=== PATIENT | female | born 1945 | race Caucasian/White ===

== ENCOUNTER → 2021-04-17 07:01 | Outpatient (CLI) | payer MEDICARE, OTHER, SELFPAY ==
--- NOTE | 2021-04-17 07:04 | CA_ITS ---
APPROVED REPORT Pie Maker Machine: [id number] Study Quality: Good Indications: HTN Renal Artery Doppler Origin (R) 160.4/ cm/sec Proximal (R) 165.2/ cm/sec Mid (R) 171.6/ cm/sec Distal (R) 197.3/ cm/sec Renal Aorta Ratio (R) 1.69 Segmental A. (R) / cm/sec RI: 0.71 Segmental A. Sup (R) 43.0/12.0 cm/sec Segmental A. Mid (R) 65.0/19.0 cm/sec Segmental A. Inf (R) 30.0/9.0 cm/sec Origin (L) 129.9/ cm/sec Proximal (L) 157.0/ cm/sec Mid (L) 165.8/ cm/sec Distal (L) 216.9/ cm/sec Renal Aorta Ratio (L) 1.87 Segmental A. (L) / cm/sec RI: 0.71 Segmental A. Sup (L) 45.0/12.0 cm/sec Segmental A. Mid (L) 37.0/11.0 cm/sec Segmental A. Inf (L) 34.0/10.0 cm/sec Renal Measurements Kidney Size (R) 11.3x5.3 cm Cortical Thickness (R) 1.9 cm Kidney Size (L) 11.4x5.7 cm Cortical Thickness (L) 1.5 cm Conclusion No evidence of renal artery stenosis Electronically signed by : Ean Rosales MD 04/17/2021 16:56:24
--- NOTE | 2021-04-17 07:04 | CA_ITS ---
APPROVED REPORT Exam: Pharmacologic Technologist: Megan Smileyde Ht: 5 ft 3 in Wt: 226 lbs BSA: 2.04 m2 HR: 69 bpm BP: 151/82 mmHg Indications: Chest pain Stress Test Details Test: LEXISCAN HR Resting HR: 67 bpm Max Heart Rate (APMHR): 144.154568 bpm Max HR Achieved: 99 bpm Target HR (85% APMHR): 122.915416 bpm % of APMHR: 68.75 Recovery HR: 77 bpm BP Resting BP: 151.0/82.0 mmHg Max BP: 163.0/70.0 mmHg Recovery BP: 149.0/73.0 mmHg ECG Clinical Exercise duration: 04:01 min Highest Stage Achieved: Stress ECG Conclusion Lexiscan portion complete. Patient complains of shortness of breath during peak infusion. Symptoms: Shortness of breath during peak infusion, resolved in recovery. No chest pain. Arrhythmias/Ectopy: No ectopy ST-T Changes: Less than 1.[address] depression. Conclusion: Images to follow. Test Summary REST 02:02 . . 67 . 151/ 82 . . Stage 1 . . . . . . . Myoview Injected Stage 1 01:00 . . 96 . . . . Stage 2 01:00 . . 87 . 162/ 70 . . Stage 3 01:00 . . 85 . 163/ 70 . . Stage 4 01:00 . . 77 . 152/ 76 . . Stage 4 01:01 . . 78 . 152/ 76 . Stop exercise at 04:01 RECOVERY 01:00 . . 80 . 147/ 78 . . RECOVERY 02:00 . . 77 . 149/ 73 . . RECOVERY 03:00 . . 73 . 149/ 73 . . RECOVERY 04:00 . . 71 . 149/ 73 . . RECOVERY 04:04 . . 74 . 149/ 73 . . Electronically signed by : Leonel Mtz MD 04/17/2021 18:10:54
--- NOTE | 2021-04-17 07:04 | NM_ITS ---
APPROVED REPORT Exam: Nuclear Stress Test Indication: Chest pain, Abnormal EKG, HTN, DM, High cholesterol, Family history Patient Location: Outpatient Stress Tech: Megan Pratt [place] Tech:Crystal Zarate, ARRT, RT (R)(N) Ht: 5 ft 3 in Wt: 220 lbs Bra Size: 36C HR: 69 bpm BP: 151/82 mmHg BSA: 2.01 m2 BMI: 38.9 History: Chest pain, Abnormal EKG, HTN, DM, High cholesterol, Family history Procedure: Patient received a 0.4 mg of intravenous Lexiscan, resting heart rate 69 bpm, resting blood pressure 151/82 mmHg, with Lexiscan maximum heart rate achived was 87 bpm which is Less than 85 % of the maximum predicted heart rate and blood pressure was 162/70 mmHg. With Lexiscan, patient denied any complaint of chest pain. Electrocardiogram Resting electrocardiogram showed sinus rhythm, with Lexiscan there is less than 1.[address] segment depression noted from the baseline EKG. The EKG portion of the Lexiscan is nondiagnostic. Cardiac Stress and Resting SPECT Images: Cardiac Stress and Resting SPECT images were obtained using technetium 99m Myoview 32.7 mCi stress and 10.73 mCi at rest. Patient unable to lay on belly for Prone images. Gated SPECT for analysis of segmental wall motion and calculation of the ejection fraction also done. Cardiac stress and resting SPECT images show moderate sized area of reversible ischemia involving the anterolateral wall, computer derived ejection fraction is 57% with no regional wall motion abnormality, there is transient ischemic dilatation of the left ventricle seen, right ventricle is mildly enlarged with normal contractility. Conclusion: 1. The EKG portion of the Lexiscan is nondiagnostic. 2. Scintigraphic evidence of reversible ischemia involving the moderate area in the anterolateral wall, computer derived ejection fraction 57% with no regional wall motion abnormality, however there is transient ischemic dilatation of the left ventricle seen, raising the concerns for balanced ischemia and multivessel coronary artery disease. Right ventricle is mildly enlarged with normal contractility. 3. Abnormal Lexiscan Myoview study. Electronically signed by : Leonel Mtz MD 04/17/2021 18:49:15
--- NOTE | 2021-04-17 07:04 | CA_ITS ---
APPROVED REPORT EXAM: Comprehensive 2D, Doppler, and color-flow Echocardiogram Parts Manager: Melissa Dodson CRT Ht: 5 ft 3 in Wt: 226lbs BSA: 2.04 BP: 172/78 mmHg Indications: Abnormal ECG, Chest Pain, Shortness of Breath, Peripheral Edema 2D Dimensions LVOT 1.91 cm (M/F) 1.5-2.5 M-Mode Dimensions RVDd 2.29 cm (0.9-2.6) LA Diam 4.16 cm (1.9-4.0) LVDd 4.61 cm (3.5-5.7) Ao Diam 3.44 cm (2.0-3.7) LVDs 3.16 cm (3.5-5.7) IVSd 1.85 cm (0.6-1.1) PWd 0.81 cm (0.6-1.1) EF (Teich) 59.40% FS 31.50% EDV (Teich) 97.80 mL TAPSE 1.97 (<1.7) ESV (Teich) 39.70 mL LV Diastology E Decel Time 163.00 (160-240 msec) E/A Ratio 1.55 MED E' 8.20 (< 7 cm/sec) MED A' 6.50 cm/s E'/MED E' Ratio 12.26 (>14) LAT E' 6.80 (<10 cm/sec) LAT A' 5.00 cm/s E/LAT E' Ratio 14.78 (>14) Aortic Valve AO Peak GR. 13.90 mmHg Mitral Valve MV A Velocity 65.00 (40-130 cm/s) E/A Ratio 1.55 MV Decel. Time 163.00 (160-240 ms) Pulmonary Valve PV Peak Velocity 183.00 (50-150 cm/s) Tricuspid Valve TR P. Velocity 289.00 cm/s RAP Estimate 10.00 mmHg RVSP 43.30 mmHg Left Ventricle Left atrium is moderately enlarged, left ventricle is normal size, mild concentric left ventricular hypertrophy, visually estimated ejection fraction 55% with no regional wall motion abnormality, diastolic parameters are inconclusive. Right Ventricle Right atrium and right ventricle mildly enlarged with normal contractility. Aortic Valve Aortic valve is thickened and calcified without Doppler evidence of aortic stenosis or aortic insufficiency. Mitral Valve Mitral valve is grossly normal, there is mild mitral regurgitation. Tricuspid Valve Tricuspid valve grossly normal, there is mild tricuspid regurgitation, tricuspid regurgitation jet velocity is inadequate for calculation of the right ventricular systolic pressure. Pulmonic Valve Pulmonic valve is poorly visualized. Great Vessels Aortic root is normal size. Pericardium No significant pericardial effusion noted. Conclusion 1. Moderately enlarged left atrium, normal left ventricular size, mild concentric left ventricular hypertrophy, visually estimated ejection fraction 55% with no regional wall motion abnormality, diastolic parameters are inconclusive. 2. Mildly enlarged right ventricle with normal contractility. 3. Mild mitral and tricuspid regurgitation. 4. No significant pericardial effusion noted. Electronically signed by : Leonel Mtz MD 04/17/2021 22:09:13
--- NOTE | 2021-04-17 08:38 | HMH.ITSHM ---
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 []PRAVASTATIN METOPROLOL METFORMIN LISINOPRIL HCTZ ASA
== END ==
PROVIDERS: PCP Family Medicine; Visit Provider Physician Assistant
DX: I10 Essential (primary) hypertension (principal); R06.00 Dyspnea, unspecified; R07.9 Chest pain, unspecified; R42 Dizziness and giddiness; R53.83 Other fatigue; R60.0 Localized edema; R94.31 Abnormal electrocardiogram [ECG] [EKG]
CPT/HCPCS: 78452; 93017; 93306; 93976; A9502; J2785

== ENCOUNTER → 2023-07-12 10:53 | Outpatient (CLI) | payer MEDICARE, SELFPAY ==
[2023-07-12 11:56] LABS: Basophils % 0.3 % (0.1-2.0); Eosinophils # 0.2 K/mm3 (0.0-0.4); Eosinophils % 2.2 % (0.1-12.0); Hematocrit 43.7 % (37.0-47.0); Hemoglobin 14.6 g/dL (12.2-16.2); Lymphocytes % 20.1 % (10-50); Mean Corpuscular HGB Conc 33.5 g/dL (31.8-35.4); Mean Corpuscular Hemoglobin 31.3 pg (27.0-31.2); Mean Corpuscular Volume 93.5 fl (81-99); Mean Platelet Volume 9.4 fl (7.4-10.4); Monocytes # 0.7 K/mm3 (0.1-1.0); Monocytes % 6.6 % (1.7-9.3); Neutrophils % 70.8 % (37.0-80.0); Platelet Count 265 K/mm3 (142-424); Red Blood Count 4.67 M/mm3 (4.20-5.40); Red Cell Distribution Width 14.5 % (11.5-17.5); White Blood Count 9.8 K/mm3 (4.8-10.8)
[2023-07-12 12:43] LABS: Alanine Aminotransferase 24 U/L (12-78); Albumin Level 4.1 g/dl (3.5-5.0); Alkaline Phosphatase 57 U/L (38-126); Aspartate Amino Transferase 29 U/L (14-36); Bilirubin,Direct 0.5 mg/dl (0.0-0.4); Bilirubin,Indirect 0.1 mg/dL (0.0-0.9); Bilirubin,Total 0.6 mg/dl (0.2-1.3); Bilirubin,Unconjugated 0.1 mg/dL (0.0-1.1); Blood Urea Nitrogen 12 mg/dl (7-17); Calcium 9.7 mg/dl (8.4-10.2); Carbon Dioxide 24 mmol/L (22.0-30.0); Chloride 99 mmol/L (98-107); Chol/HDL Ratio 3.2 (1-3.5); Cholesterol 176 mg/dl (140-200); Estimated Glomerular Filt Rate 81 ml/min (>60); GFR (African American) 98 ML/MIN (>60); Glucose 142 mg/dl (74-100); HDL Cholesterol 55 mg/dl (40-60); Magnesium 1.6 mg/dl (1.6-2.3); Sodium 135 mmol/L (136-145); Triglycerides 193 mg/dl (30-150); VLDL Cholesterol 39 mg/dL (0-40)
[2023-07-12 13:05] LABS: Free T4 (Free Thyroxine) 1.53 ng/dl (0.78-2.19)
[2023-07-12 13:16] LABS: Thyroid Stimulating Hormone 2.63 uIU/mL (0.465-4.68)
== END ==
PROVIDERS: PCP Nurse Practitioner; Visit Provider Nurse Practitioner Family
DX: E11.9 Type 2 diabetes mellitus without complications (principal); E78.5 Hyperlipidemia, unspecified; I10 Essential (primary) hypertension; I48.91 Unspecified atrial fibrillation; R06.00 Dyspnea, unspecified; R94.39 Abnormal result of other cardiovascular function study; G47.33 Obstructive sleep apnea (adult) (pediatric); Z79.84 Long term (current) use of oral hypoglycemic drugs
CPT/HCPCS: 36415; 80048; 80061; 80076; 83735; 84439; 84443; 85025

== ENCOUNTER 2023-07-18 08:19 | Day surgery (SDC) | payer MEDICARE, SELFPAY ==
[2023-07-18] VITALS (12 sets, daily range): BP systolic 102–160; BP diastolic 31–116; PULSE 87–130; RESP 16–20; O2SAT 91–96; BMI 39.6
--- NOTE | 2023-07-18 07:09 | IR_ITS ---
APPROVED REPORT Patient Location: Outpatient PROCEDURES Left heart catheterization Left ventriculogram Selective coronary angiogram INDICATION Angina pectoris, Abnormal Myoview Informed consent was obtained prior to the procedure. COMPLICATIONS None Estimated Blood Loss: Less than10 mls TECHNIQUE One percent lidocaine was used to anesthetize the right groin. The right femoral artery was accessed via the Seldinger technique. A 4-Gabonese sheath was placed in the right femoral artery. The JL-4 and JR-4 catheter was also used to perform left heart catheterization left ventriculogram and selective coronary angiogram. At the end of the procedure the patient was transferred to the post-op holding area in stable condition for arterial sheath removal. ANGIOGRAPHIC RESULTS The left main artery Normal The left anterior descending artery Is a proximal smooth 20 to 30% proximal to mid vessel stenosis The circumflex artery Dominant with mild 10% luminal irregularities The right coronary artery Nondominant with proximal 10 to 20% luminal irregularities The RODRIGUEZ ventriculogram reveals Hyperdynamic at 70% The left ventricular end-diastolic pressure 10 mmHg IMPRESSION Mild nonflow limiting coronary disease Hyperdynamic ventricle consistent with hypertensive heart disease Normal LVEDP PLAN 1. Treatment of underlying hypertension which is likely etiology for patient's chest pain Electronically signed by : Johnny Bolton MD 07/18/2023 11:53:02
[2023-07-18 09:09] LABS: Basophils # 0.1 K/mm3 (0-0.2); Basophils % 0.6 % (0.1-2.0); Eosinophils # 0.3 K/mm3 (0.0-0.4); Eosinophils % 2.3 % (0.1-12.0); Hematocrit 48.2 % (37.0-47.0); Hemoglobin 16.6 g/dL (12.2-16.2); Lymphocytes % 19.2 % (10-50); Mean Corpuscular HGB Conc 34.5 g/dL (31.8-35.4); Mean Corpuscular Hemoglobin 31.2 pg (27.0-31.2); Mean Corpuscular Volume 90.4 fl (81-99); Mean Platelet Volume 9.3 fl (7.4-10.4); Monocytes # 0.7 K/mm3 (0.1-1.0); Monocytes % 6.2 % (1.7-9.3); Neutrophils # 7.6 K/mm3 (1.8-7.8); Neutrophils % 71.8 % (37.0-80.0); Platelet Count 281 K/mm3 (142-424); Red Blood Count 5.33 M/mm3 (4.20-5.40); Red Cell Distribution Width 14.3 % (11.5-17.5); White Blood Count 10.5 K/mm3 (4.8-10.8)
[2023-07-18 09:18] LABS: Chloride 97 mmol/L (98-107); Potassium 3.8 mmoL/L (3.5-5.1); Sodium 138 mmol/L (136-145)
[2023-07-18 09:21] LABS: Anion Gap 12.8 mEq/L (5-15); Blood Urea Nitrogen 14 mg/dl (7-17); Calcium 9.7 mg/dl (8.4-10.2); Carbon Dioxide 32 mmol/L (22.0-30.0); Creatinine Clearance Estimated 73 mL/min (50-200); Estimated Glomerular Filt Rate 69 ml/min (>60); GFR (African American) 84 ML/MIN (>60); Glucose 196 mg/dl (74-100)
--- NOTE | 2023-07-18 15:02 | SUR.PHASEII ---
Md notified of BP and HR stated ok with discharge
== END 2023-07-18 15:03 | disposition home or self-care (01) ==
PROVIDERS: PCP Nurse Practitioner; Visit Provider Internal Medicine
DX: I11.9 Hypertensive heart disease without heart failure (principal); I48.91 Unspecified atrial fibrillation; R06.00 Dyspnea, unspecified; R94.39 Abnormal result of other cardiovascular function study; E11.9 Type 2 diabetes mellitus without complications; Z79.84 Long term (current) use of oral hypoglycemic drugs; Z79.899 Other long term (current) drug therapy; I25.10 Atherosclerotic heart disease of native coronary artery without angina pectoris
CPT/HCPCS: 80048; 85025; 93458; 99152; C1725; C1769; J1644; Q9967

== ENCOUNTER → 2023-07-24 14:07 | Outpatient (CLI) | payer MEDICARE, SELFPAY ==
--- NOTE | 2023-07-24 14:13 | XR_ITS ---
FINAL REPORT CLINICAL HISTORY: dyspnea/rib pain left side FINDINGS: Left ribs Two views were obtained. There is no acute fracture or dislocation. No soft tissue abnormality is identified. IMPRESSION: No acute process. Reviewed, Interpreted and Dictated by Rolando Fields III, MD Transcribed by Erika Parikh Authenticated and [facility]
--- NOTE | 2023-07-24 14:13 | XR_ITS ---
FINAL REPORT CLINICAL HISTORY: dyspnea/rib pain FINDINGS: TWO-VIEW CHEST The heart size is normal. The mediastinum is normal. There is mild right base atelectasis. Large hiatal hernia is identified. There is no pneumothorax. IMPRESSION: Right base atelectasis. Reviewed, Interpreted and Dictated by Rolando Fields III, MD Transcribed by Erika Parikh Authenticated and [facility]
== END ==
LOC: RAD 14:09
PROVIDERS: Visit Provider Nurse Practitioner
DX: I11.9 Hypertensive heart disease without heart failure (principal); I25.118 Atherosclerotic heart disease of native coronary artery with other forms of angina pectoris; I48.91 Unspecified atrial fibrillation; R06.00 Dyspnea, unspecified; R94.39 Abnormal result of other cardiovascular function study; E78.5 Hyperlipidemia, unspecified; E11.9 Type 2 diabetes mellitus without complications; Z79.84 Long term (current) use of oral hypoglycemic drugs
CPT/HCPCS: 71046; 71100

== ENCOUNTER 2023-12-03 10:41 | Inpatient (IN) | payer MEDICARE, SELFPAY ==
[2023-12-03] VITALS (32 sets, daily range): BP systolic 70–179; BP diastolic 38–115; PULSE 78–187; RESP 20–27; TEMP 36.1–37.1; O2SAT 81–100; BMI 32.4; BMI 36.3
--- NOTE | 2023-12-03 10:48 | ECG_ITS ---
APPROVED REPORT Exam: Resting ECG HR:191 bpm ECG Measurements Heart Rate 191 AXES QRSd 85 QRS 116 QT 201 T 0 QTc 299 Conclusion ATRIAL FIBRILLATION WITH RAPID VENTRICULAR RESPONSE WITH ABERRANT CONDUCTION OR VENTRICULAR PREMATURE COMPLEXES POSSIBLE RIGHT VENTRICULAR HYPERTROPHY [SOME/ALL OF: PROMINENT R IN V1, LATE TRANSITION, RAD, ROSIE, SSS] SEPTAL MYOCARDIAL INFARCTION , PROBABLY OLD [40+ ms Q WAVE IN V1/V2] LATERAL MYOCARDIAL INFARCTION , PROBABLY OLD [40+ ms Q WAVE AND/OR ST/T ABNORMALITY IN I/aVL/V5/V6] CRITICAL TEST RESULT WARNING: DATA QUALITY MAY AFFECT INTERPRETATION UNCONFIRMED REPORT Electronically signed by : MATTHIEU OLIVARES, 12/04/2023 06:10:10
--- NOTE | 2023-12-03 10:58 | PC.NURSE ---
Dr. Macario notified at bedside of critical ABG/Lactic results. is in the process of intubating pt.
[2023-12-03 11:00] LABS: ABG Base Excess -15.4 mmol/L (-2.4-2.3); ABG Oxygen Saturation 81 % (90-100); ABG PO2 68.4 mmhg (80-100); ABG TCO2 18.1 mmhg (23-27)
[2023-12-03] MEDS: ETOMIDATE 40MG/20ML VIAL 30 MG IV (11:01)
--- NOTE | 2023-12-03 11:07 | ECG_ITS ---
APPROVED REPORT Exam: Resting ECG HR:131 bpm ECG Measurements Heart Rate 131 AXES CO 175 P 81 QRSd 86 QRS 101 QT 364 T 101 QTc 441 Conclusion SINUS TACHYCARDIA RIGHT AXIS DEVIATION [QRS AXIS > 100] SEPTAL MYOCARDIAL INFARCTION , PROBABLY OLD [40+ ms Q WAVE IN V1/V2] MODERATE T-WAVE ABNORMALITY, CONSIDER LATERAL ISCHEMIA [-0.1+ mV T-WAVE IN I/aVL/V5/V6] ABNORMAL ECG UNCONFIRMED REPORT Electronically signed by : MATTHIEU OLIVARES, 12/04/2023 06:09:50
[2023-12-03] MEDS: 0.9 % SODIUM CHLORIDE 1000ML 1,000 ML 999 ML IV (11:10)
--- NOTE | 2023-12-03 11:10 | CT_ITS ---
PROCEDURE INFORMATION: Exam: CTA Chest With Contrast Exam date and time: 12/03/2023 1:12 PM Age: 78 years old Clinical indication: Other: AMS; Additional info: AMS, concern for dissection TECHNIQUE: Imaging protocol: Computed tomographic angiography of the chest with contrast. Exam focused on the arteries. 3D rendering (Not supervised by radiologist): MIP and/or 3D reconstructed images were created by the technologist. Radiation optimization: All CT scans at this facility use at least one of these dose optimization techniques: automated exposure control; mA and/or kV adjustment per patient size (includes targeted exams where dose is matched to clinical indication); or iterative reconstruction. Contrast material: ISOVUE; Contrast volume: 100 ml; Contrast route: INTRAVENOUS (IV); COMPARISON: CR XR CHEST PORTABLE 12/03/2023 11:13 AM FINDINGS: Tubes, catheters and devices: There is an endotracheal tube 4 cm above the antonio. There is a feeding tube with its tip in the stomach. Pulmonary arteries: Good pulmonary arterial opacification without evidence of pulmonary emboli on these 3.5 mm thick images which are larger than normal for an adequate pulmonary embolism study. Aorta: There is no evidence of an aortic aneurysm or dissection. Mild aortic calcifications. Lungs: Bilateral pulmonary infiltrates, diffuse. Summer more ground-glass and consolidative. This could represent pulmonary edema. Bibasilar consolidations suggestive of compressive atelectasis. Pleural spaces: Moderate to large bilateral pleural effusions. Heart: The heart size is at the upper limits of normal. Lymph nodes: Unremarkable. No enlarged lymph nodes. Bones/joints: Unremarkable. No acute fracture. Soft tissues: Unremarkable. IMPRESSION: 1. Findings suggest fluid overload and/or some degree of heart failure. 2. Endotracheal tube and feeding tube. 3. There is no aortic dissection or aneurysm.
--- NOTE | 2023-12-03 11:10 | CT_ITS ---
PROCEDURE INFORMATION: Exam: CTA Neck With Contrast Exam date and time: 12/03/2023 1:08 PM Age: 78 years old Clinical indication: Other: AMS; Additional info: AMS, HTN, tachycardia TECHNIQUE: Imaging protocol: Computed tomographic angiography of the neck with contrast. Exam focused on the cervical segments of the vasculature. 3D rendering (Not supervised by radiologist): MIP and/or 3D reconstructed images were created by the technologist. Radiation optimization: All CT scans at this facility use at least one of these dose optimization techniques: automated exposure control; mA and/or kV adjustment per patient size (includes targeted exams where dose is matched to clinical indication); or iterative reconstruction. Contrast material: ISOVUE; Contrast volume: 100 ml; Contrast route: INTRAVENOUS (IV); COMPARISON: CT ANGIO HEAD 12/03/2023 1:08 PM FINDINGS: The patient is intubated and there is an enteric tube. Motion artifact somewhat degrades evaluation of the arteries. Right common carotid artery: No stenosis. No dissection or occlusion. Right internal carotid artery: No stenosis of the extracranial segment. No dissection or occlusion. Right external carotid artery: No occlusion or stenosis of the origin. Left common carotid artery: No stenosis. No dissection or occlusion. Left internal carotid artery: No stenosis of the extracranial segment. No dissection or occlusion. Left external carotid artery: No occlusion or stenosis of the origin. Right vertebral artery: No stenosis. No dissection or occlusion. Left vertebral artery: No stenosis. No dissection or occlusion. Soft tissues: There are large bilateral pleural effusions with consolidation and air bronchogram in both upper lobes as well as diffuse interstitial edema. There is heterogeneous enlargement of the right lobe of the thyroid gland. Bones/joints: No acute fracture. IMPRESSION: No significant stenoses of the internal carotid arteries by NASCET criteria. Large bilateral pleural effusions with consolidation in both upper lobes which may be due to pneumonia/aspiration among other etiologies. REFERENCES: NASCET CRITERIA. The degree of stenosis in the cervical segment of the internal carotid artery is based on NASCET criteria. Normal is no stenosis. Mild is less than 50% stenosis. Moderate is 50-69% stenosis. Severe is 70% to 99% stenosis. Total occlusion is no detectable patent lumen.
--- NOTE | 2023-12-03 11:10 | CT_ITS ---
PROCEDURE INFORMATION: Exam: CTA Head With Contrast, Arteriography Exam date and time: 12/03/2023 1:08 PM Age: 78 years old Clinical indication: Other: AMS; Additional info: AMS, concern for dissection TECHNIQUE: Imaging protocol: Computed tomographic angiography of the head with contrast. Exam focused on the arteries. 3D rendering (Not supervised by radiologist): MIP and/or 3D reconstructed images were created by the technologist. Radiation optimization: All CT scans at this facility use at least one of these dose optimization techniques: automated exposure control; mA and/or kV adjustment per patient size (includes targeted exams where dose is matched to clinical indication); or iterative reconstruction. Contrast material: ISOVUE; Contrast volume: 100 ml; Contrast route: INTRAVENOUS (IV); COMPARISON: CT HEAD/BRAIN WO CON 12/03/2023 1:05 PM FINDINGS: Limitations: Motion artifact somewhat degrades evaluation of the arteries. There is somewhat poor opacification of the intracranial arteries. ANTERIOR CIRCULATION: Right internal carotid artery: There appears to be mild irregularity of the terminal segment but this may be due to motion artifact. Right middle cerebral artery: No occlusion or significant stenosis. No aneurysm. Right anterior cerebral artery: The A1 segment is not well assessed which appears to be due to motion artifact but it may be atretic with the A2 segment constituted from the left A1 via a patent anterior communicating artery. Left internal carotid artery: Intracranial segment is patent with no significant stenosis. No aneurysm. Left middle cerebral artery: No occlusion or significant stenosis. No aneurysm. Left anterior cerebral artery: No occlusion or significant stenosis. No aneurysm. POSTERIOR CIRCULATION: Right vertebral artery: No occlusion or significant stenosis. No aneurysm. Left vertebral artery: No occlusion or significant stenosis. No aneurysm. Basilar artery: No occlusion or significant stenosis. No aneurysm. Right posterior cerebral artery: No occlusion or significant stenosis. No aneurysm. Left posterior cerebral artery: No occlusion or significant stenosis. No aneurysm. No venous sinus thrombosis. Brain: No definite mass, mass effect, or midline shift. Cerebral ventricles: The ventricles appear mildly enlarged, but not out of proportion to the degree of parenchymal volume loss. Bones/joints: Unremarkable. No acute fracture. Soft tissues: There appears to be a small amount of fluid layering in a left sphenoid air cell. IMPRESSION: No large vessel occlusion.
--- NOTE | 2023-12-03 11:11 | CT_ITS ---
PROCEDURE INFORMATION: Exam: CTA Abdomen and Pelvis With Contrast Exam date and time: 12/03/2023 1:12 PM Age: 78 years old Clinical indication: Other: Concern for dissection TECHNIQUE: Imaging protocol: Computed tomographic angiography of the abdomen and pelvis with contrast. Exam focused on the arteries. 3D rendering (Not supervised by radiologist): MIP and/or 3D reconstructed images were created by the technologist. Radiation optimization: All CT scans at this facility use at least one of these dose optimization techniques: automated exposure control; mA and/or kV adjustment per patient size (includes targeted exams where dose is matched to clinical indication); or iterative reconstruction. Contrast material: ISOVUE; Contrast volume: 100 ml; Contrast route: INTRAVENOUS (IV); COMPARISON: CT ANGIO CHEST 12/03/2023 1:12 PM FINDINGS: Tubes, catheters and devices: There is a feeding tube with tip in the stomach. Aorta: No evidence of an aortic aneurysm. No evidence of an aortic dissection. Mild trace peripheral calcifications of the aorta. Celiac trunk and mesenteric arteries: The superior mesenteric artery is unremarkable. The inferior mesenteric artery is patent. The celiac artery is difficult to evaluate being due to 4 mm sagittal reconstructed images. There could be volume averaging effect and a 50+ % stenosis cannot be excluded. Renal arteries: No occlusion or significant stenosis. Right iliac arteries: No occlusion or significant stenosis. Left iliac arteries: No occlusion or significant stenosis. Liver: Large fatty liver 200 mm. Gallbladder and bile ducts: Unremarkable. No calcified stones. No ductal dilation. Pancreas: Unremarkable. No mass. No ductal dilation. Spleen: Unremarkable. No splenomegaly. Adrenal glands: Unremarkable. No mass. Kidneys and ureters: Hypodensities seen in both kidneys presumably small cysts but are indeterminate given the artifact. Stomach and bowel: Numerous colonic diverticula without acute diverticulitis. Appendix: No evidence of appendicitis. Intraperitoneal space: Unremarkable. No free air. No significant fluid collection. Lymph nodes: Unremarkable. No enlarged lymph nodes. Urinary bladder: Dejesus catheter with air in the urinary bladder. Reproductive: Unremarkable as visualized. Bones/joints: No acute fracture. Soft tissues: There is artifact, from the patient's arms scanned by her side. Other findings: The chest will be discussed in a separate examination. IMPRESSION: 1. No evidence of aortic aneurysm and/or dissection. 2. Due to coronal reconstructions being 4 mm thick I cannot exclude a 50+ % stenosis of the celiac artery however, there is no evidence of abnormality of the other arteries. 3. Fatty liver. 4. Feeding tube. 5. Indeterminate bilateral renal lesions possibly cysts. They are indeterminate due to artifact from the patient's arms. However these are all under 1 cm and statistically presumed cysts. 6. Colonic diverticulosis.
--- NOTE | 2023-12-03 11:11 | CT_ITS ---
PROCEDURE INFORMATION: Exam: CT Head Without Contrast Exam date and time: 12/03/2023 1:05 PM Age: 78 years old Clinical indication: Altered mental status/memory loss; Additional info: AMS intubation TECHNIQUE: Imaging protocol: Computed tomography of the head without contrast. Radiation optimization: All CT scans at this facility use at least one of these dose optimization techniques: automated exposure control; mA and/or kV adjustment per patient size (includes targeted exams where dose is matched to clinical indication); or iterative reconstruction. COMPARISON: No relevant prior studies available. FINDINGS: Brain: Periventricular white matter tract changes demonstrated. Mild-moderate prominence of the cortical sulci. Cerebral ventricles: No ventriculomegaly. Paranasal sinuses: Visualized sinuses are unremarkable. No fluid levels. Mastoid air cells: Visualized mastoid air cells are well aerated. Bones/joints: Unremarkable. No acute fracture. Soft tissues: Unremarkable. IMPRESSION: 1. Findings compatible with moderate intracerebral volume loss. Minimal sphenoid sinus inflammatory changes. 2. No evidence of acute intracranial abnormality.
--- NOTE | 2023-12-03 11:12 | XR_ITS ---
PROCEDURE INFORMATION: Exam: XR Chest Exam date and time: 12/03/2023 11:13 AM Age: 78 years old Clinical indication: Device placement; Ett placement (vent status); Additional info: Intubatin TECHNIQUE: Imaging protocol: Radiologic exam of the chest. Views: 1 view. COMPARISON: CR XR CHEST 2V 07/24/2023 2:14 PM FINDINGS: Tubes, catheters and devices: Interpretation limited secondary to technique and external monitors. ET tube demonstrated. Tip located 4.5 cm above the bifurcation. Lungs: Patchy diffuse bilateral interstitial and alveolar infiltrates partially visualized. Pleural spaces: Unremarkable. No pleural effusion. No pneumothorax. Heart/Mediastinum: Unremarkable. No cardiomegaly. Bones/joints: Unremarkable. IMPRESSION: 1. ET tube demonstrated. Tip located 4.5 cm above the bifurcation. 2. Patchy diffuse bilateral interstitial and alveolar infiltrates partially visualized.
[2023-12-03] MEDS: propofoL 100 ML 2.81999999999999984 MG IV (11:20)
[2023-12-03] MEDS: IPRATROPIUM/ALBUTEROL 3 ML NEB 20 ML IH (11:21)
[2023-12-03 11:24] LABS: Chloride 105 mmol/L (98-107)
[2023-12-03 11:25] LABS: Basophils # 0.1 K/mm3 (0-0.2); Basophils % 0.8 % (0.1-2.0); Eosinophils # 0.1 K/mm3 (0.0-0.4); Eosinophils % 0.9 % (0.1-12.0); Hematocrit 50.7 % (37.0-47.0); Hemoglobin 15.4 g/dL (12.2-16.2); Lymphocytes # 3.2 K/mm3 (0.7-4.5); Lymphocytes % 25.5 % (10-50); Mean Corpuscular HGB Conc 30.5 g/dL (31.8-35.4); Mean Corpuscular Hemoglobin 30.8 pg (27.0-31.2); Monocytes # 0.8 K/mm3 (0.1-1.0); Monocytes % 6.3 % (1.7-9.3); Neutrophils # 8.3 K/mm3 (1.8-7.8); Neutrophils % 66.4 % (37.0-80.0); Platelet Count 309 K/mm3 (142-424); Potassium 3.7 mmoL/L (3.5-5.1); Red Blood Count 5.02 M/mm3 (4.20-5.40); Sodium 136 mmol/L (136-145); White Blood Count 12.5 K/mm3 (4.8-10.8)
[2023-12-03 11:27] LABS: Alanine Aminotransferase 36 U/L (12-78); Alkaline Phosphatase 103 U/L (38-126); Aspartate Amino Transferase 39 U/L (14-36); Bilirubin,Total 1.2 mg/dl (0.2-1.3); Blood Urea Nitrogen 8 mg/dl (7-17); Estimated Glomerular Filt Rate 96 ml/min (>60); GFR (African American) 117 ML/MIN (>60)
[2023-12-03 11:28] LABS: Albumin Level 3.9 g/dl (3.5-5.0); Albumin/Globulin Ratio 1.2 (1.1-1.8); Anion Gap 14.7 mEq/L (5-15); Carbon Dioxide 20 mmol/L (22.0-30.0); Globulin 3.3 g/dL (1.3-3.2); Total Protein,Serum 7.2 g/dl (6.3-8.2)
[2023-12-03 11:29] LABS: Glucose 465 mg/dl (74-100)
--- NOTE | 2023-12-03 11:30 | PC.NURSE ---
LAB CALLED WITH CRITICAL GLUCOSE [phone]
--- NOTE | 2023-12-03 11:34 | EXP.PHA.CONS ---
Pharmacy Consult Date: 12/03/23 Time: 11:34 Referring provider: DR. CLAYTON Reason for Consult:: VANCOMYCIN DOSING Allergies Allergy/AdvReac Type Severity Reaction Status Date / Time No Known Allergies Allergy Verified 07/24/23 13:15 Home Medications Medication Instructions Recorded Confirmed Type lisinopril 40 mg tablet 40 mg PO DAILY 04/10/21 07/24/23 History pravastatin 80 mg tablet 80 mg PO HS 04/10/21 07/24/23 History hydrochlorothiazide 25 mg tablet 25 mg PO DAILY #30 tabs 04/24/21 07/24/23 Rx apixaban 5 mg tablet (Eliquis) 5 mg PO BID #60 tabs 07/12/23 07/24/23 Rx cyanocobalamin (vitamin B-12) 1,000 mcg PO DAILY 07/12/23 07/24/23 History 1,000 mcg tablet (Vitamin B-12) ergocalciferol (vitamin D2) 1,250 1,250 mcg PO DAILY 07/12/23 07/24/23 History mcg (50,000 unit) capsule (Vitamin D2) glipizide 10 mg tablet 10 mg PO DAILY 07/12/23 07/24/23 History metformin 500 mg tablet 1,000 mg PO BID 07/12/23 07/24/23 History metoprolol succinate 100 mg 50 mg PO BID 07/12/23 07/24/23 History tablet,extended release 24 hr (Toprol XL) diltiazem HCl 240 mg 240 mg PO BID #60 caps 07/24/23 07/24/23 Rx capsule,extended release 24 hr New Prescriptions to Start Prescriptions: Height: 1.7 m Weight: 94 kg Laboratory Results:: Laboratory Results - last 24 hr 12/03/23 11:07: Sodium 136, Potassium 3.7, Chloride 105, Carbon Dioxide 20 L, Anion Gap 14.7, BUN 8, Creatinine 0.60, Estimated GFR 96, Est GFR ( Amer) 117, Glucose 465 H*, Calcium 9.0, Total Bilirubin 1.2, AST 39 H, ALT 36, Alkaline Phosphatase 103, Total Protein 7.2, Albumin 3.9, Globulin 3.3 H, Albumin/Globulin Ratio 1.2 Medical History: Medical History (Updated 07/24/23 @ 13:46 by Yakelin Calle RN) Coronary artery disease Atypical angina Afib Abnormal stress test HLD (hyperlipidemia) HTN (hypertension) Abnormal result of cardiovascular function study Dyspnea YOLANDE (obstructive sleep apnea) Assessment and Plan Assessment and plan all Dx Assessment and Plan for all problems:: Pharmacokinetic dosing service Objective: Patient: Floor: Age: 78 yo Serum creatinine: 1 mg/dL Height: 67.0 Inches Weight (kg): 94 Assessment: IBW (kg): 61.60 Dosing wt(kg): 94 Estimated Creatinine clearance (ml/min): 44.4 CRCL method: Cockcroft and Gault using ibw(default). Drug selected: Vancomycin Loading dose (mg): 0 Vd (liters): 75.2 (factor used: 0.8 L/kg) Yousuf (hr-1): 0.041 Half life (hrs): 16.91 Recommended dose: 1750 mg Interval: 24 hrs Infusion time (hrs): 2.0 Predicted peak (mcg/mL): 35.7 Predicted trough (mcg/mL): 14.49 Total body weight is being used for vancomycin dosing. Recommendations: Give Vancomycin 1750 mg q 24 hrs with an expected Cpeak of 35.7 mcg/ml and an expected Ctrough of 14.49 mcg/ml ----Vanco only - ignore for aminoglycosides----- CLvanco= 3.08 L/hr AUC 0-24 /SAUL Data: SAUL 0.5 mcg/mL: AUC/SAUL: 1136.4 SAUL 1.0 mcg/mL: AUC/SAUL: 568.2 --------- SALU 1.5 mcg/mL: AUC/SAUL: 378.8 SAUL 2.0 mcg/mL: AUC/SAUL: 284.1
[2023-12-03] MEDS: ETOMIDATE 40MG/20ML VIAL 10 MG IV (11:36)
[2023-12-03] MEDS: SUCCINYLCHOLINE 20MG/ML 10 ML MDV 150 MG IV (11:36)
[2023-12-03 11:37] LABS: NT Pro Brain Natriuretic Pep. 2540 pg/mL (0-450)
[2023-12-03] MEDS: VANCOMYCIN CONSULT REQUEST 1 EACH NOTAPPLIC (11:37)
[2023-12-03 11:42] LABS: Troponin I < 0.01 ng/ml (0.00-0.034)
[2023-12-03 11:45] LABS: Activated Partial Thrombo Time 22.2 seconds (22.8-30.6)
--- NOTE | 2023-12-03 11:45 | [facility]H.EDCP ---
Discharge Plan Disposition Patient Disposition: Admitted Chief Complaint: Shortness of Breath/Dyspnea Prescriptions Prescriptions: No Action hydrochlorothiazide 25 mg tablet 25 mg PO DAILY Qty: 30 3RF pravastatin 80 mg tablet 80 mg PO HS lisinopril 40 mg tablet 40 mg PO DAILY metformin 500 mg tablet 1,000 mg PO BID cyanocobalamin (vitamin B-12) [Vitamin B-12] 1,000 mcg tablet 1,000 mcg PO DAILY Patient Comments: TAKE ONE TABLET BY MOUTH EVERY DAY ergocalciferol (vitamin D2) [Vitamin D2] 1,250 mcg (50,000 unit) capsule 1,250 mcg PO DAILY Patient Comments: take 1 capsule by mouth once a week metoprolol succinate [Toprol XL] 100 mg tablet extended release 24 hr 50 mg PO BID glipizide 10 mg tablet 10 mg PO DAILY Patient Comments: TAKE ONE TABLET BY MOUTH EVERY DAY Eliquis 5 mg tablet 5 mg PO BID Qty: 60 11RF diltiazem HCl 240 mg capsule,extended release 24hr 240 mg PO BID Qty: 60 3RF Referrals Follow up/Referrals: Provider,Referral, MD [Primary Care Provider] - See instructions Clinical Impressions Clinical Impression: CHF exacerbation, Atrial fibrillation with rapid ventricular response, Acute hypoxemic respiratory failure, Acute cardiac pulmonary edema Discharge ED Provider: Naveen Macario HPI General Chief Complaint: Shortness of Breath/Dyspnea Stated Complaint: Afib RVR new onset, SOA Time Seen by Provider: 12/03/23 10:45 Mode of Arrival: EMS Source of Information: Patient Limitations: No Limitations Description of Symptoms (Recalled from ER Triage Doc. by RN): pt to ed via ems c/o SOA. per ems pt was able to walk to the stretcher and declined in route. pt arrived 82% on a nonrebreather. pt unable to answer any questions at this time. History of Present Illness HPI narrative: 78-year-old patient with hypertension, hyperlipidemia, on Eliquis, CHF presenting with shortness of breath and palpitations. Called to home for shortness of breath. Walk to stretcher, but weak, pale, around 80% on nonrebreather. Patient was brought to the emergency department for further evaluation. Glucose with EMS was 182. On arrival, patient unable to answer question and in more than partial word sentences and intermittently uncooperative with exam. Tachycardic, pale, short of breath. 81% on 15 nonrebreather. Pulses are equal and symmetric. Please note that above description of symptoms, in this electronic medical record under categorization of recalled from ER triage doctor by RN are reflective of an initial nursing assessment, however, is not reflective of my full history and physical exam that was personally taken and clarified. Consequentially, this preceding description of symptoms, which may include the patient's categorized chief complaint in the EMR, do not reflect my personal clinical impression, and the ultimate description of history of present illness and patient stated complaints should be deferred to this section of the note. Unless stated otherwise or congruent with this section of the note, additional signs, symptoms, or incongruence should be interpreted as inaccurate with my clinical impression. Related Data Home Medications Medication Instructions Recorded Confirmed lisinopril 40 mg tablet 40 mg PO DAILY 04/10/21 07/24/23 pravastatin 80 mg tablet 80 mg PO HS 04/10/21 07/24/23 cyanocobalamin (vitamin B-12) 1,000 mcg PO DAILY 07/12/23 07/24/23 1,000 mcg tablet (Vitamin B-12) ergocalciferol (vitamin D2) 1,250 1,250 mcg PO DAILY 07/12/23 07/24/23 mcg (50,000 unit) capsule (Vitamin D2) glipizide 10 mg tablet 10 mg PO DAILY 07/12/23 07/24/23 metformin 500 mg tablet 1,000 mg PO BID 07/12/23 07/24/23 metoprolol succinate 100 mg 50 mg PO BID 07/12/23 07/24/23 tablet,extended release 24 hr (Toprol XL) Previous Rx's Medication Instructions Recorded hydrochlorothiazide 25 mg tablet 25 mg PO DAILY #30 tabs 04/24/21 apixaban 5 mg tablet (Eliquis) 5 mg PO BID #60 tabs 07/12/23 diltiazem HCl 240 mg 240 mg PO BID #60 caps 07/24/23 capsule,extended release 24 hr Allergies Allergy/AdvReac Type Severity Reaction Status Date / Time No Known Allergies Allergy Verified 07/24/23 13:15 [facility] Disclaimer: The information contained in this section may have been updated after the patient was seen, as this information can be updated by other users. Medical History (Updated 12/03/23 @ 14:33 by Naveen Macario MD) Coronary artery disease Atypical angina Afib Abnormal stress test HLD (hyperlipidemia) HTN (hypertension) Abnormal result of cardiovascular function study Dyspnea YOLANDE (obstructive sleep apnea) Family History Other No significant family history Social History Smoking Status: Unknown if ever smoked alcohol intake: current current occupational status: other Travel in the last 8 weeks: Inside the [place] ROS Obtained: Yes All systems reviewed & no additional complaints except as documented Physical Exam General General appearance: alert, in distress, obese and other (Cyanotic, pale, diaphoretic) Neck Neck exam: Present trachea midline Chest Chest inspection: Present normal inspection and symmetric chest wall rise Respiratory Respiratory exam: Present respiratory distress, accessory muscle use, prolonged expiratory phase and other; Absent normal lung sounds bilaterally, wheezes or stridor Cardiovascular Cardiovascular exam: Present tachycardia and irregular rhythm Abdominal Exam Abdominal exam: Present soft; Absent distention Extremities Exam Extremities exam: Present edema (Tube is not) Neurological Exam Neurological exam: Present alert, oriented X3 and CN II-XII intact Skin Skin exam: Present cyanosis, diaphoresis and pallor; Absent warm or dry HEART Score HEART Score HEART Score assessment performed?: Yes HEART Score: 6 Procedures Limited Ultrasound Indication:: Limited cardiac ultrasound Indication: A-fib RVR, shortness of breath Identified cardiac views: -Cardiac parasternal long axis -Cardiac parasternal short axis -Cardiac apical four-chamber Findings: -Cardiac activity present and grossly hypodynamic -Gross wall motion normal -Pericardial effusion absent -Right heart strain present Impression: -Grossly hypodynamic heart with evidence of right heart strain. No evidence of effusion Images were saved to permanent archive The study was technically adequate CPT: 75887 This study was performed by me, and I personally interpreted all images/videos. Based on my clinical judgement, these images were adequate and did necessitate further imaging. Critical Care Critical Care Time Critical Care Time: Yes (CP) Attestation: On 12/03/23, the high probability of a clinically significant, sudden or life threatening deterioration of the following system(s) required my full and direct attention, intervention and personal management. The time I documented below is in addition to time spent performing reported procedures but includes the following listed in this critical care notation. Total Time Total Critical Care Time: 120 Medical Decision Making Medical Records Medical records reviewed: Yes I reviewed the patient's medical records. John Inquiry Pt receiving controlled substance: No John was queried for this patient: No Vital Signs Vital Signs: 12/03/23 11:02 12/03/23 11:12 12/03/23 11:24 Pulse Rate 134 H 135 H Pulse Rate [Left Radial] 187 H Respiratory Rate 20 27 H Blood Pressure 122/105 H Blood Pressure [Right Arm] 179/115 H Blood Pressure Mean 110 Blood Pressure Mean [Right Arm] 136 02 Sat by Pulse Oximetry 99 81 L Oxygen Delivery Method Mechanical Ventilation Non-Rebreather Oxygen Flow Rate (LPM) 15 12/03/23 11:24 12/03/23 12:00 12/03/23 12:30 Pulse Rate 139 H 142 H 126 H Pulse Rate [Left Radial] Respiratory Rate 20 Blood Pressure 108/59 L 105/52 L Blood Pressure [Right Arm] Blood Pressure Mean 75 62 Blood Pressure Mean [Right Arm] 02 Sat by Pulse Oximetry 98 96 Oxygen Delivery Method Mechanical Ventilation Oxygen Flow Rate (LPM) 12/03/23 12:40 12/03/23 12:50 12/03/23 13:34 Pulse Rate 124 H 124 H 170 H Pulse Rate [Left Radial] Respiratory Rate 22 Blood Pressure 104/53 L 106/46 L 70/45 L Blood Pressure [Right Arm] Blood Pressure Mean 65 64 48 Blood Pressure Mean [Right Arm] 02 Sat by Pulse Oximetry 92 L 98 97 Oxygen Delivery Method Mechanical Ventilation Mechanical Ventilation Mechanical Ventilation Oxygen Flow Rate (LPM) 12/03/23 13:58 12/03/23 14:10 Pulse Rate 92 H 78 Pulse Rate [Left Radial] Respiratory Rate 22 22 Blood Pressure 84/41 L 81/47 L Blood Pressure [Right Arm] Blood Pressure Mean 60 55 Blood Pressure Mean [Right Arm] 02 Sat by Pulse Oximetry 97 97 Oxygen Delivery Method Mechanical Ventilation Mechanical Ventilation Oxygen Flow Rate (LPM) Lab Data Labs: Lab Results 12/03/23 10:58: Specimen Source Right brachial, O2 % Nrb, ABG pH 6.99 L*, ABG pCO2 67.8 H, ABG pO2 68.4 L, ABG HCO3 16.0 L, ABG Total CO2 18.1 L, ABG O2 Saturation 81 L*, ABG Base Excess -15.4 L, Ean Test Patient unable 12/03/23 11:07: WBC 12.5 H, RBC 5.02, Hgb 15.4, Hct 50.7 H, MCV 101.0 H, MCH 30.8, MCHC 30.5 L, RDW 14.0, Plt Count 309, MPV 10.0, Neut % (Auto) 66.4, Lymph % (Auto) 25.5, Murray % (Auto) 6.3, Eos % (Auto) 0.9, Baso % (Auto) 0.8, Neut # (Auto) 8.3 H, Lymph # (Auto) 3.2, Murray # (Auto) 0.8, Eos # (Auto) 0.1, Baso # (Auto) 0.1, APTT 22.2 L, Sodium 136, Potassium 3.7, Chloride 105, Carbon Dioxide 20 L, Anion Gap 14.7, BUN 8, Creatinine 0.60, Estimated GFR 96, Est GFR ( Amer) 117, Glucose 465 H*, Calcium 9.0, Magnesium 2.1, Total Bilirubin 1.2, AST 39 H, ALT 36, Alkaline Phosphatase 103, Troponin I < 0.01, NT-Pro-B Natriuret Pep 2540 H, Total Protein 7.2, Albumin 3.9, Globulin 3.3 H, Albumin/Globulin Ratio 1.2 12/03/23 11:44: Specimen Source L radial, O2 % 100, ABG pH 7.23 L*, ABG pCO2 40.1, ABG pO2 184.8 H, ABG HCO3 16.4 L, ABG Total CO2 17.6 L, ABG O2 Saturation 99, ABG Base Excess -11.2 L, Ean Test Acceptable, Vent Rate 22, Tidal Volume 420, PEEP 8 12/03/23 11:07 12/03/23 11:07 Response Orders (Tests/Meds): ED MEDICATIONS Generic Name Dose Route Start Last Admin Trade Name Freq PRN Reason Stop Dose Admin Propofol 100 mls @ 2.82 mls/hr 12/03/23 11:21 12/03/23 11:20 Diprivan 10mg/Ml 100ml Bottle IV 01/02/24 11:20 5 mcg/kg/min .Q24H BERNABE 2.82 mls/hr Administration Protocol 5 MCG/KG/MIN Amiodarone HCl 900 mg/ 518 mls @ 33.3 mls/hr 12/03/23 14:15 Dextrose IV 12/04/23 05:48 .[id number] [facility] Bumetanide 10 mg/ Sodium 100 mls @ 5 mls/hr 12/03/23 14:15 Chloride IV 01/02/24 14:14 .Q20H [facility] Protocol Ondansetron HCl 4 mg 12/03/23 14:19 Ondansetron 4mg/2ml Vial IV 01/02/24 14:18 Q8HP PRN Nausea Discontinued Medications Generic Name Dose Route Start Last Admin Trade Name Freq PRN Reason Stop Dose Admin Albuterol/Ipratropium 20 ml 12/03/23 11:19 12/03/23 11:21 Ipratropium/Albuterol 3 Ml Neb IH 12/03/23 11:20 20 ml ONCE ONE Administration Bumetanide 2 mg 12/03/23 14:15 Bumetanide 1mg/4ml Vial IV 12/03/23 14:16 ONCE ONE Etomidate 30 mg 12/03/23 11:00 12/03/23 11:01 Etomidate 40mg/20ml Vial IV 12/03/23 11:01 30 mg ONCE ONE Administration Etomidate 10 mg 12/03/23 11:18 12/03/23 11:36 Etomidate 40mg/20ml Vial IV 12/03/23 11:19 10 mg ONCE ONE Administration Furosemide 40 mg 12/03/23 11:35 Furosemide 40mg/4ml Vial IV 12/03/23 11:36 ONCE ONE Furosemide 80 mg 12/03/23 11:36 12/03/23 12:00 Furosemide 40mg/4ml Vial IV 12/03/23 11:37 80 mg ONCE ONE Administration Sodium Chloride 1,000 mls @ 999 mls/hr 12/03/23 11:09 Sod Chlor 0.9% 1000ml Bag IV 12/03/23 12:09 .Q1H1M ONE Ampicillin Sodium/Sulbactam 100 mls @ 200 mls/hr 12/03/23 11:24 Sodium 3 gm/ Sodium Chloride IV 12/03/23 11:25 ONCE ONE Vancomycin/PEG/NADA/Lysine/Water 1.75 gm in 350 mls @ 175 mls/hr 12/03/23 11:45 Vancomycin 1.75gm/350ml (Peg) Premix IV 12/03/23 13:44 ONCE ONE Amiodarone HCl 150 mg/ 103 mls @ 600 mls/hr 12/03/23 14:15 Dextrose IV 12/03/23 14:25 ONCE ONE Iopamidol 200 ml 12/03/23 13:32 12/03/23 13:32 Iopamidol-370 (76%);100ml Bottle IV 12/03/23 13:33 200 ml ONCE ONE Administration Miscellaneous 1 each 12/03/23 11:30 12/03/23 11:37 Vancomycin Consult Request NOTAPPLIC 01/02/24 11:29 1 each CONSULT PHARMACY BERNABE Administration Sodium Chloride 100 ml 12/03/23 13:31 12/03/23 13:32 0.9 % Sodium Chloride 50 Ml Vial IV 12/03/23 13:32 100 ml ONCE ONE Administration Sodium Chloride 10 ml 12/03/23 13:32 12/03/23 13:32 Sodium Chloride 0.9% 10ml Syr (Rad Only) IV 12/03/23 13:33 10 ml ONCE ONE Administration Succinylcholine Chloride 150 mg 12/03/23 11:01 12/03/23 11:36 Succinylcholine 20mg/Ml 10 Ml Mdv IV 12/03/23 11:02 150 mg ONCE ONE Administration ORDERS Category Date Time Status CT angio abdomen pelvis Stat Cat Scan 12/03/23 11:[address] angio head Stat Cat Scan 12/03/23 11:[address] angio neck Stat Cat Scan 12/03/23 11:[address] head/brain wo con Stat Cat Scan 12/03/23 11:11 Completed CTA Chest [CT angio chest - dissection] Stat Cat Scan 12/03/23 11:10 Completed CA echo limited Routine Exams 12/03/23 Completed CXR --portable [XR chest portable] Stat Exams 12/03/23 12:26 Completed POCUS Point of Care (ER Only) Stat Exams 12/03/23 11:11 Taken XR chest portable Stat Exams 12/03/23 11:12 Completed CBC w/Auto Diff [Complete Blood Count Auto Diff] Stat Lab 12/03/23 11:07 Completed Complete Blood Count Auto Diff AMLAB Lab 12/04/23 06:00 Ordered Complete Blood Count Auto Diff AMLAB Lab 12/05/23 06:00 Ordered Complete Blood Count Auto Diff AMLAB Lab 12/06/23 06:00 Ordered Comprehensive Metabolic Panel AMLAB Lab 12/04/23 06:00 Ordered Comprehensive Metabolic Panel AMLAB Lab 12/05/23 06:00 Ordered Comprehensive Metabolic Panel AMLAB Lab 12/06/23 06:00 Ordered Comprehensive Metabolic Panel Stat Lab 12/03/23 11:07 Completed Lactic Acid Routine Lab 12/03/23 14:25 Ordered Magnesium Stat Lab 12/03/23 11:07 Completed NT Pro Brain Natriuretic Pep. Stat Lab 12/03/23 11:07 Completed PTT [Activated Partial Thrombo Time] Stat Lab 12/03/23 11:07 Completed Troponin I Q3H Lab 12/03/23 14:15 Ordered Troponin I Q3H Lab 12/03/23 17:15 Ordered Troponin I Stat Lab 12/03/23 11:07 Completed Urinalysis and Microscopic Routine Lab 12/03/23 14:20 Ordered Blood Culture Stat Micro 12/03/23 11:58 Received ABG [Arterial Blood Gas] Stat RT 12/03/23 11:28 Ordered Arterial Blood Gas Routine RT 12/03/23 10:58 Completed Arterial Blood Gas Routine RT 12/03/23 11:44 Completed MDM Narrative Medical Decision Narrative: 78-year-old patient with hypertension, hyperlipidemia, on Eliquis, CHF presenting with shortness of breath and palpitations. Called to home for shortness of breath. Walk to stretcher, but weak, pale, around 80% on nonrebreather. Patient was brought to the emergency department for further evaluation. Glucose with EMS was 182. On arrival, patient unable to answer question and in more than partial word sentences and intermittently uncooperative with exam. Tachycardic, pale, short of breath. 81% on 15 nonrebreather with EMS. Pulses are equal and symmetric. History obtained with EMS and patient. On arrival, patient hemodynamically unstable, hypertensive, tachycardic, A-fib with RVR, diaphoretic, pale, altered mental status with partial sentences. 81% on room air. Patient was placed on nonrebreather, improved around 90%. Initial EKG with A-fib with RVR around 190 bpm. Narrow QRS, QT within normal limits. No evidence of ischemia. Pads were placed, access unable to be obtained initially. Interosseous drill brought into room, were able to obtain access shortly prior to drilling. Because patient still following commands and oxygen saturation improved, synchronized cardioversion was pursued. Patient was given 0.1 mg/kg (10 mg IV) etomidate. Synchronous cardioversion successful with return to normal sinus rhythm, however patient continued to desaturate with altered mental status, intubation was performed. Pulses intact. Because decreased breath sounds bilaterally, shortness of breath, [id number] ultrasound was performed. Extremely hypodynamic heart with minimal squeeze. Evidence of right heart strain present. No effusion. No pneumothorax. Patient was placed on ventilator and propofol sedation. Repeat EKG with sinus tachycardia [address] changes concerning for acute ischemia, but patient does have anteroseptal T wave abnormality Without reciprocal change. Independent interpretation of workup reveals chemistry with glucose 465, likely partially stress response. Troponin undetectable, BNP elevated at 2500. Patient's ABG concerning for metabolic acidosis with pH 7.2, bicarb 16.4, CO2 normal at 40, lactic acid 5.6. Chest x-ray with concern for pulmonary edema and cardiomegaly. Patient was given [address] scan arterial phase chest abdomen pelvis was performed looking for dissection versus PE, this was negative for dissection or PE, but patient has large bilateral pleural effusions supporting further diagnosis of CHF. CTA of the head and neck normal, no CT head findings that are acute. After CT scan, patient back in A-fib with RVR, cardioverted again under propofol. Return to normal sinus rhythm for a few minutes, this happened again, patient was cardioverted again. After return into RVR, cardiology was contacted for further guidance. Cardiology recommended amiodarone bolus and drip. This was performed. Patient back in A-fib with RVR. Cardiology further recommended digoxin load and intermittent dosing. This to be performed. Hospital medicine was contacted and case was discussed at length, ultimately, patient to be admitted for severe heart failure exacerbation, acute pulmonary edema, acute respiratory failure.
[2023-12-03 11:47] LABS: ABG Base Excess -11.2 mmol/L (-2.4-2.3); ABG HCO3 16.4 mmhg (22.0-26.0); ABG Oxygen Saturation 99 % (90-100); ABG PCO2 40.1 mmhg (35.0-45.0); ABG PH 7.23 mmol/L (7.35-7.45); ABG PO2 184.8 mmhg (80-100); ABG TCO2 17.6 mmhg (23-27)
[2023-12-03 11:49] LABS: Allen's Test ACCEPTABLE; Oxygen 100 %; PEEP 8; Source L RADIAL; Tidal Volume 420; Vent Rate 22
[2023-12-03 11:51] LABS: Magnesium 2.1 mg/dl (1.6-2.3)
[2023-12-03] MEDS: AMPICILLIN/SULBACTAM 3 GM in 0.9 % SODIUM CHLORIDE 100 ML IV (12:00)
[2023-12-03] MEDS: FUROSEMIDE 40MG/4ML VIAL 80 MG IV (12:00)
[2023-12-03] MEDS: MAGNESIUM SULFATE IN WATER 2 GM/50 ML PIGGYBACK IV (12:00)
[2023-12-03 12:11] LABS: Allen's Test Patient Unable; Oxygen NRB %; Source Right Brachial
[2023-12-03 12:12] LABS: ABG PH 6.99 mmol/L (7.35-7.45)
[2023-12-03 12:13] LABS: ABG PCO2 67.8 mmhg (35.0-45.0)
--- NOTE | 2023-12-03 12:26 | XR_ITS ---
PROCEDURE INFORMATION: Exam: XR Chest Exam date and time: 12/03/2023 1:42 PM Age: 78 years old Clinical indication: Device placement; Ng tube; Additional info: Ngt placement confirmation TECHNIQUE: Imaging protocol: Radiologic exam of the chest. Views: 1 view. COMPARISON: CT ANGIO CHEST 12/03/2023 1:12 PM FINDINGS: Tubes, catheters and devices: NG tube has been placed which is demonstrated extending below the hemidiaphragm into the region of the proximal body of the stomach. Lungs: Patchy diffuse bilateral interstitial and alveolar infiltrates again partially visualized. Pleural spaces: Unremarkable. No pleural effusion. No pneumothorax. Heart/Mediastinum: Unremarkable. No cardiomegaly. Bones/joints: Unremarkable. IMPRESSION: NG tube has been placed which is demonstrated extending below the hemidiaphragm into the region of the proximal body of the stomach.
--- NOTE | 2023-12-03 13:30 | ECG_ITS ---
APPROVED REPORT Exam: Resting ECG HR:133 bpm ECG Measurements Heart Rate 133 AXES QRSd 105 QRS 109 QT 330 T 143 QTc 408 Conclusion ATRIAL FLUTTER/TACHYCARDIA WITH RAPID VENTRICULAR RESPONSE RIGHT AXIS DEVIATION [QRS AXIS > 100] ST DEVIATION AND MODERATE T-WAVE ABNORMALITY, CONSIDER ANTEROLATERAL ISCHEMIA [-0.1+ mV T-WAVE IN V3-V6] ST DEVIATION AND MODERATE T-WAVE ABNORMALITY, CONSIDER INFERIOR ISCHEMIA [-0.1+ mV T-WAVE IN II/aVF] ABNORMAL ECG UNCONFIRMED REPORT Electronically signed by : MATTHIEU OLIVARES, 12/04/2023 06:07:36
[2023-12-03] MEDS: SODIUM CHLORIDE 0.9% 10ML SYR (RAD ONLY) 10 ML IV (13:32)
[2023-12-03] MEDS: IOPAMIDOL-370 (76%);100ML BOTTLE 200 ML IV (13:32)
[2023-12-03] MEDS: 0.9 % SODIUM CHLORIDE 50 ML VIAL 100 ML IV (13:32)
--- NOTE | 2023-12-03 13:36 | ECG_ITS ---
APPROVED REPORT Exam: Resting ECG HR:164 bpm ECG Measurements Heart Rate 164 AXES QRSd 99 QRS 102 QT 268 T 0 QTc 358 Conclusion ATRIAL FIBRILLATION WITH RAPID VENTRICULAR RESPONSE RIGHT AXIS DEVIATION [QRS AXIS > 100] NONSPECIFIC ST & T-WAVE ABNORMALITY CRITICAL TEST RESULT UNCONFIRMED REPORT Electronically signed by : MATTHIEU OLIVARES, 12/04/2023 06:08:04
--- NOTE | 2023-12-03 13:41 | PC.NURSE ---
pt converted into afib rvr, per MD 200j shock delivered.
--- NOTE | 2023-12-03 13:43 | PC.NURSE ---
Dr Macario speaking with cardiology
[2023-12-03] MEDS: propofoL 100 ML 33.8400000000000034 MG IV ×2 (13:45→17:19)
--- NOTE | 2023-12-03 13:50 | PC.NURSE ---
Dr. Jamison and Tamela VILLANUEVA at [facility]
--- NOTE | 2023-12-03 14:02 | PC.NURSE ---
Dr. Macario contacted Dr. Duran about pt admission. Waiting for response.
[2023-12-03 14:31] LABS: Microscopic, Urine URINE MICROSCOPIC (MICROSCOPIC)
[2023-12-03 14:35] LABS: Appearance,Urine SL CLOUDY (Clear); Bilirubin,Urine Negative (Negative); Blood, Urine 2+ (Negative); Color,Urine YELLOW (Yellow); Glucose,Urine (UA) 3+ (Negative); Ketones,Urine TRACE (Negative); Leukocyte Esterase,Urine Negative (Negative); Nitrate,Urine Negative (Negative); Protein,Urine 3+ (Negative); Specific Gravity, Urine >= 1.030 (1.005-1.030)
--- NOTE | 2023-12-03 14:35 | CA_ITS ---
APPROVED REPORT EXAM: Comprehensive 2D, Doppler, and color-flow Echocardiogram Steamfitter: Melissa Dodson CRT Ht: 5 ft 7 in Wt: 207lbs BSA: 2.05 BP: 81/47 mmHg Indications: Resp failure, intubated, pulmonary edema Shortness of Breath, Atrial Fibrillation, Palpitations, Hyperlipidemia, Hypertension/HDD M-Mode Dimensions LA Diam 4.84 cm (1.9-4.0) LVDd 4.46 cm (3.5-5.7) LVDs 3.67 cm (3.5-5.7) IVSd 2.39 cm (0.6-1.1) PWd 1.11 cm (0.6-1.1) EF (Teich) 37.00% FS 17.70% EDV (Teich) 90.50 mL ESV (Teich) 57.00 mL Aortic Valve AO Peak GR. 10.00 mmHg Pulmonary Valve PV Peak Velocity 98.9 (50-150 cm/s) Tricuspid Valve TR P. Velocity 159.20 cm/s RAP Estimate 10.00 mmHg RVSP 20.10 mmHg Left Ventricle The left ventricle is normal size. The left ventricular systolic function is normal. The left ventricular ejection fraction is within the normal range. There is marked increase in LV wall thickness (IVSd 1.6 cm). There is no evidence of LVOT obstruction at rest. The interatrial septum appears asynchronous. LVEF is 55%. Diastolic function is indeterminate. Right Ventricle The right ventricle is moderately dilated. Right ventricle is moderately hypokinetic. Atria The left atrium is moderately dilated. Right atrium is moderately dilated. The interatrial septum is not well-visualized. Aortic Valve The aortic valve is mildly thickened. There is no aortic valvular stenosis. Trace aortic regurgitation. Mitral Valve The mitral valve leaflets are mildly thickened. Chordal HARRISON is present. No evidence of mitral valve stenosis. Trace mitral regurgitation. Tricuspid Valve The tricuspid valve leaflets are thin and pliable. Trace tricuspid regurgitation. There is insufficient TR jet to estimate RVSP. Pulmonic Valve The pulmonary valve is normal in structure. Trace pulmonic regurgitation. Great Vessels The aortic root is not well-visualized. The IVC is not well-visualized. Pericardium There is no pericardial effusion. Other Information Study Quality: Technically Difficult Conclusion Technically difficult study in the setting of mechanical ventilation. Normal LV systolic function. Marked increase in LV wall thickness (IVSd 1.6 cm). Moderate RV dilation with moderate reduction in RV function. Biatrial dilation. No significant valvular stenosis or regurgitation. In the setting of marked increase in LV wall thickness, biatrial dilatation, HF symptoms, and known atrial fibrillation, further evaluation for infiltrative disease is recommended when clinically feasible with cardiac MRI (amyloidosis protocol) + lab testing for amyloidosis + PYP nuclear scan Electronically signed by : Yaquelin Grace MD 12/04/2023 23:33:03
[2023-12-03] MEDS: BUMETANIDE 1MG/4ML VIAL 2 MG IV (14:40)
[2023-12-03] MEDS: BUMETANIDE 10 MG in 0.9 % SODIUM CHLORIDE 60 ML 5 MG IV (14:40)
--- NOTE | 2023-12-03 14:53 | HMH.PHAINT1 ---
Pharmacy Intervention Comments: MEDICATION RECONCILIATION COMPLETE USING LIST FROM MOST RECENT CARDIOLOGY OFFICE VISIT AND EXTERNAL PHARMACY FILL HISTORY.
[2023-12-03] MEDS: DIGOXIN 0.25MG/ML 2ML AMPUL 500 MCG IV (15:10)
[2023-12-03 15:14] LABS: Troponin I 0.07 ng/ml (0.00-0.034)
[2023-12-03 15:27] LABS: Lactic Acid 5.8 mmol/L (0.7-2.1)
[2023-12-03 15:28] LABS: WBC,Urine Occasional #/hpf (0-3)
[2023-12-03 15:29] LABS: Bacteria,Urine 4+ /lpf
[2023-12-03 15:44] LABS: Acetone, Serum (Rapid) None Detected (None Detect)
[2023-12-03] MEDS: AMIODARONE HCL 150 MG in DEXTROSE 5 % IN WATER 100 ML 600 MG IV (16:05)
[2023-12-03] MEDS: AMIODARONE HCL 900 MG in DEXTROSE 5 % IN WATER 500 ML 33.2999999999999972 MG IV (16:30)
--- NOTE | 2023-12-03 16:53 | P.HP_ITS ---
History of Present Illness *Admission Date: 12/03/23 *Reason for visit:: SOB *History of present illness: Patient is a 78-year-old female with past medical history of atrial fibrillation CHF hypertension hyperlipidemia obstructive sleep apnea diabetes mellitus who presented to hospital due to shortness of breath. Reportedly patient has history of medical noncompliance. Patient was found hypoxic, patient was intubated for airway protection in the emergency department. At time of my e valuation patient is intubated sedated. Patient was found to be in A-fib with RVR, with low BP patient was a started on IV amiodarone per cardiology. [facility] Disclaimer: The information contained in this section may have been updated after the patient was seen, as this information can be updated by other users. Medical History Coronary artery disease Atypical angina Afib Abnormal stress test HLD (hyperlipidemia) HTN (hypertension) Abnormal result of cardiovascular function study Dyspnea YOLANDE (obstructive sleep apnea) Family History Other No significant family history Social History (Updated 12/03/23 @ 16:19 by Destiney Young, TACOS) Smoking Status: Unknown if ever smoked alcohol intake: current current occupational status: other Travel in the last 8 weeks: Inside the [place] Review of Systems Review of Systems Review of systems:: unable to obtain Meds Home Medications and Allergies Home Medications Medication Instructions Recorded Confirmed Type lisinopril 40 mg tablet 40 mg PO DAILY Hypertension 04/10/21 12/03/23 History pravastatin 80 mg tablet 80 mg PO HS Hyperlipidemia 04/10/21 12/03/23 History cyanocobalamin (vitamin B-12) 1,000 mcg PO DAILY Supplement 07/12/23 12/03/23 History 1,000 mcg tablet (Vitamin B-12) ergocalciferol (vitamin D2) 1,250 1,250 mcg PO WEEKLY Supplement 07/12/23 12/03/23 History mcg (50,000 unit) capsule (Vitamin D2) glipizide 10 mg tablet 10 mg PO DAILY DM2 07/12/23 12/03/23 History metformin 500 mg tablet 1,000 mg PO BID DM2 07/12/23 12/03/23 History apixaban 5 mg tablet (Eliquis) 5 mg PO BID Afib 12/03/23 12/03/23 History diltiazem HCl 240 mg 240 mg PO BID Afib 12/03/23 12/03/23 History capsule,extended release 24 hr empagliflozin 25 mg tablet 25 mg PO DAILY DM2 12/03/23 12/03/23 History (Jardiance) ezetimibe 10 mg tablet 10 mg PO DAILY Cholesterol 12/03/23 12/03/23 History hydrochlorothiazide 25 mg tablet 25 mg PO DAILY Hypertension 12/03/23 12/03/23 History meloxicam 15 mg tablet 15 mg PO DAILYP PRN Pain (Scale 12/03/23 12/03/23 History Score 1-3) metoprolol succinate 50 mg 50 mg PO DAILY Heart Rate 12/03/23 12/03/23 History tablet,extended release 24 hr New Prescriptions to Start Prescriptions: Allergies Allergy/AdvReac Type Severity Reaction Status Date / Time No Known Allergies Allergy Verified 07/24/23 13:15 Exam Data for Last 24 hours Vital signs and Labs for Last 24 Hours: Temp Pulse Resp BP Pulse Ox O2 Del Method O2 Flow Rate 97.7 F 148 H 22 95/68 L 97 Mechanical Ventilation 15 12/03/23 15:00 12/03/23 15:00 12/03/23 15:00 12/03/23 15:00 12/03/23 14:10 12/03/23 15:00 12/03/23 11:12 FiO2 50 12/03/23 12:00 Laboratory Results - last 24 hr 12/03/23 10:58: Specimen Source Right brachial, O2 % Nrb, ABG pH 6.99 L*, ABG pCO2 67.8 H, ABG pO2 68.4 L, ABG HCO3 16.0 L, ABG Total CO2 18.1 L, ABG O2 Saturation 81 L*, ABG Base Excess -15.4 L, Ean Test Patient unable 12/03/23 11:07: WBC 12.5 H, RBC 5.02, Hgb 15.4, Hct 50.7 H, MCV 101.0 H, MCH 30.8, MCHC 30.5 L, RDW 14.0, Plt Count 309, MPV 10.0, Neut % (Auto) 66.4, Lymph % (Auto) 25.5, [place] % (Auto) 6.3, Eos % (Auto) 0.9, Baso % (Auto) 0.8, Neut # (Auto) 8.3 H, Lymph # (Auto) 3.2, [place] # (Auto) 0.8, Eos # (Auto) 0.1, Baso # (Auto) 0.1, APTT 22.2 L, Sodium 136, Potassium 3.7, Chloride 105, Carbon Dioxide 20 L, Anion Gap 14.7, BUN 8, Creatinine 0.60, Estimated GFR 96, Est GFR ( Amer) 117, Glucose 465 H*, Calcium 9.0, Magnesium 2.1, Total Bilirubin 1.2, AST 39 H, ALT 36, Alkaline Phosphatase 103, Troponin I < 0.01, NT-Pro-B Natriuret Pep 2540 H, Total Protein 7.2, Albumin 3.9, Globulin 3.3 H, Albumin/Globulin Ratio 1.2 12/03/23 11:44: Specimen Source L radial, O2 % 100, ABG pH 7.23 L*, ABG pCO2 40.1, ABG pO2 184.8 H, ABG HCO3 16.4 L, ABG Total CO2 17.6 L, ABG O2 Saturation 99, ABG Base Excess -11.2 L, Ean Test Acceptable, Vent Rate 22, Tidal Volume 420, PEEP 8 12/03/23 12:00: Urine Color Yellow, Urine Appearance Sl cloudy, Urine pH 6.0, Ur Specific [place] >= 1.030, Urine Protein 3+, Urine Glucose (UA) 3+, Urine Ketones Trace, Urine Blood 2+, Urine Nitrate Negative, Urine Bilirubin Negative, Urine Urobilinogen 1.0, Ur Leukocyte Esterase Negative, Urine RBC 3-5, Urine WBC Occasional, Ur Squamous Epith Cells 3-5, Urine Bacteria 4+ 12/03/23 14:35: Lactate 5.8 H, Troponin I 0.07 H, Acetone Level None detected I & O for Last 24 hours: Intake & Output 11/30/23 12/01/23 12/02/23 12/03/23 23:59 23:59 23:59 23:59 Intake Total 74.495 / 74.495 Balance 74.495 / 74.495 Weight 102.313 kg Constitutional Comments: intubated and sedated *Routine HEENT Exam Head: Present normocephalic Eye: Present EOMI and PERRL ENT: Present mucous membranes moist *Routine Neck Exam Neck: Present supple; Absent lymphadenopathy *Routine Respiratory Exam Respiratory: Present distant breath sounds and diminished air movement *Routine Cardiovascular Exam Cardiovascular: Present RRR *Routine Abdominal Exam Abdominal: Present soft and normoactive bowel sounds; Absent tenderness *Routine Rectal Exam Rectal:: deferred *Routine Genitalia Exam Genitalia:: deferred *Routine Extremities Exam Extremities: Absent cyanosis, clubbing or edema *Routine Skin Exam Skin: Present warm; Absent rash *Routine Neurological Exam Comments: intubated and sedated Routine Psychiatric Exam Comments: intubated and sedated Assessment and Plan *Assessment and plan (1) Acute cardiac pulmonary edema: Status: Acute Category: Medical Code(s): I50.1 - Left ventricular failure, unspecified (2) Acute hypoxemic respiratory failure: Status: Acute Category: Medical Code(s): J96.01 - Acute respiratory failure with hypoxia (3) Atrial fibrillation with rapid ventricular response: Status: Acute Category: Medical Code(s): I48.91 - Unspecified atrial fibrillation (4) CHF exacerbation: Status: Acute Category: Medical Code(s): I50.9 - Heart failure, unspecified (5) Coronary artery disease: Status: Acute Category: Medical Code(s): I25.10 - Atherosclerotic heart disease of elim ira coronary artery without angina pectoris (6) HLD (hyperlipidemia): Status: Chronic Qualifiers: Hyperlipidemia type: mixed hyperlipidemia Qualified Code(s): E78.2 - Mixed hyperlipidemia Category: Medical Code(s): E78.5 - Hyperlipidemia, unspecified (7) HTN (hypertension): Status: Chronic Qualifiers: Hypertension type: primary hypertension Qualified Code(s): I10 - Es sential (primary) hypertension Category: Medical Code(s): I10 - Essential (primary) hypertension (8) Atypical angina: Status: Acute Category: Medical Code(s): I20.89 - Other forms of angina pectoris (9) Afib: Status: Acute Qualifiers: Atrial fibrillation type: persistent (not longstanding) Qualified Code(s): I48.19 - Other persistent atrial fibrillation Category: Medical Code(s): I48.91 - Unspecified atrial fibrillation (10) DM (diabetes mellitus): Status: Chronic Qualifiers: Diabetes mellitus complication status: without complication Diabetes mellitus long term acute care registered nurse insulin use: without long term acute care registered nurse use Diabetes mellitus type: type 2 Qualified Code(s): E11.9 - Type 2 diabetes mellitus without complications Category: Medical Code(s): E11.9 - Type 2 diabetes mellitus without complications Plan Patient is a 78-year-old female with past medical history of atrial fibrillation CHF hypertension hyperlipidemia obstructive sleep apnea diabetes mellitus who presented to hospital due to shortness of breath. Reportedly patient has history of medical noncompliance. Patient was found hypoxic, patient was intubated for airway protection in the emergency department. At time of my evaluation patient is intubated sedated. Patient was found to be in A-fib with RVR, with low BP patient was a started on IV amiodarone per cardiology. Assessment and plan Acute hypoxic respiratory failure satting less than 90% on room air likely secondary to flash pulmonary edema, CHF exacerbation, s/p intubation Strict I's and O's, Dejesus insertion cardiac event monitoring Consult cardiology Monitor on cardiac telemetry Diuresis with IV bumex Started on Rocephin, azithromycin Check PCT proBNP checked, 2540 Order echocardiogram Monitor and replace electrolytes Consult pulmonary Afib with RVR - started on IV amiodaron - Patient was shocked in ED cardiology following Hyperglycemia due to uncontrolled diabetes mellitus Long-acting insulin Insulin sliding scale Patient is n.p.o. due to intubation UA is suggestive UTI - continue rocephin - Urine Culture Leukocytosis likely reactive, lactic acidosis -Monitor lactic acid Started on empirical antibiotics with Rocephin, azithromycin Check blood cultures Check PCT level DVT PPx - heparin
[2023-12-03 17:07] LABS: Adenovirus,PCR Not Detected (NotDetected); Coronavirus 19, PCR Not Detected (NotDetected); Coronavirus 229E Not Detected (NotDetected); Coronavirus NL63 Not Detected (NotDetected); Coronavirus OC43 Not Detected (NotDetected); Coronovirus HKU1,PCR Not Detected (NotDetected); Human Metapneumovirus Not Detected (NotDetected); Influenza A, PCR Not Detected (NotDetected); Influenza AH1, 2009 Not Detected (NotDetected); Influenza AH1, PCR Not Detected (NotDetected); Influenza AH3,PCR Not Detected (NotDetected); Influenza B, PCR Not Detected (NotDetected); Parainfluenza 1, PCR Not Detected (NotDetected); Parainfluenza 2, PCR Not Detected (NotDetected); Parainfluenza 3, PCR Not Detected (NotDetected); Parainfluenza 4, PCR Not Detected (NotDetected); Respiratory Syncytial Virus Not Detected (NotDetected); Rhinovirus/Enterovirus Not Detected (NotDetected)
[2023-12-03] MEDS: FENTANYL CITRATE/PF 1,000 MCG in 0.9 % SODIUM CHLORIDE 80 ML 2.5 MCG IV (17:18)
--- NOTE | 2023-12-03 17:44 | PC.NURSE ---
Late Entry: Upon arrival to floor at 15:12 patients propofol was infusing at 40mcg/min and Bumex was running at 0.5mg/hr. Titration corrected on
[2023-12-03 17:55] LABS: POC Glucose,Bedside 431 (70-110)
[2023-12-03] MEDS: CEFTRIAXONE SODIUM 2 GM in 0.9 % SODIUM CHLORIDE 100 ML IV (18:00)
[2023-12-03] MEDS: LEVALBUTEROL 1.25MG/3ML NEB 1.25 MG IH ×2 (18:06→23:44)
[2023-12-03 18:18] LABS: Troponin I 0.06 ng/ml (0.00-0.034)
--- NOTE | 2023-12-03 18:24 | PC.WOUNDNOTE ---
skin assessment upon arrival to unit
[2023-12-03] MEDS: AZITHROMYCIN 500 MG in 0.9 % SODIUM CHLORIDE 250 ML 250 MG IV (18:33)
[2023-12-03 18:46] LABS: Reflex Lactic Add Lactic Reflex
[2023-12-03 19:57] LABS: Lactic Acid Follow Up (RFLX 1) 7.1 mmol/L (0.7-2.1)
[2023-12-03] MEDS: humaLOG 100 UNITS/ML 3ML VIAL (SSI) SQ (20:46)
[2023-12-03 21:41] LABS: Reflex Lactic (2 hrs) Add Lactic Reflex
[2023-12-03 22:13] LABS: Lactic Acid Follow up (RFLX 2) 5.7 mmol/L (0.7-2.1)
[2023-12-03 22:56] LABS: POC Glucose,Bedside 311 (70-110)
--- NOTE | 2023-12-03 23:16 | PC.NURSE ---
Amiodarone Infusion changed to 0.5mg/min @ 22:30 for 18 hours. Order non-titratable in OCT. Verified sue Adrian
[2023-12-04] VITALS (50 sets, daily range): BP systolic 95–190; BP diastolic 30–116; PULSE 77–156; RESP 14–22; TEMP 37–38.2; O2SAT 98–100; BMI 36.2; BMI 36.1
[2023-12-04] MEDS: BUMETANIDE 10 MG in 0.9 % SODIUM CHLORIDE 60 ML 7.5 MG IV (04:03)
[2023-12-04] MEDS: propofoL 100 ML 22.5599999999999987 MG IV ×3 (04:55→19:56)
--- NOTE | 2023-12-04 06:00 | XR_ITS ---
PROCEDURE INFORMATION: Exam: XR Chest Exam date and time: 12/04/2023 6:03 AM Age: 78 years old Clinical indication: Device placement; Ett placement (vent status); Additional info: Verify ett/og TECHNIQUE: Imaging protocol: Radiologic exam of the chest. Views: 1 view. COMPARISON: CR XR CHEST PORTABLE 12/03/2023 1:42 PM FINDINGS: Tubes, catheters and devices: The ET tube and nasogastric tube are in good position. Lungs: Bibasilar airspace disease. Pleural spaces: Bilateral pleural effusions more prominent on the right. These do not appear to be significantly changed. Heart/Mediastinum: Unremarkable. No cardiomegaly. Bones/joints: Unremarkable. IMPRESSION: The ET tube and nasogastric tube are in good position. Bibasilar airspace disease. Bilateral pleural effusions more prominent on the right. These do not appear to be significantly changed.
[2023-12-04] MEDS: LEVALBUTEROL 1.25MG/3ML NEB 1.25 MG IH ×4 (06:14→23:37)
[2023-12-04] MEDS: humaLOG 100 UNITS/ML 3ML VIAL (SSI) SQ ×4 (06:17→21:02)
[2023-12-04 06:25] LABS: POC Glucose,Bedside 159 (70-110)
[2023-12-04 06:27] LABS: ABG HCO3 24.4 mmhg (22.0-26.0); ABG Oxygen Saturation 98 % (90-100); ABG PCO2 33.4 mmhg (35.0-45.0); ABG PH 7.48 mmol/L (7.35-7.45); ABG PO2 123.6 mmhg (80-100); ABG TCO2 25.5 mmhg (23-27)
[2023-12-04 06:28] LABS: Chloride 104 mmol/L (98-107)
[2023-12-04 06:29] LABS: Sodium 136 mmol/L (136-145)
[2023-12-04 06:30] LABS: Oxygen 50 %; Tidal Volume 420; Vent Rate 22
[2023-12-04 06:31] LABS: Allen's Test Patient Unable; PEEP 10; Source Left Radial
[2023-12-04 06:31] LABS: Alanine Aminotransferase 28 U/L (12-78); Alkaline Phosphatase 74 U/L (38-126); Aspartate Amino Transferase 33 U/L (14-36); Bilirubin,Total 0.9 mg/dl (0.2-1.3); Blood Urea Nitrogen 8 mg/dl (7-17); Creatinine Clearance Estimated 74 mL/min (50-200); Estimated Glomerular Filt Rate 69 ml/min (>60); GFR (African American) 84 ML/MIN (>60)
[2023-12-04 06:32] LABS: Albumin/Globulin Ratio 1.1 (1.1-1.8); Anion Gap 5.9 mEq/L (5-15); Calcium 8.1 mg/dl (8.4-10.2); Carbon Dioxide 29 mmol/L (22.0-30.0); Globulin 2.8 g/dL (1.3-3.2); Glucose 166 mg/dl (74-100); Total Protein,Serum 5.8 g/dl (6.3-8.2)
[2023-12-04 06:40] LABS: Basophils # 0.1 K/mm3 (0-0.2); Basophils % 0.4 % (0.1-2.0); Eosinophils % 0.3 % (0.1-12.0); Lymphocytes # 1.7 K/mm3 (0.7-4.5); Lymphocytes % 12.7 % (10-50); Mean Corpuscular Hemoglobin 30.4 pg (27.0-31.2); Mean Corpuscular Volume 95.1 fl (81-99); Mean Platelet Volume 9.2 fl (7.4-10.4); Monocytes # 0.9 K/mm3 (0.1-1.0); Monocytes % 7.1 % (1.7-9.3); Neutrophils # 10.4 K/mm3 (1.8-7.8); Neutrophils % 79.4 % (37.0-80.0); Platelet Count 224 K/mm3 (142-424); Red Blood Count 4.31 M/mm3 (4.20-5.40); Red Cell Distribution Width 14.5 % (11.5-17.5); White Blood Count 13.1 K/mm3 (4.8-10.8)
[2023-12-04 06:56] LABS: Hemoglobin 13.1 g/dL (12.2-16.2); Potassium 2.9 mmoL/L (3.5-5.1)
--- NOTE | 2023-12-04 08:04 | DIET.NUTRFU ---
RD consulted secondary to intubation. Recommend starting TF if NPO x3 days, glucerna at 20ml/hr with goal rate 75ml/hr ATC= 1800kcal/75gm protein/1535ml free water. May need to adjust based on propofol dose and IV fluid. Will continue to monitor diet status
[2023-12-04] MEDS: ENOXAPARIN 40MG/0.4ML SYRINGE 40 MG SQ (09:35)
--- NOTE | 2023-12-04 09:35 | EXP.CARD.CON ---
History of Present Illness History of Present Illness Consult date: 12/04/23 Requesting physician: Ector Duran Consult reason: shortness of breath Chief complaint: A-fib RVR and volume overload History of present illness: This is a 78-year-old white female with past medical history of coronary artery disease with a medical management heart cath in July 2023, hypertension, hyperlipidemia, chronic A-fib on Eliquis and heart failure with preserved ejection fraction who presented to emergency department via EMS yesterday with complaints of shortness of breath and palpitations. Upon arrival to ER patient was hemodynamically unstable with an oxygen saturation of 81% on room air and was in A-fib RVR with a rate of 180-190. Patient was placed on a nonrebreather and underwent cardioversion for A-fib RVR which was successful at returning patient to normal sinus rhythm for a brief period of time. Patient continued to desaturate and developed worsening altered mental status requiring intubation for airway management. Patient was cardioverted 2 additional times in the emergency department for return of A-fib RVR at a rate of 180-190. Initial ER labs were as follow: WBC 12.5, hemoglobin 15.4, sodium 136, potassium 3.7, creatinine 0.6, glucose 465, magnesium 2.1, troponin 0.01 trending up to 0.06, proBNP of 2540 and a positive D-dimer. A CTA chest was obtained which showed fluid overload, moderate to large pleural effusions and was negative for dissection, aneurysm, or PE. Patient was given and initial 80 mg of IV Lasix per ER doctor. Cardiology was consulted to bedside after third cardioversion when patient returned to A-fib RVR. A bedside echocardiogram was performed and showed a likely normal ejection fraction. Patient was loaded with digoxin and started on a Bumex drip. Cardiology attempted to obtain a NAI but was unsuccessful due to edematous airway and inability to advance camera past oropharynx. Patient was admitted to hospitalist for A-fib RVR and volume overload. Rate did not slow with digoxin loading dose so patient was loaded with amiodarone since patient had already had episodes of NSR between afib rvr episodes. This morning patient remains in A-fib at an improved rate of 106 while on amiodarone drip. Patient has diuresed over 3.5 liters. Morning labs reviewed and stable. Family reports a hx of medical noncompliance. PFSH PFSH Disclaimer: The information contained in this section may have been updated after the patient was seen, as this information can be updated by other users. Medical History (Updated 12/04/23 @ 12:28 by Florence Garcia MD) Edema of larynx Pleural effusion, bilateral Coronary artery disease Atypical angina Afib Abnormal stress test HLD (hyperlipidemia) HTN (hypertension) Abnormal result of cardiovascular function study Dyspnea YOLANDE (obstructive sleep apnea) Family History Other No significant family history Social History (Updated 12/03/23 @ 16:19 by Destiney Young RN) Smoking Status: Unknown if ever smoked alcohol intake: current current occupational status: other Travel in the last 8 weeks: Inside the [place] Review of Systems Review of Systems Review of systems:: pertinent systems reviewed and negative unless documented below *Cardiovascular Cardiovascular: Reports dyspnea and Reports palpitations *Respiratory Respiratory: Reports dyspnea Endocrine Endocrine: Reports palpitations Exam Data for Last 24 hours Vital signs and Labs for Last 24 Hours: Temp Pulse Resp BP Pulse Ox O2 Del Method O2 Flow Rate 99.9 F H 106 H 22 113/70 100 Mechanical Ventilation 15 12/04/23 08:00 12/04/23 09:00 12/04/23 09:00 12/04/23 09:00 12/04/23 09:00 12/04/23 09:00 12/03/23 11:12 FiO2 50 12/04/23 09:00 Laboratory Results - last 24 hr 12/03/23 10:58: Specimen Source Right brachial, O2 % Nrb, ABG pH 6.99 L*, ABG pCO2 67.8 H, ABG pO2 68.4 L, ABG HCO3 16.0 L, ABG Total CO2 18.1 L, ABG O2 Saturation 81 L*, ABG Base Excess -15.4 L, Ean Test Patient unable 12/03/23 11:07: WBC 12.5 H, RBC 5.02, Hgb 15.4, Hct 50.7 H, MCV 101.0 H, MCH 30.8, MCHC 30.5 L, RDW 14.0, Plt Count 309, MPV 10.0, Neut % (Auto) 66.4, Lymph % (Auto) 25.5, [place] % (Auto) 6.3, Eos % (Auto) 0.9, Baso % (Auto) 0.8, Neut # (Auto) 8.3 H, Lymph # (Auto) 3.2, [place] # (Auto) 0.8, Eos # (Auto) 0.1, Baso # (Auto) 0.1, APTT 22.2 L, Sodium 136, Potassium 3.7, Chloride 105, Carbon Dioxide 20 L, Anion Gap 14.7, BUN 8, Creatinine 0.60, Estimated GFR 96, Est GFR ( Amer) 117, Glucose 465 H*, Calcium 9.0, Magnesium 2.1, Total Bilirubin 1.2, AST 39 H, ALT 36, Alkaline Phosphatase 103, Troponin I < 0.01, NT-Pro-B Natriuret Pep 2540 H, Total Protein 7.2, Albumin 3.9, Globulin 3.3 H, Albumin/Globulin Ratio 1.2 12/03/23 11:44: Specimen Source L radial, O2 % 100, ABG pH 7.23 L*, ABG pCO2 40.1, ABG pO2 184.8 H, ABG HCO3 16.4 L, ABG Total CO2 17.6 L, ABG O2 Saturation 99, ABG Base Excess -11.2 L, Ean Test Acceptable, Vent Rate 22, Tidal Volume 420, PEEP 8 12/03/23 12:00: Urine Color Yellow, Urine Appearance Sl cloudy, Urine pH 6.0, Ur Specific [place] >= 1.030, Urine Protein 3+, Urine Glucose (UA) 3+, Urine Ketones Trace, Urine Blood 2+, Urine Nitrate Negative, Urine Bilirubin Negative, Urine Urobilinogen 1.0, Ur Leukocyte Esterase Negative, Urine RBC 3-5, Urine WBC Occasional, Ur Squamous Epith Cells 3-5, Urine Bacteria 4+ 12/03/23 14:35: Lactate 5.8 H, Troponin I 0.07 H, Acetone Level None detected 12/03/23 15:53: POC Glucose 431 H* 12/03/23 16:45: Chlamy pneumoniae PCR TNP, Adenovirus (PCR) Not detected, B. pertussis DNA (PCR) TNP, Coronavirus OC43 (PCR) Not detected, Coronavirus HKU1 (PCR) Not detected, Coronavirus 229E (PCR) Not detected, SARS-CoV-2 (PCR) Not detected, Coronavirus NL63 (PCR) Not detected, Human Metapneumovir PCR Not detected, Influenza A (H1) PCR Not detected, Influ A (H1N1/09) PCR Not detected, Influenza A (H3) PCR Not detected, Influenza Type A (PCR) Not detected, Influenza Type B (PCR) Not detected, M. pneumoniae (PCR) TNP, Parainfluenza 1 (PCR) Not detected, Parainfluenza 2 (PCR) Not detected, Parainfluenza 3 (PCR) Not detected, Parainfluenza 4 (PCR) Not detected, RSV (PCR) Not detected, Entero/Rhino (PCR) Not detected 12/03/23 17:15: Troponin I 0.06 H 12/03/23 19:38: Lactate 7.1 H 12/03/23 20:22: POC Glucose 311 H* 12/03/23 21:52: Lactate 5.7 H 12/04/23 05:30: WBC 13.1 H, RBC 4.31, Hgb 13.1 D, Hct 41.0, MCV 95.1, MCH 30.4, MCHC 32.0, RDW 14.5, Plt Count 224 D, MPV 9.2, Neut % (Auto) 79.4, Lymph % (Auto) 12.7, [place] % (Auto) 7.1, Eos % (Auto) 0.3, Baso % (Auto) 0.4, Neut # (Auto) 10.4 H, Lymph # (Auto) 1.7, [place] # (Auto) 0.9, Eos # (Auto) 0.0, Baso # (Auto) 0.1, Sodium 136, Potassium 2.9 L* D, Chloride 104, Carbon Dioxide 29, Anion Gap 5.9, BUN 8, Creatinine 0.80 D, Estimated Creat Clear 74, Estimated GFR 69, Est GFR ( Amer) 84 D, Glucose 166 H D, Calcium 8.1 L, Total Bilirubin 0.9, AST 33, ALT 28, Alkaline Phosphatase 74, Total Protein 5.8 L, Albumin 3.0 L D, Globulin 2.8, Albumin/Globulin Ratio 1.1 12/04/23 06:06: POC Glucose 159 H 12/04/23 06:25: Specimen Source Left radial, O2 % 50, ABG pH 7.48 H, ABG pCO2 33.4 L, ABG pO2 123.6 H, ABG HCO3 24.4, ABG Total CO2 25.5, ABG O2 Saturation 98, ABG Base Excess 1.0, Ean Test Patient unable, Vent Rate 22, Tidal Volume 420, PEEP 10 I & O for Last 24 hours: Intake & Output 12/01/23 12/02/23 12/03/23 12/04/23 23:59 23:59 23:59 23:59 Intake Total 936.996 / 936.996 879.374 / 879.374 Output Total 2640 / 2840 1285 / 1285 Balance -1703.004 / -1903.004 -405.626 / -405.626 Weight 225 lb 9 oz 224 lb 13.944 oz Constitutional Constitutional: obese Comments: Intubated and sedated *Routine Respiratory Exam Respiratory: Present rhonchi and symmetric chest movement *Routine Cardiovascular Exam Comments: A-fib *Routine Extremities Exam Extremities: Present edema Meds Home Medications and Allergies Home Medications Medication Instructions Recorded Confirmed Type lisinopril 40 mg tablet 40 mg PO DAILY Hypertension 04/10/21 12/03/23 History pravastatin 80 mg tablet 80 mg PO HS Hyperlipidemia 04/10/21 12/03/23 History cyanocobalamin (vitamin B-12) 1,000 mcg PO DAILY Supplement 07/12/23 12/03/23 History 1,000 mcg tablet (Vitamin B-12) ergocalciferol (vitamin D2) 1,250 1,250 mcg PO WEEKLY Supplement 07/12/23 12/03/23 History mcg (50,000 unit) capsule (Vitamin D2) glipizide 10 mg tablet 10 mg PO DAILY DM2 07/12/23 12/03/23 History metformin 500 mg tablet 1,000 mg PO BID DM2 07/12/23 12/03/23 History apixaban 5 mg tablet (Eliquis) 5 mg PO BID Afib 12/03/23 12/03/23 History diltiazem HCl 240 mg 240 mg PO BID Afib 12/03/23 12/03/23 History capsule,extended release 24 hr empagliflozin 25 mg tablet 25 mg PO DAILY DM2 12/03/23 12/03/23 History (Jardiance) ezetimibe 10 mg tablet 10 mg PO DAILY Cholesterol 12/03/23 12/03/23 History hydrochlorothiazide 25 mg tablet 25 mg PO DAILY Hypertension 12/03/23 12/03/23 History meloxicam 15 mg tablet 15 mg PO DAILYP PRN Pain (Scale 12/03/23 12/03/23 History Score 1-3) metoprolol succinate 50 mg 50 mg PO DAILY Heart Rate 12/03/23 12/03/23 History tablet,extended release 24 hr New Prescriptions to Start Prescriptions: Allergies Allergy/AdvReac Type Severity Reaction Status Date / Time No Known Allergies Allergy Verified 07/24/23 13:15 Assessment and Plan *Assessment and plan (1) Acute hypoxemic respiratory failure: Status: Acute Category: Medical Code(s): J96.01 - Acute respiratory failure with hypoxia (2) Atrial fibrillation with rapid ventricular response: Status: Acute Category: Medical Code(s): I48.91 - Unspecified atrial fibrillation (3) Heart failure with preserved ejection fraction: Status: Acute Category: Medical Code(s): I50.30 - Unspecified diastolic (congestive) heart failure (4) Acute cardiac pulmonary edema: Status: Acute Category: Medical Code(s): I50.1 - Left ventricular failure, unspecified (5) HLD (hyperlipidemia): Status: Chronic Qualifiers: Hyperlipidemia type: mixed hyperlipidemia Qualified Code(s): E78.2 - Mixed hyperlipidemia Category: Medical Code(s): E78.5 - Hyperlipidemia, unspecified (6) HTN (hypertension): Status: Chronic Qualifiers: Hypertension type: primary hypertension Qualified Code(s): I10 - Essential (primary) hypertension Category: Medical Code(s): I10 - Essential (primary) hypertension (7) DM (diabetes mellitus): Status: Chronic Qualifiers: Diabetes mellitus complication status: without complication Diabetes mellitus intermission coordinator insulin use: without intermission coordinator use Diabetes mellitus type: type 2 Qualified Code(s): E11.9 - Type 2 diabetes mellitus without complications Category: Medical Code(s): E11.9 - Type 2 diabetes mellitus without complications Plan A-fib RVR Chadsvasc score > 2 History of chronic A-fib -Medical noncompliance reported per patient's family -Failed cardioversion x 3 per ER doc attempt -Was initially loaded with digoxin without rate improvement -Currently rate controlled on amiodarone drip after brief episodes of NSR present. -Currently on Lovenox for anticoagulation -Will consider NAI/cardioversoin tomorrow Acute on Chronic HFpEF -Moderate to large bilateral pleural effusions noted on CT chest -Patient currently on Bumex drip, will continue -Has diuresed over 3.5 L -Will add Jardiance later CAD Acute myocardial injury/elevated trop -Troponin 0.01, 0.07, 0.06 -EKG negative for acute ischemic changes -Patient underwent medical management heart cath July 2023 -No planned intervention at this time Acute hypoxic respiratory failure Elevated lactate Neutrophilic leukocytosis low-grade fevers -Lactic acid 5.7 -WBC 13.1 -Patient is currently intubated and pulmonology is following. Will defer vent management and antibiotic selection to pulmonology/primary service 12/04/2023: Continue Bumex drip and amiodarone drip. Official echocardiogram is pending. Will proceed with bedside cardioversion in the am.
--- NOTE | 2023-12-04 09:37 | EXP.PULM.CON ---
History of Present Illness History of present illness: Ms. Weathers is a 78-year-old female with reported history of atrial fibrillation CHF hypertension dyslipidemia YOLANDE diabetes mellitus presented to the ER with worsening respiratory distress needing intubation and mechanical ventilator support for refractory hypoxia and pulmonary was called for further evaluation and management. [facility] Disclaimer: The information contained in this section may have been updated after the patient was seen, as this information can be updated by other users. Medical History (Updated 12/04/23 @ 12:28 by Florence Garcia MD) Edema of larynx Pleural effusion, bilateral Coronary artery disease Atypical angina Afib Abnormal stress test HLD (hyperlipidemia) HTN (hypertension) Abnormal result of cardiovascular function study Dyspnea YOLANDE (obstructive sleep apnea) Family History Other No significant family history Social History (Updated 12/03/23 @ 16:19 by Destiney Young RN) Smoking Status: Unknown if ever smoked alcohol intake: current current occupational status: other Travel in the last 8 weeks: Inside the [place] Review of Systems Review of Systems Review of systems:: unable to obtain Review of systems (narrative): Patient intubated and sedated Pulmonology Exam Inpatient Vital signs and Labs for Last 24 Hours: Temp Pulse Resp BP Pulse Ox O2 Del Method O2 Flow Rate 99.9 F H 106 H 22 113/70 100 Mechanical Ventilation 15 12/04/23 08:00 12/04/23 09:00 12/04/23 09:00 12/04/23 09:00 12/04/23 09:00 12/04/23 09:00 12/03/23 11:12 FiO2 50 12/04/23 09:00 Laboratory Results - last 24 hr 12/03/23 10:58: Specimen Source Right brachial, O2 % Nrb, ABG pH 6.99 L*, ABG pCO2 67.8 H, ABG pO2 68.4 L, ABG HCO3 16.0 L, ABG Total CO2 18.1 L, ABG O2 Saturation 81 L*, ABG Base Excess -15.4 L, Ean Test Patient unable 12/03/23 11:07: WBC 12.5 H, RBC 5.02, Hgb 15.4, Hct 50.7 H, MCV 101.0 H, MCH 30.8, MCHC 30.5 L, RDW 14.0, Plt Count 309, MPV 10.0, Neut % (Auto) 66.4, Lymph % (Auto) 25.5, [place] % (Auto) 6.3, Eos % (Auto) 0.9, Baso % (Auto) 0.8, Neut # (Auto) 8.3 H, Lymph # (Auto) 3.2, [place] # (Auto) 0.8, Eos # (Auto) 0.1, Baso # (Auto) 0.1, APTT 22.2 L, Sodium 136, Potassium 3.7, Chloride 105, Carbon Dioxide 20 L, Anion Gap 14.7, BUN 8, Creatinine 0.60, Estimated GFR 96, Est GFR ( Amer) 117, Glucose 465 H*, Calcium 9.0, Magnesium 2.1, Total Bilirubin 1.2, AST 39 H, ALT 36, Alkaline Phosphatase 103, Troponin I < 0.01, NT-Pro-B Natriuret Pep 2540 H, Total Protein 7.2, Albumin 3.9, Globulin 3.3 H, Albumin/Globulin Ratio 1.2 12/03/23 11:44: Specimen Source L radial, O2 % 100, ABG pH 7.23 L*, ABG pCO2 40.1, ABG pO2 184.8 H, ABG HCO3 16.4 L, ABG Total CO2 17.6 L, ABG O2 Saturation 99, ABG Base Excess -11.2 L, Ean Test Acceptable, Vent Rate 22, Tidal Volume 420, PEEP 8 12/03/23 12:00: Urine Color Yellow, Urine Appearance Sl cloudy, Urine pH 6.0, Ur Specific [place] >= 1.030, Urine Protein 3+, Urine Glucose (UA) 3+, Urine Ketones Trace, Urine Blood 2+, Urine Nitrate Negative, Urine Bilirubin Negative, Urine Urobilinogen 1.0, Ur Leukocyte Esterase Negative, Urine RBC 3-5, Urine WBC Occasional, Ur Squamous Epith Cells 3-5, Urine Bacteria 4+ 12/03/23 14:35: Lactate 5.8 H, Troponin I 0.07 H, Acetone Level None detected 12/03/23 15:53: POC Glucose 431 H* 12/03/23 16:45: Chlamy pneumoniae PCR TNP, Adenovirus (PCR) Not detected, B. pertussis DNA (PCR) TNP, Coronavirus OC43 (PCR) Not detected, Coronavirus HKU1 (PCR) Not detected, Coronavirus 229E (PCR) Not detected, SARS-CoV-2 (PCR) Not detected, Coronavirus NL63 (PCR) Not detected, Human Metapneumovir PCR Not detected, Influenza A (H1) PCR Not detected, Influ A (H1N1/09) PCR Not detected, Influenza A (H3) PCR Not detected, Influenza Type A (PCR) Not detected, Influenza Type B (PCR) Not detected, M. pneumoniae (PCR) TNP, Parainfluenza 1 (PCR) Not detected, Parainfluenza 2 (PCR) Not detected, Parainfluenza 3 (PCR) Not detected, Parainfluenza 4 (PCR) Not detected, RSV (PCR) Not detected, Entero/Rhino (PCR) Not detected 12/03/23 17:15: Troponin I 0.06 H 12/03/23 19:38: Lactate 7.1 H 12/03/23 20:22: POC Glucose 311 H* 12/03/23 21:52: Lactate 5.7 H 12/04/23 05:30: WBC 13.1 H, RBC 4.31, Hgb 13.1 D, Hct 41.0, MCV 95.1, MCH 30.4, MCHC 32.0, RDW 14.5, Plt Count 224 D, MPV 9.2, Neut % (Auto) 79.4, Lymph % (Auto) 12.7, [place] % (Auto) 7.1, Eos % (Auto) 0.3, Baso % (Auto) 0.4, Neut # (Auto) 10.4 H, Lymph # (Auto) 1.7, [place] # (Auto) 0.9, Eos # (Auto) 0.0, Baso # (Auto) 0.1, Sodium 136, Potassium 2.9 L* D, Chloride 104, Carbon Dioxide 29, Anion Gap 5.9, BUN 8, Creatinine 0.80 D, Estimated Creat Clear 74, Estimated GFR 69, Est GFR ( Amer) 84 D, Glucose 166 H D, Calcium 8.1 L, Total Bilirubin 0.9, AST 33, ALT 28, Alkaline Phosphatase 74, Total Protein 5.8 L, Albumin 3.0 L D, Globulin 2.8, Albumin/Globulin Ratio 1.1 12/04/23 06:06: POC Glucose 159 H 12/04/23 06:25: Specimen Source Left radial, O2 % 50, ABG pH 7.48 H, ABG pCO2 33.4 L, ABG pO2 123.6 H, ABG HCO3 24.4, ABG Total CO2 25.5, ABG O2 Saturation 98, ABG Base Excess 1.0, Ean Test Patient unable, Vent Rate 22, Tidal Volume 420, PEEP 10 I & O for Labs for Last 24 Hours: Intake & Output 12/01/23 12/02/23 12/03/23 12/04/23 23:59 23:59 23:59 23:59 Intake Total 936.996 / 936.996 879.374 / 879.374 Output Total 2640 / 2840 1285 / 1285 Balance -1703.004 / -1903.004 -405.626 / -405.626 Weight 225 lb 9 oz 224 lb 13.944 oz Constitutional: Present severe distress Comment:: Intubated and Sedated Head: Present normocephalic and atraumatic Neck: Present normal inspection and trachea midline Respiratory: Present patient mechanically ventilated, rhonchi and crackles; Absent prolonged expiratory phase or wheezes Cardiac: Present S1/S2 and Tachycardia GI: Present soft; Absent distention or tenderness Skin: Present intact; Absent cyanosis Neuro: Absent alert, awake or oriented x 3 Extremities: Present normal inspection; Absent clubbing or cyanosis Psychiatric: Present unable to assess Meds Home Medications and Allergies Home Medications Medication Instructions Recorded Confirmed Type lisinopril 40 mg tablet 40 mg PO DAILY Hypertension 04/10/21 12/03/23 History pravastatin 80 mg tablet 80 mg PO HS Hyperlipidemia 04/10/21 12/03/23 History cyanocobalamin (vitamin B-12) 1,000 mcg PO DAILY Supplement 07/12/23 12/03/23 History 1,000 mcg tablet (Vitamin B-12) ergocalciferol (vitamin D2) 1,250 1,250 mcg PO WEEKLY Supplement 07/12/23 12/03/23 History mcg (50,000 unit) capsule (Vitamin D2) glipizide 10 mg tablet 10 mg PO DAILY DM2 07/12/23 12/03/23 History metformin 500 mg tablet 1,000 mg PO BID DM2 07/12/23 12/03/23 History apixaban 5 mg tablet (Eliquis) 5 mg PO BID Afib 12/03/23 12/03/23 History diltiazem HCl 240 mg 240 mg PO BID Afib 12/03/23 12/03/23 History capsule,extended release 24 hr empagliflozin 25 mg tablet 25 mg PO DAILY DM2 12/03/23 12/03/23 History (Jardiance) ezetimibe 10 mg tablet 10 mg PO DAILY Cholesterol 12/03/23 12/03/23 History hydrochlorothiazide 25 mg tablet 25 mg PO DAILY Hypertension 12/03/23 12/03/23 History meloxicam 15 mg tablet 15 mg PO DAILYP PRN Pain (Scale 12/03/23 12/03/23 History Score 1-3) metoprolol succinate 50 mg 50 mg PO DAILY Heart Rate 12/03/23 12/03/23 History tablet,extended release 24 hr New Prescriptions to Start Prescriptions: Allergies Allergy/AdvReac Type Severity Reaction Status Date / Time No Known Allergies Allergy Verified 07/24/23 13:15 Results Laboratory Findings 12/04/23 05:30 12/04/23 05:30 ABG ABG pH 7.48 mmol/L (7.35-7.45) H 12/04/23 06:25 ABG pCO2 33.4 mmhg (35.0-45.0) L 12/04/23 06:25 ABG pO2 123.6 mmhg (80-100) H 12/04/23 06:25 ABG O2 Saturation 98 % (90-100) 12/04/23 06:25 Abnormal lab findings: Abnormal Labs 12/03/23 12/03/23 12/03/23 10:58 11:07 11:44 WBC 12.5 H Hct 50.7 H MCV 101.0 H MCHC 30.5 L Neut # (Auto) 8.3 H APTT 22.2 L ABG pH 6.99 L* 7.23 L* ABG pCO2 67.8 H ABG pO2 68.4 L 184.8 H ABG HCO3 16.0 L 16.4 L ABG Total CO2 18.1 L 17.6 L ABG O2 Saturation 81 L* ABG Base Excess -15.4 L -11.2 L Potassium Carbon Dioxide 20 L Glucose 465 H* POC Glucose Lactate Calcium AST 39 H Troponin I NT-Pro-B Natriuret Pep 2540 H Total Protein Albumin Globulin 3.3 H 12/03/23 12/03/23 12/03/23 14:35 15:53 17:15 WBC Hct MCV MCHC Neut # (Auto) APTT ABG pH ABG pCO2 ABG pO2 ABG HCO3 ABG Total CO2 ABG O2 Saturation ABG Base Excess Potassium Carbon Dioxide Glucose POC Glucose 431 H* Lactate 5.8 H Calcium AST Troponin I 0.07 H 0.06 H NT-Pro-B Natriuret Pep Total Protein Albumin Globulin 12/03/23 12/03/23 12/03/23 19:38 20:22 21:52 WBC Hct MCV MCHC Neut # (Auto) APTT ABG pH ABG pCO2 ABG pO2 ABG HCO3 ABG Total CO2 ABG O2 Saturation ABG Base Excess Potassium Carbon Dioxide Glucose POC Glucose 311 H* Lactate 7.1 H 5.7 H Calcium AST Troponin I NT-Pro-B Natriuret Pep Total Protein Albumin Globulin 12/04/23 12/04/23 12/04/23 05:30 06:06 06:25 WBC 13.1 H Hct MCV MCHC Neut # (Auto) 10.4 H APTT ABG pH 7.48 H ABG pCO2 33.4 L ABG pO2 123.6 H ABG HCO3 ABG Total CO2 ABG O2 Saturation ABG Base Excess Potassium 2.9 L* D Carbon Dioxide Glucose 166 H D POC Glucose 159 H Lactate Calcium 8.1 L AST Troponin I NT-Pro-B Natriuret Pep Total Protein 5.8 L Albumin 3.0 L D Globulin Assessment and Plan *Assessment and plan (1) On mechanically assisted ventilation: Status: Acute Category: Medical Code(s): Z99.11 - Dependence on respirator [ventilator] status (2) Acute hypoxemic respiratory failure: Status: Acute Category: Medical Code(s): J96.01 - Acute respiratory failure with hypoxia (3) Pleural effusion, bilateral: Status: Acute Category: Medical Code(s): J90 - Pleural effusion, not elsewhere classified (4) Edema of larynx: Status: Acute Category: Medical Code(s): J38.4 - Edema of larynx Plan Ms. Weathers is a 78-year-old female with reported history of atrial fibrillation CHF hypertension dyslipidemia YOLANDE diabetes mellitus presented to the ER with worsening respiratory distress needing intubation and mechanical ventilator support for refractory hypoxia and pulmonary was called for further evaluation and management. Hemodynamically unstable upon admission status post cardioversion unsuccessful, currently amiodarone drip, cardiology following. CTA upon admission no obvious evidence of pulmonary embolism. Bilateral pleural effusions right greater than left along with groundglass opacities concerning for volume overload. Adjacent atelectasis noted. Low-grade fevers. Neutrophilic leukocytosis. Received vancomycin and Unasyn in the ED, antibiotics changed to ceftriaxone azithromycin for community-acquired pneumonia coverage upon admission. Pending culture results. ABG upon admission mixed metabolic and respiratory acidosis, improved. Respiratory alkalosis noted on blood gas this morning. Improving hypoxic respiratory failure. Chest x-ray from this morning reviewed, ET tube in position. Stable with bilateral infiltrates and effusions. No change from prior. Plan: Continue propofol and fentanyl. Wean sedation to facilitate SBT Continue current mechanical ventilator settings, tidal volume 420, PEEP of 5 and FiO2 of 40%. Respiratory rate decreased to 18 this morning given respiratory alkalosis. Will follow with end-tidal. Continue ceftriaxone and azithromycin pending tracheal aspirate culture results Will hold off on performing thoracentesis at this point of time pending diuresis for the noted bilateral pleural effusions right greater than left. No significant cuff leak noted be initiated methylprednisolone 20 every 6 hours Hemodynamically stable. Irregularly irregular heart rate. Cardiology following. Lactate from this morning improved to 2.1 Abdomen soft nondistended. Adequate urine output. BUN/creatinine within normal limits. Severe hypokalemia. Replete IV potassium. Renally dose medications. - Continue mechanical ventilatory support - Continue AnalgoSedation with Propofol and Fentanyl with CPOT gal less than or euqal to 2 and RASS goal of to 2 (No need for deep sedation) - VAP bundle Recommend elevate head of the bed at 30 to 45 degrees Recommend oral care with chlorhexidne Recommend GI ulcer prophylaxis - Famotidine 20mg IV BID Recommend chemical DVT prophylaxis Total critical care time spent on this patient is 35 minutes managing acute hypoxic respiratory failure needing mechanical ventilation. This time spent include reviewing test results including interpreting chest x-rays, labs and arterial blood gas, optimizing the ventilator settings,formulating plan of care, discussing the plan of care with the team and the nursing staff.
--- NOTE | 2023-12-04 10:06 | PC.NURSE ---
Bumex drip increased to 1mg/hr per Ritesh in pharmacy. 1007
[2023-12-04] MEDS: propofoL 100 ML 5.63999999999999968 MG IV (10:25)
[2023-12-04] MEDS: KCl 20mEq/100ml 100 ML 50 MEQ IV ×2 (10:27→12:54)
--- NOTE | 2023-12-04 10:41 | PC.NURSE ---
Addendum entered by Saloni Shafer RN 12/04/23 14:49: 1140 Divya in RT at bedside placing pt back in AC mode on vent. Addendum entered by Saloni Shafer RN 12/04/23 11:31: notified Jocelyn in RT that pt HR is afib 140-160's at this time. pt bp is 190/116. RT to place pt back on AC mode Original Note: pt vent switched to Spontaneous at this time 1040
--- NOTE | 2023-12-04 10:45 | PC.NURSE ---
vent changes per annangi/RT fio2 45% rr 18 peep 5
[2023-12-04] MEDS: ENOXAPARIN 60MG/0.6ML SYRINGE 60 MG SQ (11:38)
[2023-12-04 11:54] LABS: POC Glucose,Bedside 160 (70-110)
[2023-12-04] MEDS: METHYLPREDNISOLONE SOD SUCC 40MG VIAL 20 MG IV ×2 (13:17→18:13)
[2023-12-04] MEDS: ACETAMINOPHEN 650MG SUPPOSITORY 650 MG RC (14:54)
[2023-12-04] MEDS: CEFTRIAXONE SODIUM 2 GM in 0.9 % SODIUM CHLORIDE 100 ML IV (15:34)
[2023-12-04] MEDS: BUMETANIDE 10 MG in 0.9 % SODIUM CHLORIDE 60 ML IV (15:39)
[2023-12-04] MEDS: AZITHROMYCIN 500 MG in 0.9 % SODIUM CHLORIDE 250 ML 250 MG IV (16:17)
[2023-12-04] MEDS: AMIODARONE HCL 900 MG in DEXTROSE 5 % IN WATER 500 ML 17.2699999999999996 MG IV (16:19)
--- NOTE | 2023-12-04 16:59 | EXP.PN ---
Subjective *Date: 12/04/23 *Time: 16:59 Interval history: intubated and sedated Exam Data for Last 24 hours Vital signs and Labs for Last 24 Hours: Temp Pulse Resp BP Pulse Ox O2 Del Method O2 Flow Rate 100.8 F H 110 H 18 118/65 100 Mechanical Ventilation 15 12/04/23 13:50 12/04/23 16:00 12/04/23 16:00 12/04/23 16:00 12/04/23 16:00 12/04/23 16:00 12/03/23 11:12 FiO2 45 12/04/23 16:00 Laboratory Results - last 24 hr 12/03/23 15:53: POC Glucose 431 H* 12/03/23 16:45: Chlamy pneumoniae PCR TNP, Adenovirus (PCR) Not detected, B. pertussis DNA (PCR) TNP, Coronavirus OC43 (PCR) Not detected, Coronavirus HKU1 (PCR) Not detected, Coronavirus 229E (PCR) Not detected, SARS-CoV-2 (PCR) Not detected, Coronavirus NL63 (PCR) Not detected, Human Metapneumovir PCR Not detected, Influenza A (H1) PCR Not detected, Influ A (H1N1/09) PCR Not detected, Influenza A (H3) PCR Not detected, Influenza Type A (PCR) Not detected, Influenza Type B (PCR) Not detected, M. pneumoniae (PCR) TNP, Parainfluenza 1 (PCR) Not detected, Parainfluenza 2 (PCR) Not detected, Parainfluenza 3 (PCR) Not detected, Parainfluenza 4 (PCR) Not detected, RSV (PCR) Not detected, Entero/Rhino (PCR) Not detected 12/03/23 17:15: Troponin I 0.06 H 12/03/23 19:38: Lactate 7.1 H 12/03/23 20:22: POC Glucose 311 H* 12/03/23 21:52: Lactate 5.7 H 12/04/23 05:30: WBC 13.1 H, RBC 4.31, Hgb 13.1 D, Hct 41.0, MCV 95.1, MCH 30.4, MCHC 32.0, RDW 14.5, Plt Count 224 D, MPV 9.2, Neut % (Auto) 79.4, Lymph % (Auto) 12.7, [place] % (Auto) 7.1, Eos % (Auto) 0.3, Baso % (Auto) 0.4, Neut # (Auto) 10.4 H, Lymph # (Auto) 1.7, [place] # (Auto) 0.9, Eos # (Auto) 0.0, Baso # (Auto) 0.1, Sodium 136, Potassium 2.9 L* D, Chloride 104, Carbon Dioxide 29, Anion Gap 5.9, BUN 8, Creatinine 0.80 D, Estimated Creat Clear 74, Estimated GFR 69, Est GFR ( Amer) 84 D, Glucose 166 H D, Calcium 8.1 L, Total Bilirubin 0.9, AST 33, ALT 28, Alkaline Phosphatase 74, Total Protein 5.8 L, Albumin 3.0 L D, Globulin 2.8, Albumin/Globulin Ratio 1.1 12/04/23 06:06: POC Glucose 159 H 12/04/23 06:25: Specimen Source Left radial, O2 % 50, ABG pH 7.48 H, ABG pCO2 33.4 L, ABG pO2 123.6 H, ABG HCO3 24.4, ABG Total CO2 25.5, ABG O2 Saturation 98, ABG Base Excess 1.0, Ean Test Patient unable, Vent Rate 22, Tidal Volume 420, PEEP 10 12/04/23 11:46: POC Glucose 160 H I & O for Last 24 hours: Intake & Output 12/01/23 12/02/23 12/03/23 12/04/23 23:59 23:59 23:59 23:59 Intake Total 936.996 / 523.638 5841.069 / 1370.069 Output Total 2640 / 2840 2975 / 2975 Balance -1703.004 / -1903.004 -1604.931 / -1604.931 Weight 102.313 kg 102 kg Constitutional Comments: intubated and sedated *Routine HEENT Exam Head: Present normocephalic Eye: Present EOMI and PERRL ENT: Present mucous membranes moist *Routine Neck Exam Neck: Present supple; Absent lymphadenopathy *Routine Respiratory Exam Respiratory: Present distant breath sounds and diminished air movement *Routine Cardiovascular Exam Cardiovascular: Present RRR *Routine Abdominal Exam Abdominal: Present soft and normoactive bowel sounds; Absent tenderness *Routine Extremities Exam Extremities: Absent cyanosis, clubbing or edema *Routine Skin Exam Skin: Present warm; Absent rash *Routine Neurological Exam Comments: intubated and sedated Assessment and Plan *Assessment and plan (1) Acute cardiac pulmonary edema: Status: Acute Category: Medical Code(s): I50.1 - Left ventricular failure, unspecified (2) Acute hypoxemic respiratory failure: Status: Acute Category: Medical Code(s): J96.01 - Acute respiratory failure with hypoxia (3) Atrial fibrillation with rapid ventricular response: Status: Acute Category: Medical Code(s): I48.91 - Unspecified atrial fibrillation (4) CHF exacerbation: Status: Acute Category: Medical Code(s): I50.9 - Heart failure, unspecified (5) Coronary artery disease: Status: Acute Category: Medical Code(s): I25.10 - Atherosclerotic heart disease of [place] coronary artery without angina pectoris (6) HLD (hyperlipidemia): Status: Chronic Qualifiers: Hyperlipidemia type: mixed hyperlipidemia Qualified Code(s): E78.2 - Mixed hyperlipidemia Category: Medical Code(s): E78.5 - Hyperlipidemia, unspecified (7) HTN (hypertension): Status: Chronic Qualifiers: Hypertension type: primary hypertension Qualified Code(s): I10 - Essential (primary) hypertension Category: Medical Code(s): I10 - Essential (primary) hypertension (8) Atypical angina: Status: Acute Category: Medical Code(s): I20.89 - Other forms of angina pectoris (9) Afib: Status: Acute Qualifiers: Atrial fibrillation type: persistent (not longstanding) Qualified Code(s): I48.19 - Other persistent atrial fibrillation Category: Medical Code(s): I48.91 - Unspecified atrial fibrillation (10) DM (diabetes mellitus): Status: Chronic Qualifiers: Diabetes mellitus type: type 2 Diabetes mellitus 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 Reportedly patient has history of medical noncompliance. Patient was found hypoxic, patient was intubated for airway protection in the emergency department. At time of my evaluation patient is intubated sedated. Patient was found to be in A-fib with RVR, with low BP patient was a started on IV amiodarone per cardiology. Assessment and plan Acute hypoxic respiratory failure satting less than 90% on room air likely secondary to flash pulmonary edema, CHF exacerbation, s/p intubation Strict I's and O's, Dejesus insertion cardiac event monitoring Consult cardiology Monitor on cardiac telemetry Diuresis with IV bumex Started on Rocephin, azithromycin Check PCT proBNP checked, 2540 Order echocardiogram Monitor and replace electrolytes Consult pulmonary Afib with RVR - started on IV amiodaron - Patient was shocked in ED cardiology following Hyperglycemia due to uncontrolled diabetes mellitus Long-acting insulin Insulin sliding scale Patient is n.p.o. due to intubation UA is suggestive UTI - continue rocephin - Urine Culture Leukocytosis likely reactive, lactic acidosis -Monitor lactic acid Started on empirical antibiotics with Rocephin, azithromycin Check blood cultures Check PCT level DVT PPx - heparin continue IV diuresis, wean o2 needs as tolerated, echo pending
[2023-12-04 17:24] LABS: Potassium 3.7 mmoL/L (3.5-5.1)
[2023-12-04] MEDS: FENTANYL CITRATE/PF 1,000 MCG in 0.9 % SODIUM CHLORIDE 80 ML 5 MCG IV (18:14)
--- NOTE | 2023-12-04 18:31 | PC.NURSE ---
All documentation and care provided by Randa LOZOYA was completed under my direct supervision. Saloni Shafer RN
[2023-12-04 20:40] LABS: POC Glucose,Bedside 168 (70-110)
[2023-12-04 20:45] LABS: POC Glucose,Bedside 217 (70-110)
[2023-12-04] MEDS: ENOXAPARIN 100MG/ML SYRINGE 100 MG SQ (21:02)
[2023-12-05] VITALS (35 sets, daily range): BP systolic 99–190; BP diastolic 58–125; PULSE 68–190; RESP 16–22; TEMP 36.5–37.5; O2SAT 92–100; BMI 36.2
[2023-12-05] MEDS: METHYLPREDNISOLONE SOD SUCC 40MG VIAL 20 MG IV ×4 (00:05→19:12)
[2023-12-05] MEDS: propofoL 100 ML 22.5599999999999987 MG IV ×3 (00:11→09:33)
[2023-12-05] MEDS: BUMETANIDE 10 MG in 0.9 % SODIUM CHLORIDE 60 ML IV ×2 (01:42→12:42)
[2023-12-05 05:33] LABS: Basophils # 0.1 K/mm3 (0-0.2); Basophils % 0.3 % (0.1-2.0); Eosinophils # 0.2 K/mm3 (0.0-0.4); Eosinophils % 1.3 % (0.1-12.0); Hematocrit 43.3 % (37.0-47.0); Hemoglobin 13.7 g/dL (12.2-16.2); Lymphocytes # 0.6 K/mm3 (0.7-4.5); Lymphocytes % 4.2 % (10-50); Mean Corpuscular HGB Conc 31.7 g/dL (31.8-35.4); Mean Corpuscular Hemoglobin 30.5 pg (27.0-31.2); Mean Platelet Volume 9.6 fl (7.4-10.4); Monocytes # 0.5 K/mm3 (0.1-1.0); Monocytes % 3.3 % (1.7-9.3); Neutrophils # 12.9 K/mm3 (1.8-7.8); Neutrophils % 90.8 % (37.0-80.0); Platelet Count 195 K/mm3 (142-424); Red Cell Distribution Width 14.5 % (11.5-17.5); White Blood Count 14.2 K/mm3 (4.8-10.8)
[2023-12-05 05:35] LABS: MANUAL DIFFERENTIAL MANUAL DIFFERENTIAL (MANUAL DIFF)
[2023-12-05 05:36] LABS: Chloride 102 mmol/L (98-107); Sodium 137 mmol/L (136-145)
[2023-12-05 05:37] LABS: Potassium 3.3 mmoL/L (3.5-5.1)
[2023-12-05 05:39] LABS: Alanine Aminotransferase 22 U/L (12-78); Alkaline Phosphatase 78 U/L (38-126); Anion Gap 6.3 mEq/L (5-15); Aspartate Amino Transferase 30 U/L (14-36); Bilirubin,Total 0.9 mg/dl (0.2-1.3); Blood Urea Nitrogen 13 mg/dl (7-17); Carbon Dioxide 32 mmol/L (22.0-30.0); Creatinine Clearance Estimated 74 mL/min (50-200); Estimated Glomerular Filt Rate 81 ml/min (>60); GFR (African American) 98 ML/MIN (>60); Lactic Acid 0.9 mmol/L (0.7-2.1)
[2023-12-05 05:40] LABS: Calcium 8.3 mg/dl (8.4-10.2); Glucose 241 mg/dl (74-100); Total Protein,Serum 6.4 g/dl (6.3-8.2)
--- NOTE | 2023-12-05 06:00 | XR_ITS ---
PROCEDURE INFORMATION: Exam: XR Chest Exam date and time: 12/05/2023 5:52 AM Age: 78 years old Clinical indication: Device placement; Ett placement (vent status); Additional info: Verify ett/og TECHNIQUE: Imaging protocol: Radiologic exam of the chest. Views: 1 view. COMPARISON: CR XR CHEST PORTABLE 12/04/2023 6:03 AM FINDINGS: Tubes, catheters and devices: There is an ET tube situated in adequate position 3 cm above the antonio. There is an NG tube coursing into the stomach below the field of view. Lungs: There is diffuse opacification mid-lower lung zones not markedly changed when allowing for patient rotation likely representing combination of pleural effusions and airspace disease. Pleural spaces: See Lungs finding. Heart/Mediastinum: Unremarkable. No cardiomegaly. Bones/joints: Unremarkable for age. IMPRESSION: ET tube in adequate position 3 cm above the antonio.
[2023-12-05 06:07] LABS: Lymphocytes % 8 % (10-50); Monocytes % 2 % (2-9); Neutrophils % 89 % (42-76); Platelet Estimate Normal; RBC Morphology Normal; Total Cells Counted 100
[2023-12-05] MEDS: humaLOG 100 UNITS/ML 3ML VIAL (SSI) SQ ×3 (06:15→16:26)
[2023-12-05] MEDS: LEVALBUTEROL 1.25MG/3ML NEB 1.25 MG IH ×4 (06:23→23:59)
[2023-12-05 06:27] LABS: POC Glucose,Bedside 216 (70-110)
[2023-12-05] MEDS: ENOXAPARIN 100MG/ML SYRINGE 100 MG SQ ×2 (08:49→22:06)
--- NOTE | 2023-12-05 09:09 | EXP.CARD.PN ---
Subjective Subjective Date: 12/05/23 Time: 08:00 Interval history: Patient remains intubated and sedated on Amio and Bumex drips. Patient has diuresed over 6 L. Creatinine remained stable at 0.7 Heart rate has improved, remains in A-fib but rate is now 75. Blood pressure 113/76. Exam Data for Last 24 hours Vital signs and Labs for Last 24 Hours: Temp Pulse Resp BP Pulse Ox O2 Del Method O2 Flow Rate 99.2 F 88 18 111/62 98 Mechanical Ventilation 15 12/05/23 08:00 12/05/23 09:00 12/05/23 09:00 12/05/23 09:00 12/05/23 09:00 12/05/23 09:00 12/03/23 11:12 FiO2 45 12/05/23 09:00 Laboratory Results - last 24 hr 12/04/23 11:46: POC Glucose 160 H 12/04/23 16:25: POC Glucose 168 H 12/04/23 17:10: Potassium 3.7 D 12/04/23 20:32: POC Glucose 217 H 12/05/23 05:23: WBC 14.2 H, RBC 4.50, Hgb 13.7, Hct 43.3, MCV 96.0, MCH 30.5, MCHC 31.7 L, RDW 14.5, Plt Count 195, MPV 9.6, Neut % (Auto) 90.8 H, Lymph % (Auto) 4.2 L, [place] % (Auto) 3.3, Eos % (Auto) 1.3, Baso % (Auto) 0.3, Neut # (Auto) 12.9 H, Lymph # (Auto) 0.6 L, [place] # (Auto) 0.5, Eos # (Auto) 0.2, Baso # (Auto) 0.1, Total Counted 100, Neutrophils % (Manual) 89 H, Band Neutrophils % 1.0, Lymphocytes % (Manual) 8 L, Monocytes % (Manual) 2, Platelet Estimate Normal, RBC Morphology Normal, Sodium 137, Potassium 3.3 L, Chloride 102, Carbon Dioxide 32 H, Anion Gap 6.3, BUN 13 D, Creatinine 0.70, Estimated Creat Clear 74, Estimated GFR 81, Est GFR ( Amer) 98, Glucose 241 H D, Lactate 0.9, Calcium 8.3 L, Total Bilirubin 0.9, AST 30, ALT 22, Alkaline Phosphatase 78, Total Protein 6.4, Albumin 3.1 L 12/05/23 06:06: POC Glucose 216 H I & O for Last 24 hours: Intake & Output 12/02/23 12/03/23 12/04/23 12/05/23 23:59 23:59 23:59 23:59 Intake Total 936.996 / 336.957 4931.715 / 1852.715 943.88 / 943.88 Output Total 2640 / 2840 4335 / 4535 1755 / 1755 Balance -1703.004 / -1903.004 -2482.285 / -2682.285 -811.12 / -811.12 Weight 225 lb 9 oz 224 lb 13.944 oz 225 lb 8.526 oz Constitutional Comments: intubated and sedated *Routine HEENT Exam Head: Present normocephalic Eye: Present EOMI and PERRL ENT: Present mucous membranes moist *Routine Neck Exam Neck: Present supple; Absent lymphadenopathy *Routine Respiratory Exam Respiratory: Present symmetric chest movement *Routine Cardiovascular Exam Cardiovascular: Present RRR *Routine Abdominal Exam Abdominal: Present soft and normoactive bowel sounds; Absent tenderness *Routine Extremities Exam Extremities: Absent cyanosis, clubbing or edema *Routine Skin Exam Skin: Present warm; Absent rash *Routine Neurological Exam Comments: intubated and sedated Progress Note: A&P Assessment and plan (1) Acute cardiac pulmonary edema: Status: Acute (2) Acute hypoxemic respiratory failure: Status: Acute (3) Atrial fibrillation with rapid ventricular response: Status: Acute (4) CHF exacerbation: Status: Acute (5) Coronary artery disease: Status: Acute (6) HLD (hyperlipidemia): Status: Chronic (7) HTN (hypertension): Status: Chronic (8) Atypical angina: Status: Acute (9) Afib: Status: Acute (10) DM (diabetes mellitus): Status: Chronic Assessment and Plan Assessment and Plan for All Diagnoses:: A-fib RVR Chadsvasc score > 2 History of chronic A-fib -Medical noncompliance reported per patient's family -Failed cardioversion x 3 per ER doc attempt -Was initially loaded with digoxin without rate improvement -Currently rate controlled on amiodarone drip after brief episodes of NSR present. -Currently on Lovenox for anticoagulation 12/05/2023: Patient remains in A-fib but rate has not improved to to the 70s, blood pressure stable 113/76. Will continue amio drip. Acute on Chronic HFpEF -Moderate to large bilateral pleural effusions noted on CT chest -Normal LV systolic function, marked increase in LV wall thickness (1.6 cm), moderate RV dilation with moderate reduction in RV function, biatrial dilation, no significant valvular stenosis or regurg. Recommend outpatient further testing for infiltrative disease with cardiac MRI and lab testing for amyloidosis plus a PYP nuclear scan. -Patient currently on Bumex drip, will continue -Has diuresed over 6 liters, creatinine remained stable at 0.7 -Will add Jardiance later CAD Acute myocardial injury/elevated trop -Troponin 0.01, 0.07, 0.06 -EKG negative for acute ischemic changes -Patient underwent medical management heart cath July 2023 -No planned intervention at this time Acute hypoxic respiratory failure Elevated lactate Neutrophilic leukocytosis low-grade fevers -Lactic acid 5.7-0.9 -WBC 13.1 -Patient is currently intubated and pulmonology is following. Will defer vent management and antibiotic selection to pulmonology/primary service 12/05/2023: Continue Bumex drip and amiodarone drip. No planned interventions today.
--- NOTE | 2023-12-05 09:35 | PC.NURSE ---
propofol tubing changed at this time
--- NOTE | 2023-12-05 09:49 | P.PN_ITS ---
Subjective *Date: 12/05/23 *Time: 12:47 Interval history: No aute resp events overnight. Pulmonology Exam Inpatient Vital signs and Labs for Last 24 Hours: Temp Pulse Resp BP Pulse Ox O2 Del Method O2 Flow Rate 99.2 F 88 18 111/62 98 Mechanical Ventilation 15 12/05/23 08:00 12/05/23 09:00 12/05/23 09:20 12/05/23 09:00 12/05/23 09:20 12/05/23 09:00 12/03/23 11:12 FiO2 45 12/05/23 09:20 Laboratory Results - last 24 hr 12/04/23 11:46: POC Glucose 160 H 12/04/23 16:25: POC Glucose 168 H 12/04/23 17:10: Potassium 3.7 D 12/04/23 20:32: POC Glucose 217 H 12/05/23 05:23: WBC 14.2 H, RBC 4.50, Hgb 13.7, Hct 43.3, MCV 96.0, MCH 30.5, MCHC 31.7 L, RDW 14.5, Plt Count 195, MPV 9.6, Neut % (Auto) 90.8 H, Lymph % (Auto) 4.2 L, [place] % (Auto) 3.3, Eos % (Auto) 1.3, Baso % (Auto) 0.3, Neut # (Auto) 12.9 H, Lymph # (Auto) 0.6 L, [place] # (Auto) 0.5, Eos # (Auto) 0.2, Baso # (Auto) 0.1, Total Counted 100, Neutrophils % (Manual) 89 H, Band Neutrophils % 1.0, Lymphocytes % (Manual) 8 L, Monocytes % (Manual) 2, Platelet Estimate Normal, RBC Morphology Normal, Sodium 137, Potassium 3.3 L, Chloride 102, Carbon Dioxide 32 H, Anion Gap 6.3, BUN 13 D, Creatinine 0.70, Estimated Creat Clear 74, Estimated GFR 81, Est GFR ( Amer) 98, Glucose 241 H D, Lactate 0.9, Calcium 8.3 L, Total Bilirubin 0.9, AST 30, ALT 22, Alkaline Phosphatase 78, Total Protein 6.4, Albumin 3.1 L 12/05/23 06:06: POC Glucose 216 H Temp Pulse Resp BP Pulse Ox O2 Del Method O2 Flow Rate 99.9 F H 106 H 22 113/70 100 Mechanical Ventilation 15 12/04/23 08:00 12/04/23 09:00 12/04/23 09:00 12/04/23 09:00 12/04/23 09:00 12/04/23 09:00 12/03/23 11:12 FiO2 50 12/04/23 09:00 Laboratory Results - last 24 hr 12/03/23 10:58: Specimen Source Right brachial, O2 % Nrb, ABG pH 6.99 L*, ABG pCO2 67.8 H, ABG pO2 68.4 L, ABG HCO3 16.0 L, ABG Total CO2 18.1 L, ABG O2 Saturation 81 L*, ABG Base Excess -15.4 L, Ean Test Patient unable 12/03/23 11:07: WBC 12.5 H, RBC 5.02, Hgb 15.4, Hct 50.7 H, MCV 101.0 H, MCH 30.8, MCHC 30.5 L, RDW 14.0, Plt Count 309, MPV 10.0, Neut % (Auto) 66.4, Lymph % (Auto) 25.5, [place] % (Auto) 6.3, Eos % (Auto) 0.9, Baso % (Auto) 0.8, Neut # (Auto) 8.3 H, Lymph # (Auto) 3.2, [place] # (Auto) 0.8, Eos # (Auto) 0.1, Baso # (Auto) 0.1, APTT 22.2 L, Sodium 136, Potassium 3.7, Chloride 105, Carbon Dioxide 20 L, Anion Gap 14.7, BUN 8, Creatinine 0.60, Estimated GFR 96, Est GFR ( Amer) 117, Glucose 465 H*, Calcium 9.0, Magnesium 2.1, Total Bilirubin 1.2, AST 39 H, ALT 36, Alkaline Phosphatase 103, Troponin I < 0.01, NT-Pro-B Natriuret Pep 2540 H, Total Protein 7.2, Albumin 3.9, Globulin 3.3 H, Albumin/Globulin Ratio 1.2 12/03/23 11:44: Specimen Source L radial, O2 % 100, ABG pH 7.23 L*, ABG pCO2 40.1, ABG pO2 184.8 H, ABG HCO3 16.4 L, ABG Total CO2 17.6 L, ABG O2 Saturation 99, ABG Base Excess -11.2 L, Ean Test Acceptable, Vent Rate 22, Tidal Volume 420, PEEP 8 12/03/23 12:00: Urine Color Yellow, Urine Appearance Sl cloudy, Urine pH 6.0, Ur Specific [place] >= 1.030, Urine Protein 3+, Urine Glucose (UA) 3+, Urine Ketones Trace, Urine Blood 2+, Urine Nitrate Negative, Urine Bilirubin Negative, Urine Urobilinogen 1.0, Ur Leukocyte Esterase Negative, Urine RBC 3-5, Urine WBC Occasional, Ur Squamous Epith Cells 3-5, Urine Bacteria 4+ 12/03/23 14:35: Lactate 5.8 H, Troponin I 0.07 H, Acetone Level None detected 12/03/23 15:53: POC Glucose 431 H* 12/03/23 16:45: Chlamy pneumoniae PCR TNP, Adenovirus (PCR) Not detected, B. pertussis DNA (PCR) TNP, Coronavirus OC43 (PCR) Not detected, Coronavirus HKU1 (PCR) Not detected, Coronavirus 229E (PCR) Not detected, SARS-CoV-2 (PCR) Not detected, Coronavirus NL63 (PCR) Not detected, Human Metapneumovir PCR Not detected, Influenza A (H1) PCR Not detected, Influ A (H1N1/09) PCR Not detected, Influenza A (H3) PCR Not detected, Influenza Type A (PCR) Not detected, Influenza Type B (PCR) Not detected, M. pneumoniae (PCR) TNP, Parainfluenza 1 (PCR) Not detected, Parainfluenza 2 (PCR) Not detected, Parainfluenza 3 (PCR) Not detected, Parainfluenza 4 (PCR) Not detected, RSV (PCR) Not detected, Entero/Rhino (PCR) Not detected 12/03/23 17:15: Troponin I 0.06 H 12/03/23 19:38: Lactate 7.1 H 12/03/23 20:22: POC Glucose 311 H* 12/03/23 21:52: Lactate 5.7 H 12/04/23 05:30: WBC 13.1 H, RBC 4.31, Hgb 13.1 D, Hct 41.0, MCV 95.1, MCH 30.4, MCHC 32.0, RDW 14.5, Plt Count 224 D, MPV 9.2, Neut % (Auto) 79.4, Lymph % (Auto) 12.7, [place] % (Auto) 7.1, Eos % (Auto) 0.3, Baso % (Auto) 0.4, Neut # (Auto) 10.4 H, Lymph # (Auto) 1.7, [place] # (Auto) 0.9, Eos # (Auto) 0.0, Baso # (Auto) 0.1, Sodium 136, Potassium 2.9 L* D, Chloride 104, Carbon Dioxide 29, Anion Gap 5.9, BUN 8, Creatinine 0.80 D, Estimated Creat Clear 74, Estimated GFR 69, Est GFR ( Amer) 84 D, Glucose 166 H D, Calcium 8.1 L, Total Bilirubin 0.9, AST 33, ALT 28, Alkaline Phosphatase 74, Total Protein 5.8 L, Albumin 3.0 L D, Globulin 2.8, Albumin/Globulin Ratio 1.1 12/04/23 06:06: POC Glucose 159 H 12/04/23 06:25: Specimen Source Left radial, O2 % 50, ABG pH 7.48 H, ABG pCO2 33.4 L, ABG pO2 123.6 H, ABG HCO3 24.4, ABG Total CO2 25.5, ABG O2 Saturation 98, ABG Base Excess 1.0, Ean Test Patient unable, Vent Rate 22, Tidal Volume 420, PEEP 10 I & O for Labs for Last 24 Hours: Intake & Output 12/02/23 12/03/23 12/04/23 12/05/23 23:59 23:59 23:59 23:59 Intake Total 936.996 / 000.816 5535.715 / 5092.543 7141.952 / 1017.952 Output Total 2640 / 2840 4335 / 4535 1755 / 1755 Balance -1703.004 / -1903.004 -2482.285 / -2682.285 -737.048 / -737.048 Weight 225 lb 9 oz 224 lb 13.944 oz 225 lb 8.526 oz Intake & Output 12/01/23 12/02/23 12/03/23 12/04/23 23:59 23:59 23:59 23:59 Intake Total 936.996 / 936.996 879.374 / 879.374 Output Total 2640 / 2840 1285 / 1285 Balance -1703.004 / -1903.004 -405.626 / -405.626 Weight 225 lb 9 oz 224 lb 13.944 oz Constitutional: Present severe distress Comment:: Intubated and Sedated Head: Present normocephalic and atraumatic Neck: Present normal inspection and trachea midline Respiratory: Present patient mechanically ventilated, rhonchi and crackles; Abs ent prolonged expiratory phase or wheezes Cardiac: Present S1/S2 and Tachycardia GI: Present soft; Absent distention or tenderness Skin: Present intact; Absent cyanosis Neuro: Absent alert, awake or oriented x 3 Extremities: Present normal inspection; Absent clubbing or cyanosis Psychiatric: Present unable to assess Assessment and Plan *Assessment and plan (1) On mechanically assisted ventilation: Status: Acute Category: Medical Code(s): Z99.11 - Dependence on respirator [ventilator] status (2) Acute hypoxemic respiratory failure: Status: Acute Category: Medical Code(s): J96.01 - Acute respiratory failure with hypoxia (3) Pleural effusion, bilateral: Status: Acute Category: Medical Code(s): J90 - Pleural effusion, not elsewhere classified (4) Edema of larynx: Status: Acute Category: Medical Code(s): J38.4 - Edema of larynx Plan Ms. Weathers is a 78-year-old female with reported history of atrial fibrillation CHF hypertension dyslipidemia YOLANDE diabetes mellitus presented to the ER with worsening respiratory distress needing intubation and mechanical ventilator support for refractory hypoxia and pulmonary was called for further evaluation and management. Hemodynamically unstable upon admission status post cardioversion unsuccessful, currently amiodarone drip, cardiology following. CTA upon admission no obvious evidence of pulmonary embolism. Bilateral pleural effusions right greater than left along with groundglass opacities concerning for volume overload. Adjacent atelectasis noted. Low-grade fevers. Neutrophilic leukocytosis. Received vancomycin and Unasyn in the ED, antibiotics changed to ceftriaxone azithromycin for community-acquired pneumonia coverage upon admission. Pending culture results. ABG upon admission mixed metabolic and respiratory acidosis, improved. Respiratory alkalosis noted on blood gas this morning. Improving hypoxic respiratory failure. Chest x-ray from this morning reviewed, ET tube in position. Stable with bilateral infiltrates and effusions. No change from prior. Interval update: No acute respiratory events overnight. Continue minimal ventilator settings with chest x-ray unchanged. Continue to be diuresed. Afebrile. Hemodynamically stable. Stable leukocytosis. . Cuff leak. BUN/creatinine stable. Adequate urine output. Hypokalemia improved potassium now at 3.3. Plan: Continue propofol and fentanyl. Wean sedation to facilitate SBT Continue current mechanical ventilator settings, tidal volume 420, PEEP of 5 and FiO2 of 40%. Wean sedation SBT and extubation cannula/ Continue ceftriaxone and azithromycin pending tracheal aspirate culture results Will hold off on performing thoracentesis at this point of time pending diuresis for the noted bilateral pleural effusions right greater than left. Hemodynamically stable. Irregularly irregular heart rate. Cardiology follow ing. Abdomen soft nondistended. Adequate urine output. BUN/creatinine within normal limits. Hypokalemia improved, 3.3. repleted with 40 IV KCl - Continue mechanical ventilatory support - Continue AnalgoSedation with Propofol and Fentanyl with CPOT gal less than or euqal to 2 and RASS goal of to 2 (No need for deep sedation) - VAP bundle Recommend elevate head of the bed at 30 to 45 degrees Recommend oral care with chlorhexidne Recommend GI ulcer prophylaxis - Famotidine 20mg IV BID Recommend chemical DVT prophylaxis Total critical care time spent on this patient is 35 minutes managing acute hypoxic respiratory failure needing mechanical ventilation. This time spent include reviewing test results including interpreting chest x-rays, labs and arterial blood gas, optimizing the ventilator settings,formulating plan of care, discussing the plan of care with the team and the nursing staff.
[2023-12-05 10:09] LABS: Albumin Level 3.1 g/dl (3.5-5.0); Albumin/Globulin Ratio 0.9 (1.1-1.8); Globulin 3.3 g/dL (1.3-3.2)
--- NOTE | 2023-12-05 10:59 | DIET.NUTRFU ---
Addendum entered by Debra Oh RD, LD 12/05/23 13:01: RD notified patient extubated, ordered speech eval for recommended oral diet Original Note: If unable to extubate today, start TF.ET is already in place. Start Glucerna 20ml/hr ATC and increase to 50ml/hr. Based on dose of propofol, he received 268 kcal 4/3 and today already received 252kcal today. goal rate of TF will provide 1200ml/1200 kcal and 50gm protein and 1000ml formula water. NO IV bolus running currently but she is receiving dextrose and NaCl withing medication dosage. Continues on bumex. labs: potassium 3.3L, KCL ordered. BS evaluated 216-241. Will order minimal flush with TF at 50ml TID.
[2023-12-05 11:03] LABS: POC Glucose,Bedside 215 (70-110)
[2023-12-05] MEDS: KCl 20mEq/100ml 100 ML 50 MEQ IV ×2 (11:33→13:57)
--- NOTE | 2023-12-05 12:05 | PC.NURSE ---
RESPIRATORY CARE NOTE: EXTUBATED TO 3L NC
--- NOTE | 2023-12-05 12:26 | PC.NURSE ---
pt was extubated at 1205, HR has sustained in 160-170 since extubation, Mary contacted, new orders received and carried out
[2023-12-05] MEDS: AMIODARONE HCL 150 MG in DEXTROSE 5 % IN WATER 100 ML 206 MG IV (12:53)
--- NOTE | 2023-12-05 12:58 | PC.NURSE ---
notified dietitian Jamia, that patient had been extubated and would need a speech eval, stated she would put order in
--- NOTE | 2023-12-05 13:28 | PC.NURSE ---
Mary contacted about HR still high, gave new orders
--- NOTE | 2023-12-05 13:30 | PC.NURSE ---
Aniceto from PT stated that speech would not be able to see patient until tomorrow morning
[2023-12-05] MEDS: METOPROLOL TARTRATE 5MG/5ML VIAL 2.5 MG IV ×2 (14:43→15:41)
--- NOTE | 2023-12-05 14:50 | PC.NURSE ---
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
--- NOTE | 2023-12-05 15:25 | XR_ITS ---
FINAL REPORT CLINICAL HISTORY: post central line placement COMPARISON: 10 hours prior FINDINGS: A single portable view of the chest was obtained. ET tube and NG tube have been removed. There is a new left subclavian deep line with the tip in the mid SVC. The heart size and pulmonary vascularity are within normal limits. The mediastinum is within normal limits. There are persistent but improved pulmonary opacities. There is no pneumothorax. The bony thorax is intact. IMPRESSION: Persistent but improved pulmonary opacities. New left subclavian deep line tip in the mid SVC. Reviewed, Interpreted and Dictated by Rolando Fields III, MD Transcribed by Abby Goldsmith Authenticated and . [facility]
--- NOTE | 2023-12-05 15:41 | P.CONS_ITS ---
History of Present Illness *Admission Date: 12/03/23 *Reason for visit:: Inadequate venous access *History of present illness: This is a 78-year-old female seen in consultation from the primary service for deep line placement. Please see HPI forwarded from admission H&P below. Forwarded from admission H&P: Patient is a 78-year-old female with past medical history of atrial fibrillation CHF hypertension hyperlipidemia obstructive sleep apnea diabetes mellitus who presented to hospital due to shortness of breath. Reportedly patient has history of medical noncompliance. Patient was found hypoxic, patient was intubated for airway protection in the emergency department. At time of my evaluation patient is intubated sedated. Patient was found to be in A-fib with RVR, with low BP patient was a started on IV amiodarone per cardiology. [facility] Disclaimer: The information contained in this section may have been updated after the patient was seen, as this information can be updated by other users. Medical History (Updated 12/05/23 @ 15:43 by Darrel Ayala MD) Edema of larynx Pleural effusion, bilateral Coronary artery disease Atypical angina Afib Abnormal stress test HLD (hyperlipidemia) HTN (hypertension) Abnormal result of cardiovascular function study Dyspnea YOLANDE (obstructive sleep apnea) Family History Other No significant family history Social History (Updated 12/03/23 @ 16:19 by Destiney Young RN) Smoking Status: Unknown if ever smoked alcohol intake: current current occupational status: other Travel in the last 8 weeks: Inside the [facility] Meds Home Medications and Allergies Home Medications Medication Instructions Recorded Confirmed Type lisinopril 40 mg tablet 40 mg PO DAILY Hypertension 04/10/21 12/03/23 History pravastatin 80 mg tablet 80 mg PO HS Hyperlipidemia 04/10/21 12/03/23 History cyanocobalamin (vitamin B-12) 1,000 mcg PO DAILY Supplement 07/12/23 12/03/23 History 1,000 mcg tablet (Vitamin B-12) ergocalciferol (vitamin D2) 1,250 1,250 mcg PO WEEKLY Supplement 07/12/23 12/03/23 History mcg (50,000 unit) capsule (Vitamin D2) glipizide 10 mg tablet 10 mg PO DAILY DM2 07/12/23 12/03/23 History metformin 500 mg tablet 1,000 mg PO BID DM2 07/12/23 12/03/23 History apixaban 5 mg tablet (Eliquis) 5 mg PO BID Afib 12/03/23 12/03/23 History diltiazem HCl 240 mg 240 mg PO BID Afib 12/03/23 12/03/23 History capsule,extended release 24 hr empagliflozin 25 mg tablet 25 mg PO DAILY DM2 12/03/23 12/03/23 History (Jardiance) ezetimibe 10 mg tablet 10 mg PO DAILY Cholesterol 12/03/23 12/03/23 History hydrochlorothiazide 25 mg tablet 25 mg PO DAILY Hypertension 12/03/23 12/03/23 History meloxicam 15 mg tablet 15 mg PO DAILYP PRN Pain (Scale 12/03/23 12/03/23 History Score 1-3) metoprolol succinate 50 mg 50 mg PO DAILY Heart Rate 12/03/23 12/03/23 History tablet,extended release 24 hr New Prescriptions to Start Prescriptions: Allergies Allergy/AdvReac Type Severity Reaction Status Date / Time No Known Allergies Allergy Verified 07/24/23 13:15 Exam (Inpt) Vital signs and Labs for Last 24 Hours: Temp Pulse Resp BP Pulse Ox O2 Del Method O2 Flow Rate 97.7 F 140 H 22 169/110 H 98 Nasal Cannula 3 12/05/23 11:45 12/05/23 14:00 12/05/23 14:00 12/05/23 14:00 12/05/23 14:00 12/05/23 14:00 12/05/23 14:00 FiO2 45 12/05/23 12:00 Laboratory Results - last 24 hr 12/04/23 16:25: POC Glucose 168 H 12/04/23 17:10: Potassium 3.7 D 12/04/23 20:32: POC Glucose 217 H 12/05/23 05:23: WBC 14.2 H, RBC 4.50, Hgb 13.7, Hct 43.3, MCV 96.0, MCH 30.5, M CHC 31.7 L, RDW 14.5, Plt Count 195, MPV 9.6, Neut % (Auto) 90.8 H, Lymph % (Auto) 4.2 L, [place] % (Auto) 3.3, Eos % (Auto) 1.3, Baso % (Auto) 0.3, Neut # (Auto) 12.9 H, Lymph # (Auto) 0.6 L, [place] # (Auto) 0.5, Eos # (Auto) 0.2, Baso # (Auto) 0.1, Total Counted 100, Neutrophils % (Manual) 89 H, Band Neutrophils % 1.0, Lymphocytes % (Manual) 8 L, Monocytes % (Manual) 2, Platelet Estimate Normal, RBC Morphology Normal, Sodium 137, Potassium 3.3 L, Chloride 102, Carbon Dioxide 32 H, Anion Gap 6.3, BUN 13 D, Creatinine 0.70, Estimated Creat Clear 74, Estimated GFR 81, Est GFR ( Amer) 98, Glucose 241 H D, Lactate 0.9, C alcium 8.3 L, Total Bilirubin 0.9, AST 30, ALT 22, Alkaline Phosphatase 78, Total Protein 6.4, Albumin 3.1 L, Globulin 3.3 H, Albumin/Globulin Ratio 0.9 L 12/05/23 06:06: POC Glucose 216 H 12/05/23 10:55: POC Glucose 215 H I & O for Labs for Last 24 Hours: Intake & Output 12/03/23 12/04/23 12/05/23 12/06/23 11:59 11:59 11:59 11:59 Intake Total 3.525 / 3.525 1932.611 / 6901.805 7443.033 / 2128.033 150 / 150 Output Total 4775 / 4775 4230 / 4230 210 / 210 Balance 3.525 / 3.525 -2842.389 / -2842.389 -2101.967 / -2101.967 -60 / -60 Weight 207 lb 3.752 oz 224 lb 13.944 oz 225 lb 8.526 oz Constitutional: obese and chronically ill appearing Respiratory: Absent respiratory distress Cardiac: Present Tachycardia Results Labs 12/05/23 05:23 12/05/23 05:23 Labs: Laboratory Results - last 24 hr 12/04/23 16:25: POC Glucose 168 H 12/04/23 17:10: Potassium 3.7 D 12/04/23 20:32: POC Glucose 217 H 12/05/23 05:23: WBC 14.2 H, RBC 4.50, Hgb 13.7, Hct 43.3, MCV 96.0, MCH 30.5, M CHC 31.7 L, RDW 14.5, Plt Count 195, MPV 9.6, Neut % (Auto) 90.8 H, Lymph % (Auto) 4.2 L, [place] % (Auto) 3.3, Eos % (Auto) 1.3, Baso % (Auto) 0.3, Neut # (Auto) 12.9 H, Lymph # (Auto) 0.6 L, [place] # (Auto) 0.5, Eos # (Auto) 0.2, Baso # (Auto) 0.1, Total Counted 100, Neutrophils % (Manual) 89 H, Band Neutrophils % 1.0, Lymphocytes % (Manual) 8 L, Monocytes % (Manual) 2, Platelet Estimate Normal, RBC Morphology Normal, Sodium 137, Potassium 3.3 L, Chloride 102, Carbon Dioxide 32 H, Anion Gap 6.3, BUN 13 D, Creatinine 0.70, Estimated Creat Clear 74, Estimated GFR 81, Est GFR ( Amer) 98, Glucose 241 H D, Lactate 0.9, C alcium 8.3 L, Total Bilirubin 0.9, AST 30, ALT 22, Alkaline Phosphatase 78, Total Protein 6.4, Albumin 3.1 L, Globulin 3.3 H, Albumin/Globulin Ratio 0.9 L 12/05/23 06:06: POC Glucose 216 H 12/05/23 10:55: POC Glucose 215 H Assessment and Plan *Assessment and plan (1) Poor venous access: Status: Acute Category: Medical Code(s): I87.8 - Other specified disorders of veins (2) Pleural effusion, bilateral: Status: Acute Category: Medical Code(s): J90 - Pleural effusion, not elsewhere classified (3) Acute cardiac pulmonary edema: Status: Acute Category: Medical Code(s): I50.1 - Left ventricular failure, unspecified (4) Acute hypoxemic respiratory failure: Status: Acute Category: Medical Code(s): J96.01 - Acute respiratory failure with hypoxia Plan Triple-lumen catheter placement Consent obtained from POA/next of kin
--- NOTE | 2023-12-05 15:43 | P.OP_ITS ---
Date of procedure: 12/05/23 Pre-op Diagnosis:: Inadequate venous access Post-op Diagnosis:: Same Procedure performed:: Triple-lumen catheter placement (left subclavian vein access) Surgeon:: Darrel Ayala MD Anesthesia: local Estimated blood loss (mL): 5 Operative findings:: All lumens flushed without difficulty Anchored at 16.5 cm Operative note:: After informed consent was obtained the patient was maintained in the supine position. Her left neck and chest region was prepped and draped in a sterile fashion. After infiltration with local anesthetic a large bore needle was utilized to access the left subclavian vein. Utilizing a modified Seldinger technique a 7 [place] triple-lumen catheter was secured at 16.5 cm. All lumens flushed without difficulty with saline. Chest x-ray pending. Condition: other (Guarded) Disposition: no change Specimens:: None Complications:: No immediate. Chest x-ray pending.
[2023-12-05] MEDS: METOPROLOL SUCCINATE XL 25MG TABLET 25 MG PO (15:46)
--- NOTE | 2023-12-05 15:55 | PC.NURSE ---
verified with Tamela that bumex and amio were to run at the current rate through the night
--- NOTE | 2023-12-05 15:56 | PC.NURSE ---
attempted a bedside swallow, patient did well with no signs of coughing or aspiration noted
[2023-12-05 16:25] LABS: POC Glucose,Bedside 207 (70-110)
[2023-12-05] MEDS: CEFTRIAXONE SODIUM 2 GM in 0.9 % SODIUM CHLORIDE 100 ML IV (16:26)
[2023-12-05] MEDS: AZITHROMYCIN 500 MG in 0.9 % SODIUM CHLORIDE 250 ML 250 MG IV (16:30)
--- NOTE | 2023-12-05 16:39 | EXP.PN ---
Subjective *Date: 12/05/23 *Time: 16:39 Interval history: intubated and sedated Exam Data for Last 24 hours Vital signs and Labs for Last 24 Hours: Temp Pulse Resp BP Pulse Ox O2 Del Method O2 Flow Rate 99.5 F 127 H 20 154/111 H 96 Nasal Cannula 3 12/05/23 15:49 12/05/23 16:00 12/05/23 16:00 12/05/23 16:00 12/05/23 16:00 12/05/23 16:00 12/05/23 16:00 FiO2 45 12/05/23 12:00 Laboratory Results - last 24 hr 12/04/23 16:25: POC Glucose 168 H 12/04/23 17:10: Potassium 3.7 D 12/04/23 20:32: POC Glucose 217 H 12/05/23 05:23: WBC 14.2 H, RBC 4.50, Hgb 13.7, Hct 43.3, MCV 96.0, MCH 30.5, MCHC 31.7 L, RDW 14.5, Plt Count 195, MPV 9.6, Neut % (Auto) 90.8 H, Lymph % (Auto) 4.2 L, [place] % (Auto) 3.3, Eos % (Auto) 1.3, Baso % (Auto) 0.3, Neut # (Auto) 12.9 H, Lymph # (Auto) 0.6 L, [place] # (Auto) 0.5, Eos # (Auto) 0.2, Baso # (Auto) 0.1, Total Counted 100, Neutrophils % (Manual) 89 H, Band Neutrophils % 1.0, Lymphocytes % (Manual) 8 L, Monocytes % (Manual) 2, Platelet Estimate Normal, RBC Morphology Normal, Sodium 137, Potassium 3.3 L, Chloride 102, Carbon Dioxide 32 H, Anion Gap 6.3, BUN 13 D, Creatinine 0.70, Estimated Creat Clear 74, Estimated GFR 81, Est GFR ( Amer) 98, Glucose 241 H D, Lactate 0.9, Calcium 8.3 L, Total Bilirubin 0.9, AST 30, ALT 22, Alkaline Phosphatase 78, Total Protein 6.4, Albumin 3.1 L, Globulin 3.3 H, Albumin/Globulin Ratio 0.9 L 12/05/23 06:06: POC Glucose 216 H 12/05/23 10:55: POC Glucose 215 H 12/05/23 16:18: POC Glucose 207 H I & O for Last 24 hours: Intake & Output 12/02/23 12/03/23 12/04/23 12/05/23 23:59 23:59 23:59 23:59 Intake Total 936.996 / 400.788 6103.715 / 2839.544 2767.458 / 1440.458 Output Total 2640 / 2840 4335 / 4535 2315 / 2315 Balance -1703.004 / -1903.004 -2482.285 / -2682.285 -874.542 / -874.542 Weight 102.313 kg 102 kg 102.3 kg Constitutional Comments: intubated and sedated *Routine HEENT Exam Head: Present normocephalic Eye: Present EOMI and PERRL ENT: Present mucous membranes moist *Routine Neck Exam Neck: Present supple; Absent lymphadenopathy *Routine Respiratory Exam Respiratory: Present distant breath sounds and diminished air movement *Routine Cardiovascular Exam Cardiovascular: Present RRR *Routine Abdominal Exam Abdominal: Present soft and normoactive bowel sounds; Absent tenderness *Routine Extremities Exam Extremities: Absent cyanosis, clubbing or edema *Routine Skin Exam Skin: Present warm; Absent rash *Routine Neurological Exam Comments: intubated and sedated Assessment and Plan *Assessment and plan (1) Acute cardiac pulmonary edema: Status: Acute Category: Medical Code(s): I50.1 - Left ventricular failure, unspecified (2) Acute hypoxemic respiratory failure: Status: Acute Category: Medical Code(s): J96.01 - Acute respiratory failure with hypoxia (3) Atrial fibrillation with rapid ventricular response: Status: Acute Category: Medical Code(s): I48.91 - Unspecified atrial fibrillation (4) CHF exacerbation: Status: Acute Category: Medical Code(s): I50.9 - Heart failure, unspecified (5) Coronary artery disease: Status: Acute Category: Medical Code(s): I25.10 - Atherosclerotic heart disease of [place] coronary artery without angina pectoris (6) HLD (hyperlipidemia): Status: Chronic Qualifiers: Hyperlipidemia type: mixed hyperlipidemia Qualified Code(s): E78.2 - Mixed hyperlipidemia Category: Medical Code(s): E78.5 - Hyperlipidemia, unspecified (7) HTN (hypertension): Status: Chronic Qualifiers: Hypertension type: primary hypertension Qualified Code(s): I10 - Essential (primary) hypertension Category: Medical Code(s): I10 - Essential (primary) hypertension (8) Atypical angina: Status: Acute Category: Medical Code(s): I20.89 - Other forms of angina pectoris (9) Afib: Status: Acute Qualifiers: Atrial fibrillation type: persistent (not longstanding) Qualified Code(s): I48.19 - Other persistent atrial fibrillation Category: Medical Code(s): I48.91 - Unspecified atrial fibrillation (10) DM (diabetes mellitus): Status: Chronic Qualifiers: Diabetes mellitus type: type 2 Diabetes mellitus detention insulin use: without bed bug exterminator use Diabetes mellitus complication status: without complication Qualified Code(s): E11.9 - Type 2 diabetes mellitus without complications Category: Medical Code(s): E11.9 - Type 2 diabetes mellitus without complications Plan Patient is a 78-year-old female with past medical history of atrial fibrillation CHF hypertension hyperlipidemia obstructive sleep apnea diabetes mellitus who presented to hospital due to shortness of breath. Reportedly patient has history of medical noncompliance. Patient was found hypoxic, patient was intubated for airway protection in the emergency department. At time of my evaluation patient is intubated sedated. Patient was found to be in A-fib with RVR, with low BP patient was a started on IV amiodarone per cardiology. Assessment and plan Acute hypoxic respiratory failure satting less than 90% on room air likely secondary to flash pulmonary edema, CHF exacerbation, s/p intubation Strict I's and O's, Dejesus insertion cardiac event monitoring Consult cardiology Monitor on cardiac telemetry Diuresis with IV bumex - continue Started on Rocephin, azithromycin proBNP checked, 2540 Order echocardiogram - Normal LV systolic function. Marked increase in LV wall thicknes Monitor and replace electrolytes Afib with RVR - started on IV amiodaron - Patient was shocked in ED cardiology following Hyperglycemia due to uncontrolled diabetes mellitus Long-acting insulin Insulin sliding scale Patient is n.p.o. due to intubation UA is suggestive UTI - continue rocephin - Urine Culture Leukocytosis likely reactive, lactic acidosis -Monitor lactic acid Started on empirical antibiotics with Rocephin, azithromycin Check blood cultures Check PCT level DVT PPx - heparin continue IV diuresis, wean o2 needs as tolerated, Echo. Normal LV systolic function.
[2023-12-05] MEDS: METOPROLOL TARTRATE 5MG/5ML VIAL 5 MG IV (20:33)
[2023-12-05 20:52] LABS: POC Glucose,Bedside 146 (70-110)
--- NOTE | 2023-12-05 22:15 | PC.NURSE ---
DURING TURBINE INSPECTOR ROUNDS, THIS RN MENTIONED THIS PT'S BP AND HR BEING ELEVATED; ONE TIME DOSE OF IV LOPRESSOR ORDERED PER TURBINE INSPECTOR; GIVEN @ 2032
[2023-12-06] VITALS (22 sets, daily range): BP systolic 126–201; BP diastolic 55–125; PULSE 76–128; RESP 16–22; TEMP 36.4–36.7; O2SAT 90–97; BMI 34.7
--- NOTE | 2023-12-06 00:22 | PC.NURSE ---
@ [facility] [facility] RAILROAD AUDITOR NOTIFIED OF THIS PT'S BP; SEE NEW ORDERS
--- NOTE | 2023-12-06 00:23 | PC.NURSE ---
AT THE START OF THIS RN'S SHIFT, THIS RN WAS GIVEN IN REPORT TO CONTINUE AMIO GTT @ 0.5MG/MIN AND BUMEX GTT @ 1MG/HR PER CARDS ORDERS. AMIO AND BUMEX GTT INFUSING AT THOSE RATES FOR THIS RN'S SHIFT.
[2023-12-06] MEDS: METHYLPREDNISOLONE SOD SUCC 40MG VIAL 20 MG IV ×2 (00:29→06:24)
[2023-12-06] MEDS: BUMETANIDE 10 MG in 0.9 % SODIUM CHLORIDE 60 ML IV ×3 (00:33→20:31)
[2023-12-06] MEDS: AMIODARONE HCL 900 MG in DEXTROSE 5 % IN WATER 500 ML 17.2699999999999996 MG IV (00:33)
--- NOTE | 2023-12-06 05:52 | PC.NURSE ---
went to do pcxr for ET tube placement and the patient does not have a ET tube anymore, Annmarie the nurse said to hold off and if they need a cxr they would let xray know.
[2023-12-06] MEDS: LEVALBUTEROL 1.25MG/3ML NEB 1.25 MG IH ×4 (05:59→23:29)
[2023-12-06] MEDS: humaLOG 100 UNITS/ML 3ML VIAL (SSI) SQ ×4 (06:24→20:45)
[2023-12-06 06:27] LABS: POC Glucose,Bedside 241 (70-110)
[2023-12-06 06:36] LABS: Basophils # 0.1 K/mm3 (0-0.2); Basophils % 0.6 % (0.1-2.0); Eosinophils # 0.1 K/mm3 (0.0-0.4); Eosinophils % 0.4 % (0.1-12.0); Hemoglobin 15.5 g/dL (12.2-16.2); Lymphocytes # 0.7 K/mm3 (0.7-4.5); Lymphocytes % 3.6 % (10-50); Mean Corpuscular Hemoglobin 30.3 pg (27.0-31.2); Mean Corpuscular Volume 97.6 fl (81-99); Mean Platelet Volume 9.4 fl (7.4-10.4); Monocytes # 0.9 K/mm3 (0.1-1.0); Monocytes % 4.7 % (1.7-9.3); Neutrophils # 17.4 K/mm3 (1.8-7.8); Neutrophils % 90.7 % (37.0-80.0); Platelet Count 255 K/mm3 (142-424); Red Blood Count 5.13 M/mm3 (4.20-5.40); Red Cell Distribution Width 14.4 % (11.5-17.5); White Blood Count 19.2 K/mm3 (4.8-10.8)
[2023-12-06 06:41] LABS: MANUAL DIFFERENTIAL MANUAL DIFFERENTIAL (MANUAL DIFF)
[2023-12-06 06:44] LABS: Chloride 98 mmol/L (98-107); Sodium 140 mmol/L (136-145)
[2023-12-06 06:45] LABS: Potassium 3.2 mmoL/L (3.5-5.1)
[2023-12-06 06:47] LABS: Alanine Aminotransferase 26 U/L (12-78); Albumin Level 3.8 g/dl (3.5-5.0); Alkaline Phosphatase 106 U/L (38-126); Anion Gap 8.2 mEq/L (5-15); Aspartate Amino Transferase 33 U/L (14-36); Bilirubin,Total 1.1 mg/dl (0.2-1.3); Blood Urea Nitrogen 19 mg/dl (7-17); Carbon Dioxide 37 mmol/L (22.0-30.0); Creatinine Clearance Estimated 71 mL/min (50-200); Estimated Glomerular Filt Rate 69 ml/min (>60); GFR (African American) 84 ML/MIN (>60); Globulin 3.7 g/dL (1.3-3.2); Total Protein,Serum 7.5 g/dl (6.3-8.2)
[2023-12-06 06:48] LABS: Calcium 8.6 mg/dl (8.4-10.2); Glucose 282 mg/dl (74-100)
--- NOTE | 2023-12-06 07:58 | P.PN_ITS ---
Subjective *Date: 12/06/23 *Time: 09:45 Pulmonology Exam Inpatient Vital signs and Labs for Last 24 Hours: Temp Pulse Resp BP Pulse Ox O2 Del Method O2 Flow Rate 98.1 F 102 H 16 150/86 H 94 L Nasal Cannula 3 12/06/23 00:00 12/06/23 07:00 12/06/23 07:00 12/06/23 07:00 12/06/23 07:00 12/06/23 07:00 12/06/23 07:00 FiO2 45 12/05/23 12:00 Laboratory Results - last 24 hr 12/05/23 05:23: Albumin 3.1 L, Globulin 3.3 H, Albumin/Globulin Ratio 0.9 L 12/05/23 10:55: POC Glucose 215 H 12/05/23 16:18: POC Glucose 207 H 12/05/23 20:31: POC Glucose 146 H 12/06/23 06:06: POC Glucose 241 H 12/06/23 06:08: WBC 19.2 H D, RBC 5.13, Hgb 15.5, Hct 50.0 H, MCV 97.6, MCH 30.3, MCHC 31.0 L, RDW 14.4, Plt Count 255 D, MPV 9.4, Neut % (Auto) 90.7 H, Lymph % (Auto) 3.6 L, [place] % (Auto) 4.7, Eos % (Auto) 0.4, Baso % (Auto) 0.6, Neut # (Auto) 17.4 H, Lymph # (Auto) 0.7, [place] # (Auto) 0.9, Eos # (Auto) 0.1, Baso # (Auto) 0.1, Sodium 140, Potassium 3.2 L, Chloride 98, Carbon Dioxide 37 H , Anion Gap 8.2, BUN 19 H D, Creatinine 0.80, Estimated Creat Clear 71, Estimated GFR 69, Est GFR ( Amer) 84, Glucose 282 H, Calcium 8.6, Total Bilirubin 1.1, AST 33, ALT 26, Alkaline Phosphatase 106, Total Protein 7.5, Albumin 3.8 D, Globulin 3.7 H, Albumin/Globulin Ratio 1.0 L Temp Pulse Resp BP Pulse Ox O2 Del Method O2 Flow Rate 99.9 F H 106 H 22 113/70 100 Mechanical Ventilation 15 12/04/23 08:00 12/04/23 09:00 12/04/23 09:00 12/04/23 09:00 12/04/23 09:00 12/04/23 09:00 12/03/23 11:12 FiO2 50 12/04/23 09:00 Laboratory Results - last 24 hr 12/03/23 10:58: Specimen Source Right brachial, O2 % Nrb, ABG pH 6.99 L*, ABG pCO2 67.8 H, ABG pO2 68.4 L, ABG HCO3 16.0 L, ABG Total CO2 18.1 L, ABG O2 Saturation 81 L*, ABG Base Excess -15.4 L, Ean Test Patient unable 12/03/23 11:07: WBC 12.5 H, RBC 5.02, Hgb 15.4, Hct 50.7 H, MCV 101.0 H, MCH 30.8, MCHC 30.5 L, RDW 14.0, Plt Count 309, MPV 10.0, Neut % (Auto) 66.4, Lymph % (Auto) 25.5, [place] % (Auto) 6.3, Eos % (Auto) 0.9, Baso % (Auto) 0.8, Neut # (Auto) 8.3 H, Lymph # (Auto) 3.2, [place] # (Auto) 0.8, Eos # (Auto) 0.1, Baso # (Auto) 0.1, APTT 22.2 L, Sodium 136, Potassium 3.7, Chloride 105, Carbon Dioxide 20 L, Anion Gap 14.7, BUN 8, Creatinine 0.60, Estimated GFR 96, Est GFR ( Amer) 117, Glucose 465 H*, Calcium 9.0, Magnesium 2.1, Total Bilirubin 1.2, AST 39 H, ALT 36, Alkaline Phosphatase 103, Troponin I < 0.01, NT-Pro-B Natriuret Pep 2540 H, Total Protein 7.2, Albumin 3.9, Globulin 3.3 H, Albumin/Globulin Ratio 1.2 12/03/23 11:44: Specimen Source L radial, O2 % 100, ABG pH 7.23 L*, ABG pCO2 40.1, ABG pO2 184.8 H, ABG HCO3 16.4 L, ABG Total CO2 17.6 L, ABG O2 Saturation 99, ABG Base Excess -11.2 L, Ean Test Acceptable, Vent Rate 22, Tidal Volume 420, PEEP 8 12/03/23 12:00: Urine Color Yellow, Urine Appearance Sl cloudy, Urine pH 6.0, Ur Specific [place] >= 1.030, Urine Protein 3+, Urine Glucose (UA) 3+, Urine Ketones Trace, Urine Blood 2+, Urine Nitrate Negative, Urine Bilirubin Negative, Urine Urobilinogen 1.0, Ur Leukocyte Esterase Negative, Urine RBC 3-5, Urine WBC Occasional, Ur Squamous Epith Cells 3-5, Urine Bacteria 4+ 12/03/23 14:35: Lactate 5.8 H, Troponin I 0.07 H, Acetone Level None detected 12/03/23 15:53: POC Glucose 431 H* 12/03/23 16:45: Chlamy pneumoniae PCR TNP, Adenovirus (PCR) Not detected, B. pertussis DNA (PCR) TNP, Coronavirus OC43 (PCR) Not detected, Coronavirus HKU1 (PCR) Not detected, Coronavirus 229E (PCR) Not detected, SARS-CoV-2 (PCR) Not detected, Coronavirus NL63 (PCR) Not detected, Human Metapneumovir PCR Not detected, Influenza A (H1) PCR Not detected, Influ A (H1N1/09) PCR Not detected, Influenza A (H3) PCR Not detected, Influenza Type A (PCR) Not detected, Influenza Type B (PCR) Not detected, M. pneumoniae (PCR) TNP, Parainfluenza 1 (PCR) Not detected, Parainfluenza 2 (PCR) Not detected, Parainfluenza 3 (PCR) Not detected, Parainfluenza 4 (PCR) Not detected, RSV (PCR) Not detected, Entero/Rhino (PCR) Not detected 12/03/23 17:15: Troponin I 0.06 H 12/03/23 19:38: Lactate 7.1 H 12/03/23 20:22: POC Glucose 311 H* 12/03/23 21:52: Lactate 5.7 H 12/04/23 05:30: WBC 13.1 H, RBC 4.31, Hgb 13.1 D, Hct 41.0, MCV 95.1, MCH 30.4, MCHC 32.0, RDW 14.5, Plt Count 224 D, MPV 9.2, Neut % (Auto) 79.4, Lymph % (Auto) 12.7, [place] % (Auto) 7.1, Eos % (Auto) 0.3, Baso % (Auto) 0.4, Neut # (Auto) 10.4 H, Lymph # (Auto) 1.7, [place] # (Auto) 0.9, Eos # (Auto) 0.0, Baso # (Auto) 0.1, Sodium 136, Potassium 2.9 L* D, Chloride 104, Carbon Dioxide 29, Anion Gap 5.9, BUN 8, Creatinine 0.80 D, Estimated Creat Clear 74, Estimated GFR 69, Est GFR ( Amer) 84 D, Glucose 166 H D, Calcium 8.1 L, Total Bilirubin 0.9, AST 33, ALT 28, Alkaline Phosphatase 74, Total Protein 5.8 L, Albumin 3.0 L D, Globulin 2.8, Albumin/Globulin Ratio 1.1 12/04/23 06:06: POC Glucose 159 H 12/04/23 06:25: Specimen Source Left radial, O2 % 50, ABG pH 7.48 H, ABG pCO2 33.4 L, ABG pO2 123.6 H, ABG HCO3 24.4, ABG Total CO2 25.5, ABG O2 Saturation 98, ABG Base Excess 1.0, Ean Test Patient unable, Vent Rate 22, Tidal Volume 420, PEEP 10 I & O for Labs for Last 24 Hours: Intake & Output 12/03/23 12/04/23 12/05/23 12/06/23 23:59 23:59 23:59 23:59 Intake Total 936.996 / 820.966 2683.715 / 0054.972 9844.458 / 2471.458 297 / 297 Output Total 2640 / 2840 4335 / 4535 3725 / 4070 1960 / 1960 Balance -1703.004 / -1903.004 -2482.285 / -2682.285 -1253.542 / -1598.542 -1663 / -1663 Weight 225 lb 9 oz 224 lb 13.944 oz 225 lb 8.526 oz 216 lb 0.848 oz Intake & Output 03/31/24 04/01/24 04/02/24 04/03/24 23:59 23:59 23:59 23:59 Intake Total 936.996 / 936.996 879.374 / 879.374 Output Total 2640 / 2840 1285 / 1285 Balance -1703.004 / -1903.004 -405.626 / -405.626 Weight 225 lb 9 oz 224 lb 13.944 oz Constitutional: Present moderate distress Comment:: Intubated and Sedated Head: Present normocephalic and atraumatic Neck: Present normal inspection and trachea midline Respiratory: Present respiratory distress, rhonchi and crackles; Absent prolonged expiratory phase or wheezes Cardiac: Present S1/S2 and Tachycardia GI: Present soft; Absent distention or tenderness Skin: Present intact; Absent cyanosis Neuro: Present alert, awake and oriented x 3 Extremities: Present normal inspection; Absent clubbing or cyanosis Psychiatric: Present normal affect Assessment and Plan *Assessment and plan (1) Acute hypoxemic respiratory failure: Status: Acute Category: Medical Code(s): J96.01 - Acute respiratory failure with hypoxia (2) Pleural effusion, bilateral: Status: Acute Category: Medical Code(s): J90 - Pleural effusion, not elsewhere classified (3) Edema of larynx: Status: Acute Category: Medical Code(s): J38.4 - Edema of larynx Plan Ms. Weathers is a 78-year-old female, denies any significant smoking history, not using any inhalers or oxygen at baseline, with reported history of atrial fibrillation CHF hypertension dyslipidemia YOLANDE diabetes mellitus presented to the ER with worsening respiratory distress needing intubation and mechanical ventilator support for refractory hypoxia and pulmonary was called for further evaluation and management. Hemodynamically unstable upon admission status post cardioversion unsuccessful, currently amiodarone drip, cardiology following. CTA upon admission no obvious evidence of pulmonary embolism. Bilateral pleural effusions right greater than left along with groundglass opacities concerning for volume overload. Adjacent atelectasis noted. Low-grade fevers. Neutrophilic leukocytosis. Received vancomycin and Unasyn in the ED, antibiotics changed to ceftriaxone azithromycin for community-acquired pneumonia coverage upon admission. Pending culture results. ABG upon admission mixed metabolic and respiratory acidosis, improved. Respiratory alkalosis noted on blood gas this morning. Improving hypoxic respiratory failure. Chest x-ray from this morning reviewed, ET tube in position. Stable with bilateral infiltrates and effusions. No change from prior. Patient respiratory status gradually improved 6 extubated to nasal cannula on 12/05/2023. Interval update: No acute respiratory vents overnight. Tolerating nasal cannula well. Slight worsening leukocytosis. Afebrile. Hemodynamically stable. Will continue to monitor. Plan: Incentive spirometry Continue nasal cannula wean supplementation to maintain O2 saturation goal of 90 to 95% DuoNebs every 6 hours and scheduled basis Continue ceftriaxone mycin to complete total of 7-day course community-acquired pneumonia. Antibiotics can be weaned to cefdinir upon discharge. Cultures from admission pending. # Thank you for involving pulmonary in this patient care. Continue to follow
--- NOTE | 2023-12-06 08:17 | P.PN_ITS ---
Subjective *Date: 12/06/23 *Time: 08:17 Medical Exam Vital signs and Labs for Last 24 Hours: Vital Signs Temp Pulse Pulse Resp BP Pulse Ox O2 Del Method 12/06/23 07:00 102 H 16 150/86 H 94 L Nasal Cannula 12/06/23 06:49 Nasal Cannula 12/06/23 06:00 107 H 12/06/23 06:00 116 H 12/06/23 06:00 97 Nasal Cannula 12/06/23 06:00 121 H 20 165/92 H 92 L Nasal Cannula 12/06/23 05:00 108 H 22 167/101 H 95 Nasal Cannula 12/06/23 05:00 Nasal Cannula 12/06/23 05:00 120 H 12/06/23 04:00 122 H 97 Nasal Cannula 12/06/23 04:00 122 H 19 194/111 H 96 Nasal Cannula 12/06/23 03:00 120 H 19 201/105 H 92 L Nasal Cannula 12/06/23 03:00 Nasal Cannula 12/06/23 02:00 124 H 20 167/125 H 93 L Nasal Cannula 12/06/23 01:00 125 H 22 142/85 H 91 L Nasal Cannula 12/06/23 01:00 Nasal Cannula 12/06/23 00:00 126 H 12/06/23 00:00 128 H 97 Nasal Cannula 12/06/23 00:00 98.1 F 114 H 22 188/111 H 97 Nasal Cannula 12/05/23 23:59 110 H 12/05/23 23:59 118 H 12/05/23 23:00 127 H 17 190/119 H 96 Nasal Cannula 12/05/23 23:00 Nasal Cannula 12/05/23 22:00 113 H 19 177/104 H 95 Nasal Cannula 12/05/23 21:30 167/97 H 12/05/23 21:00 112 H 21 174/105 H 92 L Nasal Cannula 12/05/23 21:00 Nasal Cannula 12/05/23 20:30 186/125 H 12/05/23 20:00 118 H 12/05/23 20:00 149 H 16 163/103 H 99 Nasal Cannula 12/05/23 20:00 149 H 98 Nasal Cannula 12/05/23 20:00 97.8 F 12/05/23 19:42 119 H 12/05/23 19:42 109 H 12/05/23 19:42 100 Nasal Cannula 12/05/23 19:00 Nasal Cannula 12/05/23 19:00 117 H 20 176/98 H 95 Nasal Cannula 12/05/23 18:00 119 H 20 171/87 H 95 Nasal Cannula 12/05/23 17:00 119 H 19 150/101 H 100 Nasal Cannula 12/05/23 17:00 Nasal Cannula 12/05/23 16:00 127 H 96 Nasal Cannula 12/05/23 16:00 127 H 20 154/111 H 96 Nasal Cannula 12/05/23 15:49 99.5 F 12/05/23 15:00 120 H 18 161/115 H 94 L Nasal Cannula 12/05/23 15:00 Nasal Cannula 12/05/23 14:00 140 H 22 169/110 H 98 Nasal Cannula 12/05/23 13:00 Nasal Cannula 12/05/23 13:00 165 H 20 184/110 H 100 Nasal Cannula 12/05/23 12:00 190 H 12/05/23 12:00 165 H 18 100 Mechanical Ventilation 12/05/23 12:00 165 H 18 180/100 H 100 Mechanical Ventilation 12/05/23 11:45 97.7 F 12/05/23 11:05 130 H 12/05/23 11:05 137 H 12/05/23 11:00 Mechanical Ventilation 12/05/23 11:00 125 H 16 160/87 H 100 Mechanical Ventilation 12/05/23 10:35 16 100 12/05/23 10:00 89 18 124/74 100 Mechanical Ventilation 12/05/23 09:20 18 98 12/05/23 09:00 88 18 111/62 98 Mechanical Ventilation 12/05/23 09:00 Mechanical Ventilation O2 Flow Rate FiO2 12/06/23 07:00 3 12/06/23 06:49 3 12/06/23 06:00 12/06/23 06:00 12/06/23 06:00 3.5 12/06/23 06:00 3 12/06/23 05:00 3 12/06/23 05:00 3 12/06/23 05:00 12/06/23 04:00 3 12/06/23 04:00 3 12/06/23 03:00 3 12/06/23 03:00 3 12/06/23 02:00 3 12/06/23 01:00 3 12/06/23 01:00 3 12/06/23 00:00 12/06/23 00:00 3 12/06/23 00:00 3 12/05/23 23:59 12/05/23 23:59 12/05/23 23:00 3 12/05/23 23:00 12/05/23 22:00 3 12/05/23 21:30 12/05/23 21:00 3 12/05/23 21:00 3 12/05/23 20:30 12/05/23 20:00 12/05/23 20:00 3 12/05/23 20:00 3 12/05/23 20:00 12/05/23 19:42 12/05/23 19:42 12/05/23 19:42 3 12/05/23 19:00 3 12/05/23 19:00 3 12/05/23 18:00 3 12/05/23 17:00 3 12/05/23 17:00 3 12/05/23 16:00 3 12/05/23 16:00 3 12/05/23 15:49 12/05/23 15:00 3 12/05/23 15:00 3 12/05/23 14:00 3 12/05/23 13:00 3 12/05/23 13:00 3 12/05/23 12:00 12/05/23 12:00 45 12/05/23 12:00 12/05/23 11:45 12/05/23 11:05 12/05/23 11:05 12/05/23 11:00 12/05/23 11:00 12/05/23 10:35 45 12/05/23 10:00 45 12/05/23 09:20 45 12/05/23 09:00 45 12/05/23 09:00 Intake and Output 12/05/23 12/06/23 12/06/23 23:59 07:59 15:59 Intake Total 1047 / 2471.458 297 / 297 Output Total 1485 / 4070 1959 / 1959 Balance -438 / -1598.542 -1663 / -1663 Intake: Intake, Total IV Amount 1047 / 2471.458 297 / 297 Amiodarone HCl 900 mg In 54 / 330 186 / 186 Dextrose 5 % in Water 500 ml @ 17.3 mls/hr IV .Q24H [facility] Rx#: [id number] Azithromycin 500 mg In 0.9 % 250 / 250 Sodium Chloride 250 ml @ 250 mls/hr IV Q24H [facility] Rx#:[id number] Bumetanide 10 mg In 0.9 % 39 / 206 111 / 111 Sodium Chloride 60 ml @ 10 mls/ hr IV .Q10H [facility] Rx#:[id number] Ceftriaxone Sodium 2 gm In 0.9 100 / 100 % Sodium Chloride 100 ml @ 200 mls/hr IV Q24H [facility] Rx#:[id number] Output: Output, Urine Amount (Catheter) 1485 / 4070 1959 Dejesus 1485 / 4070 1959 Other: Weight 98 kg Patient Weight 12/06/23 23:59 Weight 98 kg Laboratory Results - last 24 hr 12/05/23 05:23: Albumin 3.1 L, Globulin 3.3 H, Albumin/Globulin Ratio 0.9 L 12/05/23 10:55: POC Glucose 215 H 12/05/23 16:18: POC Glucose 207 H 12/05/23 20:31: POC Glucose 146 H 12/06/23 06:06: POC Glucose 241 H 12/06/23 06:08: WBC 19.2 H D, RBC 5.13, Hgb 15.5, Hct 50.0 H, MCV 97.6, MCH 30.3, MCHC 31.0 L, RDW 14.4, Plt Count 255 D, MPV 9.4, Neut % (Auto) 90.7 H, Lymph % (Auto) 3.6 L, [place] % (Auto) 4.7, Eos % (Auto) 0.4, Baso % (Auto) 0.6, Neut # (Auto) 17.4 H, Lymph # (Auto) 0.7, [place] # (Auto) 0.9, Eos # (Auto) 0.1, Baso # (Auto) 0.1, Sodium 140, Potassium 3.2 L, Chloride 98, Carbon Dioxide 37 H , Anion Gap 8.2, BUN 19 H D, Creatinine 0.80, Estimated Creat Clear 71, Estimated GFR 69, Est GFR ( Amer) 84, Glucose 282 H, Calcium 8.6, Total Bilirubin 1.1, AST 33, ALT 26, Alkaline Phosphatase 106, Total Protein 7.5, Albumin 3.8 D, Globulin 3.7 H, Albumin/Globulin Ratio 1.0 L I & O for Labs for Last 24 Hours: Intake & Output 12/03/23 12/04/23 12/05/23 12/06/23 23:59 23:59 23:59 23:59 Intake Total 936.996 / 719.879 6888.715 / 6737.916 2410.458 / 2471.458 297 / 297 Output Total 2640 / 2840 4335 / 4535 3725 / 4070 1960 / 1960 Balance -1703.004 / -1903.004 -2482.285 / -2682.285 -1253.542 / -1598.542 -1663 / -1663 Weight 102.313 kg 102 kg 102.3 kg 98 kg The patient's infection will respond to the chosen ABx?: Yes (SPUTUM,BLOOD AND URINE CULTURES PENDING, AFEBRILE OVER 24 HR) Is the patient receiving the right drug, dose, and route?: Yes Could a more targeted ABx be ordered?: No
[2023-12-06 08:19] LABS: Lymphocytes % 2 % (10-50); Monocytes % 4 % (2-9); Neutrophils % 90 % (42-76); Total Cells Counted 100
[2023-12-06 08:23] LABS: Anisocytosis 1+; Macrocytosis 1+; Platelet Estimate Normal; Poikilocytosis 1+; Polychromasia 1+
[2023-12-06 08:24] LABS: Target Cells 1+
[2023-12-06] MEDS: ENOXAPARIN 100MG/ML SYRINGE 100 MG SQ (09:48)
[2023-12-06] MEDS: METOPROLOL SUCCINATE XL 25MG TABLET 25 MG PO (09:49)
[2023-12-06] MEDS: LISINOPRIL 20MG TABLET 40 MG PO (09:49)
--- NOTE | 2023-12-06 09:59 | P.PN_ITS ---
Subjective Subjective Date: 12/06/23 Time: 08:00 Principal diagnosis: afib rvr, volume overload Interval history: Patient was extubated on 12/05/2023. Denies complaints this morning. Remains on Bumex and amiodarone drips. Diuresing well. Exam Data for Last 24 hours Vital signs and Labs for Last 24 Hours: Temp Pulse Resp BP Pulse Ox O2 Del Method O2 Flow Rate 97.6 F 102 H 16 150/86 H 94 L Nasal Cannula 3 12/06/23 08:00 12/06/23 07:00 12/06/23 07:00 12/06/23 07:00 12/06/23 07:00 12/06/23 07:00 12/06/23 07:00 FiO2 45 12/05/23 12:00 Laboratory Results - last 24 hr 12/05/23 05:23: Albumin 3.1 L, Globulin 3.3 H, Albumin/Globulin Ratio 0.9 L 12/05/23 10:55: POC Glucose 215 H 12/05/23 16:18: POC Glucose 207 H 12/05/23 20:31: POC Glucose 146 H 12/06/23 06:06: POC Glucose 241 H 12/06/23 06:08: WBC 19.2 H D, RBC 5.13, Hgb 15.5, Hct 50.0 H, MCV 97.6, MCH 30.3, MCHC 31.0 L, RDW 14.4, Plt Count 255 D, MPV 9.4, Neut % (Auto) 90.7 H, Lymph % (Auto) 3.6 L, [place] % (Auto) 4.7, Eos % (Auto) 0.4, Baso % (Auto) 0.6, Ne ut # (Auto) 17.4 H, Lymph # (Auto) 0.7, [place] # (Auto) 0.9, Eos # (Auto) 0.1, Baso # (Auto) 0.1, Total Counted 100, Neutrophils % (Manual) 90 H, Band Neutrophils % 4.0, Lymphocytes % (Manual) 2 L, Monocytes % (Manual) 4, Platelet Estimate Normal, Polychromasia 1+, Poikilocytosis 1+, Anisocytosis 1+, Macrocytosis 1+, Target Cells 1+, Sodium 140, Potassium 3.2 L, Chloride 98, Carbon Dioxide 37 H, Anion Gap 8.2, BUN 19 H D, Creatinine 0.80, Estimated Creat Clear 71, Estimated GFR 69, Est GFR ( Amer) 84, Glucose 282 H, Calcium 8.6, Total Bilirubin 1.1, AST 33, ALT 26, Alkaline Phosphatase 106, Total Protein 7.5, Albumin 3.8 D, Globulin 3.7 H, Albumin/Globulin Ratio 1.0 L I & O for Last 24 hours: Intake & Output 12/03/23 12/04/23 12/05/23 12/06/23 23:59 23:59 23:59 23:59 Intake Total 936.996 / 857.433 9775.715 / 1683.545 9121.458 / 2471.458 297 / 297 Output Total 2640 / 2840 4335 / 4535 3725 / 4070 1960 / 1960 Balance -1703.004 / -1903.004 -2482.285 / -2682.285 -1253.542 / -1598.542 -1663 / -1663 Weight 225 lb 9 oz 224 lb 13.944 oz 225 lb 8.526 oz 216 lb 0.848 oz Microbiology Reports for the Last 24 Hours: Microbiology 12/03/23 11:08 Sputum - Endotracheal Tube Aspirate Gram Stain - Final Constitutional Comments: intubated and sedated *Routine HEENT Exam Head: Present normocephalic Eye: Present EOMI and PERRL ENT: Present mucous membranes moist *Routine Neck Exam Neck: Present supple; Absent lymphadenopathy *Routine Respiratory Exam Respiratory: Present diminished air movement *Routine Cardiovascular Exam Cardiovascular: Present irregular rhythm *Routine Abdominal Exam Abdominal: Present soft and normoactive bowel sounds; Absent tenderness *Routine Extremities Exam Extremities: Present edema; Absent cyanosis or clubbing *Routine Skin Exam Skin: Present warm; Absent rash *Routine Neurological Exam Comments: intubated and sedated Progress Note: A&P Assessment and plan (1) Acute hypoxemic respiratory failure: Status: Acute (2) Pleural effusion, bilateral: Status: Acute (3) Edema of larynx: Status: Acute Assessment and Plan Assessment and Plan for All Diagnoses:: A-fib RVR Chadsvasc score > 2 History of chronic A-fib -Medical noncompliance reported per patient's family -Failed cardioversion x 3 per ER doc attempt -Was initially loaded with digoxin without rate improvement -Currently rate controlled on amiodarone drip after brief episodes of NSR present. -Has been on Lovenox for anticoagulation 12/06/2023: Patient remains A-fib with rate less than 100. Will transition amiodarone drip to amiodarone 400 mg 3 times daily and continue metoprolol succinate 25 mg p.o. daily. Will stop Lovenox and start patient on Xarelto 20 mg p.o. daily. Acute on Chronic HFpEF -Moderate to large bilateral pleural effusions noted on CT chest on admission -Normal LV systolic function, marked increase in LV wall thickness (1.6 cm), moderate RV dilation with moderate reduction in RV function, biatrial dilation, no significant valvular stenosis or regurg. Recommend outpatient further testing for infiltrative disease with cardiac MRI and lab testing for amyloidosis plus a PYP nuclear scan. -Patient currently on Bumex drip, will continue through 12/06. Can stop on 12/06 and switch to bumex 1 mg p.o. twice daily. -Has diuresed over 6 liters, creatinine remains stable at 0. 8. -Will add Jardiance later 12/06/2023: Continue Bumex drip until tomorrow. Stop Bumex drip 12/06 and start patient on Bumex 1 mg p.o. twice daily. Consider addition of Jardiance prior to discharge. CAD Acute myocardial injury/elevated trop -Troponin 0.01, 0.07, 0.06 -EKG negative for acute ischemic changes -Patient underwent medical management heart cath July 2023 -No planned intervention at this time HTN -Continue metoprolol succinate 25 mg p.o. daily and continue lisinopril 40 mg daily. Acute hypoxic respiratory failure Elevated lactate Neutrophilic leukocytosis low-grade fevers -Lactic acid-improving -WBC 13.1-19.2 -Pulmonology is following. Will defer vent management and antibiotic selection to pulmonology/primary service 12/06/23: Patient was extubated on 12/05/2023. Continues to diurese well. Creatinine is stable. Plan to stop Bumex drip tomorrow and transition to Bumex 1 mg p.o. twice daily. Can stop amiodarone drip today and start amiodarone 400 mg 3 times daily. Lovenox switched to Xarelto.
--- NOTE | 2023-12-06 10:51 | HMH.SLDYSPHA ---
Speech & Language Evaluation Speech/Language Dysphagia Evaluation Start: 12/06/23 10:45 Freq: ONCE Status: Active Protocol: Document 12/06/23 10:45 RUBI (Rec: 12/06/23 10:51 RUBI [id number]) Dysphagia Assess/Goals/Plan Assessment Date of Evaluation: 12/06/23 Evaluation Type Initial Certification Assessment/Problems post-extubation protocol per MD order. Does Patient Qualify for Service No Qualify/Failure Comment Based on clinical observations made throughout CSE, mastication/manipulation of the bolus and swallowing appear to be WFL with no overt s/sxs of aspiration exhibited . No further skilled speech therapy services are warranted at this time. Recommendations PHYSICIAN CERTIFICATION: The specified therapy services are required, authorized, and reviewed every 30 days. Diet Recommendations Normal Liquid Type Recommendations Normal/Thin SL Swallow Guidelines Standard Aspiration Prec. Dysphagia Swallow Precautions/Strategies Sitting Upright (90 deg),Small Bites and Sips,Alternate Liquids/Solids Plan Pt/Guardian verbally ack understanding Yes of dx/prognosis/goals G -code Required No Education Instructions provided Discussed diet recommendations and standard aspiration precautions with pt, nursing, and care management all of which expressed understanding. 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 Reportedly patient has history of medical noncompliance. Patient was found hypoxic, patient was intubated for airway protection in the emergency department. At time of my evaluation patient is intubated sedated. Patient was found to be in A-fib with RVR, with low BP patient was a started on IV amiodarone per cardiology. Pt extubated 12/24. Rehab Services Assessed Speech therapy General Information General Current Food Consistancy NPO Dentition Good Dentition Patient Orientation Person,Place,Time,Situation Ability to Follow Directions Good Communication Ability No Impairment Dysphagia:Food Presentation Evaluation Food Type Pureed,Mechanical Soft,Regular ,Liquid,Pudding Dysphagia Evaluation Summary Pt was A&O x4 and seen sitting upright in her bed this morning for a clinical bedside swallow evaluation. Oral care was provided prior to administering trials of bolus. Consistencies trialled included: thins (ice chips, spoonfuls of water, open cup/ straw sip, two consecutive sips from open cup/straw), pudding, puree (applesauce), MS (nutrigrain bar), and regular (candy cracker.) Trials were adminstered x3 to assess for consistency and/or any signs of fatigue. No overt s/sxs of aspiration were noted. Mastication and manipulation of bolus, as well as swallowing appear to be WFL at the bedside. No further skilled speech therapy services are warranted at this time. It is recommended pt be placed on regular/thin diet. Stroke Dysphagia Assessment PHYSICIAN CERTIFICATION: I certify the specified therapy services for Evangelina Weathers are required, authorized, and reviewed every 30 days.
[2023-12-06 11:15] LABS: POC Glucose,Bedside 387 (70-110)
[2023-12-06] MEDS: AMIODARONE 200MG TABLET 400 MG PO ×2 (12:03→20:45)
--- NOTE | 2023-12-06 13:32 | HMH.PTEV ---
Physical Therapy Evaluation Rehab PT IP Evaluation Start: 12/06/23 10:46 Freq: ONCE Status: Active Protocol: Document 12/06/23 13:26 CATRACHITO (Rec: 12/06/23 13:31 CATRACHITO [id number]) Subjective/History History History Per H&P: Patient is a 78-year-old female with past medical history of atrial fibrillation CHF hypertension hyperlipidemia obstructive sleep apnea diabetes mellitus who presented to hospital due to shortness of breath. Reportedly patient has history of medical noncompliance. Patient was found hypoxic, patient was intubated for airway protection in the emergency department. At time of my evaluation patient is intubated sedated. Patient was found to be in A-fib with RVR, with low BP patient was a started on IV amiodarone per cardiology. Subjective Subjective PLOF per pt report: Lives alone in 2-story home with multiple ORIN and no HRs. IND with ADLs and functional mobility with no AD use. Was not driving prior to admission . Has nearby family. Pt is a questionable historian . PT to confirm history with CM. New diagnosis of cancer in past 12 No months? Rehab PT IP Eval Objective Appearance Patient Behavior Appropriate,Confused Patient Orientation Person Difficulty following instructions none Speech Pattern Clear Ambulation Patient Able to Ambulate No Balance Ability to Arise Unable Sitting Balance Steady, safe Standing Balance Unsteady Transfers Bed Transfer Ability Moderate x 2 (50% assist) Sit to Stand Bed Transfer Ability Moderate x 2 (50% assist) Rehab PT IP prob,goals,plan Problems Date of Evaluation: 12/06/23 PT IP Problems Bed Mobility,Transfers,Gait, Balance,Self care,Safety Rehab Potential Rehab Potential Good Equipment Needs Assistive Devices Rolling / Wheeled Walker Plan PT Intervention Plan Bed Mobility,Transfers,Gait, Balance,Safety,Therapeutic Exercise Other Intervention Plan 1-2 times PT Plan Frequency Daily Duration LOS Discharge Goals Bed Transfer Ability Moderate x 1 (50% assist) Sit to Stand Chair Transfer Ability Moderate x 1 (50% assist) Ambulation Assistive Device Rolling Walker Ambulation Distance (feet) 10 Discharge Plan PT Discharge Plan Intial PT evaluation performed . Upon discharge from [facility], once medically stable per MD, pt. most appropriate to be discharged to a SNF d/t current level to promote and improve overall generalized conditioning, endurance, and strength. Pt would benefit from skilled PT while at [facility] to prevent further functional decline and maximize safety with mobility. Eval Complexity Eval Charge Codes 07407 - High Complexity PHYSICIAN CERTIFICATION: I certify the specified therapy services for Evangelina Weathers are required, authorized, and reviewed every 30 days.
--- NOTE | 2023-12-06 13:51 | HMH.OTEV ---
OT Inpatient Evaluation Rehab OT IP Evaluation Start: 12/06/23 10:46 Freq: ONCE Status: Active Protocol: Document 12/06/23 13:36 [facility] (Rec: 12/06/23 13:51 [facility] [id number]) Rehab OT IP Assessment Subjective History Pt oriented x 2. Pt agreeable to engage in therapy evaluaiton. Pt admitted on 12/03/23 due to respiratory failure, flash pulmonary edema , and AFIB and RVR. History and Physical Report: Patient is a 78-year-old female with past medical history of atrial fibrillation CHF hypertension hyperlipidemia obstructive sleep apnea diabetes mellitus who presented to hospital due to shortness of breath. Reportedly patient has history of medical noncompliance. Patient was found hypoxic, patient was intubated for airway protection in the emergency department. At time of my evaluation patient is intubated sedated. Patient was found to be in A-fib with RVR, with low BP patient was a started on IV amiodarone per cardiology Subjective I think I lived alone. Pt appears to be slightly confused when providing prior level of functioning; pt claims to have lived alone. Pt claims normally she is independent with all ADLs and IADLs. Pt also reports she is able to complete funtional transfers with a walker. Information provided may not be trustworthy due to poor historian. Objective Patient Orientation Person Right Upper Extremity Gross ROM Min Limitation <25% Left Upper Extremity Gross ROM Min Limitation <25% Shoulder ROM Limitations Muscle Weakness Elbow ROM Limitations Muscle Weakness Wrist Limitations of Range of Motion Muscle Weakness Bed Mobility bed mobility-scooting,bed mobility - supine/sit Assist Level Moderate x 2 (50% assist) Transfer Training Sit/Stand Transfer Assist Level Moderate x 2 (50% assist) Rehab OT IP prob,goals,plan Problems Date of Evaluation: 12/06/23 OT IP Problems Bed Mobility,Transfers,Balance ,Self care,Safety Rehab Potential Rehab Potential Good Equipment Needs Assistive Devices Rolling / Wheeled Walker Plan OT intervention Plan Bed Mobility,Transfers,Balance ,Self care,Safety,Therapeutic Exercise OT Plan Frequency Daily Duration LOS Discharge Goals Bed Mobility Ability Assistance x1 Sit to Stand Chair Transfer Ability Moderate x 1 (50% assist) Chair Transfer Ability Moderate x 1 (50% assist) Chair Transfer Technique Sit to/from Ambulatory Chair Transfer Assistive Devices Rolling Walker Feeding Ability Assist with Tray Set Up Lower Body Dressing Ability Moderate Assistance Upper Body Dressing Ability Minimal Assistance Bathing Ability Moderate Assistance Performing Toilet Hygiene Ability Moderate Assistance Overall Commode/Toilet Transfer Ability Moderate Assistance Commode/Toilet Transfer Technique Sit to/from Ambulatory Commode/Toilet Transfer Assistive Grab Bars Devices Oral Care Assist Standby Assistance Decrease in Endurance No Discharge Plan OT Discharge Plan Pt will continue to be seen for OT services while at [facility]. Pt would benefit most from short term rehab at SNF following hospital stay. Continued skilled therapy is important in order for patient to improve strength, safety, endurance, ADL independence, and functional transfers to reach PLOF. Eval Complexity Eval Charge Codes 13006 - Moderate Complexity PHYSICIAN CERTIFICATION: I certify the specified therapy services for Evangelina Weathers are required, authorized, and reviewed every 30 days.
[2023-12-06] MEDS: CEFTRIAXONE SODIUM 2 GM in 0.9 % SODIUM CHLORIDE 100 ML IV (15:50)
[2023-12-06] MEDS: AZITHROMYCIN 500 MG in 0.9 % SODIUM CHLORIDE 250 ML 250 MG IV (15:50)
--- NOTE | 2023-12-06 17:22 | P.PN_ITS ---
Subjective *Date: 12/06/23 *Time: 17:27 Interval history: seen and evaluated at bedside, denied CP, SOB, N/V, extubated yesterday, on 3L NC Exam Data for Last 24 hours Vital signs and Labs for Last 24 Hours: Temp Pulse Resp BP Pulse Ox O2 Del Method O2 Flow Rate 97.9 F 111 H 22 134/55 L 91 L Room Air 2 12/06/23 16:00 12/06/23 16:00 12/06/23 16:00 12/06/23 16:00 12/06/23 16:00 12/06/23 16:00 12/06/23 15:00 FiO2 45 12/05/23 12:00 Laboratory Results - last 24 hr 12/05/23 20:31: POC Glucose 146 H 12/06/23 06:06: POC Glucose 241 H 12/06/23 06:08: WBC 19.2 H D, RBC 5.13, Hgb 15.5, Hct 50.0 H, MCV 97.6, MCH 30.3, MCHC 31.0 L, RDW 14.4, Plt Count 255 D, MPV 9.4, Neut % (Auto) 90.7 H, Lymph % (Auto) 3.6 L, [place] % (Auto) 4.7, Eos % (Auto) 0.4, Baso % (Auto) 0.6, Neut # (Auto) 17.4 H, Lymph # (Auto) 0.7, [place] # (Auto) 0.9, Eos # (Auto) 0.1, Baso # (Auto) 0.1, Total Counted 100, Neutrophils % (Manual) 90 H, Band Neutrophils % 4.0, Lymphocytes % (Manual) 2 L, Monocytes % (Manual) 4, Platelet Estimate Normal, Polychromasia 1+, Poikilocytosis 1+, Anisocytosis 1+, Macrocytosis 1+, Target Cells 1+, Sodium 140, Potassium 3.2 L, Chloride 98, Carbon Dioxide 37 H, Anion Gap 8.2, BUN 19 H D, Creatinine 0.80, Estimated Creat Clear 71, Estimated GFR 69, Est GFR ( Amer) 84, Glucose 282 H, Calcium 8.6, Total Bilirubin 1.1, AST 33, ALT 26, Alkaline Phosphatase 106, Total Protein 7.5, Albumin 3.8 D, Globulin 3.7 H, Albumin/Globulin Ratio 1.0 L 12/06/23 10:58: POC Glucose 387 H* I & O for Last 24 hours: Intake & Output 12/03/23 12/04/23 12/05/23 12/06/23 23:59 23:59 23:59 23:59 Intake Total 936.996 / 970.488 7638.715 / 3646.373 0885.458 / 2471.458 1162 / 1162 Output Total 2640 / 2840 4335 / 4535 3725 / 4070 2945 / 2945 Balance -1703.004 / -1903.004 -2482.285 / -2682.285 -1253.542 / -1598.542 -1783 / -1783 Weight 102.313 kg 102 kg 102.3 kg 98 kg Microbiology Reports for the Last 24 Hours: Microbiology 12/03/23 16:45 Nose MRSA Culture - Final 12/03/23 11:58 Blood Blood Culture - Preliminary 12/03/23 11:18 Blood Blood Culture - Preliminary 12/03/23 11:08 Sputum - Endotracheal Tube Aspirate Gram Stain - Final Constitutional Constitutional: no acute distress *Routine HEENT Exam Head: Present normocephalic Eye: Present EOMI and PERRL ENT: Present mucous membranes moist *Routine Neck Exam Neck: Present supple; Absent lymphadenopathy *Routine Respiratory Exam Respiratory: Present wheezes *Routine Cardiovascular Exam Cardiovascular: Present RRR *Routine Abdominal Exam Abdominal: Present soft and normoactive bowel sounds; Absent tenderness *Routine Extremities Exam Extremities: Absent cyanosis, clubbing or edema *Routine Skin Exam Skin: Present warm; Absent rash *Routine Neurological Exam Neurological: Present alert and oriented X3 Assessment and Plan *Assessment and plan (1) Acute cardiac pulmonary edema: Status: Acute Category: Medical Code(s): I50.1 - Left ventricular failure, unspecified (2) Acute hypoxemic respiratory failure: Status: Acute Category: Medical Code(s): J96.01 - Acute respiratory failure with hypoxia (3) Atrial fibrillation with rapid ventricular response: Status: Acute Category: Medical Code(s): I48.91 - Unspecified atrial fibrillation (4) CHF exacerbation: Status: Acute Category: Medical Code(s): I50.9 - Heart failure, unspecified (5) Coronary artery disease: Status: Acute Category: Medical Code(s): I25.10 - Atherosclerotic heart disease of [place] coronary artery without angina pectoris (6) HLD (hyperlipidemia): Status: Chronic Qualifiers: Hyperlipidemia type: mixed hyperlipidemia Qualified Code(s): E78.2 - Mixed hyperlipidemia Category: Medical Code(s): E78.5 - Hyperlipidemia, unspecified (7) HTN (hypertension): Status: Chronic Qualifiers: Hypertension type: primary hypertension Qualified Code(s): I10 - Essential (primary) hypertension Category: Medical Code(s): I10 - Essential (primary) hypertension (8) Atypical angina: Status: Acute Category: Medical Code(s): I20.89 - Other forms of angina pectoris (9) Afib: Status: Acute Qualifiers: Atrial fibrillation type: persistent (not longstanding) Qualified Code(s): I48.19 - Other persistent atrial fibrillation Category: Medical Code(s): I48.91 - Unspecified atrial fibrillation (10) DM (diabetes mellitus): Status: Chronic Qualifiers: Diabetes mellitus complication status: without complication Diabetes mellitus care home insulin use: without director long term care use Diabetes mellitus type: type 2 Qualified Code(s): E11.9 - Type 2 diabetes mellitus without complications Category: Medical Code(s): E11.9 - Type 2 diabetes mellitus without complications Plan Patient is a 78-year-old female with past medical history of atrial fibrillation CHF hypertension hyperlipidemia obstructive sleep apnea diabetes mellitus who presented to hospital due to shortness of breath. Reportedly patient has history of medical noncompliance. Patient was found hypoxic, patient was intubated for airway protection in the emergency department. At time of my evaluation patient is intubated sedated. Patient was found to be in A-fib with RVR, with low BP patient was a started on IV amiodarone per cardiology. Assessment and plan Acute hypoxic respiratory failure satting less than 90% on room air likely secondary to flash pulmonary edema, CHF exacerbation, s/p intubation Strict I's and O's, Dejesus insertion cardiac event monitoring Consult cardiology Monitor on cardiac telemetry Diuresis with IV bumex - continue Started on Rocephin, azithromycin proBNP checked, 2540 Order echocardiogram - Normal LV systolic function. Marked increase in LV wall thicknes Monitor and replace electrolytes continue to closely monitor BMP Afib with RVR - on amiodarone - started on IV amiodaron cardiology following Hyperglycemia due to uncontrolled diabetes mellitus Long-acting insulin Insulin sliding scale started on diet UA is suggestive UTI - continue rocephin - Urine Culture Leukocytosis likely reactive, lactic acidosis -Monitor lactic acid Started on empirical antibiotics with Rocephin, azithromycin Check blood cultures Check PCT level DVT PPx - started on xarelto continue IV diuresis, wean o2 needs as tolerated, Echo. Normal LV systolic function.
[2023-12-06] MEDS: RIVAROXABAN 10MG TABLET 20 MG PO (17:55)
[2023-12-06 17:57] LABS: POC Glucose,Bedside 267 (70-110)
--- NOTE | 2023-12-06 18:31 | PC.NURSE ---
pt has sat up in bed most of the day, garenr still in place with 1310 mL out this shift, NC o2 at 2L, patient does remove O2 often and has to be redirected to put it back on, room air sat 91%, HR has remained tachy, PO amio given and amio gtt stopped one hour later, bumex gtt still infusing and is to be turned off tomorrow per Tamela from Cards, pitting edema still present in BLE and BUE, no complaints of pain, still remains confused at times
[2023-12-06 20:43] LABS: POC Glucose,Bedside 230 (70-110)
[2023-12-06] MEDS: PRAVASTATIN 40MG TAB 80 MG PO (20:45)
[2023-12-07] VITALS (11 sets, daily range): BP systolic 123–164; BP diastolic 74–100; PULSE 52–144; RESP 17–21; TEMP 36.4–36.9; O2SAT 91–98; BMI 35.6
[2023-12-07] MEDS: humaLOG 100 UNITS/ML 3ML VIAL (SSI) SQ ×4 (05:18→20:31)
[2023-12-07 05:20] LABS: POC Glucose,Bedside 217 (70-110)
[2023-12-07] MEDS: LEVALBUTEROL 1.25MG/3ML NEB 1.25 MG IH ×4 (06:18→23:37)
--- NOTE | 2023-12-07 06:29 | PC.NURSE ---
PATIENT IS CONFUSED. HAS TRIED TO GET OOB SEVERAL TIMES TO VOID DISPITE REPEATEDLY BEING INFORMED THAT SHE HAS A CATHETER. HAS TRIPLE LUMEN CENTRAL LINE TO LEFT SUBCLAVIAN. BUMEX INFUSING AT 10 ML/HR TO WHITE PORT, NO S/S OF INFECTION OR INFILTRATION. 02 AT 2LNC BUT PATIENT REMOVES OERSISTANTLY,
[2023-12-07] MEDS: BUMETANIDE 10 MG in 0.9 % SODIUM CHLORIDE 60 ML IV (06:56)
[2023-12-07] MEDS: METOPROLOL SUCCINATE XL 25MG TABLET 25 MG PO (09:22)
[2023-12-07] MEDS: LISINOPRIL 20MG TABLET 40 MG PO (09:22)
[2023-12-07] MEDS: AMIODARONE 200MG TABLET 400 MG PO ×3 (09:22→20:30)
[2023-12-07] MEDS: ERGOCALCIFEROL 50,000 UNITS (1.25MG) CAPSULE 50000 UNIT PO (09:22)
[2023-12-07] MEDS: EZETIMIBE 10MG TABLET 10 MG PO (09:23)
[2023-12-07] MEDS: EMPAGLIFLOZIN 10MG TABLET 20 MG PO (09:23)
[2023-12-07] MEDS: METFORMIN 500MG TABLET 1000 MG PO ×2 (09:23→16:46)
[2023-12-07 12:13] LABS: POC Glucose,Bedside 293 (70-110)
[2023-12-07] MEDS: AZITHROMYCIN 250MG TABLET 500 MG PO (13:00)
--- NOTE | 2023-12-07 16:07 | EXP.PN ---
Subjective *Date: 12/07/23 *Time: 16:07 Interval history: seen and evaluated at bedside, alert awake and holding conversations, denied CP, SOB, N/V, extubated yesterday, on 3L NC Exam Data for Last 24 hours Vital signs and Labs for Last 24 Hours: Temp Pulse Resp BP Pulse Ox O2 Del Method O2 Flow Rate 97.5 F L 144 H 17 142/81 H 94 L Nasal Cannula 2 12/07/23 12:00 12/07/23 14:32 12/07/23 12:00 12/07/23 12:00 12/07/23 12:00 12/07/23 15:00 12/07/23 15:00 FiO2 45 12/05/23 12:00 Laboratory Results - last 24 hr 12/06/23 15:56: POC Glucose 267 H 12/06/23 20:36: POC Glucose 230 H 12/07/23 05:13: POC Glucose 217 H 12/07/23 11:56: POC Glucose 293 H I & O for Last 24 hours: Intake & Output 12/04/23 12/05/23 12/06/23 12/07/23 23:59 23:59 23:59 23:59 Intake Total 1852.715 / 2171.545 8098.458 / 2471.458 1646.333 / 1980.333 794 / 794 Output Total 4335 / 4535 3725 / 4070 3895 / 3895 1999 Balance -2482.285 / -2682.285 -1253.542 / -1598.542 -2248.667 / -1914.667 -1206 / -1206 Weight 102 kg 102.3 kg 98 kg 100.516 kg Microbiology Reports for the Last 24 Hours: Microbiology 12/03/23 11:58 Blood Blood Culture - Preliminary 12/03/23 11:18 Blood Blood Culture - Preliminary 12/03/23 11:08 Sputum - Endotracheal Tube Aspirate Gram Stain - Final 12/03/23 11:08 Sputum - Endotracheal Tube Aspirate Sputum Culture - Preliminary 12/03/23 12:00 Urine,Clean Catch Urine Culture - Final 12/03/23 16:45 Nose MRSA Culture - Final Constitutional Constitutional: no acute distress *Routine HEENT Exam Head: Present normocephalic Eye: Present EOMI and PERRL ENT: Present mucous membranes moist *Routine Neck Exam Neck: Present supple; Absent lymphadenopathy *Routine Respiratory Exam Respiratory: Present wheezes *Routine Cardiovascular Exam Cardiovascular: Present RRR *Routine Abdominal Exam Abdominal: Present soft and normoactive bowel sounds; Absent tenderness *Routine Extremities Exam Extremities: Absent cyanosis, clubbing or edema *Routine Skin Exam Skin: Present warm; Absent rash *Routine Neurological Exam Neurological: Present alert and oriented X3 Assessment and Plan *Assessment and plan (1) Acute cardiac pulmonary edema: Status: Acute Category: Medical Code(s): I50.1 - Left ventricular failure, unspecified (2) Acute hypoxemic respiratory failure: Status: Acute Category: Medical Code(s): J96.01 - Acute respiratory failure with hypoxia (3) Atrial fibrillation with rapid ventricular response: Status: Acute Category: Medical Code(s): I48.91 - Unspecified atrial fibrillation (4) CHF exacerbation: Status: Acute Category: Medical Code(s): I50.9 - Heart failure, unspecified (5) Coronary artery disease: Status: Acute Category: Medical Code(s): I25.10 - Atherosclerotic heart disease of [place] coronary artery without angina pectoris (6) HLD (hyperlipidemia): Status: Chronic Qualifiers: Hyperlipidemia type: mixed hyperlipidemia Qualified Code(s): E78.2 - Mixed hyperlipidemia Category: Medical Code(s): E78.5 - Hyperlipidemia, unspecified (7) HTN (hypertension): Status: Chronic Qualifiers: Hypertension type: primary hypertension Qualified Code(s): I10 - Essential (primary) hypertension Category: Medical Code(s): I10 - Essential (primary) hypertension (8) Atypical angina: Status: Acute Category: Medical Code(s): I20.89 - Other forms of angina pectoris (9) Afib: Status: Acute Qualifiers: Atrial fibrillation type: persistent (not longstanding) Qualified Code(s): I48.19 - Other persistent atrial fibrillation Category: Medical Code(s): I48.91 - Unspecified atrial fibrillation (10) DM (diabetes mellitus): Status: Chronic Qualifiers: Diabetes mellitus type: type 2 Diabetes mellitus intermediate insulin use: without intermediate use Diabetes mellitus complication status: without complication Qualified Code(s): E11.9 - Type 2 diabetes mellitus without complications Category: Medical Code(s): E11.9 - Type 2 diabetes mellitus without complications Plan Patient is a 78-year-old female with past medical history of atrial fibrillation CHF hypertension hyperlipidemia obstructive sleep apnea diabetes mellitus who presented to hospital due to shortness of breath. Reportedly patient has history of medical noncompliance. Patient was found hypoxic, patient was intubated for airway protection in the emergency department. At time of my evaluation patient is intubated sedated. Patient was found to be in A-fib with RVR, with low BP patient was a started on IV amiodarone per cardiology. Assessment and plan Acute hypoxic respiratory failure satting less than 90% on room air likely secondary to flash pulmonary edema, CHF exacerbation, s/p intubation Strict I's and O's, Dejesus insertion cardiac event monitoring Consult cardiology Monitor on cardiac telemetry Diuresis with IV bumex - continue Started on Rocephin, azithromycin proBNP checked, 2540 Order echocardiogram - Normal LV systolic function. Marked increase in LV wall thicknes Monitor and replace electrolytes continue to closely monitor BMP Afib with RVR - on amiodarone - started on IV amiodaron cardiology following Hyperglycemia due to uncontrolled diabetes mellitus Long-acting insulin Insulin sliding scale started on diet UA is suggestive UTI - continue rocephin - Urine Culture Leukocytosis likely reactive, lactic acidosis -Monitor lactic acid Started on empirical antibiotics with Rocephin, azithromycin Check blood cultures Check PCT level DVT PPx - started on xarelto 12/07/2023 plan continue IV diuresis, wean o2 needs as tolerated, Echo. Normal LV systolic function. DC 1-2 days, check CBC, BMP in AM
[2023-12-07] MEDS: CEFTRIAXONE SODIUM 2 GM in 0.9 % SODIUM CHLORIDE 100 ML IV (16:45)
[2023-12-07] MEDS: RIVAROXABAN 10MG TABLET 20 MG PO (16:46)
[2023-12-07 16:56] LABS: POC Glucose,Bedside 199 (70-110)
[2023-12-07] MEDS: METOPROLOL TARTRATE 5MG/5ML VIAL 2.5 MG IV (17:21)
--- NOTE | 2023-12-07 18:25 | PC.NURSE ---
PT HAS BEEN TACHY FOR MOST OF SHIFT. AFIB/AFLUTTER ON TELE. 1 DOSE OF IV LOPRESSOR GIVEN THIS SHIFT WITH GOOD EFFECTIVENESS NOTED. TOLERATING DIET WELL. GARCIA CATH IN PLACE TO BED SIDE DRAIN.
[2023-12-07] MEDS: PRAVASTATIN 40MG TAB 80 MG PO (20:31)
[2023-12-07 21:18] LABS: POC Glucose,Bedside 212 (70-110)
[2023-12-08] VITALS (12 sets, daily range): BP systolic 117–153; BP diastolic 71–90; PULSE 71–110; RESP 16–22; TEMP 36.4–36.6; O2SAT 91–97; BMI 34.2
[2023-12-08] MEDS: BUMETANIDE 10 MG in 0.9 % SODIUM CHLORIDE 60 ML IV ×2 (04:31→15:50)
--- NOTE | 2023-12-08 04:38 | PC.NURSE ---
pt. has rested well this shift, A&O to person and place, HR has been 100-110, Afib/aflutter on tele, no complaints of pain, garner cath in place, bed alarm on for safety, call button is in reach
[2023-12-08] MEDS: humaLOG 100 UNITS/ML 3ML VIAL (SSI) SQ ×3 (06:32→15:44)
[2023-12-08 06:34] LABS: POC Glucose,Bedside 163 (70-110)
[2023-12-08] MEDS: LEVALBUTEROL 1.25MG/3ML NEB 1.25 MG IH ×4 (06:51→23:43)
[2023-12-08 07:27] LABS: Chloride 96 mmol/L (98-107); Sodium 139 mmol/L (136-145)
[2023-12-08 07:31] LABS: Anion Gap 8.9 mEq/L (5-15); Blood Urea Nitrogen 28 mg/dl (7-17); Calcium 9.1 mg/dl (8.4-10.2); Carbon Dioxide 37 mmol/L (22.0-30.0); Creatinine Clearance Estimated 70 mL/min (50-200); Estimated Glomerular Filt Rate 60 ml/min (>60); GFR (African American) 73 ML/MIN (>60); Glucose 173 mg/dl (74-100)
[2023-12-08 07:37] LABS: Potassium 2.9 mmoL/L (3.5-5.1)
[2023-12-08 07:40] LABS: Basophils # 0.1 K/mm3 (0-0.2); Basophils % 0.8 % (0.1-2.0); Eosinophils # 0.1 K/mm3 (0.0-0.4); Eosinophils % 0.7 % (0.1-12.0); Hematocrit 50.4 % (37.0-47.0); Hemoglobin 15.7 g/dL (12.2-16.2); Lymphocytes # 1.8 K/mm3 (0.7-4.5); Mean Corpuscular HGB Conc 31.2 g/dL (31.8-35.4); Mean Corpuscular Hemoglobin 30.3 pg (27.0-31.2); Mean Corpuscular Volume 97.3 fl (81-99); Mean Platelet Volume 9.4 fl (7.4-10.4); Monocytes # 1.1 K/mm3 (0.1-1.0); Monocytes % 9.1 % (1.7-9.3); Neutrophils % 74.4 % (37.0-80.0); Platelet Count 261 K/mm3 (142-424); Red Blood Count 5.18 M/mm3 (4.20-5.40)
[2023-12-08] MEDS: EZETIMIBE 10MG TABLET 10 MG PO (08:36)
[2023-12-08] MEDS: EMPAGLIFLOZIN 10MG TABLET 20 MG PO (08:36)
[2023-12-08] MEDS: AMIODARONE 200MG TABLET 400 MG PO ×3 (08:36→21:44)
[2023-12-08] MEDS: METFORMIN 500MG TABLET 1000 MG PO ×2 (08:36→16:43)
[2023-12-08] MEDS: METOPROLOL SUCCINATE XL 25MG TABLET 25 MG PO (08:37)
[2023-12-08] MEDS: POTASSIUM CHLORIDE 20MEQ TAB 60 MEQ PO (08:37)
[2023-12-08] MEDS: LISINOPRIL 20MG TABLET 40 MG PO (08:37)
[2023-12-08 12:14] LABS: POC Glucose,Bedside 215 (70-110)
[2023-12-08] MEDS: AZITHROMYCIN 250MG TABLET 500 MG PO (13:53)
[2023-12-08] MEDS: CEFTRIAXONE SODIUM 2 GM in 0.9 % SODIUM CHLORIDE 100 ML IV (15:40)
[2023-12-08 16:12] LABS: POC Glucose,Bedside 203 (70-110)
--- NOTE | 2023-12-08 16:16 | P.PN_ITS ---
Subjective *Date: 12/08/23 *Time: 16:16 Interval history: seen and evaluated at bedside, alert awake and holding conversations, she is feeling better, denied CP, SOB, N/V, on 2L NC Exam Data for Last 24 hours Vital signs and Labs for Last 24 Hours: Temp Pulse Resp BP Pulse Ox O2 Del Method O2 Flow Rate 97.7 F 95 H 16 153/73 H 95 Nasal Cannula 2 12/08/23 16:00 12/08/23 16:00 12/08/23 16:00 12/08/23 16:00 12/08/23 16:00 12/08/23 16:00 12/08/23 16:00 FiO2 45 12/05/23 12:00 Laboratory Results - last 24 hr 12/07/23 16:48: POC Glucose 199 H 12/07/23 19:56: POC Glucose 212 H 12/08/23 06:23: POC Glucose 163 H 12/08/23 06:30: WBC 12.0 H D, RBC 5.18, Hgb 15.7, Hct 50.4 H, MCV 97.3, MCH 30.3, MCHC 31.2 L, RDW 14.0, Plt Count 261, MPV 9.4, Neut % (Auto) 74.4, Lymph % (Auto) 15.0, [place] % (Auto) 9.1, Eos % (Auto) 0.7, Baso % (Auto) 0.8, Neut # (Auto) 9.0 H, Lymph # (Auto) 1.8, [place] # (Auto) 1.1 H, Eos # (Auto) 0.1, Baso # (Auto) 0.1, Sodium 139, Potassium 2.9 L*, Chloride 96 L, Carbon Dioxide 37 H, Anion Gap 8.9, BUN 28 H D, Creatinine 0.90, Estimated Creat Clear 70, Estimated GFR 60, Est GFR ( Amer) 73, Glucose 173 H, Calcium 9.1 12/08/23 12:03: POC Glucose 215 H 12/08/23 15:41: POC Glucose 203 H I & O for Last 24 hours: Intake & Output 12/05/23 12/06/23 12/07/23 12/08/23 23:59 23:59 23:59 23:59 Intake Total 2471.458 / 2471.458 1646.333 / 4891.795 2997 / 1284 1341.8 / 1341.8 Output Total 3725 / 4070 3895 / 3895 5400 / 5400 2700 / 2700 Balance -1253.542 / -1598.542 -2248.667 / -1914.667 -4116 / -4116 -1358.2 / - 1358.2 Weight 102.3 kg 98 kg 100.516 kg 96.814 kg Microbiology Reports for the Last 24 Hours: Microbiology 12/03/23 11:08 Sputum - Endotracheal Tube Aspirate Gram Stain - Final 12/03/23 11:08 Sputum - Endotracheal Tube Aspirate Sputum Culture - Final Constitutional Constitutional: no acute distress *Routine HEENT Exam Head: Present normocephalic Eye: Present EOMI and PERRL ENT: Present mucous membranes moist *Routine Neck Exam Neck: Present supple; Absent lymphadenopathy *Routine Respiratory Exam Respiratory: Present wheezes *Routine Cardiovascular Exam Cardiovascular: Present RRR *Routine Abdominal Exam Abdominal: Present soft and normoactive bowel sounds; Absent tenderness *Routine Extremities Exam Extremities: Absent cyanosis, clubbing or edema *Routine Skin Exam Skin: Present warm; Absent rash *Routine Neurological Exam Neurological: Present alert and oriented X3 Assessment and Plan *Assessment and plan (1) Acute cardiac pulmonary edema: Status: Acute Category: Medical Code(s): I50.1 - Left ventricular failure, unspecified (2) Acute hypoxemic respiratory failure: Status: Acute Category: Medical Code(s): J96.01 - Acute respiratory failure with hypoxia (3) Atrial fibrillation with rapid ventricular response: Status: Acute Category: Medical Code(s): I48.91 - Unspecified atrial fibrillation (4) CHF exacerbation: Status: Acute Category: Medical Code(s): I50.9 - Heart failure, unspecified (5) Coronary artery disease: Status: Acute Category: Medical Code(s): I25.10 - Atherosclerotic heart disease of [place] coronary artery without angina pectoris (6) HLD (hyperlipidemia): Status: Chronic Qualifiers: Hyperlipidemia type: mixed hyperlipidemia Qualified Code(s): E78.2 - Mixed hyperlipidemia Category: Medical Code(s): E78.5 - Hyperlipidemia, unspecified (7) HTN (hypertension): Status: Chronic Qualifiers: Hypertension type: primary hypertension Qualified Code(s): I10 - Essential (primary) hypertension Category: Medical Code(s): I10 - Essential (primary) hypertension (8) Atypical angina: Status: Acute Category: Medical Code(s): I20.89 - Other forms of angina pectoris (9) Afib: Status: Acute Qualifiers: Atrial fibrillation type: persistent (not longstanding) Qualified Code (s): I48.19 - Other persistent atrial fibrillation Category: Medical Code(s): I48.91 - Unspecified atrial fibrillation (10) DM (diabetes mellitus): Status: Chronic Qualifiers: Diabetes mellitus type: type 2 Diabetes mellitus fci insulin use: without termite renewal inspector use Diabetes mellitus complication status: without compl ication Qualified Code(s): E11.9 - Type 2 diabetes mellitus without complications Category: Medical Code(s): E11.9 - Type 2 diabetes mellitus without complications Plan Patient is a 78-year-old female with past medical history of atrial fibrillation CHF hypertension hyperlipidemia obstructive sleep apnea diabetes mellitus who presented to hospital due to shortness of breath. Reportedly patient has history of medical noncompliance. Patient was found hypoxic, patient was intubated for airway protection in the emergency department. At time of my evaluation patient is intubated sedated. Patient was found to be in A-fib with RVR, with low BP patient was a started on IV amiodarone per cardiology. Assessment and plan Acute hypoxic respiratory failure satting less than 90% on room air likely secondary to flash pulmonary edema, CHF exacerbation, s/p intubation Strict I's and O's, Dejesus insertion cardiac event monitoring Consult cardiology Monitor on cardiac telemetry Diuresis with IV bumex - continue Started on Rocephin, azithromycin proBNP checked, 2540 Order echocardiogram - Normal LV systolic function. Marked increase in LV wall thicknes Monitor and replace electrolytes continue to closely monitor BMP Afib with RVR - on amiodarone - started on IV amiodaron cardiology following Hyperglycemia due to uncontrolled diabetes mellitus Long-acting insulin Insulin sliding scale started on diet UA is suggestive UTI - continue rocephin - Urine Culture Leukocytosis likely reactive, lactic acidosis -Monitor lactic acid Started on empirical antibiotics with Rocephin, azithromycin Check blood cultures Check PCT level DVT PPx - started on xarelto continue IV diuresis, wean o2 needs as tolerated, Echo. Normal LV systolic function. DC 1-2 days, check CBC, BMP in AM likely DC to rehab, consult PT/OT, dc 1-2 days
[2023-12-08] MEDS: RIVAROXABAN 10MG TABLET 20 MG PO (16:43)
[2023-12-08] MEDS: PRAVASTATIN 40MG TAB 80 MG PO (21:45)
[2023-12-08 22:03] LABS: POC Glucose,Bedside 138 (70-110)
[2023-12-09] VITALS (10 sets, daily range): BP systolic 107–153; BP diastolic 66–77; PULSE 83–120; RESP 16–22; TEMP 36.4–37; O2SAT 91–98; BMI 34.2
[2023-12-09] MEDS: BUMETANIDE 10 MG in 0.9 % SODIUM CHLORIDE 60 ML IV (00:47)
[2023-12-09] MEDS: LEVALBUTEROL 1.25MG/3ML NEB 1.25 MG IH (05:56)
[2023-12-09] MEDS: humaLOG 100 UNITS/ML 3ML VIAL (SSI) SQ ×3 (06:11→16:56)
[2023-12-09 06:12] LABS: POC Glucose,Bedside 169 (70-110)
[2023-12-09 06:26] LABS: Chloride 95 mmol/L (98-107); Sodium 136 mmol/L (136-145)
[2023-12-09 06:29] LABS: Basophils # 0.1 K/mm3 (0-0.2); Basophils % 0.8 % (0.1-2.0); Blood Urea Nitrogen 27 mg/dl (7-17); Carbon Dioxide 35 mmol/L (22.0-30.0); Creatinine Clearance Estimated 70 mL/min (50-200); Eosinophils # 0.2 K/mm3 (0.0-0.4); Eosinophils % 1.3 % (0.1-12.0); Estimated Glomerular Filt Rate 53 ml/min (>60); GFR (African American) 65 ML/MIN (>60); Hematocrit 48.8 % (37.0-47.0); Hemoglobin 15.7 g/dL (12.2-16.2); Lymphocytes # 1.5 K/mm3 (0.7-4.5); Lymphocytes % 13.4 % (10-50); Mean Corpuscular HGB Conc 32.1 g/dL (31.8-35.4); Mean Corpuscular Volume 93.4 fl (81-99); Mean Platelet Volume 9.3 fl (7.4-10.4); Monocytes % 8.8 % (1.7-9.3); Neutrophils # 8.6 K/mm3 (1.8-7.8); Neutrophils % 75.7 % (37.0-80.0); Platelet Count 252 K/mm3 (142-424); Red Blood Count 5.23 M/mm3 (4.20-5.40); White Blood Count 11.3 K/mm3 (4.8-10.8)
[2023-12-09 06:30] LABS: Calcium 9.5 mg/dl (8.4-10.2); Glucose 193 mg/dl (74-100)
--- NOTE | 2023-12-09 06:54 | PC.NURSE ---
pt rested well. 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
[2023-12-09 07:13] LABS: Magnesium 2.1 mg/dl (1.6-2.3)
[2023-12-09] MEDS: LISINOPRIL 20MG TABLET 40 MG PO (08:36)
[2023-12-09] MEDS: METFORMIN 500MG TABLET 1000 MG PO ×2 (08:36→16:55)
[2023-12-09] MEDS: EMPAGLIFLOZIN 10MG TABLET 20 MG PO (08:37)
[2023-12-09] MEDS: EZETIMIBE 10MG TABLET 10 MG PO (08:37)
[2023-12-09] MEDS: AMIODARONE 200MG TABLET 400 MG PO ×3 (08:37→20:38)
[2023-12-09] MEDS: METOPROLOL SUCCINATE XL 25MG TABLET 25 MG PO (08:37)
[2023-12-09] MEDS: POTASSIUM CHLORIDE 20MEQ TAB 40 MEQ PO (08:37)
--- NOTE | 2023-12-09 09:42 | SW/DCPLANNER ---
Addendum entered by [facility] 12/11/23 07:44: Evangelina rogers/ [facility] stated this patient has been approved SNF level of care. Patient will admit to room 121D, fax number [phone] and report number is [phone]/[facility]. Addendum entered by [facility] 12/10/23 09:40: Evangelina rogers/ [facility] stated that precert will be started today. Addendum entered by [facility] 12/10/23 09:38: Patient is alert and oriented x 4 at this time and is agreeable to placement at [facility]. Patient's sister (Delmis Holloway [phone]) call and stated that granddaughter (Jesi) does not make decisions for this patient. Delmis stated that patient is not and does not have any children. Delmis will be at [facility] this afternoon to speak w/ patient and myself. Patient is able to make decisions for herself at this time. Addendum entered by [facility] 12/09/23 14:46: [facility] can not accept this patient due to insurance. Addendum entered by [facility] 12/09/23 14:10: Evangelina rogers/ [facility] stated that she could accept this patient and start a precert. Family stated they do not want [facility] at this time. Family prefers [facility] or [facility]: I am currently waiting to hear back from both facilities. Addendum entered by [facility] 12/09/23 13:34: I spoke w/ patient's niece (Jesi): she prefers placement at [facility] (currently no beds available), [facility] (info faxed), [facility] or [facility]. All facilities are currently reviewing information at this time. Original Note: I spoke w/ this patient regarding plans once medically stable for discharge. PT/OT evaluated patient and recommended SNF level of care. Patient is agreeable to placement at this time and prefers [facility] or [facility]. I will fax patient information to both facilities this AM and continue to follow up. Discharge date is unknown at this time.
--- NOTE | 2023-12-09 09:57 | P.PN_ITS ---
Subjective *Date: 12/09/23 *Time: 10:55 Interval history: No acute respiratory events over the weekend. patient denies any new respiratory complaints but admits improving respiratory symptoms. Pulmonology Exam Inpatient Vital signs and Labs for Last 24 Hours: Temp Pulse Resp BP Pulse Ox O2 Del Method O2 Flow Rate 98.2 F 113 H 19 107/66 L 96 Nasal Cannula 1 12/09/23 08:00 12/09/23 08:00 12/09/23 08:00 12/09/23 08:00 12/09/23 08:00 12/09/23 08:00 12/09/23 08:00 FiO2 45 12/05/23 12:00 Laboratory Results - last 24 hr 12/08/23 12:03: POC Glucose 215 H 12/08/23 15:41: POC Glucose 203 H 12/08/23 21:42: POC Glucose 138 H 12/09/23 05:39: WBC 11.3 H, RBC 5.23, Hgb 15.7, Hct 48.8 H, MCV 93.4, MCH 30.0, MCHC 32.1, RDW 14.0, Plt Count 252, MPV 9.3, Neut % (Auto) 75.7, Lymph % (Auto) 13.4, [place] % (Auto) 8.8, Eos % (Auto) 1.3, Baso % (Auto) 0.8, Neut # (Auto) 8.6 H, Lymph # (Auto) 1.5, [place] # (Auto) 1.0, Eos # (Auto) 0.2, Baso # (Auto) 0.1, Sodium 136, Potassium 3.0 L, Chloride 95 L, Carbon Dioxide 35 H, Anion Gap 9.0, BUN 27 H, Creatinine 1.00, Estimated Creat Clear 70, Estimated GFR 53 L, Est GFR ( Amer) 65, Glucose 193 H, Calcium 9.5, Magnesium 2.1 12/09/23 06:04: POC Glucose 169 H Temp Pulse Resp BP Pulse Ox O2 Del Method O2 Flow Rate 99.9 F H 106 H 22 113/70 100 Mechanical Ventilation 15 12/04/23 08:00 12/04/23 09:00 12/04/23 09:00 12/04/23 09:00 12/04/23 09:00 12/04/23 09:00 12/03/23 11:12 FiO2 50 12/04/23 09:00 Laboratory Results - last 24 hr 12/03/23 10:58: Specimen Source Right brachial, O2 % Nrb, ABG pH 6.99 L*, ABG pCO2 67.8 H, ABG pO2 68.4 L, ABG HCO3 16.0 L, ABG Total CO2 18.1 L, ABG O2 Saturation 81 L*, ABG Base Excess -15.4 L, Ean Test Patient unable 12/03/23 11:07: WBC 12.5 H, RBC 5.02, Hgb 15.4, Hct 50.7 H, MCV 101.0 H, MCH 30.8, MCHC 30.5 L, RDW 14.0, Plt Count 309, MPV 10.0, Neut % (Auto) 66.4, Lymph % (Auto) 25.5, [place] % (Auto) 6.3, Eos % (Auto) 0.9, Baso % (Auto) 0.8, Neut # (Auto) 8.3 H, Lymph # (Auto) 3.2, [place] # (Auto) 0.8, Eos # (Auto) 0.1, Baso # (Auto) 0.1, APTT 22.2 L, Sodium 136, Potassium 3.7, Chloride 105, Carbon Dioxide 20 L, Anion Gap 14.7, BUN 8, Creatinine 0.60, Estimated GFR 96, Est GFR ( Amer) 117, Glucose 465 H*, Calcium 9.0, Magnesium 2.1, Total Bilirubin 1.2, AST 39 H, ALT 36, Alkaline Phosphatase 103, Troponin I < 0.01, NT-Pro-B Natriuret Pep 2540 H, Total Protein 7.2, Albumin 3.9, Globulin 3.3 H, Albumin/Globulin Ratio 1.2 12/03/23 11:44: Specimen Source L radial, O2 % 100, ABG pH 7.23 L*, ABG pCO2 40.1, ABG pO2 184.8 H, ABG HCO3 16.4 L, ABG Total CO2 17.6 L, ABG O2 Saturation 99, ABG Base Excess -11.2 L, Ean Test Acceptable, Vent Rate 22, Tidal Volume 420, PEEP 8 12/03/23 12:00: Urine Color Yellow, Urine Appearance Sl cloudy, Urine pH 6.0, Ur Specific [place] >= 1.030, Urine Protein 3+, Urine Glucose (UA) 3+, Urine Ketones Trace, Urine Blood 2+, Urine Nitrate Negative, Urine Bilirubin Negative, Urine Urobilinogen 1.0, Ur Leukocyte Esterase Negative, Urine RBC 3-5, Urine WBC Occasional, Ur Squamous Epith Cells 3-5, Urine Bacteria 4+ 12/03/23 14:35: Lactate 5.8 H, Troponin I 0.07 H, Acetone Level None detected 12/03/23 15:53: POC Glucose 431 H* 12/03/23 16:45: Chlamy pneumoniae PCR TNP, Adenovirus (PCR) Not detected, B. pertussis DNA (PCR) TNP, Coronavirus OC43 (PCR) Not detected, Coronavirus HKU1 (PCR) Not detected, Coronavirus 229E (PCR) Not detected, SARS-CoV-2 (PCR) Not detected, Coronavirus NL63 (PCR) Not detected, Human Metapneumovir PCR Not detected, Influenza A (H1) PCR Not detected, Influ A (H1N1/09) PCR Not detected, Influenza A (H3) PCR Not detected, Influenza Type A (PCR) Not detected, Influenza Type B (PCR) Not detected, M. pneumoniae (PCR) TNP, Parainfluenza 1 (PCR) Not detected, Parainfluenza 2 (PCR) Not detected, Parainfluenza 3 (PCR) Not detected, Parainfluenza 4 (PCR) Not detected, RSV (PCR) Not detected, Entero/Rhino (PCR) Not detected 12/03/23 17:15: Troponin I 0.06 H 12/03/23 19:38: Lactate 7.1 H 12/03/23 20:22: POC Glucose 311 H* 12/03/23 21:52: Lactate 5.7 H 12/04/23 05:30: WBC 13.1 H, RBC 4.31, Hgb 13.1 D, Hct 41.0, MCV 95.1, MCH 30.4, MCHC 32.0, RDW 14.5, Plt Count 224 D, MPV 9.2, Neut % (Auto) 79.4, Lymph % (Auto) 12.7, [place] % (Auto) 7.1, Eos % (Auto) 0.3, Baso % (Auto) 0.4, Neut # (Auto) 10.4 H, Lymph # (Auto) 1.7, [place] # (Auto) 0.9, Eos # (Auto) 0.0, Baso # (Auto) 0.1, Sodium 136, Potassium 2.9 L* D, Chloride 104, Carbon Dioxide 29, Anion Gap 5.9, BUN 8, Creatinine 0.80 D, Estimated Creat Clear 74, Estimated GFR 69, Est GFR ( Amer) 84 D, Glucose 166 H D, Calcium 8.1 L, Total Bilirubin 0.9, AST 33, ALT 28, Alkaline Phosphatase 74, Total Protein 5.8 L, Albumin 3.0 L D, Globulin 2.8, Albumin/Globulin Ratio 1.1 12/04/23 06:06: POC Glucose 159 H 12/04/23 06:25: Specimen Source Left radial, O2 % 50, ABG pH 7.48 H, ABG pCO2 33.4 L, ABG pO2 123.6 H, ABG HCO3 24.4, ABG Total CO2 25.5, ABG O2 Saturation 98, ABG Base Excess 1.0, Ean Test Patient unable, Vent Rate 22, Tidal Volume 420, PEEP 10 I & O for Labs for Last 24 Hours: Intake & Output 12/06/23 12/07/23 12/08/23 12/09/23 23:59 23:59 23:59 23:59 Intake Total 1646.333 / 3933.571 3162 / 1284 2091.8 / 2091.8 259.5 / 259.5 Output Total 3895 / 3895 5400 / 5400 2700 / 2700 2600 / 2600 Balance -2248.667 / -1914.667 -4116 / -4116 -608.2 / -608.2 -2340.5 / -2340.5 Weight 216 lb 0.848 oz 221 lb 9.6 oz 213 lb 7 oz 213 lb 7.154 oz Intake & Output 12/01/23 12/02/23 12/03/23 12/04/23 23:59 23:59 23:59 23:59 Intake Total 936.996 / 936.996 879.374 / 879.374 Output Total 2640 / 2840 1285 / 1285 Balance -1703.004 / -1903.004 -405.626 / -405.626 Weight 225 lb 9 oz 224 lb 13.944 oz Constitutional: Present moderate distress Comment:: Intubated and Sedated Head: Present normocephalic and atraumatic Neck: Present normal inspection and trachea midline Respiratory: Present respiratory distress and able to speak in complete sentences; Absent prolonged expiratory phase, rhonchi or wheezes Cardiac: Present S1/S2; Absent Tachycardia GI: Present soft; Absent distention or tenderness Skin: Present intact; Absent cyanosis Neuro: Present alert, awake and oriented x 3 Extremities: Present normal inspection; Absent clubbing or cyanosis Psychiatric: Present normal affect Assessment and Plan *Assessment and plan (1) Acute hypoxemic respiratory failure: Status: Acute Category: Medical Code(s): J96.01 - Acute respiratory failure with hypoxia (2) Pleural effusion, bilateral: Status: Acute Category: Medical Code(s): J90 - Pleural effusion, not elsewhere classified (3) Pneumonia: Status: Acute Category: Medical Code(s): J18.9 - Pneumonia, unspecified organism Plan Ms. Weathers is a 78-year-old female, denies any significant smoking history, not using any inhalers or oxygen at baseline, with reported history of atrial fibrillation CHF hypertension dyslipidemia YOLANDE diabetes mellitus presented to the ER with worsening respiratory distress needing intubation and mechanical ventilator support for refractory hypoxia and pulmonary was called for further evaluation and management. Hemodynamically unstable upon admission status post cardioversion unsuccessful, currently amiodarone drip, cardiology following. CTA upon admission no obvious evidence of pulmonary embolism. Bilateral pleural effusions right greater than left along with groundglass opacities concerning for volume overload. Adjacent atelectasis noted. Low-grade fevers. Neutrophilic leukocytosis. Received vancomycin and Unasyn in the ED, antibiotics changed to ceftriaxone azithromycin for community-acquired pneumonia coverage upon admission. Pending culture results. ABG upon admission mixed metabolic and respiratory acidosis, improved. Respiratory alkalosis noted on blood gas this morning. Improving hypoxic respiratory failure. Patient respiratory status gradually improved- extubated to nasal cannula on 12/05/2023. Interval update: No acute respiratory events over the weekend. Stable oxygen requirements. Continue to receive ceftriaxone azithromycin to complete total of 7-day course for community-acquired pneumonia. Nasal MRSA PCR negative from admission Plan: Incentive spirometry Continue nasal cannula wean supplementation to maintain O2 saturation goal of 90 to 95% DuoNebs every 6 hours PRN Continue ceftriaxone and Azithromycin to complete total of 7-day course community-acquired pneumonia. Antibiotics can be weaned to cefdinir to complete a total of 7-day course. # Thank you for involving pulmonary in this patient care. Will follow the patient in pulmonary clinic 2 weeks post discharge.
[2023-12-09] MEDS: BUMETANIDE 1 MG TABLET PO ×2 (10:55→16:55)
[2023-12-09] MEDS: LACTULOSE 20GM/30ML UDC 10 GM PO (10:56)
--- NOTE | 2023-12-09 11:23 | EXP.CARD.PN ---
Subjective Subjective Date: 12/09/23 Time: 09:30 Principal diagnosis: afib rvr, volume overload Interval history: The patient was extubated on 12/05/2023. Today she denies any chest pain or pressure. She states that she sometimes gets a little shortness of breath when she walks to the bathroom but other than that her shortness of breath is significantly improved. She denies any lower extremity edema. She denies any fever, chills, nausea, vomiting, diarrhea, PND or orthopnea. The patient remains on a Bumex drip and is diuresing well. Exam Data for Last 24 hours Vital signs and Labs for Last 24 Hours: Temp Pulse Resp BP Pulse Ox O2 Del Method O2 Flow Rate 98.2 F 113 H 19 107/66 L 96 Nasal Cannula 2 12/09/23 08:00 12/09/23 08:00 12/09/23 08:00 12/09/23 08:00 12/09/23 08:00 12/09/23 08:00 12/09/23 08:00 FiO2 45 12/05/23 12:00 Laboratory Results - last 24 hr 12/08/23 12:03: POC Glucose 215 H 12/08/23 15:41: POC Glucose 203 H 12/08/23 21:42: POC Glucose 138 H 12/09/23 05:39: WBC 11.3 H, RBC 5.23, Hgb 15.7, Hct 48.8 H, MCV 93.4, MCH 30.0, MCHC 32.1, RDW 14.0, Plt Count 252, MPV 9.3, Neut % (Auto) 75.7, Lymph % (Auto) 13.4, [place] % (Auto) 8.8, Eos % (Auto) 1.3, Baso % (Auto) 0.8, Neut # (Auto) 8.6 H, Lymph # (Auto) 1.5, [place] # (Auto) 1.0, Eos # (Auto) 0.2, Baso # (Auto) 0.1, Sodium 136, Potassium 3.0 L, Chloride 95 L, Carbon Dioxide 35 H, Anion Gap 9.0, BUN 27 H, Creatinine 1.00, Estimated Creat Clear 70, Estimated GFR 53 L, Est GFR ( Amer) 65, Glucose 193 H, Calcium 9.5, Magnesium 2.1 12/09/23 06:04: POC Glucose 169 H I & O for Last 24 hours: Intake & Output 12/06/23 12/07/23 12/08/23 12/09/23 23:59 23:59 23:59 23:59 Intake Total 1646.333 / 4225.771 8115 / 1284 2091.8 / 2091.8 259.5 / 259.5 Output Total 3895 / 3895 5400 / 5400 2700 / 2700 2600 / 2600 Balance -2248.667 / -1914.667 -4116 / -4116 -608.2 / -608.2 -2340.5 / -2340.5 Weight 216 lb 0.848 oz 221 lb 9.6 oz 213 lb 7 oz 213 lb 7.154 oz Constitutional Constitutional: no acute distress and obese *Routine HEENT Exam Head: Present normocephalic Eye: Present EOMI and PERRL ENT: Present mucous membranes moist *Routine Neck Exam Neck: Present supple and full ROM; Absent lymphadenopathy *Routine Respiratory Exam Respiratory: Present decreased breath sounds and CTA bilaterally *Routine Cardiovascular Exam Cardiovascular: Present Normal S1, Normal S2 and irregularly irregular; Absent murmur *Routine Abdominal Exam Abdominal: Present soft and normoactive bowel sounds; Absent tenderness *Routine Extremities Exam Extremities: Present full ROM and pulses intact; Absent cyanosis, clubbing or edema *Routine Skin Exam Skin: Present intact and warm; Absent rash *Routine Neurological Exam Neurological: Present alert, oriented X3 and CN II-XII intact Routine Psychiatric Exam Psychiatric: Present normal affect Progress Note: A&P Assessment and plan (1) Acute hypoxemic respiratory failure: Status: Acute (2) Afib: Status: Acute (3) Coronary artery disease: Status: Acute (4) Pleural effusion, bilateral: Status: Acute (5) Pneumonia: Status: Acute (6) HLD (hyperlipidemia): Status: Chronic (7) HTN (hypertension): Status: Chronic (8) DM (diabetes mellitus): Status: Chronic (9) Heart failure with preserved ejection fraction: Status: Acute Assessment and Plan Assessment and Plan for All Diagnoses:: Plan: 1. The patient was admitted to the hospital with an acute exacerbation of HFpEF. She has been diuresed with IV Bumex. Will stop the IV Bumex today and start her on oral Bumex 1 mg p.o. twice daily for continued diuresis. 2. Continue Jardiance for HFpEF. 3. Continue lisinopril and metoprolol for HFpEF. 4. The patient also had atrial fibrillation with RVR. She is now rate controlled. The patient will remain on amiodarone 400 mg p.o. 3 times daily for 2 weeks and then transition down to amiodarone 400 mg p.o. twice daily for 2 weeks and then amiodarone 200 mg p.o. twice daily for 2 weeks and then amiodarone 200 mg daily thereafter. 5. The patient is on long-term anticoagulation with Xarelto. She denies any bleeding. 6. Coronary artery disease is present and stable. The patient had recent cardiac catheterization in July 2023 with patent coronary artery disease. No plans for invasive left cardiac catheterization at this time. 7. Her blood pressure is well-controlled. 8. Her LDL goal is less than 55. Her LDL is 93 in July 2023. On Zetia. 9. The patient remains on oxygen this morning and is being followed by pulmonology. 10. No further recommendations at this time from a cardiac standpoint. She is stable for discharge home from a cardiac standpoint once she is cleared from the hospitalist and pulmonology. She will need to be discharged on the following cardiac medications: Aspirin 81 mg daily, amiodarone 400 mg p.o. 3 times daily for 2 weeks then 400 mg twice daily for 2 weeks then 200 mg twice daily for 2 weeks then 200 mg daily thereafter, Jardiance 20 mg daily, Xarelto 20 mg daily, pravastatin 80 mg daily, metoprolol 25 mg daily, lisinopril 40 mg daily, Bumex 1 mg p.o. twice daily. The patient will need to follow-up in cardiology clinic sent in 1 to 2 weeks on an outpatient basis.
[2023-12-09 11:32] LABS: POC Glucose,Bedside 370 (70-110)
--- NOTE | 2023-12-09 13:28 | DIET.NUTRFU ---
Chart review no BM since admit on 12/02, lactulose started today. Wt is up at 96kg, admit wt was 84kg. Weight was as high as 102kg on 12/04 d/t fluid gains. Bumex tx is in place and showing good results, output on 12/06 was 5400 and 12/07 was 2700ml. She consumed 75% of breakfast, previous meals were 25% showing a improvement. BG has been as high as 370H, metformin and insulin in place. Continues on diabetic diet. 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
[2023-12-09] MEDS: AZITHROMYCIN 250MG TABLET 500 MG PO (13:54)
[2023-12-09] MEDS: ASPIRIN EC 81MG TABLET 81 MG PO (13:54)
[2023-12-09 16:17] LABS: POC Glucose,Bedside 185 (70-110)
--- NOTE | 2023-12-09 16:31 | EXP.PN ---
Subjective *Date: 12/09/23 *Time: 16:31 Interval history: seen and evaluated at bedside, alert awake and holding conversations no acute events overnight reported, she is feeling better, denied CP, SOB, N/V, on 2L NC Exam Data for Last 24 hours Vital signs and Labs for Last 24 Hours: Temp Pulse Resp BP Pulse Ox O2 Del Method O2 Flow Rate 98.0 F 120 H 16 129/75 95 Room Air 1 12/09/23 11:47 12/09/23 12:00 12/09/23 11:47 12/09/23 11:47 12/09/23 11:47 12/09/23 13:00 12/09/23 11:47 FiO2 45 12/05/23 12:00 Laboratory Results - last 24 hr 12/08/23 21:42: POC Glucose 138 H 12/09/23 05:39: WBC 11.3 H, RBC 5.23, Hgb 15.7, Hct 48.8 H, MCV 93.4, MCH 30.0, MCHC 32.1, RDW 14.0, Plt Count 252, MPV 9.3, Neut % (Auto) 75.7, Lymph % (Auto) 13.4, [place] % (Auto) 8.8, Eos % (Auto) 1.3, Baso % (Auto) 0.8, Neut # (Auto) 8.6 H, Lymph # (Auto) 1.5, [place] # (Auto) 1.0, Eos # (Auto) 0.2, Baso # (Auto) 0.1, Sodium 136, Potassium 3.0 L, Chloride 95 L, Carbon Dioxide 35 H, Anion Gap 9.0, BUN 27 H, Creatinine 1.00, Estimated Creat Clear 70, Estimated GFR 53 L, Est GFR ( Amer) 65, Glucose 193 H, Calcium 9.5, Magnesium 2.1 12/09/23 06:04: POC Glucose 169 H 12/09/23 11:24: POC Glucose 370 H* 12/09/23 16:09: POC Glucose 185 H I & O for Last 24 hours: Intake & Output 12/06/23 12/07/23 12/08/23 12/09/23 23:59 23:59 23:59 23:59 Intake Total 1646.333 / 9281.221 1937 / 1284 2091.8 / 2091.8 499.5 / 499.5 Output Total 3895 / 3895 5400 / 5400 2700 / 2700 3400 / 3400 Balance -2248.667 / -1914.667 -4116 / -4116 -608.2 / -608.2 -2900.5 / -2900.5 Weight 98 kg 100.516 kg 96.814 kg 96.818 kg Constitutional Constitutional: no acute distress *Routine HEENT Exam Head: Present normocephalic Eye: Present EOMI and PERRL ENT: Present mucous membranes moist *Routine Neck Exam Neck: Present supple; Absent lymphadenopathy *Routine Respiratory Exam Respiratory: Present wheezes *Routine Cardiovascular Exam Cardiovascular: Present tachycardia and irregular rhythm *Routine Abdominal Exam Abdominal: Present soft and normoactive bowel sounds; Absent tenderness *Routine Extremities Exam Extremities: Absent cyanosis, clubbing or edema *Routine Skin Exam Skin: Present warm; Absent rash *Routine Neurological Exam Neurological: Present alert and oriented X3 Assessment and Plan *Assessment and plan (1) Acute cardiac pulmonary edema: Status: Acute Category: Medical Code(s): I50.1 - Left ventricular failure, unspecified (2) Acute hypoxemic respiratory failure: Status: Acute Category: Medical Code(s): J96.01 - Acute respiratory failure with hypoxia (3) Atrial fibrillation with rapid ventricular response: Status: Acute Category: Medical Code(s): I48.91 - Unspecified atrial fibrillation (4) CHF exacerbation: Status: Acute Category: Medical Code(s): I50.9 - Heart failure, unspecified (5) Coronary artery disease: Status: Acute Category: Medical Code(s): I25.10 - Atherosclerotic heart disease of [place] coronary artery without angina pectoris (6) HLD (hyperlipidemia): Status: Chronic Qualifiers: Hyperlipidemia type: mixed hyperlipidemia Qualified Code(s): E78.2 - Mixed hyperlipidemia Category: Medical Code(s): E78.5 - Hyperlipidemia, unspecified (7) HTN (hypertension): Status: Chronic Qualifiers: Hypertension type: primary hypertension Qualified Code(s): I10 - Essential (primary) hypertension Category: Medical Code(s): I10 - Essential (primary) hypertension (8) Atypical angina: Status: Acute Category: Medical Code(s): I20.89 - Other forms of angina pectoris (9) Afib: Status: Acute Qualifiers: Atrial fibrillation type: persistent (not longstanding) Qualified Code(s): I48.19 - Other persistent atrial fibrillation Category: Medical Code(s): I48.91 - Unspecified atrial fibrillation (10) DM (diabetes mellitus): Status: Chronic Qualifiers: Diabetes mellitus type: type 2 Diabetes mellitus termite control representative insulin use: without termite control representative use Diabetes mellitus complication status: without complication Qualified Code(s): E11.9 - Type 2 diabetes mellitus without complications Category: Medical Code(s): E11.9 - Type 2 diabetes mellitus without complications Plan Patient is a 78-year-old female with past medical history of atrial fibrillation CHF hypertension hyperlipidemia obstructive sleep apnea diabetes mellitus who presented to hospital due to shortness of breath. Reportedly patient has history of medical noncompliance. Patient was found hypoxic, patient was intubated for airway protection in the emergency department. At time of my evaluation patient is intubated sedated. Patient was found to be in A-fib with RVR, with low BP patient was a started on IV amiodarone per cardiology. Assessment and plan Acute hypoxic respiratory failure satting less than 90% on room air likely secondary to flash pulmonary edema, CHF exacerbation, s/p intubation - improved Strict I's and O's, Dejesus insertion cardiac event monitoring Consult cardiology - dc on Bumex 1mg BID Monitor on cardiac telemetry Diuresis with PO bumex 1mg BID- continue Started on Rocephin, azithromycin proBNP checked, 2540 Order echocardiogram - Normal LV systolic function. Marked increase in LV wall thicknes Monitor and replace electrolytes continue to closely monitor BMP Afib with RVR - on amiodarone - started on PO amiodaron cardiology following Hyperglycemia due to uncontrolled diabetes mellitus - stable Long-acting insulin Insulin sliding scale started on diet UA is suggestive UTI - continue rocephin - Urine Culture - pending Leukocytosis likely reactive, lactic acidosis - improving -Monitor lactic acid Started on empirical antibiotics with Rocephin, azithromycin Check blood cultures - negative to date DVT PPx - started on xarelto likely DC to rehab, awaiting placement, per pulmonary can be dc on cefdinir, totral duration of Abx 7 days
[2023-12-09] MEDS: CEFTRIAXONE SODIUM 2 GM in 0.9 % SODIUM CHLORIDE 100 ML IV (16:55)
[2023-12-09] MEDS: RIVAROXABAN 10MG TABLET 20 MG PO (16:55)
--- NOTE | 2023-12-09 19:55 | PC.NURSE ---
ROOM AIR SAT 86% Pt placed back on 2LNC and satting 92%
[2023-12-09] MEDS: PRAVASTATIN 40MG TAB 80 MG PO (20:38)
[2023-12-09 20:41] LABS: POC Glucose,Bedside 116 (70-110)
[2023-12-09 21:27] LABS: Chloride 92 mmol/L (98-107); Potassium 3.4 mmoL/L (3.5-5.1); Sodium 131 mmol/L (136-145)
[2023-12-09 21:30] LABS: Anion Gap 9.4 mEq/L (5-15); Blood Urea Nitrogen 30 mg/dl (7-17); Carbon Dioxide 33 mmol/L (22.0-30.0); Creatinine Clearance Estimated 63 mL/min (50-200); Estimated Glomerular Filt Rate 48 ml/min (>60); GFR (African American) 58 ML/MIN (>60); Glucose 118 mg/dl (74-100)
[2023-12-09 21:31] LABS: Calcium 9.1 mg/dl (8.4-10.2)
[2023-12-10] VITALS (10 sets, daily range): BP systolic 104–133; BP diastolic 54–95; PULSE 83–97; RESP 16–26; TEMP 36.5–37; O2SAT 90–100; BMI 35.3
[2023-12-10 06:01] LABS: POC Glucose,Bedside 150 (70-110)
[2023-12-10 06:28] LABS: Chloride 94 mmol/L (98-107); Sodium 130 mmol/L (136-145)
[2023-12-10 06:29] LABS: Potassium 3.6 mmoL/L (3.5-5.1)
[2023-12-10 06:31] LABS: Blood Urea Nitrogen 31 mg/dl (7-17); Creatinine Clearance Estimated 72 mL/min (50-200); Estimated Glomerular Filt Rate 53 ml/min (>60); GFR (African American) 65 ML/MIN (>60)
[2023-12-10 06:32] LABS: Anion Gap 8.6 mEq/L (5-15); Calcium 9.1 mg/dl (8.4-10.2); Carbon Dioxide 31 mmol/L (22.0-30.0); Glucose 161 mg/dl (74-100)
[2023-12-10 06:40] LABS: Basophils # 0.1 K/mm3 (0-0.2); Basophils % 0.6 % (0.1-2.0); Eosinophils # 0.3 K/mm3 (0.0-0.4); Eosinophils % 1.9 % (0.1-12.0); Hematocrit 47.6 % (37.0-47.0); Hemoglobin 14.9 g/dL (12.2-16.2); Lymphocytes # 1.8 K/mm3 (0.7-4.5); Lymphocytes % 12.9 % (10-50); Mean Corpuscular HGB Conc 31.4 g/dL (31.8-35.4); Mean Corpuscular Volume 95.6 fl (81-99); Mean Platelet Volume 9.7 fl (7.4-10.4); Monocytes # 1.1 K/mm3 (0.1-1.0); Monocytes % 8.4 % (1.7-9.3); Neutrophils # 10.3 K/mm3 (1.8-7.8); Neutrophils % 76.2 % (37.0-80.0); Platelet Count 277 K/mm3 (142-424); Red Blood Count 4.97 M/mm3 (4.20-5.40); Red Cell Distribution Width 13.9 % (11.5-17.5); White Blood Count 13.6 K/mm3 (4.8-10.8)
--- NOTE | 2023-12-10 06:56 | PC.NURSE ---
pt placed back on 2l/nc after sats 85% on room air, pt resting well. atrial fib/flutter hr 90's.
[2023-12-10] MEDS: LISINOPRIL 20MG TABLET 40 MG PO (07:57)
[2023-12-10] MEDS: METOPROLOL SUCCINATE XL 25MG TABLET 25 MG PO (07:57)
[2023-12-10] MEDS: METFORMIN 500MG TABLET 1000 MG PO ×2 (07:57→16:54)
[2023-12-10] MEDS: EZETIMIBE 10MG TABLET 10 MG PO (07:57)
[2023-12-10] MEDS: BUMETANIDE 1 MG TABLET PO ×2 (07:58→16:54)
[2023-12-10] MEDS: AMIODARONE 200MG TABLET 400 MG PO ×4 (07:58→21:06)
[2023-12-10] MEDS: EMPAGLIFLOZIN 10MG TABLET 20 MG PO (07:58)
[2023-12-10] MEDS: ASPIRIN EC 81MG TABLET 81 MG PO (07:58)
--- NOTE | 2023-12-10 09:27 | P.PN_ITS ---
Subjective *Date: 12/10/23 *Time: : Medical Exam Vital signs and Labs for Last 24 Hours: Vital Signs Temp Pulse Pulse Resp BP Pulse Ox O2 Del Method 12/10/23 08:00 90 12/10/23 08:00 97.9 F 83 20 132/95 H 100 Nasal Cannula 12/10/23 08:00 94 L 12/10/23 08:00 Nasal Cannula 12/10/23 05:00 Nasal Cannula 12/10/23 04:00 92 H 12/10/23 04:00 98.6 F 90 20 118/72 93 L Nasal Cannula 12/10/23 03:00 Nasal Cannula 12/10/23 01:00 Nasal Cannula 12/10/23 00:00 Nasal Cannula 12/10/23 00:00 97 H 12/10/23 00:00 98.1 F 93 H 16 104/66 L 95 Nasal Cannula 12/09/23 23:00 Nasal Cannula 12/09/23 21:00 Room Air 12/09/23 20:46 Room Air 12/09/23 20:00 91 H 12/09/23 20:00 98.6 F 91 H 22 153/71 H 91 L Nasal Cannula 12/09/23 19:53 92 L Nasal Cannula 12/09/23 18:21 Room Air 12/09/23 17:00 Room Air 12/09/23 16:00 100 H 12/09/23 16:00 97.6 F 103 H 21 112/72 92 L Nasal Cannula 12/09/23 15:00 Room Air 12/09/23 13:00 Room Air 12/09/23 12:00 120 H 12/09/23 11:47 98.0 F 104 H 16 129/75 95 Nasal Cannula 12/09/23 11:00 Nasal Cannula O2 Flow Rate 12/10/23 08:00 12/10/23 08:00 2 12/10/23 08:00 2 12/10/23 08:00 2 12/10/23 05:00 2 12/10/23 04:00 12/10/23 04:00 2 12/10/23 03:00 2 12/10/23 01:00 2 12/10/23 00:00 12/10/23 00:00 12/10/23 00:00 1 12/09/23 23:00 2 12/09/23 21:00 12/09/23 20:46 12/09/23 20:00 12/09/23 20:00 1 12/09/23 19:53 2 12/09/23 18:21 12/09/23 17:00 12/09/23 16:00 12/09/23 16:00 1 12/09/23 15:00 12/09/23 13:00 12/09/23 12:00 12/09/23 11:47 1 12/09/23 11:00 2 Intake and Output 12/09/23 12/10/23 12/10/23 23:59 07:59 15:59 Intake Total 210 / 709.5 390 / 390 Output Total 0 / 3400 0 / 0 0 / 0 Balance 210 / -2690.5 0 / 390 390 / 390 Intake: Intake, Oral Amount 210 / 620 390 / 390 Output: Output, Urine Amount 0 / 3400 0 / 0 0 / 0 Other: Number of Unmeasured Voids 1 1 1 Number of Bowel Movements 1 Weight 99.79 kg Patient Weight 12/10/23 23:59 Weight 99.79 kg Laboratory Results - last 24 hr 12/09/23 11:24: POC Glucose 370 H* 12/09/23 16:09: POC Glucose 185 H 12/09/23 20:34: POC Glucose 116 H 12/09/23 20:53: Sodium 131 L, Potassium 3.4 L, Chloride 92 L, Carbon Dioxide 33 H, Anion Gap 9.4, BUN 30 H, Creatinine 1.10 H, Estimated Creat Clear 63, Estimated GFR 48 L, Est GFR ( Amer) 58 L, Glucose 118 H D, Calcium 9.1 12/10/23 05:22: WBC 13.6 H, RBC 4.97, Hgb 14.9, Hct 47.6 H, MCV 95.6, MCH 30.0, MCHC 31.4 L, RDW 13.9, Plt Count 277, MPV 9.7, Neut % (Auto) 76.2, Lymph % (Auto) 12.9, [place] % (Auto) 8.4, Eos % (Auto) 1.9, Baso % (Auto) 0.6, Neut # (Auto) 10.3 H, Lymph # (Auto) 1.8, [place] # (Auto) 1.1 H, Eos # (Auto) 0.3, Baso # (Auto) 0.1, Sodium 130 L, Potassium 3.6, Chloride 94 L, Carbon Dioxide 31 H, Anion Gap 8.6, BUN 31 H, Creatinine 1.00, Estimated Creat Clear 72, Estimated GFR 53 L, Est GFR ( Amer) 65, Glucose 161 H D, Calcium 9.1 12/10/23 05:54: POC Glucose 150 H I & O for Labs for Last 24 Hours: Intake & Output 12/07/23 12/08/23 12/09/23 12/10/23 23:59 23:59 23:59 23:59 Intake Total 1284 / 1284 2091.8 / 2091.8 709.5 / 709.5 390 / 390 Output Total 5400 / 5400 2700 / 2700 3400 / 3400 0 / 0 Balance -4116 / -4116 -608.2 / -608.2 -2690.5 / -2690.5 390 / 390 Weight 100.516 kg 96.814 kg 96.818 kg 99.79 kg Microbiology Reports for the Last 24 Hours: Microbiology 12/03/23 11:58 Blood Blood Culture - Final 12/03/23 11:18 Blood Blood Culture - Final The patient's infection will respond to the chosen ABx?: Yes Is the patient receiving the right drug, dose, and route?: Yes Could a more targeted ABx be ordered?: No (WBC DOWN TO 13.6 FROM 19.2, AFEBRILE, BLD AND SPUTUM CX NEGATIVE.)
--- NOTE | 2023-12-10 09:43 | EXP.PULM.PN ---
Subjective *Date: 12/10/23 *Time: 10:58 Interval history: No acute respiratory events overnight. Patient denies any new complaints. Pulmonology Exam Inpatient Vital signs and Labs for Last 24 Hours: Temp Pulse Resp BP Pulse Ox O2 Del Method O2 Flow Rate 97.9 F 83 20 132/95 H 100 Nasal Cannula 2 12/10/23 08:00 12/10/23 08:00 12/10/23 08:00 12/10/23 08:00 12/10/23 08:00 12/10/23 08:00 12/10/23 08:00 FiO2 45 12/05/23 12:00 Laboratory Results - last 24 hr 12/09/23 11:24: POC Glucose 370 H* 12/09/23 16:09: POC Glucose 185 H 12/09/23 20:34: POC Glucose 116 H 12/09/23 20:53: Sodium 131 L, Potassium 3.4 L, Chloride 92 L, Carbon Dioxide 33 H, Anion Gap 9.4, BUN 30 H, Creatinine 1.10 H, Estimated Creat Clear 63, Estimated GFR 48 L, Est GFR ( Amer) 58 L, Glucose 118 H D, Calcium 9.1 12/10/23 05:22: WBC 13.6 H, RBC 4.97, Hgb 14.9, Hct 47.6 H, MCV 95.6, MCH 30.0, MCHC 31.4 L, RDW 13.9, Plt Count 277, MPV 9.7, Neut % (Auto) 76.2, Lymph % (Auto) 12.9, [place] % (Auto) 8.4, Eos % (Auto) 1.9, Baso % (Auto) 0.6, Neut # (Auto) 10.3 H, Lymph # (Auto) 1.8, [place] # (Auto) 1.1 H, Eos # (Auto) 0.3, Baso # (Auto) 0.1, Sodium 130 L, Potassium 3.6, Chloride 94 L, Carbon Dioxide 31 H, Anion Gap 8.6, BUN 31 H, Creatinine 1.00, Estimated Creat Clear 72, Estimated GFR 53 L, Est GFR ( Amer) 65, Glucose 161 H D, Calcium 9.1 12/10/23 05:54: POC Glucose 150 H Temp Pulse Resp BP Pulse Ox O2 Del Method O2 Flow Rate 99.9 F H 106 H 22 113/70 100 Mechanical Ventilation 15 12/04/23 08:00 12/04/23 09:00 12/04/23 09:00 12/04/23 09:00 12/04/23 09:00 12/04/23 09:00 12/03/23 11:12 FiO2 50 12/04/23 09:00 Laboratory Results - last 24 hr 12/03/23 10:58: Specimen Source Right brachial, O2 % Nrb, ABG pH 6.99 L*, ABG pCO2 67.8 H, ABG pO2 68.4 L, ABG HCO3 16.0 L, ABG Total CO2 18.1 L, ABG O2 Saturation 81 L*, ABG Base Excess -15.4 L, Ean Test Patient unable 12/03/23 11:07: WBC 12.5 H, RBC 5.02, Hgb 15.4, Hct 50.7 H, MCV 101.0 H, MCH 30.8, MCHC 30.5 L, RDW 14.0, Plt Count 309, MPV 10.0, Neut % (Auto) 66.4, Lymph % (Auto) 25.5, [place] % (Auto) 6.3, Eos % (Auto) 0.9, Baso % (Auto) 0.8, Neut # (Auto) 8.3 H, Lymph # (Auto) 3.2, [place] # (Auto) 0.8, Eos # (Auto) 0.1, Baso # (Auto) 0.1, APTT 22.2 L, Sodium 136, Potassium 3.7, Chloride 105, Carbon Dioxide 20 L, Anion Gap 14.7, BUN 8, Creatinine 0.60, Estimated GFR 96, Est GFR ( Amer) 117, Glucose 465 H*, Calcium 9.0, Magnesium 2.1, Total Bilirubin 1.2, AST 39 H, ALT 36, Alkaline Phosphatase 103, Troponin I < 0.01, NT-Pro-B Natriuret Pep 2540 H, Total Protein 7.2, Albumin 3.9, Globulin 3.3 H, Albumin/Globulin Ratio 1.2 12/03/23 11:44: Specimen Source L radial, O2 % 100, ABG pH 7.23 L*, ABG pCO2 40.1, ABG pO2 184.8 H, ABG HCO3 16.4 L, ABG Total CO2 17.6 L, ABG O2 Saturation 99, ABG Base Excess -11.2 L, Ean Test Acceptable, Vent Rate 22, Tidal Volume 420, PEEP 8 12/03/23 12:00: Urine Color Yellow, Urine Appearance Sl cloudy, Urine pH 6.0, Ur Specific [place] >= 1.030, Urine Protein 3+, Urine Glucose (UA) 3+, Urine Ketones Trace, Urine Blood 2+, Urine Nitrate Negative, Urine Bilirubin Negative, Urine Urobilinogen 1.0, Ur Leukocyte Esterase Negative, Urine RBC 3-5, Urine WBC Occasional, Ur Squamous Epith Cells 3-5, Urine Bacteria 4+ 12/03/23 14:35: Lactate 5.8 H, Troponin I 0.07 H, Acetone Level None detected 12/03/23 15:53: POC Glucose 431 H* 12/03/23 16:45: Chlamy pneumoniae PCR TNP, Adenovirus (PCR) Not detected, B. pertussis DNA (PCR) TNP, Coronavirus OC43 (PCR) Not detected, Coronavirus HKU1 (PCR) Not detected, Coronavirus 229E (PCR) Not detected, SARS-CoV-2 (PCR) Not detected, Coronavirus NL63 (PCR) Not detected, Human Metapneumovir PCR Not detected, Influenza A (H1) PCR Not detected, Influ A (H1N1/09) PCR Not detected, Influenza A (H3) PCR Not detected, Influenza Type A (PCR) Not detected, Influenza Type B (PCR) Not detected, M. pneumoniae (PCR) TNP, Parainfluenza 1 (PCR) Not detected, Parainfluenza 2 (PCR) Not detected, Parainfluenza 3 (PCR) Not detected, Parainfluenza 4 (PCR) Not detected, RSV (PCR) Not detected, Entero/Rhino (PCR) Not detected 12/03/23 17:15: Troponin I 0.06 H 12/03/23 19:38: Lactate 7.1 H 12/03/23 20:22: POC Glucose 311 H* 12/03/23 21:52: Lactate 5.7 H 12/04/23 05:30: WBC 13.1 H, RBC 4.31, Hgb 13.1 D, Hct 41.0, MCV 95.1, MCH 30.4, MCHC 32.0, RDW 14.5, Plt Count 224 D, MPV 9.2, Neut % (Auto) 79.4, Lymph % (Auto) 12.7, [place] % (Auto) 7.1, Eos % (Auto) 0.3, Baso % (Auto) 0.4, Neut # (Auto) 10.4 H, Lymph # (Auto) 1.7, [place] # (Auto) 0.9, Eos # (Auto) 0.0, Baso # (Auto) 0.1, Sodium 136, Potassium 2.9 L* D, Chloride 104, Carbon Dioxide 29, Anion Gap 5.9, BUN 8, Creatinine 0.80 D, Estimated Creat Clear 74, Estimated GFR 69, Est GFR ( Amer) 84 D, Glucose 166 H D, Calcium 8.1 L, Total Bilirubin 0.9, AST 33, ALT 28, Alkaline Phosphatase 74, Total Protein 5.8 L, Albumin 3.0 L D, Globulin 2.8, Albumin/Globulin Ratio 1.1 12/04/23 06:06: POC Glucose 159 H 12/04/23 06:25: Specimen Source Left radial, O2 % 50, ABG pH 7.48 H, ABG pCO2 33.4 L, ABG pO2 123.6 H, ABG HCO3 24.4, ABG Total CO2 25.5, ABG O2 Saturation 98, ABG Base Excess 1.0, Ean Test Patient unable, Vent Rate 22, Tidal Volume 420, PEEP 10 I & O for Labs for Last 24 Hours: Intake & Output 12/07/23 12/08/23 12/09/23 12/10/23 23:59 23:59 23:59 23:59 Intake Total 1284 / 1284 2091.8 / 2091.8 709.5 / 709.5 390 / 390 Output Total 5400 / 5400 2700 / 2700 3400 / 3400 0 / 0 Balance -4116 / -4116 -608.2 / -608.2 -2690.5 / -2690.5 390 / 390 Weight 221 lb 9.6 oz 213 lb 7 oz 213 lb 7.154 oz 220 lb Intake & Output 12/01/23 12/02/23 12/03/23 12/04/23 23:59 23:59 23:59 23:59 Intake Total 936.996 / 936.996 879.374 / 879.374 Output Total 2640 / 2840 1285 / 1285 Balance -1703.004 / -1903.004 -405.626 / -405.626 Weight 225 lb 9 oz 224 lb 13.944 oz Microbiology Reports for the Last 24 Hours: Microbiology 12/03/23 11:58 Blood Blood Culture - Final 12/03/23 11:18 Blood Blood Culture - Final Constitutional: Present moderate distress Comment:: Intubated and Sedated Head: Present normocephalic and atraumatic Neck: Present normal inspection and trachea midline Respiratory: Present respiratory distress and able to speak in complete sentences; Absent prolonged expiratory phase, rhonchi or wheezes Cardiac: Present S1/S2; Absent Tachycardia GI: Present soft; Absent distention or tenderness Skin: Present intact; Absent cyanosis Neuro: Present alert, awake and oriented x 3 Extremities: Present normal inspection; Absent clubbing or cyanosis Psychiatric: Present normal affect Assessment and Plan *Assessment and plan (1) Acute hypoxemic respiratory failure: Status: Acute Category: Medical Code(s): J96.01 - Acute respiratory failure with hypoxia (2) Pleural effusion, bilateral: Status: Acute Category: Medical Code(s): J90 - Pleural effusion, not elsewhere classified (3) Pneumonia: Status: Acute Category: Medical Code(s): J18.9 - Pneumonia, unspecified organism Plan Ms. Weathers is a 78-year-old female, denies any significant smoking history, not using any inhalers or oxygen at baseline, with reported history of atrial fibrillation CHF hypertension dyslipidemia YOLANDE diabetes mellitus presented to the ER with worsening respiratory distress needing intubation and mechanical ventilator support for refractory hypoxia and pulmonary was called for further evaluation and management. Hemodynamically unstable upon admission status post cardioversion unsuccessful, currently amiodarone drip, cardiology following. CTA upon admission no obvious evidence of pulmonary embolism. Bilateral pleural effusions right greater than left along with groundglass opacities concerning for volume overload. Adjacent atelectasis noted. Low-grade fevers. Neutrophilic leukocytosis. Received vancomycin and Unasyn in the ED, antibiotics changed to ceftriaxone azithromycin for community-acquired pneumonia coverage upon admission. Pending culture results. ABG upon admission mixed metabolic and respiratory acidosis, improved. Respiratory alkalosis noted on blood gas this morning. Improving hypoxic respiratory failure. Patient respiratory status gradually improved- extubated to nasal cannula on 12/05/2023. Nasal MRSA PCR negative from admission Interval update: No acute respiratory events over the weekend. Room air saturations were recorded 88%. Will continue oxygen supplementation and 1 to 2 L to maintain O2 saturation goal of 90 to 95%. Continue to receive ceftriaxone and azithromycin, day 7 of 7 today. Will discontinue antibiotics after today. Plan: Incentive spirometry Continue nasal cannula wean supplementation to maintain O2 saturation goal of 90 to 95% DuoNebs every 6 hours PRN Continue ceftriaxone and Azithromycin to complete total of 7-day course community-acquired pneumonia. Antibiotics can be weaned to cefdinir to complete a total of 7-day course. # Thank you for involving pulmonary in this patient care. Pulmonary will sign off at this point of time. Will follow the patient in pulmonary clinic 2 weeks post discharge.
[2023-12-10 10:15] LABS: POC Glucose,Bedside 217 (70-110)
[2023-12-10] MEDS: humaLOG 100 UNITS/ML 3ML VIAL (SSI) SQ ×3 (10:50→21:08)
--- NOTE | 2023-12-10 11:44 | PC.NURSE ---
Pt. would like her sister Janelle Neff to be in the system as her next of kin. Waiting on sister to arrive to get her contact information.
[2023-12-10] MEDS: CEFTRIAXONE SODIUM 2 GM in 0.9 % SODIUM CHLORIDE 100 ML IV (13:52)
[2023-12-10 16:23] LABS: POC Glucose,Bedside 169 (70-110)
[2023-12-10] MEDS: RIVAROXABAN 10MG TABLET 20 MG PO (16:55)
--- NOTE | 2023-12-10 18:18 | EXP.ACUTE.PN ---
Subjective *Date: 12/10/23 *Time: 18:18 Medical Exam Vital signs and Labs for Last 24 Hours: Vital Signs Temp Pulse Pulse Resp BP Pulse Ox O2 Del Method 12/10/23 16:47 Nasal Cannula 12/10/23 16:00 90 12/10/23 15:48 98.0 F 95 H 26 H 110/54 L 90 L Nasal Cannula 12/10/23 14:11 Nasal Cannula 12/10/23 12:00 90 12/10/23 11:50 Room Air 12/10/23 11:17 97.7 F 21 132/68 94 L Nasal Cannula 12/10/23 11:00 Room Air, Nasal Cannula 12/10/23 08:00 90 12/10/23 08:00 97.9 F 83 20 132/95 H 100 Nasal Cannula 12/10/23 08:00 94 L 12/10/23 08:00 Nasal Cannula 12/10/23 05:00 Nasal Cannula 12/10/23 04:00 92 H 12/10/23 04:00 98.6 F 90 20 118/72 93 L Nasal Cannula 12/10/23 03:00 Nasal Cannula 12/10/23 01:00 Nasal Cannula 12/10/23 00:00 Nasal Cannula 12/10/23 00:00 97 H 12/10/23 00:00 98.1 F 93 H 16 104/66 L 95 Nasal Cannula 12/09/23 23:00 Nasal Cannula 12/09/23 21:00 Room Air 12/09/23 20:46 Room Air 12/09/23 20:00 91 H 12/09/23 20:00 98.6 F 91 H 22 153/71 H 91 L Nasal Cannula 12/09/23 19:53 92 L Nasal Cannula 12/09/23 18:21 Room Air O2 Flow Rate 12/10/23 16:47 1 12/10/23 16:00 12/10/23 15:48 2 12/10/23 14:11 1 12/10/23 12:00 12/10/23 11:50 12/10/23 11:17 2 12/10/23 11:00 12/10/23 08:00 12/10/23 08:00 2 12/10/23 08:00 2 12/10/23 08:00 2 12/10/23 05:00 2 12/10/23 04:00 12/10/23 04:00 2 12/10/23 03:00 2 12/10/23 01:00 2 12/10/23 00:00 12/10/23 00:00 12/10/23 00:00 1 12/09/23 23:00 2 12/09/23 21:00 12/09/23 20:46 12/09/23 20:00 12/09/23 20:00 1 12/09/23 19:53 2 12/09/23 18:21 Intake and Output 12/10/23 12/10/23 12/10/23 07:59 15:59 23:59 Intake Total 670 / 670 Output Total 0 / 0 0 / 0 Balance 0 / 670 670 / 670 Intake: Intake, Oral Amount 570 / 570 Intake, Total IV Amount 100 / 100 Ceftriaxone Sodium 2 gm In 0.9 100 / 100 % Sodium Chloride 100 ml @ 200 mls/hr IV Q[facility] Rx#:[id number] Output: Output, Urine Amount 0 / 0 0 / 0 Other: Number of Unmeasured Voids 1 2 Weight 99.79 kg Patient Weight 12/10/23 23:59 Weight 99.79 kg Laboratory Results - last 24 hr 12/09/23 20:34: POC Glucose 116 H 12/09/23 20:53: Sodium 131 L, Potassium 3.4 L, Chloride 92 L, Carbon Dioxide 33 H, Anion Gap 9.4, BUN 30 H, Creatinine 1.10 H, Estimated Creat Clear 63, Estimated GFR 48 L, Est GFR ( Amer) 58 L, Glucose 118 H D, Calcium 9.1 12/10/23 05:22: WBC 13.6 H, RBC 4.97, Hgb 14.9, Hct 47.6 H, MCV 95.6, MCH 30.0, MCHC 31.4 L, RDW 13.9, Plt Count 277, MPV 9.7, Neut % (Auto) 76.2, Lymph % (Auto) 12.9, [place] % (Auto) 8.4, Eos % (Auto) 1.9, Baso % (Auto) 0.6, Neut # (Auto) 10.3 H, Lymph # (Auto) 1.8, [place] # (Auto) 1.1 H, Eos # (Auto) 0.3, Baso # (Auto) 0.1, Sodium 130 L, Potassium 3.6, Chloride 94 L, Carbon Dioxide 31 H, Anion Gap 8.6, BUN 31 H, Creatinine 1.00, Estimated Creat Clear 72, Estimated GFR 53 L, Est GFR ( Amer) 65, Glucose 161 H D, Calcium 9.1 12/10/23 05:54: POC Glucose 150 H 12/10/23 10:02: POC Glucose 217 H 12/10/23 16:15: POC Glucose 169 H I & O for Labs for Last 24 Hours: Intake & Output 12/07/23 12/08/23 12/09/23 12/10/23 23:59 23:59 23:59 23:59 Intake Total 1284 / 1284 2091.8 / 2091.8 709.5 / 709.5 670 / 670 Output Total 5400 / 5400 2700 / 2700 3400 / 3400 0 / 0 Balance -4116 / -4116 -608.2 / -608.2 -2690.5 / -2690.5 670 / 670 Weight 100.516 kg 96.814 kg 96.818 kg 99.79 kg Microbiology Reports for the Last 24 Hours: Microbiology 12/03/23 11:58 Blood Blood Culture - Final 12/03/23 11:18 Blood Blood Culture - Final Assessment and Plan *Assessment and plan (1) Acute cardiac pulmonary edema: Status: Acute Category: Medical Code(s): I50.1 - Left ventricular failure, unspecified (2) Acute hypoxemic respiratory failure: Status: Acute Category: Medical Code(s): J96.01 - Acute respiratory failure with hypoxia (3) Pneumonia: Status: Acute Category: Medical Code(s): J18.9 - Pneumonia, unspecified organism (4) Atrial fibrillation with rapid ventricular response: Status: Acute Category: Medical Code(s): I48.91 - Unspecified atrial fibrillation (5) CHF exacerbation: Status: Acute Category: Medical Code(s): I50.9 - Heart failure, unspecified (6) Coronary artery disease: Status: Acute Category: Medical Code(s): I25.10 - Atherosclerotic heart disease of [place] coronary artery without angina pectoris (7) HLD (hyperlipidemia): Status: Chronic Qualifiers: Hyperlipidemia type: mixed hyperlipidemia Qualified Code(s): E78.2 - Mixed hyperlipidemia Category: Medical Code(s): E78.5 - Hyperlipidemia, unspecified (8) HTN (hypertension): Status: Chronic Qualifiers: Hypertension type: primary hypertension Qualified Code(s): I10 - Essential (primary) hypertension Category: Medical Code(s): I10 - Essential (primary) hypertension (9) Atypical angina: Status: Acute Category: Medical Code(s): I20.89 - Other forms of angina pectoris (10) Afib: Status: Acute Qualifiers: Atrial fibrillation type: persistent (not longstanding) Qualified Code(s): I48.19 - Other persistent atrial fibrillation Category: Medical Code(s): I48.91 - Unspecified atrial fibrillation (11) DM (diabetes mellitus): Status: Chronic Qualifiers: Diabetes mellitus type: type 2 Diabetes mellitus intermediate insulin use: without intermediate use Diabetes mellitus complication status: without complication Qualified Code(s): E11.9 - Type 2 diabetes mellitus without complications Category: Medical Code(s): E11.9 - Type 2 diabetes mellitus without complications Plan Patient is a 78-year-old female with past medical history of atrial fibrillation CHF hypertension hyperlipidemia obstructive sleep apnea diabetes mellitus who presented to hospital due to shortness of breath. Reportedly patient has history of medical noncompliance. Patient was found hypoxic, patient was intubated for airway protection in the emergency department. At time of my evaluation patient is intubated sedated. Patient was found to be in A-fib with RVR, with low BP patient was a started on IV amiodarone per cardiology. She has been better overall. Weaning oxygen today. Cardiology and pulmonology assisting with care. Continues to require inpatient management at this point awaiting placement. Problems addressed as follows: Acute hypoxic respiratory failure secondary to flash pulmonary edema, CHF exacerbation, community-acquired pneumonia. -Respiratory failure has improved significantly. Continue goal sats greater 90%. Weaned to room air today. -Strict I's and O's, Dejesus has been removed. Patient -15 L total since admission, -2.6 L in the past 24 hours. -Electrolytes acceptable with potassium 3.6, sodium 130. Monitoring closely with CMP, CBC, magnesium ordered for the morning. - Discussed case with pulmonology. Patient is weaned to room air. Continue ceftriaxone and azithromycin to complete 7-day course of antibiotics for community-acquired pneumonia. Will be completing antibiotics today. - Continue DuoNebs every 6 hours as needed -Cardiology recommended continuing the following medications: Aspirin 81 mg daily, amiodarone 400 mg p.o. 3 times daily for 2 weeks then 400 mg twice daily for 2 weeks then 200 mg twice daily for 2 weeks then 200 mg daily thereafter, Jardiance 20 mg daily, Xarelto 20 mg daily, pravastatin 80 mg daily, metoprolol 25 mg daily, lisinopril 40 mg daily, Bumex 1 mg p.o. twice daily. - The patient will need to follow-up in cardiology clinic sent in 1 to 2 weeks on an outpatient basis. Afib with RVR -Rate controlled. Continuing amiodarone 4 mg 3 times a day for 2 weeks followed by 4 mg twice daily for 2 weeks. Will follow-up with cardiology in the meantime prior to further adjustment -Continue Xarelto 20 mg daily Hyperglycemia due to uncontrolled diabetes mellitus -A1c pending -Continue sliding scale insulin. Receiving 15 to 20 units daily. Initiate insulin glargine 10 units tonight. -Continue Jardiance daily. -Fingersticks ACHS UA is suggestive UTI - continue rocephin - Urine Culture - pending -White cell count elevated at 13.6. No fever or other systemic symptoms of infection. Completing antibiotics as above. Full code Diabetic diet DVT PPx - started on xarelto
[2023-12-10 19:56] LABS: POC Glucose,Bedside 185 (70-110)
[2023-12-10] MEDS: INSULIN GLARGINE 100 UNITS/ML 3ML FLEXPEN 10 UNIT SQ (21:07)
[2023-12-10] MEDS: PRAVASTATIN 40MG TAB 80 MG PO (21:07)
[2023-12-11] VITALS: BP 106/80; PULSE 92; RESP 18; TEMP 36.6; O2SAT 90
[2023-12-11 00:10] VITALS: PULSE 91
[2023-12-11 04:00] VITALS: BP 128/81; PULSE 91; PULSE 96; RESP 18; TEMP 36.4; O2SAT 96; BMI 34.1
[2023-12-11 05:29] LABS: Basophils # 0.1 K/mm3 (0-0.2); Basophils % 0.8 % (0.1-2.0); Eosinophils # 0.2 K/mm3 (0.0-0.4); Eosinophils % 1.8 % (0.1-12.0); Hemoglobin 14.1 g/dL (12.2-16.2); Lymphocytes # 1.6 K/mm3 (0.7-4.5); Mean Corpuscular HGB Conc 32.1 g/dL (31.8-35.4); Mean Corpuscular Hemoglobin 30.4 pg (27.0-31.2); Mean Corpuscular Volume 94.9 fl (81-99); Mean Platelet Volume 9.5 fl (7.4-10.4); Monocytes % 7.9 % (1.7-9.3); Neutrophils # 9.5 K/mm3 (1.8-7.8); Neutrophils % 76.5 % (37.0-80.0); Platelet Count 301 K/mm3 (142-424); Red Blood Count 4.63 M/mm3 (4.20-5.40); White Blood Count 12.4 K/mm3 (4.8-10.8)
[2023-12-11 05:35] LABS: Chloride 92 mmol/L (98-107); Potassium 3.1 mmoL/L (3.5-5.1); Sodium 131 mmol/L (136-145)
[2023-12-11 05:36] LABS: Hemoglobin A1C 8.7 % (4.0-6.0)
[2023-12-11 05:38] LABS: Alanine Aminotransferase 24 U/L (12-78); Albumin Level 3.2 g/dl (3.5-5.0); Alkaline Phosphatase 82 U/L (38-126); Anion Gap 7.1 mEq/L (5-15); Aspartate Amino Transferase 30 U/L (14-36); Bilirubin,Total 0.8 mg/dl (0.2-1.3); Blood Urea Nitrogen 30 mg/dl (7-17); Carbon Dioxide 35 mmol/L (22.0-30.0); Creatinine Clearance Estimated 63 mL/min (50-200); Estimated Glomerular Filt Rate 48 ml/min (>60); GFR (African American) 58 ML/MIN (>60); Globulin 3.2 g/dL (1.3-3.2); Glucose 146 mg/dl (74-100); Total Protein,Serum 6.4 g/dl (6.3-8.2)
[2023-12-11 05:39] LABS: Magnesium 2.1 mg/dl (1.6-2.3)
[2023-12-11 07:42] VITALS: BP 148/76; PULSE 105; RESP 20; TEMP 36.7; O2SAT 95
--- NOTE | 2023-12-11 07:50 | P.DS_ITS ---
General Admission date:: 12/03/23 Discharge date: 12/11/23 HPI HPI HPI: Patient is a 78-year-old female with past medical history of atrial fibrillation CHF hypertension hyperlipidemia obstructive sleep apnea diabetes mellitus who presented to hospital due to shortness of breath. Reportedly patient has history of medical noncompliance. Patient was found hypoxic, patient was intubated for airway protection in the emergency department. At time of my evaluation patient is intubated sedated. Patient was found to be in A-fib with RVR, with low BP patient was a started on IV amiodarone per cardiology. Hospital Course Hospital Course Hospital Course: Patient is a 78-year-old female with past medical history of atrial fibrillation CHF hypertension hyperlipidemia obstructive sleep apnea diabetes mellitus who presented to hospital due to shortness of breath. Reportedly patient has history of medical noncompliance. Patient was found hypoxic, patient was intubated for airway protection in the emergency department. At time of my evaluation patient is intubated sedated. Patient was found to be in A-fib with RVR, with low BP patient was a started on IV amiodarone per cardiology. She has been better overall. Able to wean oxygen to just nighttime usage. Cardiology and pulmonology assisting with care. Has been accepted to [facility] for further management. Stable to discharge to rehab at this time. Problems addressed as follows: Acute hypoxic respiratory failure secondary to flash pulmonary edema, CHF exacerbation, community-acquired pneumonia. -Respiratory failure secondary to flash pulmonary edema and pneumonia. Pulmonology and cardiology were consulted. Patient was intubated initially with extubation on 12/04. Has shown gradual improvement in her respiratory status. Treated with 7 days of antibiotics with ceftriaxone and azithromycin. At this time has weaned to oxygen mainly at night. Continuing 2 L while she sleeps. Recommend maintaining O2 sats above 90%. Oxygen as needed, predominantly at night. Strict nodes were monitored with aggressive diuresis. She is negative over 15 L during her admission. Seeing improvement in her edema as well as her respiratory status. Will continue diuretics at discharge with Bumex 1 mg twice daily. -Cardiology recommended continuing the following medications: Aspirin 81 mg daily, amiodarone 400 mg p.o. 3 times daily for 2 weeks then 400 mg twice daily for 2 weeks then 200 mg twice daily for 2 weeks then 200 mg daily thereafter, Jardiance 20 mg daily, Xarelto 20 mg daily, pravastatin 80 mg daily, metoprolol 25 mg daily, lisinopril 40 mg daily, Bumex 1 mg p.o. twice daily. - The patient will need to follow-up in cardiology clinic sent in 1 to 2 weeks on an outpatient basis. -Recommend follow-up with pulmonology as an outpatient 1 to 2 weeks as well. Afib with RVR -Initially loaded with digoxin. Attempted cardioversion 3 times in the ER that did not sustain control. Was started on amiodarone drip with improvement in heart rate. Brief episode of normal sinus rhythm. Will continue amiodarone orally at this time. Will need 2 weeks of 400 mg 3 times a day followed by 2 weeks of 100 mg twice daily followed by 2 weeks of 200 mg twice daily and then 200 mg once daily thereafter. Continue Xarelto 20 mg daily Hyperglycemia due to uncontrolled diabetes mellitus -A1c 8.7. Treated with sliding scale insulin during admission. Initiated on Lantus 10 units nightly. Will continue Lantus increased to 15 units nightly. Continue Jardiance 25 mg daily. Recommend fingersticks every morning. Goal blood sugar less than 150 on morning fingerstick. Defer further adjustments to insulin regimen to outpatient setting. UA is suggestive UTI -Treated with Rocephin. Finished antibiotics during admission. Urine culture grew E. coli that was sensitive. Treatment has been completed. White cell coun t still 12 on day of discharge but no new signs of infection. No fever. Has completed empiric antibiotics. Total time spent on discharge 32 minutes in counseling, documentation, chart review, and direct care with patient. Exam Data for Last 24 hours Vital signs and Labs for Last 24 Hours: Temp Pulse Resp BP Pulse Ox O2 Del Method O2 Flow Rate 98.1 F 105 H 20 148/76 H 95 Nasal Cannula 2 12/11/23 07:42 12/11/23 07:42 12/11/23 07:42 12/11/23 07:42 12/11/23 07:42 12/11/23 07:42 12/11/23 07:42 FiO2 45 12/05/23 12:00 Laboratory Results - last 24 hr 12/10/23 10:02: POC Glucose 217 H 12/10/23 16:15: POC Glucose 169 H 12/10/23 19:48: POC Glucose 185 H 12/11/23 05:00: WBC 12.4 H, RBC 4.63, Hgb 14.1, Hct 44.0, MCV 94.9, MCH 30.4, MCHC 32.1, RDW 14.0, Plt Count 301, MPV 9.5, Neut % (Auto) 76.5, Lymph % (Auto) 13.0, Stevens % (Auto) 7.9, Eos % (Auto) 1.8, Baso % (Auto) 0.8, Neut # (Auto) 9.5 H, Lymph # (Auto) 1.6, Stevens # (Auto) 1.0, Eos # (Auto) 0.2, Baso # (Auto) 0.1, Sodium 131 L, Potassium 3.1 L, Chloride 92 L, Carbon Dioxide 35 H, Anion Gap 7.1, BUN 30 H, Creatinine 1.10 H, Estimated Creat Clear 63, Estimated GFR 48 L, Est GFR ( Amer) 58 L, Glucose 146 H, Hemoglobin A1c 8.7 H, Calcium 9.0, Magnesium 2.1, Total Bilirubin 0.8, AST 30, ALT 24, Alkaline Phosphatase 82, Total Protein 6.4, Albumin 3.2 L, Globulin 3.2, Albumin/Globulin Ratio 1.0 L I & O for Last 24 hours: Intake & Output 12/08/23 12/09/23 12/10/23 12/11/23 23:59 23:59 23:59 23:59 Intake Total 2091.8 / 2091.8 709.5 / 709.5 1210 / 1210 350 / 350 Output Total 2700 / 2700 3400 / 3400 0 / 0 0 / 0 Balance -608.2 / -608.2 -2690.5 / -2690.5 1210 / 1210 350 / 350 Weight 96.814 kg 96.818 kg 99.79 kg 96.252 kg Microbiology Reports for the Last 24 Hours: Microbiology 12/03/23 11:58 Blood Blood Culture - Final 12/03/23 11:18 Blood Blood Culture - Final Constitutional Constitutional: no acute distress, obese, chronically ill appearing and cooperative *Routine HEENT Exam Head: Present normocephalic Eye: Present EOMI and PERRL ENT: Present mucous membranes moist *Routine Neck Exam Neck: Present supple; Absent lymphadenopathy *Routine Respiratory Exam Respiratory: Present prolonged expiratory phase; Absent rhonchi, wheezes or crackles *Routine Cardiovascular Exam Cardiovascular: Present tachycardia and irregular rhythm *Routine Abdominal Exam Abdominal: Present soft and normoactive bowel sounds; Absent tenderness *Routine Rectal Exam Patient deferred: visual exam *Routine Exam Patient deferred: external exam *Routine Extremities Exam Extremities: Present edema (1+ to knees); Absent cyanosis or clubbing *Routine Skin Exam Skin: Present intact and warm; Absent rash *Routine Neurological Exam Neurological: Present alert, oriented X3 and moving all extremities; Absent altered mental status Results Data Completed and Pending Labs on day of discharge: Labs from last 24 hours 12/11/23 12/10/23 12/10/23 05:00 19:48 16:15 WBC 12.4 H RBC 4.63 Hgb 14.1 Hct 44.0 MCV 94.9 MCH 30.4 MCHC 32.1 RDW 14.0 Plt Count 301 MPV 9.5 Neut % (Auto) 76.5 Lymph % (Auto) 13.0 Stevens % (Auto) 7.9 Eos % (Auto) 1.8 Baso % (Auto) 0.8 Neut # (Auto) 9.5 H Lymph # (Auto) 1.6 Stevens # (Auto) 1.0 Eos # (Auto) 0.2 Baso # (Auto) 0.1 Sodium 131 L Potassium 3.1 L Chloride 92 L Carbon Dioxide 35 H Anion Gap 7.1 BUN 30 H Creatinine 1.10 H Estimated Creat Clear 63 Estimated GFR 48 L Est GFR ( Amer) 58 L Glucose 146 H POC Glucose 185 H 169 H Hemoglobin A1c 8.7 H Calcium 9.0 Magnesium 2.1 Total Bilirubin 0.8 AST 30 ALT 24 Alkaline Phosphatase 82 Total Protein 6.4 Albumin 3.2 L Globulin 3.2 Albumin/Globulin Ratio 1.0 L 12/10/23 10:02 WBC RBC Hgb Hct MCV MCH MCHC RDW Plt Count MPV Neut % (Auto) Lymph % (Auto) Stevens % (Auto) Eos % (Auto) Baso % (Auto) Neut # (Auto) Lymph # (Auto) Stevens # (Auto) Eos # (Auto) Baso # (Auto) Sodium Potassium Chloride Carbon Dioxide Anion Gap BUN Creatinine Estimated Creat Clear Estimated GFR Est GFR ( Amer) Glucose POC Glucose 217 H Hemoglobin A1c Calcium Magnesium Total Bilirubin AST ALT Alkaline Phosphatase Total Protein Albumin Globulin Albumin/Globulin Ratio DS: Diagnosis Discharge Diagnosis (1) Acute cardiac pulmonary edema: Status: Acute Code(s): I50.1 - Left ventricular failure, unspecified (2) Acute hypoxemic respiratory failure: Status: Acute Code(s): J96.01 - Acute respiratory failure with hypoxia (3) Pneumonia: Status: Acute Code(s): J18.9 - Pneumonia, unspecified organism (4) Atrial fibrillation with rapid ventricular response: Status: Acute Code(s): I48.91 - Unspecified atrial fibrillation (5) CHF exacerbation: Status: Acute Code(s): I50.9 - Heart failure, unspecified (6) Coronary artery disease: Status: Acute Code(s): I25.10 - Atherosclerotic heart disease of [place] coronary artery without angina pectoris (7) HLD (hyperlipidemia): Status: Chronic Code(s): E78.5 - Hyperlipidemia, unspecified Qualifiers: Hyperlipidemia type: mixed hyperlipidemia Qualified Code(s): E78.2 - Mixed hyperlipidemia (8) HTN (hypertension): Status: Chronic Code(s): I10 - Essential (primary) hypertension Qualifiers: Hypertension type: primary hypertension Qualified Code(s): I10 - Essential (primary) hypertension (9) Atypical angina: Status: Acute Code(s): I20.89 - Other forms of angina pectoris (10) Afib: Status: Acute Code(s): I48.91 - Unspecified atrial fibrillation Qualifiers: Atrial fibrillation type: persistent (not longstanding) Qualified Code(s): I48.19 - Other persistent atrial fibrillation (11) DM (diabetes mellitus): Status: Chronic Code(s): E11.9 - Type 2 diabetes mellitus without complications Qualifiers: Diabetes mellitus complication status: without complication Diabetes mellitus supervisor intermediates insulin use: without supervisor intermediates use Diabetes mellitus type: type 2 Qualified Code(s): E11.9 - Type 2 diabetes mellitus without complications Meds Home Medications and Allergies Home Medications Medication Instructions Recorded Confirmed Type lisinopril 40 mg tablet 40 mg PO DAILY 04/10/21 12/03/23 History pravastatin 80 mg tablet 80 mg PO HS 04/10/21 12/03/23 History ergocalciferol (vitamin D2) 1,250 1,250 mcg PO WEEKLY 07/12/23 12/03/23 History mcg (50,000 unit) capsule (Vitamin D2) metformin 500 mg tablet 1,000 mg PO BID 07/12/23 12/03/23 History empagliflozin 25 mg tablet 25 mg PO DAILY 12/03/23 12/03/23 History (Jardiance) ezetimibe 10 mg tablet 10 mg PO DAILY 12/03/23 12/03/23 History metoprolol succinate 50 mg 50 mg PO DAILY 12/03/23 12/03/23 History tablet,extended release 24 hr amiodarone 200 mg tablet 400 mg (2 x 200 mg) PO TID #140 12/11/23 Rx tabs aspirin 81 mg tablet,delayed 81 mg PO DAILY 30 days #30 tabs 12/11/23 Rx release bumetanide 1 mg tablet 1 mg PO BIDL 30 days #0 tabs 12/11/23 Rx insulin glargine 100 unit/mL (3 15 unit (0.15 mL) SQ HS 30 days #0 12/11/23 Rx mL) subcutaneous pen (Lantus mL Solostar U-100 Insulin) levalbuterol HCl 1.25 mg/3 mL 1.25 mg (3 mL) inhalation Q6HP PRN 12/11/23 Rx solution for nebulization Shortness Of Breath Or Wheezing 30 days #0 mL rivaroxaban 20 mg tablet 20 mg PO HS 30 days #0 tabs 12/11/23 Rx New Prescriptions to Start Prescriptions: amiodarone Magno Reyes Allergies Allergy/AdvReac Type Severity Reaction Status Date / Time No Known Allergies Allergy Verified 07/24/23 13:15 Discharge Plan Disposition Patient Disposition: [facility] Condition: Fair Discharge Order Discharge Orders: Discharge Order (Routine); Ordered 12/11/23 Ordered By: Magno Reyes Follow up Plan Follow up with: [facility] MD [Physician] - 12/18/23 11:15 am Ciro Grace MD [Staff Physician] - 12/18/23 2:00 pm Prescriptions/Medication Reconciliation: New aspirin 81 mg Tablet,Delayed Release (Dr/Ec) 81 mg PO DAILY 30 Days Qty: 30 0RF rivaroxaban 20 mg tablet 20 mg PO HS 30 Days Qty: 0 0RF Rx Instructions: must administer with evening meal amiodarone 200 mg Tablet 400 mg PO TID Qty: 140 0RF Rx Instructions: 400 mg 3 times a day for 2 weeks, followed by 400 mg twice daily for 2 weeks followed by 200 mg twice daily for 2 weeks, and 200 mg daily thereafter levalbuterol HCl 1.25 mg/3 mL Solution For Nebulization 1.25 mg inhalation Q6HP PRN (Reason: Shortness Of Breath Or Wheezing) 30 Days Qty: 0 0RF insulin glargine [Lantus Solostar U-100 Insulin] 100 unit/mL (3 mL) Insulin Pen 15 unit SQ HS 30 Days Qty: 0 0RF bumetanide 1 mg Tablet 1 mg PO BIDL 30 Days Qty: 0 0RF Continued pravastatin 80 mg tablet 80 mg PO HS lisinopril 40 mg tablet 40 mg PO DAILY metformin 500 mg tablet 1,000 mg PO BID ergocalciferol (vitamin D2) [Vitamin D2] 1,250 mcg (50,000 unit) capsule 1,250 mcg PO WEEKLY Patient Comments: take 1 capsule by mouth once a week metoprolol succinate 50 mg tablet extended release 24 hr 50 mg PO DAILY Patient Comments: Take 1 tablet every day by oral route for 90 days. ezetimibe 10 mg tablet 10 mg PO DAILY Jardiance 25 mg tablet 25 mg PO DAILY Patient Comments: Take 1 tablet every day by oral route for 90 days. Discontinued cyanocobalamin (vitamin B-12) [Vitamin B-12] 1,000 mcg tablet 1,000 mcg PO DAILY Patient Comments: TAKE ONE TABLET BY MOUTH EVERY DAY glipizide 10 mg tablet 10 mg PO DAILY Patient Comments: TAKE ONE TABLET BY MOUTH EVERY DAY meloxicam 15 mg tablet 15 mg PO DAILYP PRN (Reason: Pain (Scale Score 1-3)) Patient Comments: TAKE ONE TABLET BY MOUTH EVERY DAY NEEDED diltiazem HCl 240 mg capsule,extended release 24hr 240 mg PO BID hydrochlorothiazide 25 mg tablet 25 mg PO DAILY Eliquis 5 mg tablet 5 mg PO BID Problem Reconciliation Problems Reviewed?: Yes Patient Discharge Instructions ACTIVITY: Continue current activity and Ambulate as tolerated DIET: continue same diet Patient Instructions: DI for Heart Failure, DI for Atrial Fibrillation, Ventilator-Associated Pneumonia, DI for Respiratory Failure, DI for Central Line-Associated Bloodstream Infections, Catheter-Associated Urinary Tract Infection Providers Primary Care Provider: Provider,Referral Admit Provider: Ector Duran Attending Provider: Ector Duran
[2023-12-11 08:00] VITALS: PULSE 90
[2023-12-11] MEDS: EZETIMIBE 10MG TABLET 10 MG PO (08:01)
[2023-12-11] MEDS: EMPAGLIFLOZIN 10MG TABLET 20 MG PO (08:02)
[2023-12-11] MEDS: METFORMIN 500MG TABLET 1000 MG PO (08:02)
[2023-12-11] MEDS: AMIODARONE 200MG TABLET 400 MG PO (08:02)
[2023-12-11] MEDS: BUMETANIDE 1 MG TABLET PO (08:02)
[2023-12-11] MEDS: ASPIRIN EC 81MG TABLET 81 MG PO (08:02)
[2023-12-11] MEDS: LISINOPRIL 20MG TABLET 40 MG PO (08:02)
[2023-12-11] MEDS: METOPROLOL SUCCINATE XL 25MG TABLET 25 MG PO (08:02)
[2023-12-11] MEDS: ONDANSETRON 4MG/2ML VIAL 4 MG IV (09:21)
--- NOTE | 2023-12-11 09:55 | PC.NURSE ---
report called to TACOS Zamarripa at [facility]
--- NOTE | 2023-12-11 10:26 | PC.NURSE ---
central line pulled at [id number]
== END 2023-12-11 10:46 | DRG 208 ==
LOC: ER 14:33 → 2ND 14:45
PROVIDERS: Internal Medicine Adolescent Medicine; Internal Medicine Pulmonary Disease; Nurse Practitioner; Nurse Practitioner Critical Care Medicine; Admitting Provider Internal Medicine; Emergency Provider Emergency Medicine; Visit Provider Internal Medicine
DX: J96.01 Acute respiratory failure with hypoxia (principal); I50.23 Acute on chronic systolic (congestive) heart failure; J18.9 Pneumonia, unspecified organism; I48.92 Unspecified atrial flutter; I48.19 Other persistent atrial fibrillation; E87.20 Acidosis, unspecified; N39.0 Urinary tract infection, site not specified; E78.2 Mixed hyperlipidemia; I11.0 Hypertensive heart disease with heart failure; Z79.84 Long term (current) use of oral hypoglycemic drugs; E11.65 Type 2 diabetes mellitus with hyperglycemia; I25.118 Atherosclerotic heart disease of native coronary artery with other forms of angina pectoris; Z91.199 Patient's noncompliance with other medical treatment and regimen due to unspecified reason
CPT/HCPCS: 31500; 94002; 36556; 36415; 51702; 70450; 70496; 70498; 71045; 71275; 74174; 80048; 80053; 81001; 82009; 82803; 82962; 83036; 83605; 83735; 83880; 84132; 84484; 85007; 85025; 85730; 87040; 87070; 87081; 87086; 87205; 87632; 87635; 92610; 93005; 93306; 93308; 94003; 94640; 94761; 97163; 97166; 97530; 97535; 99291; 99292; G0238; J0282; J0330; J0456; J0696; J2405; J2704; J3475; J7060; Q9967

== ENCOUNTER 2023-12-23 16:18 | Outpatient (CLI) | payer MEDICARE, SELFPAY | END 2023-12-23 23:59 | disposition home or self-care (01) | LOC: RT 16:20 | PROVIDERS: PCP Nurse Practitioner; Visit Provider Internal Medicine | DX: R06.02 Shortness of breath; I48.19 Other persistent atrial fibrillation; I50.30 Unspecified diastolic (congestive) heart failure; E78.2 Mixed hyperlipidemia; I10 Essential (primary) hypertension; I20.89 Other forms of angina pectoris; R94.39 Abnormal result of other cardiovascular function study | CPT/HCPCS: 93270 ==

== ENCOUNTER 2024-05-16 13:15 | Emergency (ER) | payer MEDICARE, SELFPAY ==
[2024-05-16] VITALS (8 sets, daily range): BP systolic 119–148; BP diastolic 63–95; PULSE 57–114; RESP 19–20; TEMP 36.8; O2SAT 91–97; BMI 38.9
--- NOTE | 2024-05-16 13:24 | ECG_ITS ---
APPROVED REPORT Exam: Resting ECG HR:136 bpm ECG Measurements Heart Rate 136 AXES QRSd 89 QRS 43 QT 278 T 36 QTc 358 Conclusion ATRIAL FIBRILLATION WITH RAPID VENTRICULAR RESPONSE MINIMAL ST DEPRESSION [0.025+ mV ST DEPRESSION] ABNORMAL RHYTHM ECG Electronically signed by : CARMELO SELBY, 05/16/2024 15:53:51
--- NOTE | 2024-05-16 13:30 | PC.NURSE ---
notified of pt condition and [facility]
--- NOTE | 2024-05-16 14:31 | CT_ITS ---
PROCEDURE INFORMATION: Exam: CTA Neck With Contrast Exam date and time: 05/16/2024 3:04 PM Age: 78 years old Clinical indication: Stroke-like symptoms; Altered mental status/memory loss; Additional info: Possible stroke TECHNIQUE: Imaging protocol: Computed tomographic angiography of the neck with contrast. Exam focused on the cervical segments of the vasculature. 3D rendering (Not supervised by radiologist): MIP and/or 3D reconstructed images were created by the technologist. Radiation optimization: All CT scans at this facility use at least one of these dose optimization techniques: automated exposure control; mA and/or kV adjustment per patient size (includes targeted exams where dose is matched to clinical indication); or iterative reconstruction. Contrast material: ISOVUE 370; Contrast volume: 80 ml; Contrast route: INTRAVENOUS (IV); COMPARISON: CT ANGIO NECK 12/03/2023 1:08 PM FINDINGS: Limitations: Axial images are 2.5 mm. No thin slice axial images are provided. Right common carotid artery: No stenosis. No dissection or occlusion. Right internal carotid artery: No stenosis of the extracranial segment. No dissection or occlusion. Right external carotid artery: No occlusion or stenosis of the origin. Left common carotid artery: No stenosis. No dissection or occlusion. Left internal carotid artery: No stenosis of the extracranial segment. No dissection or occlusion. Left external carotid artery: No occlusion or stenosis of the origin. Right vertebral artery: No stenosis. No dissection or occlusion. Left vertebral artery: No stenosis. No dissection or occlusion. Thyroid: There is a large right lobe thyroid nodule measuring up to 3.5 cm. This was present on the prior scan. Soft tissues: Normal. No significant soft tissue swelling. Bones/joints: No acute fracture. IMPRESSION: 1. No carotid or vertebral artery stenosis. 2. Enlarged right lobe of thyroid with nodules measuring up to 3.5 cm. Recommend nonemergent thyroid ultrasound if not already evaluated. COMMENTS: Consistent with the [employer]'s Incidental Findings Committee white paper (J Am Ana Luisa Radiol 2015): In patients aged 35 years and older with an incidental thyroid nodule equal to or greater than 1.[address], MRI or extrathyroidal US, further evaluation with dedicated thyroid US is recommended for patients with normal life expectancy and without comorbidities. For smaller nodules without suspicious features, no further evaluation or follow up is recommended. REFERENCES: NASCET CRITERIA. The degree of stenosis in the cervical segment of the internal carotid artery is based on NASCET criteria. Normal is no stenosis. Mild is less than 50% stenosis. Moderate is 50-69% stenosis. Severe is 70% to 99% stenosis. Total occlusion is no detectable patent lumen.
--- NOTE | 2024-05-16 14:31 | CT_ITS ---
PROCEDURE INFORMATION: Exam: CT Head Without Contrast Exam date and time: 05/16/2024 3:04 PM Age: 78 years old Clinical indication: Stroke-like symptoms; Altered mental status/memory loss; Additional info: Possible stroke TECHNIQUE: Imaging protocol: Computed tomography of the head without contrast. Radiation optimization: All CT scans at this facility use at least one of these dose optimization techniques: automated exposure control; mA and/or kV adjustment per patient size (includes targeted exams where dose is matched to clinical indication); or iterative reconstruction. Other technique: STROKE PROTOCOL was implemented. COMPARISON: Head CT 12/03/2023 FINDINGS: Brain: There is volume loss. There is white matter lucency consistent with chronic microvascular disease.there are right frontal and parietal areas of abnormal lucency with loss of roland-white definition extending to the cortex. There is abnormal lucency in the posterior limb of the right internal capsule There is no hemorrhage or extra-axial collection. Cerebral ventricles: Ventricular size is proportionate to volume loss. Paranasal sinuses: There is mucosal thickening in the left sphenoid sinus. Mastoid air cells: Visualized mastoid air cells are well aerated. Bones: Unremarkable. No acute fracture. Soft tissues: Unremarkable. 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 Internal capsule, ASSESSMENT: ASPECTS ([place] Stroke Program Early CT Score) is 5
--- NOTE | 2024-05-16 14:31 | CT_ITS ---
PROCEDURE INFORMATION: Exam: CTA Head With Contrast, Arteriography Exam date and time: 05/16/2024 3:04 PM Age: 78 years old Clinical indication: Stroke-like symptoms; Altered mental status/memory loss; Additional info: Possible stroke TECHNIQUE: Imaging protocol: Computed tomographic angiography of the head with contrast. Exam focused on the arteries. 3D rendering (Not supervised by radiologist): MIP and/or 3D reconstructed images were created by the technologist. Radiation optimization: All CT scans at this facility use at least one of these dose optimization techniques: automated exposure control; mA and/or kV adjustment per patient size (includes targeted exams where dose is matched to clinical indication); or iterative reconstruction. Contrast material: ISOVUE 370; Contrast volume: 80 ml; Contrast route: INTRAVENOUS (IV); COMPARISON: CT ANGIO HEAD 12/03/2023 1:08 PM FINDINGS: Limitations: Axial images are 2.5 mm. No thin slice axial images provided. No coronal or sagittal reconstructions are provided.. MIP reconstructions were performed with oblique angulation ANTERIOR CIRCULATION: Right internal carotid artery: Intracranial segment is patent with no significant stenosis. No aneurysm. Right middle cerebral artery: As seen on series 3, images 106 to 108, series 5 images 61 to 63 and series 6 images 59-61, right MCA M3 branch occlusion in the posterior sylvian fissure. Right anterior cerebral artery: No occlusion or significant stenosis. No aneurysm. Left internal carotid artery: Intracranial segment is patent with no significant stenosis. No aneurysm. Left middle cerebral artery: No occlusion or significant stenosis. No aneurysm. Left anterior cerebral artery: No occlusion or significant stenosis. No aneurysm. POSTERIOR CIRCULATION: Right vertebral artery: No occlusion or significant stenosis. No aneurysm. Left vertebral artery: No occlusion or significant stenosis. No aneurysm. Basilar artery: No occlusion or significant stenosis. No aneurysm. Right posterior cerebral artery: There is a severe short segment stenosis of the P2 segment of the right posterior cerebral artery. No occlusion. No aneurysm.. Left posterior cerebral artery: No occlusion or significant stenosis. No aneurysm. Brain: See head CT IMPRESSION: 1. Right MCA distal M3 branch occlusion in area of right parietal infarct. 2. Right [employer] P2 severe stenosis
--- NOTE | 2024-05-16 14:38 | ED_ITS ---
<Statement entered by Janis Asencio MD - 05/16/24 22:31> I was consulted by the NIKIA, and we discussed the complexity of the problems being addressed. I approved the treatment and management plan for this patient's care in the emergency department, thus performing a substantive portion of the medical decision making. Janis Asencio MD, BRITTANY, FACEP Discharge Plan Disposition Patient Disposition: Xfer Short-Term Hosp Condition: Serious Prescriptions Prescriptions: No Action rivaroxaban 20 mg tablet 20 mg PO HS Qty: 30 5RF Rx Instructions: must administer with evening meal lisinopril 40 mg tablet 40 mg PO DAILY pravastatin 80 mg tablet 40 mg PO HS metformin 1,000 mg tablet 1,000 mg PO BID Patient Comments: Take 1 tablet twice a day by oral route for 90 days. diltiazem HCl 240 mg capsule,extended release 24hr 240 mg PO BID Patient Comments: TAKE ONE CAPSULE BY MOUTH EVERY DAY ezetimibe 10 mg tablet 10 mg PO DAILY Qty: 30 5RF Jardiance 25 mg tablet 25 mg PO DAILY Qty: 30 5RF bumetanide 1 mg tablet 1 mg PO BIDL 30 Days Qty: 90 1RF metoprolol succinate 50 mg tablet extended release 24 hr 50 mg PO DAILY Patient Comments: Take 1 tablet every day by oral route for 90 days. insulin glargine [Lantus Solostar U-100 Insulin] 100 unit/mL (3 mL) Insulin Pen 15 unit SQ HS 30 Days Qty: 0 0RF Referrals Follow up/Referrals: Tayla Kelley APRN [Primary Care Provider] - See instructions Stand Alone Forms Stand Alone Forms: Transfer Record - ED Print Language Print Language: Slovenian Discharge ED Provider: Janis Asencio General Adult HPI <AGUILAR Gonzalez - Last Filed: 05/16/24 20:25> General Chief complaint: Weakness Stated complaint: weakness, won't take meds, confused Time Seen by Provider: 05/16/24 13:25 Mode of Arrival: Wheelchair Source of Information: Patient and Relative Limitations: Altered Mental Status Description of Symptoms (Recalled from ER Triage Doc. by RN): increased confusion,weakness History of Present Illness HPI narrative: Patient presents with possible CVA. 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 She has been doing OT at home since that time. Patient has chronic left arm weakness. She developed left sided facial drop and drooling yesterday. Family is uncertain about what time these symptoms developed, as they had not seen the patient since the day before. Denies any chest pain/ palpitations. denies fever. Denies URI symptoms. Denies UTI symptoms. Patient was diagnosed with A fib in September, she is on Xarelto and diltiazem. Family reports she is not always compliant with her meds and lives alone. She has an appointment with neurology in [place] at the [facility] in July. MD complaint: left facial drooping Onset (ago): day(s) (2) Location: face Severity: moderate Relieving factors: none Exacerbating factors: none Associated symptoms: denies other symptoms Treatments prior to arrival: none Related Data Home Medications ?Medication ?Instructions ?Recorded ?Confirmed lisinopril 40 mg tablet 40 mg PO DAILY 04/10/21 02/20/24 metoprolol succinate 50 mg 50 mg PO DAILY 12/03/23 02/20/24 tablet,extended release 24 hr diltiazem HCl 240 mg 240 mg PO BID 02/20/24 02/20/24 capsule,extended release 24 hr metformin 1,000 mg tablet 1,000 mg PO BID 02/20/24 02/20/24 pravastatin 80 mg tablet 40 mg PO HS 02/20/24 02/20/24 Previous Rx's ?Medication ?Instructions ?Recorded insulin glargine 100 unit/mL (3 15 unit (0.15 mL) SQ HS 30 days #0 12/11/23 mL) subcutaneous pen (Lantus mL Solostar U-100 Insulin) empagliflozin 25 mg tablet 25 mg PO DAILY #30 tabs 12/24/23 (Jardiance) rivaroxaban 20 mg tablet 20 mg PO HS #30 tabs 01/13/24 ezetimibe 10 mg tablet 10 mg PO DAILY #30 tabs 02/20/24 bumetanide 1 mg tablet 1 mg PO BIDL 30 days #90 tabs 04/20/24 Allergies Allergy/AdvReac Type Severity Reaction Status Date / Time No Known Allergies Allergy Verified 02/20/24 14:18 [facility] <AGUILAR Gonzalez - Last Filed: 05/16/24 20:25> [facility] Disclaimer: The information contained in this section may have been updated after the patient was seen, as this information can be updated by other users. Medical History Dyspnea on exertion Heart failure with preserved ejection fraction DM (diabetes mellitus) Pneumonia Edema of larynx Pleural effusion, bilateral Coronary artery disease Atypical angina Afib Abnormal stress test HLD (hyperlipidemia) HTN (hypertension) Abnormal result of cardiovascular function study Dyspnea YOLANDE (obstructive sleep apnea) Surgical History History of hemorrhoidectomy History of hysterectomy Family History Other No significant family history Social History Smoking Status: Never smoker alcohol intake: current alcohol intake frequency: holidays/special occasions only current occupational status: other Travel in the last 8 weeks: None <AGUILAR Gonzalez - Last Filed: 05/16/24 20:25> ROS Obtained: Yes Systems reviewed as appropriate & no additional complaints except as documented Physical Exam <AGUILAR Gonzalez - Last Filed: 05/16/24 20:25> General General appearance: alert and in no apparent distress Head Head exam: atraumatic and normocephalic Eye Eye exam: Present normal appearance and EOMI Chest Chest inspection: Present symmetric chest wall rise Respiratory Respiratory exam: Present normal lung sounds bilaterally Cardiovascular Cardiovascular exam: Present normal rhythm and irregular rhythm Extremities Exam Extremities exam: Present edema (bilateral pedal ) Neurological Exam Neurological exam: Present alert, oriented X3 and motor sensory deficit Expanded Neurological Exam Speech: Present fluid speech Cranial nerves: Normal: EOM function (II, III, IV, ) and facial sensation (V) and Abnormal Left: facial palsy (VII) Cerebellar function: Normal: finger to nose and heel to [place] Motor strength - LUE: 2/5 Motor strength - RUE: 5/5 Motor strength - LLE: 4/5 Motor strength - RLE: 5/5 Upper motor neuron exam: Normal: pronator drift and sensory extinction Sensory exam upper extremity: Normal: light touch Sensory exam lower extremity: Normal: light touch Comment: NIHSS 7 Medical Decision Making <AGUILAR Gonzalez Last Filed: 05/16/24 20:25> John Inquiry Pt receiving controlled substance: No Vital Signs: 05/16/24 13:16 05/16/24 13:33 05/16/24 16:00 Temperature 98.3 F Temperature Source Oral Pulse Rate 98 H 101 H Pulse Rate [Right] 114 H Respiratory Rate 20 Blood Pressure 148/95 H 134/89 Blood Pressure [Right Arm] 148/95 H Blood Pressure Mean [Right Arm] 112 02 Sat by Pulse Oximetry 94 L 94 L 97 Oxygen Delivery Method Room Air Room Air 05/16/24 16:35 05/16/24 17:12 05/16/24 18:24 Temperature Temperature Source Pulse Rate 69 95 H 57 L Pulse Rate [Right] Respiratory Rate Blood Pressure 141/93 H 135/63 119/91 H Blood Pressure [Right Arm] Blood Pressure Mean [Right Arm] 02 Sat by Pulse Oximetry 91 L 91 L 96 Oxygen Delivery Method Room Air 05/16/24 18:30 Temperature Temperature Source Pulse Rate 102 H Pulse Rate [Right] Respiratory Rate Blood Pressure 132/86 Blood Pressure [Right Arm] Blood Pressure Mean [Right Arm] 02 Sat by Pulse Oximetry 93 L Oxygen Delivery Method Room Air Lab Data Lab Results 05/16/24 13:30: PT 10.6, INR 0.94, APTT 18.5 L, Sodium 139, Potassium 3.7, Chloride 105, Carbon Dioxide 25, Anion Gap 12.7, BUN 13, Creatinine 0.80, Estimated Creat Clear 72, Estimated GFR 69, Est GFR ( Amer) 84, Glucose 198 H, Calcium 9.9, Total Bilirubin 1.4 H, AST 32, ALT 22, Alkaline Phosphatase 65, Troponin I < 0.01, Total Protein 8.0, Albumin 4.4, Globulin 3.6 H, Albumin/Globulin Ratio 1.2, Triglycerides 236 H, Cholesterol 251 H, LDL Cholesterol Direct 138.45 H, VLDL Cholesterol 47 H, HDL Cholesterol 55, C holesterol/HDL Ratio 4.6 H, Plasma/Serum Alcohol < 10 05/16/24 16:47: Urine Color Yellow, Urine Appearance Clear, Urine pH 7.0, Ur Specific [place] 1.010, Urine Protein Negative, Urine Glucose (UA) 3+, Urine Ketones Negative, Urine Blood Negative, Urine Nitrate Negative, Urine Bilirubin Negative, Urine Urobilinogen 2.0, Ur Leukocyte Esterase 1+ A, Urine RBC 3-5, Urine WBC 10-20, Ur Squamous Epith Cells 3-5, Urine Bacteria Trace, Urine Opiates Screen Negative, Urine Methadone Screen Negative, Ur Barbituates Screen Negative, Ur Phencyclidine Scrn Negative, Ur Amphetamines Screen Negative, U Benzodiazepines Scrn Negative, Urine Cocaine Screen Negative, U Marijuana (THC) Screen Negative 05/16/24 13:30 Orders (Tests/Meds): ED MEDICATIONS Generic Name Dose Route Start Last Admin Trade Name Freq PRN Reason Stop Dose Admin Sodium Chloride 10 ml 05/16/24 14:31 Sodium Chloride 0.9% 10ml Flush Syringe IV 06/15/24 14:30 NEEDED PRN Maintain IV Site Discontinued Medications Generic Name Dose Route Start Last Admin Trade Name Freq PRN Reason Stop Dose Admin Aspirin 324 mg 05/16/24 16:21 05/16/24 17:01 Aspirin 81mg Chewable Tablet PO 05/16/24 16:22 324 mg ONCE ONE Administration Iopamidol 80 ml 05/16/24 15:17 05/16/24 15:18 Iopamidol-370 (76%);100ml Bottle IV 05/16/24 15:18 80 ml ONCE ONE Administration Sodium Chloride 10 ml 05/16/24 15:17 05/16/24 15:18 Sodium Chloride 0.9% 10ml Syr (Rad Only) IV 05/16/24 15:18 10 ml ONCE ONE Administration Sodium Chloride 50 ml 05/16/24 15:17 05/16/24 15:18 0.9 % Sodium Chloride 50 Ml Vial IV 05/16/24 15:18 50 ml ONCE ONE Administration ORDERS Category Date Time Status CT angio head Stat Cat Scan 05/16/24 14:[address] angio neck Stat Cat Scan 05/16/24 14:[address] head/brain wo con Stat Cat Scan 05/16/24 14:31 Completed Activated Partial Thrombo Time Stat Lab 05/16/24 13:30 Completed Comprehensive Metabolic Panel Stat Lab 05/16/24 13:30 Completed Drug Screen,Urine Stat Lab 05/16/24 16:47 Completed Ethyl Alcohol Stat Lab 05/16/24 13:30 Completed Lipid Panel Stat Lab 05/16/24 13:30 Completed Prothrombin Time INR Stat Lab 05/16/24 13:30 Completed Troponin I Q3H Lab 05/16/24 17:45 Ordered Troponin I Q3H Lab 05/16/24 20:45 Ordered Troponin I Stat Lab 05/16/24 13:30 Completed Urinalysis and Microscopic Stat Lab 05/16/24 16:47 Completed Urine Culture Stat Micro 05/16/24 16:[address] Data ED CT Reviewed: Yes I have reviewed the patient's CT results US Data ED US Reviewed: Yes I have reviewed the patient's US results Medical Decision Narrative: Patient presents with left facial weakness/ drooping and drooling. She has left arm weakness as well, however family states that that is unchanged from a CVA in March. Last known normal was 05/14/24 as family noted symptoms yesterday and had not seen the patient since the day prior to that. CT shows acute vs subacute right frontal and parietal cortical infarcts. CTA head shows right MCA distal M3 branch occlusion in area of right parietal infarct. 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 Discussed with [facility] social services coordinator who accepted the patient. In summary patient is a-year-old female who presents the emergency department for evaluation of left facial drooping. Patient is hemodynamically stable upon arrival, afebrile. Left facial drooping, left upper extremity weakness and slight left lower extremity weakness. Differential diagnosis includes ischemic stroke, UTI, intracranial hemorrhage. Initial workup will be conducted with labs, CT brain, CTA head and neck. Initial inventions include none. Initial workup reviewed by me acute versus subacute ischemic stroke. Upon repeat evaluation patient has not had any worsening symptoms.. Given this patient was given aspirin and transferred to [facility] stroke unit. She is outside treatment window for tPA. Discussed need for further workup of thyroid nodule with patient and family as well. <James Guzman MD - Last Filed: 05/16/24 15:27> Vital Signs: 05/16/24 13:16 05/16/24 13:33 05/16/24 16:00 Temperature 98.3 F Temperature Source Oral Pulse Rate 98 H 101 H Pulse Rate [Right] 114 H Respiratory Rate 20 Blood Pressure 148/95 H 134/89 Blood Pressure [Right Arm] 148/95 H Blood Pressure Mean [Right Arm] 112 02 Sat by Pulse Oximetry 94 L 94 L 97 Oxygen Delivery Method Room Air Room Air 05/16/24 16:35 05/16/24 17:12 05/16/24 18:24 Temperature Temperature Source Pulse Rate 69 95 H 57 L Pulse Rate [Right] Respiratory Rate Blood Pressure 141/93 H 135/63 119/91 H Blood Pressure [Right Arm] Blood Pressure Mean [Right Arm] 02 Sat by Pulse Oximetry 91 L 91 L 96 Oxygen Delivery Method Room Air 05/16/24 18:30 Temperature Temperature Source Pulse Rate 102 H Pulse Rate [Right] Respiratory Rate Blood Pressure 132/86 Blood Pressure [Right Arm] Blood Pressure Mean [Right Arm] 02 Sat by Pulse Oximetry 93 L Oxygen Delivery Method Room Air Lab Data Lab Results 05/16/24 13:30: PT 10.6, INR 0.94, APTT 18.5 L, Sodium 139, Potassium 3.7, Chloride 105, Carbon Dioxide 25, Anion Gap 12.7, BUN 13, Creatinine 0.80, Estimated Creat Clear 72, Estimated GFR 69, Est GFR ( Amer) 84, Glucose 198 H, Calcium 9.9, Total Bilirubin 1.4 H, AST 32, ALT 22, Alkaline Phosphatase 65, Troponin I < 0.01, Total Protein 8.0, Albumin 4.4, Globulin 3.6 H, Albumin/Globulin Ratio 1.2, Triglycerides 236 H, Cholesterol 251 H, LDL Cholesterol Direct 138.45 H, VLDL Cholesterol 47 H, HDL Cholesterol 55, C holesterol/HDL Ratio 4.6 H, Plasma/Serum Alcohol < 10 05/16/24 16:47: Urine Color Yellow, Urine Appearance Clear, Urine pH 7.0, Ur Specific [place] 1.010, Urine Protein Negative, Urine Glucose (UA) 3+, Urine Ketones Negative, Urine Blood Negative, Urine Nitrate Negative, Urine Bilirubin Negative, Urine Urobilinogen 2.0, Ur Leukocyte Esterase 1+ A, Urine RBC 3-5, Urine WBC 10-20, Ur Squamous Epith Cells 3-5, Urine Bacteria Trace, Urine Opiates Screen Negative, Urine Methadone Screen Negative, Ur Barbituates Screen Negative, Ur Phencyclidine Scrn Negative, Ur Amphetamines Screen Negative, U Benzodiazepines Scrn Negative, Urine Cocaine Screen Negative, U Marijuana (THC) Screen Negative Orders (Tests/Meds): ED MEDICATIONS Generic Name Dose Route Start Last Admin Trade Name Freq PRN Reason Stop Dose Admin Sodium Chloride 10 ml 05/16/24 14:31 Sodium Chloride 0.9% 10ml Flush Syringe IV 06/15/24 14:30 NEEDED PRN Maintain IV Site Discontinued Medications Generic Name Dose Route Start Last Admin Trade Name Freq PRN Reason Stop Dose Admin Aspirin 324 mg 05/16/24 16:21 05/16/24 17:01 Aspirin 81mg Chewable Tablet PO 05/16/24 16:22 324 mg ONCE ONE Administration Iopamidol 80 ml 05/16/24 15:17 05/16/24 15:18 Iopamidol-370 (76%);100ml Bottle IV 05/16/24 15:18 80 ml ONCE ONE Administration Sodium Chloride 10 ml 05/16/24 15:17 05/16/24 15:18 Sodium Chloride 0.9% 10ml Syr (Rad Only) IV 05/16/24 15:18 10 ml ONCE ONE Administration Sodium Chloride 50 ml 05/16/24 15:17 05/16/24 15:18 0.9 % Sodium Chloride 50 Ml Vial IV 05/16/24 15:18 50 ml ONCE ONE Administration ORDERS Category Date Time Status CT angio head Stat Cat Scan 05/16/24 14:[address] angio neck Stat Cat Scan 05/16/24 14:[address] head/brain wo con Stat Cat Scan 05/16/24 14:31 Completed Activated Partial Thrombo Time Stat Lab 05/16/24 13:30 Completed Comprehensive Metabolic Panel Stat Lab 05/16/24 13:30 Completed Drug Screen,Urine Stat Lab 05/16/24 16:47 Completed Ethyl Alcohol Stat Lab 05/16/24 13:30 Completed Lipid Panel Stat Lab 05/16/24 13:30 Completed Prothrombin Time INR Stat Lab 05/16/24 13:30 Completed Troponin I Q3H Lab 05/16/24 17:45 Ordered Troponin I Q3H Lab 05/16/24 20:45 Ordered Troponin I Stat Lab 05/16/24 13:30 Completed Urinalysis and Microscopic Stat Lab 05/16/24 16:47 Completed Urine Culture Stat Micro 05/16/24 16:47 Received ECG Data Tracing #1: Independently interpreted by James Guzman, rate is 136, rhythm is irregular, atrial fibrillation with rapid ventricular response, QTc 358, no ST elevation in anatomical contiguous leads. Critical Care <AGUILAR Gonzalez - Last Filed: 05/16/24 20:25> Critical Care Time Critical Care Time: Yes Attestation: On 05/16/24, the high probability of a clinically significant, sudden or life threatening deterioration of the following system(s) required my full and direct attention, intervention and personal management. The time I documented below is in addition to time spent performing reported procedures but includes the following listed in this critical care notation. Total Time Total Critical Care Time: 30
[2024-05-16 14:46] LABS: Albumin Level 4.4 g/dl (3.5-5.0); Chloride 105 mmol/L (98-107)
[2024-05-16 14:47] LABS: Potassium 3.7 mmoL/L (3.5-5.1); Sodium 139 mmol/L (136-145)
[2024-05-16 14:50] LABS: Alanine Aminotransferase 22 U/L (12-78); Albumin/Globulin Ratio 1.2 (1.1-1.8); Alkaline Phosphatase 65 U/L (38-126); Anion Gap 12.7 mEq/L (5-15); Aspartate Amino Transferase 32 U/L (14-36); Bilirubin,Total 1.4 mg/dl (0.2-1.3); Blood Urea Nitrogen 13 mg/dl (7-17); Calcium 9.9 mg/dl (8.4-10.2); Carbon Dioxide 25 mmol/L (22.0-30.0); Chol/HDL Ratio 4.6 (1-3.5); Cholesterol 251 mg/dl (140-200); Creatinine Clearance Estimated 72 mL/min (50-200); Estimated Glomerular Filt Rate 69 ml/min (>60); GFR (African American) 84 ML/MIN (>60); Globulin 3.6 g/dL (1.3-3.2); Glucose 198 mg/dl (74-100); HDL Cholesterol 55 mg/dl (40-60); Triglycerides 236 mg/dl (30-150); VLDL Cholesterol 47 mg/dL (0-40)
[2024-05-16 15:01] LABS: Direct LDL Cholesterol 138.45 mg/dL (100-129)
[2024-05-16 15:04] LABS: Troponin I < 0.01 ng/ml (0.00-0.034)
[2024-05-16 15:09] LABS: INR 0.94 (0.9-1.1); Prothrombin Time 10.6 seconds (10.1-12.5)
[2024-05-16] MEDS: SODIUM CHLORIDE 0.9% 10ML SYR (RAD ONLY) 10 ML IV (15:18)
[2024-05-16] MEDS: 0.9 % SODIUM CHLORIDE 50 ML VIAL IV (15:18)
[2024-05-16] MEDS: IOPAMIDOL-370 (76%);100ML BOTTLE 80 ML IV (15:18)
[2024-05-16 15:19] LABS: Ethyl Alcohol < 10 mg/dl (0-10)
[2024-05-16 15:56] LABS: Activated Partial Thrombo Time 18.5 seconds (22.8-30.6)
[2024-05-16 16:50] LABS: Microscopic, Urine URINE MICROSCOPIC (MICROSCOPIC)
[2024-05-16 16:58] LABS: Appearance,Urine CLEAR (Clear); Bilirubin,Urine Negative (Negative); Blood, Urine Negative (Negative); Color,Urine YELLOW (Yellow); Glucose,Urine (UA) 3+ (Negative); Ketones,Urine Negative (Negative); Leukocyte Esterase,Urine 1+ (Negative); Nitrate,Urine Negative (Negative); Protein,Urine Negative (Negative)
[2024-05-16] MEDS: ASPIRIN 81MG CHEWABLE TABLET 324 MG PO (17:01)
[2024-05-16 17:04] LABS: Bacteria,Urine Trace /lpf
[2024-05-16 17:10] LABS: Benzodiazepines Screen,Urine Negative ng/ml (<200)
[2024-05-16 17:11] LABS: Amphetamine/Metha Screen,Urine Negative ng/ml (<1000); Barbiturates Screen,Urine Negative ng/ml (<200)
[2024-05-16 17:12] LABS: Cannabinoid Screen,Urine Negative ng/ml (<50)
[2024-05-16 17:13] LABS: Cocaine Screen,Urine Negative ng/ml (<300); Methadone Screen,Urine Negative ng/ml (<300)
[2024-05-16 17:14] LABS: Opiate Screen,Urine Negative ng/ml (<300); Phencyclidine Screen,Urine Negative ng/ml (<25)
--- NOTE | 2024-05-16 17:17 | PC.NURSE ---
report called to Collin @ [facility]
--- NOTE | 2024-05-16 18:30 | PC.NURSE ---
Rounded on pt. No needs voiced at this time. Call light remains within reach.
--- NOTE | 2024-05-16 19:19 | [facility].EDGENADL ---
Discharge Plan Disposition Patient Disposition: Xfer Short-Term Hosp Condition: Serious Prescriptions Prescriptions: No Action rivaroxaban 20 mg tablet 20 mg PO HS Qty: 30 5RF Rx Instructions: must administer with evening meal lisinopril 40 mg tablet 40 mg PO DAILY pravastatin 80 mg tablet 40 mg PO HS metformin 1,000 mg tablet 1,000 mg PO BID Patient Comments: Take 1 tablet twice a day by oral route for 90 days. diltiazem HCl 240 mg capsule,extended release 24hr 240 mg PO BID Patient Comments: TAKE ONE CAPSULE BY MOUTH EVERY DAY ezetimibe 10 mg tablet 10 mg PO DAILY Qty: 30 5RF Jardiance 25 mg tablet 25 mg PO DAILY Qty: 30 5RF bumetanide 1 mg tablet 1 mg PO BIDL 30 Days Qty: 90 1RF metoprolol succinate 50 mg tablet extended release 24 hr 50 mg PO DAILY Patient Comments: Take 1 tablet every day by oral route for 90 days. insulin glargine [Lantus Solostar U-100 Insulin] 100 unit/mL (3 mL) Insulin Pen 15 unit SQ HS 30 Days Qty: 0 0RF Referrals Follow up/Referrals: Tayla Kelley APRN [Primary Care Provider] - See instructions Stand Alone Forms Stand Alone Forms: Transfer Record - ED Print Language Print Language: [place]ese Discharge ED Provider: Janis Asencio General Adult HPI General Chief complaint: Weakness Stated complaint: weakness, won't take meds, confused Time Seen by Provider: 05/16/24 13:25 Mode of Arrival: Wheelchair Source of Information: Patient and Relative Limitations: Altered Mental Status Description of Symptoms (Recalled from ER Triage Doc. by RN): increased confusion,weakness History of Present Illness Onset (ago): day(s) (2) Location: face Severity: moderate Relieving factors: none Exacerbating factors: none Associated symptoms: denies other symptoms Treatments prior to arrival: none Related Data Home Medications ?Medication ?Instructions ?Recorded ?Confirmed lisinopril 40 mg tablet 40 mg PO DAILY 04/10/21 02/20/24 metoprolol succinate 50 mg 50 mg PO DAILY 12/03/23 02/20/24 tablet,extended release 24 hr diltiazem HCl 240 mg 240 mg PO BID 02/20/24 02/20/24 capsule,extended release 24 hr metformin 1,000 mg tablet 1,000 mg PO BID 02/20/24 02/20/24 pravastatin 80 mg tablet 40 mg PO HS 02/20/24 02/20/24 Previous Rx's ?Medication ?Instructions ?Recorded insulin glargine 100 unit/mL (3 15 unit (0.15 mL) SQ HS 30 days #0 12/11/23 mL) subcutaneous pen (Lantus mL Solostar U-100 Insulin) empagliflozin 25 mg tablet 25 mg PO DAILY #30 tabs 12/24/23 (Jardiance) rivaroxaban 20 mg tablet 20 mg PO HS #30 tabs 01/13/24 ezetimibe 10 mg tablet 10 mg PO DAILY #30 tabs 02/20/24 bumetanide 1 mg tablet 1 mg PO BIDL 30 days #90 tabs 04/20/24 Allergies Allergy/AdvReac Type Severity Reaction Status Date / Time No Known Allergies Allergy Verified 02/20/24 14:18 [facility] Disclaimer: The information contained in this section may have been updated after the patient was seen, as this information can be updated by other users. Medical History Dyspnea on exertion Heart failure with preserved ejection fraction DM (diabetes mellitus) Pneumonia Edema of larynx Pleural effusion, bilateral Coronary artery disease Atypical angina Afib Abnormal stress test HLD (hyperlipidemia) HTN (hypertension) Abnormal result of cardiovascular function study Dyspnea YOLANDE (obstructive sleep apnea) Surgical History History of hemorrhoidectomy History of hysterectomy Family History Other No significant family history Social History Smoking Status: Never smoker alcohol intake: current alcohol intake frequency: holidays/special occasions only current occupational status: other Travel in the last 8 weeks: None Physical Exam General General appearance: alert and in no apparent distress Medical Decision Making Vital Signs: 05/16/24 13:16 05/16/24 13:33 05/16/24 16:00 Temperature 98.3 F Temperature Source Oral Pulse Rate 98 H 101 H Pulse Rate [Right] 114 H Respiratory Rate 20 Blood Pressure 148/95 H 134/89 Blood Pressure [Right Arm] 148/95 H Blood Pressure Mean [Right Arm] 112 02 Sat by Pulse Oximetry 94 L 94 L 97 Oxygen Delivery Method Room Air Room Air 05/16/24 16:35 05/16/24 17:12 05/16/24 18:24 Temperature Temperature Source Pulse Rate 69 95 H 57 L Pulse Rate [Right] Respiratory Rate Blood Pressure 141/93 H 135/63 119/91 H Blood Pressure [Right Arm] Blood Pressure Mean [Right Arm] 02 Sat by Pulse Oximetry 91 L 91 L 96 Oxygen Delivery Method Room Air 05/16/24 18:30 Temperature Temperature Source Pulse Rate 102 H Pulse Rate [Right] Respiratory Rate Blood Pressure 132/86 Blood Pressure [Right Arm] Blood Pressure Mean [Right Arm] 02 Sat by Pulse Oximetry 93 L Oxygen Delivery Method Room Air Lab Data Lab Results 05/16/24 13:30: PT 10.6, INR 0.94, APTT 18.5 L, Sodium 139, Potassium 3.7, Chloride 105, Carbon Dioxide 25, Anion Gap 12.7, BUN 13, Creatinine 0.80, Estimated Creat Clear 72, Estimated GFR 69, Est GFR ( Amer) 84, Glucose 198 H, Calcium 9.9, Total Bilirubin 1.4 H, AST 32, ALT 22, Alkaline Phosphatase 65, Troponin I < 0.01, Total Protein 8.0, Albumin 4.4, Globulin 3.6 H, Albumin/Globulin Ratio 1.2, Triglycerides 236 H, Cholesterol 251 H, LDL Cholesterol Direct 138.45 H, VLDL Cholesterol 47 H, HDL Cholesterol 55, Cholesterol/HDL Ratio 4.6 H, Plasma/Serum Alcohol < 10 05/16/24 16:47: Urine Color Yellow, Urine Appearance Clear, Urine pH 7.0, Ur Specific [place] 1.010, Urine Protein Negative, Urine Glucose (UA) 3+, Urine Ketones Negative, Urine Blood Negative, Urine Nitrate Negative, Urine Bilirubin Negative, Urine Urobilinogen 2.0, Ur Leukocyte Esterase 1+ A, Urine RBC 3-5, Urine WBC 10-20, Ur Squamous Epith Cells 3-5, Urine Bacteria Trace, Urine Opiates Screen Negative, Urine Methadone Screen Negative, Ur Barbituates Screen Negative, Ur Phencyclidine Scrn Negative, Ur Amphetamines Screen Negative, U Benzodiazepines Scrn Negative, Urine Cocaine Screen Negative, U Marijuana (THC) Screen Negative 05/16/24 13:30 Orders (Tests/Meds): ED MEDICATIONS Generic Name Dose Route Start Last Admin Trade Name Marla PRN Reason Stop Dose Admin Sodium Chloride 10 ml 05/16/24 14:31 Sodium Chloride 0.9% 10ml Flush Syringe IV 06/15/24 14:30 NEEDED PRN Maintain IV Site Discontinued Medications Generic Name Dose Route Start Last Admin Trade Name Marla PRN Reason Stop Dose Admin Aspirin 324 mg 05/16/24 16:21 05/16/24 17:01 Aspirin 81mg Chewable Tablet PO 05/16/24 16:22 324 mg ONCE ONE Administration Iopamidol 80 ml 05/16/24 15:17 05/16/24 15:18 Iopamidol-370 (76%);100ml Bottle IV 05/16/24 15:18 80 ml ONCE ONE Administration Sodium Chloride 10 ml 05/16/24 15:17 05/16/24 15:18 Sodium Chloride 0.9% 10ml Syr (Rad Only) IV 05/16/24 15:18 10 ml ONCE ONE Administration Sodium Chloride 50 ml 05/16/24 15:17 05/16/24 15:18 0.9 % Sodium Chloride 50 Ml Vial IV 05/16/24 15:18 50 ml ONCE ONE Administration ORDERS Category Date Time Status CT angio head Stat Cat Scan 05/16/24 14:[address] angio neck Stat Cat Scan 05/16/24 14:[address] head/brain wo con Stat Cat Scan 05/16/24 14:31 Completed Activated Partial Thrombo Time Stat Lab 05/16/24 13:30 Completed Comprehensive Metabolic Panel Stat Lab 05/16/24 13:30 Completed Drug Screen,Urine Stat Lab 05/16/24 16:47 Completed Ethyl Alcohol Stat Lab 05/16/24 13:30 Completed Lipid Panel Stat Lab 05/16/24 13:30 Completed Prothrombin Time INR Stat Lab 05/16/24 13:30 Completed Troponin I Q3H Lab 05/16/24 17:45 Ordered Troponin I Q3H Lab 05/16/24 20:45 Ordered Troponin I Stat Lab 05/16/24 13:30 Completed Urinalysis and Microscopic Stat Lab 05/16/24 16:47 Completed Urine Culture Stat Micro 05/16/24 16:47 Received
--- NOTE | 2024-05-16 19:43 | PC.NURSE ---
patient repositioned and pure wic placed
--- NOTE | 2024-05-16 21:04 | PC.NURSE ---
called [facility] for the room number at this time.
== END 2024-05-16 21:09 | disposition short-term general hospital (02) ==
PROVIDERS: Physician Assistant; Emergency Provider Student in an Organized Health Care Education/Training Program; PCP Nurse Practitioner
DX: I63.9 Cerebral infarction, unspecified (principal); I48.91 Unspecified atrial fibrillation; E11.9 Type 2 diabetes mellitus without complications; Z79.4 Long term (current) use of insulin; Z79.84 Long term (current) use of oral hypoglycemic drugs; Z86.79 Personal history of other diseases of the circulatory system; I10 Essential (primary) hypertension; E78.5 Hyperlipidemia, unspecified
CPT/HCPCS: 70450; 70496; 70498; 80053; 80061; 80307; 80320; 81001; 84484; 85610; 85730; 87086; 93005; 99291; G0480; Q9967

== ENCOUNTER 2025-07-15 15:04 | Outpatient (CLI) | payer MEDICARE, MEDICAID, SELFPAY ==
--- OUTSIDE RECORDS SUMMARY | 2025-07-15 15:09 | XMS_ITS | Encounter Summary ---
Author Organization [employer] ([place], [place], [place], [place], [place]) Address [address] [place] [address] Care Team Providers Care Sewage Plant Attendant Name Role Phone Unavailable Primary Care Provider Unavailguy e Encounter Details Date Type Department Care Team (Late st Contact Info) Description 10/14/2018 Transcribed Document [facility] [place] [address] [place] [address] ProviderJessica MD [address] [place] [address] Social History Tobacco Use Types Packs/Day Years Used Date Smoking Tobacco: Never Assessed Comments Unknown Sex and Gender Information Value Date Recorded Sex Assigned at Female 02/27/2022 8:27 PM CDT Legal Sex Female 8:27 PM CDT Gender Identity Female 02/27/2022 8:27 PM CDT Sexual Orientation Not on file documented as of this encounter Miscellaneous Notes * Cerner Conversion Note - Jessica ProviderMD - 10/14/2018 10:36 AM POWERHOUSE MECHANIC SUPERVISOR Janet Main OR PreOp Summary Primary Physician: AMANDA KERN MD-OPT Finalized Date/Time: 10/15/18 08:42:28 Pt. Name: EVANGELINA DANIEL D.O.B./Sex: 1945 Female Med Rec #: [id number] Physician: AMANDA KERN MD-OPT Financial #: [id number] Pt. Type: O Room/Bed: Admit/Disch: 10/14/18 07:59:00 - 10/14/18 11:20:00 Institution: [facility] [place] PreOp Case Times Entry 1 In Preop 10/14/18 08:10:00 Ready for Holding n/a Room Patient Ready for 10/14/18 09:48:00 Surgery Patient Out of Preop 10/14/18 10:20:00 Patient Out of n/a Holding Room Last Modified By: GERSON ALVAREZ 10/15/18 08:42:28 SJJanet PreOp Case Times Audit 10/15/18 08:42:28 Master Barber: [id number] Modifier: [email or web address] <+> 1 Patient Out of Preop Finalized By: GERSON ALVAREZ Document Signatures Signed By: GERSON ALVAREZ 10/15/18 08:[address] Song [facility] Conversion Cannery Worker Cerner at 12/19/2022 9:37 PM CDT documented in this encounter Plan of Treatment Not on file documented as of this encounter Visit Diagnoses Not on filedocumented in this encounter
--- OUTSIDE RECORDS SUMMARY | 2025-07-15 15:09 | XMS_ITS | Encounter Summary ---
Author Organization [employer] ([place], [place], [place], [place], [place]) Address [address] [place] [address] Care Team Providers Care Cigarette And Filter Chief Inspector Name Role Phone Unavailable Primary Care Provider Unavailguy e Encounter Details Date Type Department Care Team (Late st Contact Info) Description 09/30/2018 Transcribed Document [facility] [place] [address] [place] [address] ProviderJessica MD [address] [place] [address] Social History Tobacco Use Types Packs/Day Years Used Date Smoking Tobacco: Never Assessed Comments Unknown Sex and Gender Information Value Date Recorded Sex Assigned at Female 02/27/2022 8:27 PM CDT Legal Sex Female 8:27 PM CDT Gender Identity Female 02/27/2022 8:27 PM CDT Sexual Orientation Not on file documented as of this encounter Miscellaneous Notes * Cerner Conversion Note - Historical ProviderMD - 09/30/2018 9:11 AM EDITING COMPUTER PUBLISHER Pediatric Growth Entered On: 09/30/2018 9:12 EST Performed On: 09/30/2018 9:11 EST by Amie Peña Patient Tone Regulator Height and Weight, Clinical Dosing Weight Source : Standing scale Weight Entry Format : [place] Clinical Dosing Weight : 100 kg Weight, Pounds : 220 lb Amie Pñea Patient Tone Regulator - 09/30/2018 9:11 EST Electronically signed by Song [facility] Conversion Silk Weaver Claribel at 12/19/2022 9:44 PM CDT documented in this encounter Plan of Treatment Not on file documented as of this encounter Visit Diagnoses Not on filedocumented in this encounter
--- OUTSIDE RECORDS SUMMARY | 2025-07-15 15:09 | XMS_ITS | Encounter Summary ---
Author Organization [employer] ([place], [place], [place], [place], [place]) Address [address] [place] [address] Care Team Providers Care Quality Systems Technician Name Role Phone Unavailable Primary Care Provider Luis e Encounter Details Date Type Department Care Team (Late st Contact Info) Description 09/30/2018 Transcribed Document [facility] [place] [facility] [place] [address] ProviderJessica MD [address] [place] [address] Social History Tobacco Use Types [...] Conversion Note - Historical ProviderMD - 09/30/2018 11:00 AM DIRECTOR VISUAL Pre Procedure Adult Entered On: 09/30/2018 11:04 EST Performed On: 09/30/2018 11:00 EST by Hanna Puga Rn Height and Weight, Clinical Dosing Height Source : Stated Height Entry Format : [place] Height, Feet : 5 ft(Converted to: 152 cm, 60 Inch) Height, Inches : 3.5 Inch(Converted to: 0 ft 4 Inch, 8.89 cm) Clinical Height : 161.29 cm Weight Source : Standing scale Weight Entry Format : [place] Clinical Dosing Weight : 100 kg Weight, Pounds : 220 lb Body Surface Area (BSA) : 2.03 m2 Body Mass Index : 38.4 kg/m2 (HI) [place] Body Weight : 53 kg Hanna Puga Rn - 09/30/2018 11:00 EST Health Histories Smoking Status : Never (less than 100 in lifetime; none in last 30 days) Smokeless Tobacco Status : Never Hanna Puga Rn - 09/30/2018 11:00 EST Social History (As Of: 09/30/2018 11:04:37 EST) Tobacco: Never (less than 100 in lifetime) Smoking Status. (Last Updated: 09/30/2018 11:00:40 EST by Hanna Puga Rn) Alcohol: Alcohol Use History No. (Last Updated: 09/30/2018 11:00:44 EST by Hanna Puga Rn) Substance Abuse: Drug Use Hx: No. (Last Updated: 09/30/2018 11:00:47 EST by Hanna Puga Rn) Infectious Disease History Infectious Disease History : None Fever/Chills Last 48 Hours : No Travel To Regions with Travel Advisories : No Travel Outside [place] Within Last 30 Days : No Contact With Traveler to Advisory Region : No Tuberculosis Symptoms : None Hanna Puga Rn - 09/30/2018 11:00 EST Anesthesia/Transfusion History Family History of Anesthesia Reaction : No prior transfusion(s) Transfusion History : Prior anesthesia without reaction Family History of Anesthesia Reaction : None Hanna Puga Rn - 09/30/2018 11:00 EST Functional Assessment Living Situation : Home Patient Lives With : Alone Persons Assisting Patient at Home : Sibling(s) Current Daily Living Assistance : None Sensory Deficits : None Mobility Assistance Prior to Admission : Independent ROMAN Hx Falls Immediate/Within 3 Months : No Current Home Treatments : CPAP Home Equipment : Cane, CPAP unit Professional Skilled Services : None Special Services and Community Resources : None Hanna Puga Rn - 09/30/2018 11:00 EST Psychosocial History Currently in Unsafe Situation : No Tried to Harm Yourself in the Past? : No Thoughts of Harming/Killing Yourself : No Hanna Puga Rn - 09/30/2018 11:00 EST Advance Directive Patient has Advance Directive *Q : No, patient refuses Advance Directive information Hanna Puga Rn - 09/30/2018 11:00 EST Spiritual/Cultural Needs Any Spiritual/Cultural Needs or Requests : No Hanna Puga Rn - 09/30/2018 11:00 EST Teaching/Learning Assessment Barriers To Learning : None evident Individuals Taught : Patient Readiness to Learn : Cooperative Readiness to Learn : Explanation Learning Style Preferences Patient : None Learning Style Preferences Family : None Hanna Puga Rn - 09/30/2018 11:00 EST Education Topics, Periop Preadmission Perioperative Education Grid Falls : Verbalizes understanding Incentive Spirometry : Verbalizes understanding IV's : Verbalizes understanding NPO Status/Directions : Verbalizes understanding Pain Management : Verbalizes understanding Postoperative Care Preparations : Verbalizes understanding Preprocedure Preparations : Verbalizes understanding Preprocedure Tests/Labs : Verbalizes understanding Hanna Puga Rn - 09/30/2018 11:00 EST General Info Arrived From : Home Mode of Arrival on Unit : Ambulatory Patient Arrival Date/Time : 09/30/2018 8:25 EST Legal Guardian : Sibling, Other: niece Want Family/Rep/Phys Notified of Admit : No Emergency Contact #1 : Chasidy Emergency Contact #1 Emergency Contact #1 Relationship : sister Emergency Contact #2 : none Emergency Contact #2 Phone Number : none Emergency Contact #2 Relationship : none Information Obtained From : Patient Primary Language : Senegalese Preferred Communication Mode : Verbal Communication Barrier : None Currently Lactating : No Status : N/A Hanna Puga Rn - 09/30/2018 11:00 EST Sleep Apnea Risk Assmt Hx of Obstructive Sleep Apnea Diagnosis : Yes BiPAP/CPAP Ordered for Home Use : Yes BiPAP/CPAP Used at Home : Yes BiPAP/CPAP Home Settings : unlcear Home BiPAP/CPAP Device With Patient : No Hanna Puga Rn - 09/30/2018 11:00 EST Mak Scale Mak Sensory Perception : No impairment Mak Moisture : Rarely moist Mak Activity : Walks occasionally Mak Mobility : Slightly limited Mak Nutrition : Adequate Mak Friction and Shear : No apparent problem Mak Score : 20 Hanna Puga Rn - 09/30/2018 11:00 EST Oxygen Therapy Oxygen Therapy Mode : Room air Hanna Puga Rn - 09/30/2018 11:00 EST Pain Assessment Pain Assessment : Initial assessment Pain Scale Goal : 4 Pain Scale Used : 0-10 Scale Hanna Puga Rn - 09/30/2018 11:00 EST Fall Risk Scales ABCs Fall Injury Risk Identification : None ROMAN Hx Falls Immediate/Within 3 Months : No Roman Secondary Diagnosis : No ROMAN Use of Ambulatory Aid : None ROMAN IV Therapy or IV Access : Yes Roman Gait/Transferring : Normal, bedrest, immobile Roman Mental Status : Oriented to own ability Roman Fall Risk Score : 20 ROMAN Fall Scale Risk Level : 0-24 Low Risk [place] Fall Interventions : Adequate lighting, Bed in low position, Call device within reach, Room free of clutter/spills, Upper side-rails up, Wheels locked Hanna Pgua Rn - 09/30/2018 11:00 EST Fall Risk Education Grid Call light use : Verbalizes understanding Nonskid Footwear Use : Verbalizes understanding Prevention Responsibility Patient : Verbalizes understanding Hanna Puga Rn - 09/30/2018 11:00 EST Barriers to Learning : None evident Individuals Taught : Patient Readiness to Learn : Cooperative Teaching Method : Explanation Learning Style Preferences Family : None Learning Style Preferences Patient : None Hanna Puga Rn - 09/30/2018 11:00 EST Education Topics, Day of Surgery DayofSurgery Education Grid Fall Risks : Verbalizes understanding Incentive Spirometry : Verbalizes understanding Infection Control : Verbalizes understanding Infection Risks : Verbalizes understanding IV's : Verbalizes understanding Medication Instructions : Verbalizes understanding Pain Management : Verbalizes understanding Plan of Care : Verbalizes understanding Hanna Puga Rn - 09/30/2018 11:00 EST Valuables and Belongings Valuables and Belongings : Clothing Clothing : Common streetwear Clothing Disposition : With family Hanna Puga Rn - 09/30/2018 11:00 EST Pain Scale Intensity : 0 Hanna Puga Rn - 09/30/2018 11:00 EST Image 4 - Images currently included in the form version of this document have not been included in the text rendition version of the form. Anil Coma [place] Best Motor Response : Obey commands [place] Best Verbal Response : Oriented Anil Eye Opening Response : Spontaneous Anil Coma Score : 15 Hanna Puga Rn - 09/30/2018 11:00 EST Electronically signed by Song [facility] Conversion Ice Cream Shop Associate Cerner at 12/19/2022 9:43 PM CDT documented in this encounter Plan of Treatment Not on file documented as of this encounter Visit Diagnoses Not on filedocumented in this encounter
--- OUTSIDE RECORDS SUMMARY | 2025-07-15 15:09 | XMS_ITS | Encounter Summary ---
Author Organization [employer] ([place], [place], [place], [place], [place]) Address [address] [place] [address] Care Team Providers Care Director Corporate Sales Name Role Phone Unavailable Primary Care Provider Unavailguy e Encounter Details Date Type Department Care Team (Late st Contact Info) Description 10/14/2018 Transcribed Document [facility] [place] [facility] [place] [address] ProviderJessica MD [address] [place] [address] Social History Tobacco Use Types [...] Cerner Conversion Note - Historical ProviderMD - 10/14/2018 9:15 AM DIAPER MACHINE TENDER Pre Procedure Adult Entered On: 10/14/2018 9:25 EST Performed On: 10/14/2018 9:15 EST by Saloni Gomez Rn Height and Weight, Clinical Dosing Height Source : Stated Height Entry Format : [place] Height, Feet : 5 ft(Converted to: 152 cm, 60 Inch) Height, Inches : 3 Inch(Converted to: 0 ft 3 Inch, 7.62 cm) Clinical Height : 160.02 cm Weight Source : Standing scale Weight Entry Format : [place] Clinical Dosing Weight : 100.45 kg Weight, Pounds : 221 lb Body Surface Area (BSA) : 2.02 m2 Body Mass Index : 39.2 kg/m2 (HI) [place] Body Weight : 52 kg Saloni Gomez Rn - 10/14/2018 9:15 EST Health Histories Smoking Status : Never (less than 100 in lifetime; none in last 30 days) Smokeless Tobacco Status : Never Implant/Device Type, Talent Development Consultant and Model : none Saloni Gomez Rn - 10/14/2018 9:15 EST Social History (As Of: 10/14/2018 09:25:56 EST) Tobacco: Never (less than 100 in [...] Region : No Tuberculosis Symptoms : None Saloni Gomez Rn - 10/14/2018 9:15 EST Anesthesia/Transfusion History Family History of Anesthesia Reaction : No prior transfusion(s) Transfusion History : Prior anesthesia without reaction Family History of Anesthesia Reaction : None Saloni Gomez Rn - 10/14/2018 9:15 EST Functional Assessment Living Situation : Home Patient Lives With : Alone Persons Assisting Patient at Home : Alone Current Daily Living Assistance : None Mobility Assistance Prior to Admission : Independent ROMAN Hx Falls Immediate/Within 3 Months : No Current Home Treatments : CPAP Home Equipment : None Professional Skilled Services : None Special Services and Community Resources : None Saloni Gomez Rn - 10/14/2018 9:15 EST Psychosocial History Currently in Unsafe Situation : No Tried to Harm Yourself in the Past? : No Thoughts of Harming/Killing Yourself : No Saloni Gomez Rn - 10/14/2018 9:15 EST Advance Directive Patient has Advance Directive *Q : No, patient refuses Advance Directive information Saloni Gomez Rn - 10/14/2018 9:15 EST Spiritual/Cultural Needs Any Spiritual/Cultural Needs or Requests : No Saloni Gomez Rn - 10/14/2018 9:15 EST Teaching/Learning Assessment Barriers To Learning : None evident Individuals Taught : Patient Readiness to Learn : Cooperative Readiness to Learn : Explanation Learning Style Preferences Patient : None Saloni Gomez Rn - 10/14/2018 9:15 EST Education Topics, Periop Preadmission Perioperative Education [place] : Verbalizes understanding Infection Control : Verbalizes understanding IV's : Verbalizes understanding NPO Status/Directions : Verbalizes understanding Pain Management : Verbalizes understanding Preprocedure Preparations : Verbalizes understanding Saloni Gomez Rn - 10/14/2018 9:15 EST General Info Arrived From : Home Mode of Arrival on Unit : Ambulatory Patient Arrival Date/Time : 10/14/2018 8:10 EST Legal Guardian : Sibling Want Family/Rep/Phys Notified of Admit : No Emergency Contact #1 : stefanie ortiz Emergency Contact #1 Phone Number : in waiting area Emergency Contact #1 Relationship : none Emergency Contact #2 : none Emergency Contact #2 Phone Number : none Emergency Contact #2 Relationship : none Chief Complaint : none Information Obtained From : Patient Primary Language : Grenadian Preferred Communication Mode : Verbal Communication Barrier : None Objects to Sharing Info w Family : No Status : N/A Saloni Gomez Rn - 10/14/2018 9:15 EST Sleep Apnea Risk Assmt Hx of Obstructive Sleep Apnea Diagnosis : Yes BiPAP/CPAP Ordered for Home Use : Yes BiPAP/CPAP Used at Home : Yes BiPAP/CPAP Home Settings : 3 Home BiPAP/CPAP Device With Patient : No STOP Sleep Apnea Risk Level : High Sleep Apnea Risk Comment : uses cpap Saloni Gomez Rn - 10/14/2018 9:15 EST Mak Scale Mak Sensory Perception : Slightly limited Mak Moisture : Rarely moist Mak Activity : Walks frequently Mak Mobility : No limitation Mak Nutrition : Adequate Mak Friction and Shear : No apparent problem Mak Score : 21 Saloni Gomez Rn - 10/14/2018 9:15 EST Oxygen Therapy Oxygen Therapy Mode : Room air Saloni Gomez Rn - 10/14/2018 9:15 EST Pain Assessment Pain Assessment : Initial assessment Pain Scale Goal : 4 Pain Scale Used : 0-10 Scale Saloni Gomez Rn - 10/14/2018 9:15 EST Fall Risk Scales ABCs Fall Injury [...] Scale Risk Level : 0-24 Low Risk [place] Fall Interventions : Adequate lighting, Bed in low position, Frequent orientation to call device, Personal items within reach, Wheels locked Saloni Gomez Rn - 10/14/2018 9:15 EST Fall Risk Education Grid Call light use : Verbalizes understanding Nonskid Footwear Use : Verbalizes understanding Saloni Gomez Rn - 10/14/2018 9:15 EST Barriers to Learning : None evident Individuals Taught : Patient Readiness to Learn : Cooperative Teaching Method : Explanation Learning Style Preferences Patient : None Saloni Gomez Rn - 10/14/2018 9:15 EST Education Topics, Day of Surgery DayofSurgery Education Grid Infection Control : Verbalizes understanding IV's : Verbalizes understanding Pain Management : Verbalizes understanding Plan of Care : Verbalizes understanding Saloni Gomez Rn - 10/14/2018 9:15 EST Valuables and Belongings Valuables and Belongings : Clothing Clothing : Common streetwear Clothing Disposition : With patient Saloni Gomez Rn - 10/14/2018 9:15 EST Pain Scale Intensity : 0 Saloni Gomez Rn - 10/14/2018 9:15 EST Image 4 - Images currently included in the form version of this document have not been included in the text rendition version of the form. [place] Coma [place] Best Motor Response : Obey commands [place] Best Verbal Response : Oriented Anil Eye Opening Response : Spontaneous [place] Coma Score : 15 Saloni Gomez Rn - 10/14/2018 9:15 EST documented in this encounter Plan of Treatment Not on file documented as of this encounter Visit Diagnoses Not on filedocumented in this encounter
--- OUTSIDE RECORDS SUMMARY | 2025-07-15 15:09 | XMS_ITS | Encounter Summary ---
Author Organization [employer] ([place], [place], [place], [place], [place]) Address [address] [place] [address] Care Team Providers Care Youth Leader Name Role Phone Unavailable Primary Care Provider Unavailguy e Encounter Details Date Type Department Care Team (Late st Contact Info) Description 10/14/2018 Transcribed Document [facility] [place] [facility] [place] [address] ProviderJessica MD [address] [place] [address] Social History Tobacco Use Types [...] - Jessica ProviderMD - 10/14/2018 10:36 AM COLOR RECEIVER ESTIVEN Main OR PostOp Summary Primary Physician: AMANDA KERN MD-OPT Finalized Date/Time: 10/14/18 12:07:28 Pt. Name: EVANGELINA DANIEL D.O.B./Sex: 1945 Female Med Rec #: [id number] Physician: AMANDA KERN MD-OPT Financial #: [id number] Pt. Type: O Room/Bed: Admit/Disch: 10/14/18 07:59:00 - Institution: [facility] [place] PostOp Case Times Entry 1 In PACU II 10/14/18 10:54:00 Ready for PACU II 10/14/18 11:20:00 Discharge Discharge from PACU 10/14/18 11:20:00 II Last Modified By: PILAR SIU RN 10/14/18 12:07:17 Finalized By: PILAR SIU RN Document Signatures Signed By: PILAR SIU RN 10/14/18 12:07 Electronically signed by Song [facility] Conversion Mortgage Loan Specialist Cerner at 12/19/2022 9:46 PM CDT documented in this encounter Plan of Treatment Not on file documented as of this encounter Visit Diagnoses Not on filedocumented in this encounter
--- OUTSIDE RECORDS SUMMARY | 2025-07-15 15:09 | XMS_ITS | Encounter Summary ---
Author Organization [employer] ([place], [place], [place], [place], [place]) Address [address] [place] [address] Care Team Providers Care Truck And Transport Mechanic Name Role Phone Unavailable Primary Care Provider Luis e Encounter Details Date Type Department Care Team (Late st Contact Info) Description 10/14/2018 Transcribed Document [facility] [place] [facility] [address] ProviderJessica MD [address] [place] [address] Social History Tobacco Use Types [...] Conversion Note - Historical ProviderMD - 10/14/2018 10:53 AM RESERVE OPERATOR DATE OF PROCEDURE: 10/14/2018 PREOPERATIVE DIAGNOSIS(ES): Dense cataract, left eye, H25.812. POSTOPERATIVE DIAGNOSIS(ES): Dense cataract, left eye, H25.812. PROCEDURE: Phacoemulsification with posterior chamber intraocular lens implant, left eye. SURGEON: Edis Licea MD ANESTHESIA: Topical. COMPLICATIONS: None. INDICATIONS FOR SURGERY: The patient is a healthy and active 73-year-old who has noted progressively deteriorating visual acuity in the left eye to its best corrected visual acuity is 20/50. Examination revealed a visually significant cataract. Because of the dense cataract, the patient was admitted for phacoemulsification and posterior chamber intraocular lens implant, left eye. The risks, benefits, alternatives, indications, contraindications, expectations and complications have been fully explained to the patient and he/she wishes to proceed. OPERATIVE REPORT: While in the preoperative area, 4% nonpreserved lidocaine was applied topically to the eye. The patient was then wheeled into the operating room where the left eye was prepped and draped in the usual sterile fashion. A wire lid speculum was placed in the left eye. The microscope was set up for a temporal approach. Using the keratome blade, a limbal-corneal incision was made at the limbus, at the appropriate point. The anterior chamber was entered with the 15-blade for the secondary incision. Viscoelastic was instilled into the anterior chamber. The anterior capsulotomy was carried out in a capsulorrhexis fashion with the cystotome and Utrata forceps. Hydrodissection and hydrodelineation were carried out with the blunt 27-gauge cannula. The nucleus was then emulsified in a [id number] fashion. Following nuclear removal, the cortex was removed using the automated irrigating and aspirating device. Following cortical cleanup, an Philippe model SN60WF 24.0 power posterior chamber intraocular lens was brought into the operative field, and inserted into the inserting device. The implant was placed into the posterior capsular bag. The viscoelastic was removed using the automated irrigating and aspirating device. BSS was instilled into the anterior chamber via the paracentesis to ensure that the limbal incision was watertight. Once it was assured incision was water-tight, the aqueous was replaced with Moxifloxacin 160 micrograms/mL of BSS, and Durezol was applied topically to the eye. The patient tolerated the procedure well. There were no complications. Edis Licea M.D. Dict: 10/14/2018 10:53:13 Trans: 10/14/2018 12:20:57 CC1: Edis Licea M.D. documented in this encounter Plan of Treatment Not on file documented as of this encounter Visit Diagnoses Not on filedocumented in this encounter
--- OUTSIDE RECORDS SUMMARY | 2025-07-15 15:09 | XMS_ITS | Encounter Summary ---
Author Organization [employer] ([place], [place], [place], [place], [place]) Address [address] [place] [address] Care Team Providers Care Revenue Cycle Specialist Name Role Phone Unavailable Primary Care Provider Unavailguy e Encounter Details Date Type Department Care Team (Late st Contact Info) Description 09/30/2018 Transcribed Document [facility] [place] Family Medicine [address] [place] [address] ProviderJessica MD [address] [place] [address] Social History Tobacco Use Types [...] Cerner Conversion Note - Jessica ProviderMD - 09/30/2018 12:43 PM R&D ENGINEER [facility] Main OR PostOp Summary Primary Physician: AMANDA KERN MD-OPT Finalized Date/Time: 09/30/18 13:45:31 Pt. Name: EVANGELINA DANIELO.B./Sex: 1945 Female Med Rec #: [id number] Physician: AMANDA KERN MD-OPT Financial #: [id number] Pt. Type: O Room/Bed: Admit/Disch: 09/30/18 08:14:00 - [place] [facility] [place] PostOp Case Times Entry 1 In PACU II 09/30/18 13:00:00 Ready for PACU II 09/30/18 13:45:00 Discharge Discharge from PACU 09/30/18 13:45:00 II Last Modified By: Marcelle Kaba Rn 09/30/18 13:45:30 [facility] Main OR PostOp Case Times Audit 09/30/18 13:45:30 Television News Producer: DAMIÁNAYANNA Modifier: DAMIÁNAYANNA <+> 1 Ready for PACU II Discharge <+> 1 Discharge from PACU II Finalized By: Marcelle Kaba, Rn Document Signatures Signed By: Marcelle Kaba Rn 09/30/18 13:45 Electronically signed by Song [facility] Conversion Mechanical Product Design Engineer Cerner at 12/19/2022 9:36 PM CDT documented in this encounter Plan of Treatment Not on file documented as of this encounter Visit Diagnoses Not on filedocumented in this encounter
--- OUTSIDE RECORDS SUMMARY | 2025-07-15 15:09 | XMS_ITS | Clinical Summary ---
Author Organization [employer] ([place], [place], [place], [place], [place]) Address [address] [place] [id number] Care Team Providers Care Pipe Stem Sawyer Name Role Phone Unavailable Primary Care Provider Unavailabl e Social History Tobacco Use Types Packs/Day Years Used Date Smoking Tobacco: Never Assessed Comments Unknown Sex and Gender Information Value Date Recorded Sex Assigned at Female 02/27/2022 8:27 PM CDT Legal Sex Female 8:27 PM CDT Gender Identity Female 02/27/2022 8:27 PM CDT Sexual Orientation Not on file Plan of Treatment Not on file
--- OUTSIDE RECORDS SUMMARY | 2025-07-15 15:09 | XMS_ITS | Encounter Summary ---
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 Name: MADISYNBHARATHIREILLY MCCARTNEY /Sex: 1945 Female Med Rec #: [id number] Physician: AMANDA KERN MD-OPT Financial #: [id number] Pt. Type: O Room/Bed: Admit/Disch: 10/14/18 07:59:00 - Institution: [facility] IntraOp Case Attendance Entry 1 Entry 2 Entry 3 Case Attendee AMANDA KERN MD-OPT AMEE LAM RN Cutwright, Shawsta, RN Role Performed Surgeon/Proceduralist, Rn Chemical Dependency, First Monitor RN First Time In 10/14/18 10:22:00 10/14/18 10:22:00 10/14/18 10:22:00 Time Out 10/14/18 10:52:00 10/14/18 10:52:00 10/14/18 10:52:00 Procedure Cataract Extraction w Cataract Extraction w Cataract Extraction w Intraocular Lens I Intraocular Lens I Intraocular Lens I Other Attendee Superficial Wound Closed By: Last Modified By: AMEE LAM RN MITCHUSON, RHONDA, RN MITCHUSON, RHONDA, TACOS 10/14/18 10:52:34 10/14/18 10:52:34 10/14/18 10:52:34 Entry 4 Case Attendee Cherise Bradley, Vice President Fixed Income Cert Role Performed Scrub, First Time In 10/14/18 10:22:00 Time Out 10/14/18 10:52:00 Procedure Cataract Extraction w Intraocular Lens I Other Attendee Superficial Wound Closed By: Last Modified By: AMEE LAM RN 10/14/18 10:52:34 [facility] IntraOp Case Attendance Audit 10/14/18 10:52:34 Java Front End Web Developer: [email or web address] Modifier: [email or web address] 1 <+> Time Out 1 <*> Procedure Cataract Extraction w Intraocular Lens I 2 <+> Time In 2 <+> Time Out 2 <*> Procedure Cataract Extraction w Intraocular Lens I 3 <+> Time In 3 <+> Time Out 3 <*> Procedure Cataract Extraction w Intraocular Lens I 4 <+> Time In 4 <+> Time Out 4 <*> Procedure Cataract Extraction w Intraocular Lens I [facility] IntraOp Case Times Entry 1 Patient In Room Time 10/14/18 10:22:00 Out Room Time 10/14/18 10:52:00 Anesthesia Start Time 10/14/18 10:22:00 Stop Time 10/14/18 10:52:00 Surgery / Procedure Times Start Time 10/14/18 10:36:00 Stop Time 10/14/18 10:49:00 Last Modified By: AMEE LAM RN 10/14/18 10:52:26 [facility] IntraOp Case Times Audit 10/14/18 10:52:26 Java Front End Web Developer: [email or web address] Modifier: [email or web address] <+> 1 Out Room Time <+> 1 Stop Time 10/14/18 10:49:34 Java Front End Web Developer: [email or web address] Modifier: [email or web address] <+> 1 Stop Time [facility] IntraOp Communication Entry 1 Communication To Family/Significant other Comment COMMUNICATION BOARD Last Modified By: AMEE LAM RN 10/14/18 10:40:04 [facility] IntraOp Counts Verification Entry 1 Procedure Cataract Extraction w Intraocular Lens I Count Info Count Type Sharps Counts Verification Baseline/pre-procedure Sequence Counts Performed By Count Performed By Cherise Bradley, Surgical (Scrub) Autocad Designer Cert Count Performed By AMEE LAM RN (RN) Last Modified By: AMEE LAM RN 10/14/18 10:40:19 [facility] IntraOp Counts Final Entry 1 Procedure Cataract Extraction w Intraocular Lens I Final Count Info Count Type Sharps Counts Verification Skin Closure/end of Sequence procedure Count Results Correct, surgeon notified Counts Performed By Count Performed By Cherise Bradley, Surgical (Scrub) Autocad Designer Cert Count Performed By AMEE LAM RN (RN) Last Modified By: AMEE LAM RN 10/14/18 10:48:57 [facility] IntraOp Departure from OR Entry 1 Integumentary Assessment Integumentary WDL Assessment WDL Transfer/Handoff Transfer to Ambulatory unit, Phase II Handoff Method Bedside/Face to face Post-op Transport Stretcher/Gurney Via Patient Transport Jennifer Swanson RN Accompanied by Last Modified By: AMEE LAM RN 10/14/18 10:43:18 [facility] IntraOp Fire Risk Assessment Entry 1 Fire Info Surgical Site or 1- Yes Incision Above the Xyphoid Open O2 Source 1- Yes (Mask or Cannula) Available Ignition 0- No (ESU, Laser, Light Source) Fire Risk 2 Assessment Score Fire Score Fire Risk Yes Assessment Complete Fire Risk AMEE LAM RN Assessment Verified By Fire Risk 10/14/18 10:35:00 Assessment Verified Date/Time Fire Risk High Risk Protocol Yes Implemented Standard Fire Yes Safety Precautions Followed Last Modified By: AMEE LAM RN 10/14/18 10:40:37 [facility] IntraOp General Case Acid Tank Cleaner 1 Case Information OR OR 09 SJE Case Level 1 Room Verified Yes Wound Class I - Clean Specialty SN Ophthalmology Anesthesia Type Moderate Sedation ASA Class 2 Diagnosis Preop Diagnosis CATARACT OS Postop Same As Preop Yes Postop Diagnosis CATARACT OS Last Modified By: AMEE LAM RN 10/14/18 10:41:08 [facility] IntraOp Implant Log Entry 1 Type Implant (Synthetic) Implant Log Implant Type Lens Implant IOL ACRYSOF MELODY 6.0 13 Identification [id number] Description Implant Quantity 1 Implant Site OS Implant [id number] Identification Serial Number Implant Philippe Lab:Surg Identification Industrial Garage Servicer Name: Implant [id number] Identification Catalog Number Implant Has an Yes Expiration Date Implant Expiration 09/01/22 Date Tissue Implant Last Modified By: AMEE LAM RN 10/14/18 10:48:29 [facility] IntraOp Intraoperative Assessment Entry 1 Handoff Method Other Valid History / Yes Physical in Chart Preoperative Yes Checklist Reviewed/Evaluated Allergies Reviewed Yes Patient is Latex No Sensitive Isolation Not applicable Precautions Noted Level of WDL Consciousness (WDL = Alert, Oriented to Person, Place, and Time) Skin Assessment Yes Verified Present Upon IVs Arrival to OR Last Modified By: AMEE LAM RN 10/14/18 10:41:12 [facility] IntraOp Intraoperative Equipment Entry 1 Equipment Equipment Phacoemulsification ID Number INFINITY #1 Intraop Monitoring Electrocardiogram Three lead placement (ECG) Electrode Placement Blood Pressure Non-Invasive BP Device Source Antiembolic Devices Scopes Photo/Video Documentation Photo No Video No Last Modified By: AMEE LAM RN 10/14/18 10:41:58 [facility] IntraOp Medication Admin Entry 1 Entry 2 Entry 3 Medication/Irrigant epinephrine 1mg/ml amp tetracaine hcl 0.5% 2ml BSS 15ml - [id number] - [id number] ophthalmic solution - [id number] Combo Med List 1 - Combo Med Time Administered Route of INTRAOCCULAR TOPICAL topical Administration Dose Dose 0.3 Unit of Measure ml drops drops Volume QS QS QS Administered By AMANDA KERN MD-OPT AMANDA KERN MD-OPT Cherise Bradley, Vice President Fixed Income Cert Procedure Irrigation Irrigant Volume In Irrigant Volume Out Last Modified By: AMEE LAM RN MITCHUSON, RHONDA, RN MITCHUSON, RHONDA, RN 10/14/18 10:42:56 10/14/18 10:42:56 10/14/18 10:42:56 Entry 4 Entry 5 Entry 6 Medication/Irrigant Duovisc ophthalmic BSS Plain 500ml - difluprednate 0.4ml - [id number] ophthalmic 0.05% drops Combo Med List 1 - Combo Med Time Administered Route of INTRAOCCULAR INTRAOCCULAR TOPICAL Administration Dose Dose Unit of Measure ml drops Volume QS QS QS Administered By AMANDA KERN MD-OPT GARRETT, DAVID T, MD-OPT GARRETT, DAVID T, MD-OPT Procedure Irrigation Irrigant Volume In Irrigant Volume Out Last Modified By: AMEE LAM RN MITCHUSON, RHONDA, AMEE ROGERS RN 10/14/18 10:42:56 10/14/18 10:42:57 10/14/18 10:42:57 Entry 7 Medication/Irrigant Vigamox 0.5% ophthalmic solution - [id number] Combo Med List Time Administered Route of INTRAOCCULAR Administration Dose Dose Unit of Measure Volume QS Administered By AMANDA KERN MD-OPT Procedure Irrigation Irrigant Volume In Irrigant Volume Out Last Modified By: AMEE LAM RN 10/14/18 10:42:57 General Comments: LIDOCAINE 1% INTRAOCULAR OS PER DR CONCHA JEAN-BAPTISTE IntraOp Medication Admin Audit 10/14/18 10:42:57 Java Front End Web Developer: [email or web address] Modifier: [email or web address] 5 <*> Volume 5 <*> Volume 5 <*> Administered By AMANDA KERN MD-OPT 5 <*> Administered By AMANDA KERN MD-OPT 5 <*> Unit of Measure 5 <*> Unit of Measure 6 <*> Medication/Irrigant 6 <*> Medication/Irrigant 6 <*> Route of Administration 6 <*> Route of Administration 6 <*> Volume 6 <*> Volume 6 <*> Administered By AMANDA KERN MD-OPT 6 <*> Administered By AMANDA KERN MD-OPT 6 <*> Unit of Measure 6 <*> Unit of Measure 7 <*> Medication/Irrigant Vigamox 0.5% ophthalmic solution - [id number] 7 <*> Medication/Irrigant Vigamox 0.5% ophthalmic solution - [id number] 7 <*> Route of Administration 7 <*> Route of Administration 7 <*> Volume 7 <*> Volume 7 <*> Administered By AMANDA KERN MD-OPT 7 <*> Administered By AMANDA KERN MD-OPT [facility] IntraOp Patient Positioning Entry 1 Procedure Cataract Extraction w Intraocular Lens I Body Position Supine Left Arm Position Resting at side Right Arm Position Resting at side Left Leg Position Uncrossed, parallel Right Leg Position Uncrossed, parallel Position Comments PT REMAINED ON EYE STRETCHER IN BILATERAL WRIST RESTRAINTS WITH PILLOW UNDER KNEES. Feet Uncrossed Yes Pressure Points Yes Checked Positioning Devices Pillows, Soft Cuff Straps Device Position HEAD ON PADDED HEADREST. ARMS ADDUCTED TO SIDES. PILLOW UNDER KNEES. Positioned By AMEE LAM RN, Jennifer Swanson RN Position Verified Positioning Yes Verified by Anesthesia Positioning Yes Verified by Surgeon Last Modified By: AMEE LAM RN 10/14/18 10:42:01 [facility] IntraOp Sign In Entry 1 Patient, Site, Yes Procedure Identified Surgical Consent Yes Confirmed Relevant Surgical Yes Documents Available Surgical Site Yes Marked by person performing procedure Anesthesia Machine Yes Check Completed Medication Checks Yes Completed Allergies No Airway Difficult No Airway/Aspiration Risk Difficult Yes Airway/Aspiration Intervention Equipment Available Blood Loss Risk No Blood Loss Yes Intervention Equipment Prepared and Ready Blood Identifiers Not applicable Verified Per Policy Hypothermia Risk Yes Warming Measures Yes Taken Last Modified By: AMEE LAM RN 10/14/18 10:42:05 [facility] Intra Op Sign Out Entry 1 RN Confirmation Surgical Yes Procedure(s) Identified Instrument, Sponge Yes and Sharps Counts Correct/Documented Equipment Problems N/A Documented Specimen Labeled N/A Correctly Urinary Catheter N/A Documented in IView Waldrop Patient Yes Recovery Concerns Reviewed with Anesthesia Provider, Surgeon and RN Waldrop Patient Yes Management Concerns Reviewed with Anesthesia Provider, Surgeon and RN Safety Checklist Yes Elements Complete? RN Sign Out AMEE LAM RN Signature RN Sign Out 10/14/18 10:52:00 Signature Date/Time Plan of Care Outcome - Fire Risk OUTCOME STATEMENT: Goal met Patient is free from injury related to surgical fire Plan of Care Outcome - Pt Positioning OUTCOME STATEMENT: Goal met Absence of signs and symptoms of positioning injury. Plan of Care Outcome - Skin Prep OUTCOME STATEMENT: Goal met Intraoperative care is consistent with measures to prevent infection Plan of Care Outcome - Xray/Images OUTCOME STATEMENT: N/A Absence of observable signs or symptoms of radiation injury Plan of Care Outcome - Counts OUTCOME STATEMENT: Goal met Absence of signs and symptoms of injury related to extraneous objects Last Modified By: AMEE LAM RN 10/14/18 10:52:30 [facility] Intra Op Sign Out Audit 10/14/18 10:52:30 Java Front End Web Developer: [email or web address] Modifier: [email or web address] <+> 1 RN Sign Out Signature Date/Time [facility] IntraOp Skin Prep Entry 1 Procedure Cataract Extraction w Intraocular Lens I Prescribed Yes Pre-Surgical Prep Completed Prep Area OPERATIVE EYE Intraop Prep Integumentary WDL Assessment WDL Prep Agents Betadine solution Prep by AMEE LAM RN Skin Prep Comment 5% BETADINE Hair Removal Methods No hair removal performed Last Modified By: AMEE LAM RN 10/14/18 10:42:12 [facility] IntraOp Skin Prep Audit 10/14/18 10:42:12 Java Front End Web Developer: [email or web address] Modifier: [email or web address] <+> 1 Methods <+> 1 Prep by <+> 1 Skin Prep Comment [facility] IntraOp Surgical Procedures Entry 1 Procedure Cataract Extraction w Intraocular Lens Implant Additional CATARACT EXTRACTION Procedure WITH IOL OS Description Primary Procedure Yes Primary Surgeon AMANDA KERN MD-OPT Start 10/14/18 10:36:00 Stop 10/14/18 10:49:00 Anesthesia Type Moderate Sedation Specialty SN Ophthalmology Wound Class I - Clean Last Modified By: AMEE LAM RN 10/14/18 10:49:40 [facility] IntraOp Surgical Procedures Audit 10/14/18 10:49:40 Java Front End Web Developer: [email or web address] Modifier: [email or web address] 1 <*> Procedure Cataract Extraction w Intraocular Lens Implant 1 <+> Stop [facility] IntraOp Time Out Entry 1 Procedure to be Cataract Extraction w Performed Intraocular Lens I Time Out Time Out Pause Time 10/14/18 10:35:00 All activity Yes suspended (unless life threatening emergency) Team Verbally Correct patient Confirms Information identity, Correct side and site are marked, Consent form is present and accurate, Agreement on the procedure to be done, Correct patient position, Confirm the skin prep has dried, Confirm prosthesis/implant/devic e is present, Performed in location of procedure after prepped/draped Antibiotic N/A Prophylaxis Administered Or In Progress Within the Last 60 Minutes Beta Daiana N/A Administered Venous N/A Thromboembolism Prophylaxis Required Anticipated Critical Events Surgeon None expected Last Modified By: AMEE LAM RN 10/14/18 10:39:13 Case Comments <None> Finalized By: AMEE LAM, RN Document Signatures Signed By: AMEE LAM RN 10/14/18 10:52 documented in this encounter Plan of Treatment Not on file documented as of this encounter Visit Diagnoses Not on filedocumented in this encounter
--- OUTSIDE RECORDS SUMMARY | 2025-07-15 15:09 | XMS_ITS | Encounter Summary ---
Author Organization [employer] ([place], [place], [place], [place], [place]) Address [address] [place] [address] Care Team Providers Care Manager Performance Improvement Name Role Phone Unavailable Primary Care Provider Unavailguy e Encounter Details Date Type Department Care Team (Late st Contact Info) Description 09/30/2018 Transcribed Document [facility] [place] [address] [place] [address] ProviderJessica MD [address] [place] [address] Social History Tobacco Use Types [...] Conversion Note - Historical ProviderMD - 09/30/2018 12:43 PM INWARD TOLL OPERATOR [facility]IV[facility] Main OR PreOp Summary Primary Physician: AMANDA KERN MD-OPT Finalized Date/Time: 09/30/18 13:33:49 Pt. Name: EVANGELINA DANIELO.B./Sex: 1945 Female Med Rec #: [id number] Physician: AMANDA KERN MD-OPT Financial #: [id number] Pt. Type: O Room/Bed: Admit/Disch: 09/30/18 08:14:00 - [place] [facility] [place] Case Times Entry 1 In Preop 09/30/18 08:25:00 Ready for Holding n/a Room Patient Ready for 09/30/18 11:08:00 Surgery Patient Out of Preop 09/30/18 12:27:00 Patient Out of n/a Holding Room Last Modified By: GERSON ALVAREZ 09/30/18 13:33:45 [facility] PreOp Case Times Audit 09/30/18 13:33:45 Die Casting Supervisor: [email or web address] Modifier: [email or web address] <+> 1 Patient Out of Preop 09/30/18 11:08:02 Die Casting Supervisor: [email or web address] Modifier: [email or web address] <+> 1 Patient Ready for Surgery Finalized By: GERSON ALVAREZ Document Signatures Signed By: GERSON ALVAREZ 09/30/18 13:33 Electronically signed by Song [facility] Conversion Athletic Coordinator Cerner at 12/19/2022 9:38 PM CDT documented in this encounter Plan of Treatment Not on file documented as of this encounter Visit Diagnoses Not on filedocumented in this encounter
--- OUTSIDE RECORDS SUMMARY | 2025-07-15 15:09 | XMS_ITS | Encounter Summary ---
Author Organization [employer] ([place], [place], [place], [place], [place]) Address [address] [place] [id number] Care Team Providers Care Writer Technical Publications Name Role Phone Unavailable Primary Care Provider Unavailguy e Encounter Details Date Type Department Care Team (Late st Contact Info) Description 09/30/2018 Transcribed Document [facility] [place] Family Medicine [address] [place] [address] ProviderJessica MD [address] [place] [address] Social History Tobacco Use Types [...] - Jessica ProviderMD - 09/30/2018 12:43 PM DUAL RATE SUPERVISOR [facility] Main OR IntraOp Summary Primary Physician: AMANDA KERN MD-OPT Finalized Date/Time: 09/30/18 12:59:10 Pt. Name: EVANGELINA DANIEL /Sex: 1945 Female Med Rec #: [id number] Physician: AMANDA KERN MD-OPT Financial #: [id number] Pt. Type: O Room/Bed: Admit/Disch: 09/30/18 08:14:00 - Institution: [facility] IntraOp Case Attendance Entry 1 Entry 2 Entry 3 Case Attendee AMANDA KERN MD-OPT AMEE LAM, ABILIO IZAGUIRRE, TACOS Role Performed Surgeon/Proceduralist, Manager Community, First Monitor RN First Time In 09/30/18 12:32:00 09/30/18 12:32:00 09/30/18 12:32:00 Time Out 09/30/18 12:58:00 09/30/18 12:58:00 09/30/18 12:58:00 Procedure Cataract Extraction w Cataract Extraction w Cataract Extraction w Intraocular Lens I Intraocular Lens I Intraocular Lens I Other Attendee Superficial Wound Closed By: Last Modified By: AMEE LAM, AMEE ROGERS RN MITCHUSON, RHONDA, TACOS 09/30/18 12:59:06 09/30/18 12:59:06 09/30/18 12:59:06 Entry 4 Case Attendee Cherise Bradley, Certified Caregiver Cert Role Performed Scrub, First Time In 09/30/18 12:32:00 Time Out 09/30/18 12:58:00 Procedure Cataract Extraction w Intraocular Lens I Other Attendee Superficial Wound Closed By: Last Modified By: AMEE LAM RN 09/30/18 12:59:06 [facility] IntraOp Case Attendance Audit 09/30/18 12:59:06 Caponizer: [email or web address] Modifier: [email or web address] 1 <+> Time Out 1 [...] Times Entry 1 Patient In Room Time 09/30/18 12:32:00 Out Room Time 09/30/18 12:58:00 Anesthesia Start Time 09/30/18 12:32:00 Stop Time 09/30/18 12:58:00 Surgery / Procedure Times Start Time 09/30/18 12:43:00 Stop Time 09/30/18 12:55:00 Last Modified By: AMEE LAM RN 09/30/18 12:59:00 [facility] IntraOp Case Times Audit 09/30/18 12:59:00 Caponizer: [email or web address] Modifier: [email or web address] <+> 1 Out Room Time <+> 1 Stop Time 09/30/18 12:55:56 Caponizer: [email or web address] Modifier: [email or web address] <+> 1 Stop Time [facility] IntraOp Communication Entry 1 Communication To Family/Significant other Comment COMMUNICATION BOARD Last Modified By: AMEE LAM RN 09/30/18 12:45:10 [facility] IntraOp Counts Verification Entry 1 Procedure Cataract Extraction w Intraocular Lens I Count Info Count Type Sharps Counts Verification Baseline/pre-procedure Sequence Counts Performed By Count Performed By Cherise Bradley, Surgical (Scrub) Assembler Watch Train Cert Count Performed By AMEE LAM RN (RN) Last Modified By: AMEE LAM RN 09/30/18 12:45:24 [facility] IntraOp Counts Final Entry 1 Procedure Cataract Extraction w Intraocular Lens I Final Count Info Count Type Sharps Counts Verification Skin Closure/end of Sequence procedure Count Results Correct, surgeon notified Counts Performed By Count Performed By Cherise Bradley, Surgical (Scrub) Assembler Watch Train Cert Count Performed By AMEE LAM RN (RN) Last Modified By: AMEE LAM RN 09/30/18 12:52:47 [facility] IntraOp Departure from OR Entry 1 Integumentary Assessment Integumentary WDL Assessment WDL Transfer/Handoff Transfer to Ambulatory unit, Phase II Handoff Method Bedside/Face to face Post-op Transport Stretcher/Gurney Via Patient Transport ABILIO ATWOOD RN Accompanied by Last Modified By: AMEE LAM RN 09/30/18 12:45:32 [facility] IntraOp Fire Risk Assessment Entry 1 Fire Info Surgical Site or 1- Yes Incision Above the Xyphoid Open O2 Source 1- Yes (Mask or Cannula) Available Ignition 0- No (ESU, Laser, Light Source) Fire Risk 2 Assessment Score Fire Score Fire Risk Yes Assessment Complete Fire Risk AMEE LAM RN Assessment Verified By Fire Risk 09/30/18 12:43:00 Assessment Verified Date/Time Fire Risk High Risk Protocol Yes Implemented Standard Fire Yes Safety Precautions Followed Last Modified By: AMEE LAM RN 09/30/18 12:45:44 [facility] IntraOp General Case Hemstitching Machine Operator 1 Case Information OR OR 09 SJE Case Level 1 Room Verified Yes Wound Class I - Clean Specialty SN Ophthalmology Anesthesia Type Moderate Sedation ASA Class 3 Diagnosis Preop Diagnosis CATARACT OD Postop Same As Preop Yes Postop Diagnosis CATARACT OD Last Modified By: AMEE LAM RN 09/30/18 12:45:59 [facility] IntraOp Implant Log Entry 1 Type Implant (Synthetic) Implant Log Implant Type Lens Implant IOL ACRYSOF MELODY 6.0 13 Identification [id number] Description Implant Quantity 1 Implant Site OD Implant [id number] Identification Serial Number Implant Philippe Lab:Surg Identification Internet Cafe Manager Name: Implant [id number] Identification Catalog Number Implant Has an Yes Expiration Date Implant Expiration 09/01/21 Date Tissue Implant Last Modified By: AMEE LAM RN 09/30/18 12:52:29 [facility] IntraOp Intraoperative Assessment Entry 1 Handoff Method Other Valid History / Yes Physical in Chart Preoperative Yes Checklist Reviewed/Evaluated Allergies Reviewed Yes Patient is Latex No Sensitive Isolation Not applicable Precautions Noted Level of WDL Consciousness (WDL = Alert, Oriented to Person, Place, and Time) Skin Assessment Yes Verified Present Upon IVs Arrival to OR Last Modified By: AMEE LAM RN 09/30/18 12:46:02 [facility] IntraOp Intraoperative Equipment Entry 1 Equipment Equipment Phacoemulsification ID Number [id number] #1 Intraop Monitoring Electrocardiogram Three lead placement (ECG) Electrode Placement Blood Pressure Non-Invasive BP Device Source Antiembolic Devices Scopes Photo/Video Documentation Photo No Video No Last Modified By: AMEE LAM RN 09/30/18 12:46:05 [facility] IntraOp Medication Admin Entry 1 Entry 2 Entry 3 Medication/Irrigant epinephrine 1mg/ml amp tetracaine hcl 0.5% 2ml BSS 15ml - [id number] - [id number] ophthalmic solution - [id number] Combo Med List 1 - Combo Med Time Administered Route of INTRAOCCULAR TOPICAL topical Administration Dose Dose 0.3 Unit of Measure ml drops drops Volume QS QS QS Administered By AMANDA KERN MD-OPT AMANDA KERN MD-OPT Cherise Bradley, Certified Caregiver Cert Procedure Irrigation Irrigant Volume In Irrigant Volume Out Last Modified By: AMEE LAM RN MITCHUSON, RHONDA, RN MITCHUSON, RHONDA, RN 09/30/18 12:46:50 09/30/18 12:46:50 09/30/18 12:46:50 Entry 4 Entry 5 Entry 6 Medication/Irrigant Duovisc ophthalmic BSS Plain 500ml - difluprednate 0.4ml - [id number] ophthalmic 0.05% drops Combo Med List 1 - Combo Med Time Administered Route of INTRAOCCULAR INTRAOCCULAR TOPICAL Administration Dose Dose Unit of Measure ml drops Volume QS QS QS Administered By AMANDA KERN MD-OPT AMANDA KERN, ARONOPT AMANDA KERN MD-OPT Procedure Irrigation Irrigant Volume In Irrigant Volume Out Last Modified By: AMEE LAM RN MITCHUSON, RHONDA, RN MITCHUSON, RHONDA, RN 09/30/18 12:46:50 09/30/18 12:46:50 09/30/18 12:46:50 Entry 7 Medication/Irrigant Vigamox 0.5% ophthalmic solution - [id number] Combo Med List Time Administered Route of INTRAOCCULAR Administration Dose Dose Unit of Measure Volume QS Administered By AMANDA KERN MD-OPT Procedure Irrigation Irrigant Volume In Irrigant Volume Out Last Modified By: AMEE LAM RN 09/30/18 12:46:50 S[facility] IntraOp Patient Positioning Entry 1 Procedure [...] UNDER KNEES. Positioned By AMEE LAM RN, ABILIO ATWOOD RN Position Verified Positioning Yes Verified by Anesthesia Positioning Yes Verified by Surgeon Last Modified By: AMEE LAM RN 09/30/18 12:46:09 S[facility] IntraOp Patient Positioning Audit 09/30/18 12:46:09 Caponizer: [email or web address] Modifier: [email or web address] <+> 1 Positioning Verified by Surgeon [facility] IntraOp Sign In Entry 1 Patient, [...] Taken Last Modified By: AMEE LAM RN 09/30/18 12:46:13 [facility] Intra Op Sign Out Entry 1 RN [...] AMEE LAM RN Signature RN Sign Out 09/30/18 12:59:00 Signature Date/Time Plan of Care Outcome - [...] objects Last Modified By: AMEE LAM RN 09/30/18 12:59:04 [facility] Intra Op Sign Out Audit 09/30/18 12:59:04 Caponizer: [email or web address] Modifier: [email or web address] <+> 1 RN Sign Out Signature Date/Time [facility] IntraOp Skin Prep Entry 1 Procedure Cataract Extraction w Intraocular Lens I Prescribed Yes Pre-Surgical Prep Completed Prep Area OPERATIVE EYE Intraop Prep Integumentary WDL Assessment WDL Prep Agents Betadine solution Prep by AMEE LAM RN Skin Prep Comment 5% BETADINE Hair Removal Methods No hair removal performed Last Modified By: AMEE LAM RN 09/30/18 12:46:24 [facility] IntraOp Surgical Procedures Entry 1 Procedure Cataract Extraction w Intraocular Lens Implant Additional CATARACT EXTRACTION Procedure WITH IOL OD Description Primary Procedure Yes Primary Surgeon AMANDA KERN MD-OPT Start 09/30/18 12:43:00 Stop 09/30/18 12:55:00 Anesthesia Type Moderate Sedation Specialty SN Ophthalmology Wound Class I - Clean Last Modified By: AMEE LAM RN 09/30/18 12:56:02 [facility] IntraOp Surgical Procedures Audit 09/30/18 12:56:02 Caponizer: [email or web address] Modifier: [email or web address] <*> Procedure Cataract Extraction w Intraocular Lens Implant 1 <+> Stop [facility] IntraOp Time Out Entry 1 Procedure to be Cataract Extraction w Performed Intraocular Lens I Time Out Time Out Pause Time 09/30/18 12:42:00 All activity Yes suspended (unless life threatening [...] expected Last Modified By: AMEE LAM RN 09/30/18 12:44:23 Case Comments <None> Finalized By: AMEE LAM, RN Document Signatures Signed By: AMEE LAM RN 09/30/18 12:59 Electronically signed by [facility] Conversion Cat Wagon Operator Cerner at 12/19/2022 9:46 PM CDT documented in this encounter Plan of Treatment Not on file documented as of this encounter Visit Diagnoses Not on filedocumented in this encounter
--- OUTSIDE RECORDS SUMMARY | 2025-07-15 15:09 | XMS_ITS | Clinical Summary ---
Author Organization [facility] Address [address] [place] [address] Care Team Providers Care Manager Helpdesk Name Role Phone Tayla Kelley Primary Care Provider [phone] Allergies No known active allergies Medications lisinopril (PRINIVIL,ZESTR IL) 40 MG tablet Take 1 tablet by mouth Daily. 4 Active metFORMIN (GLUCOPHAGE) 1000 MG tablet Take 1 tablet by mouth 2 (Two) Times a Day With Meals. 4 Active dilTIAZem (CARDIZEM) 120 MG tablet Take 2 tablets by mouth 2 (Two) Times a Day. Active metoprolol succinate XL (TOPROL-XL) 50 MG 24 hr tablet Take 1 tablet by mouth Daily. 4 Active bumetanide (BUMEX) 1 MG tablet Take 1 tablet by mouth 2 (Two) Times a Day. 4 Active rivaroxaban (Xarelto) 20 MG tablet Take 1 tablet by mouth Every Night. TO START ON 05/30/2024 4 Active acetaminophen (TYLENOL) 325 MG tablet Take 2 tablets by mouth Every 4 (Four) Hours As Needed for Mild Pain. 4 Active atorvastatin (LIPITOR) 80 MG tablet Take 1 tablet by mouth Every Night. 4 Active aspirin 81 MG EC tablet Take 1 tablet by mouth Daily. TO START ON 05/30/2024 4 Active dextrose (GLUTOSE) 40 % gel Take 15 g by mouth Every 15 (Fifteen) Minutes As Needed for Low Blood Sugar (Blood sugar less than 70). 4 Active Insulin Glargine w/ Trans Port 100 UNIT/ML solution pen-injector Inject 5 Units under the skin into the appropriate area as directed Every Night. 4 Active Active Problems Problem Noted Date Diagnosed Date Stroke 05/17/2024 Left-sided weakness 05/16/2024 Social History Tobacco Use Types Packs/Day Years Used Date Smoking Tobacco: Never Smokeless Tobacco: Never Tobacco Cessation:Counseling Given: Not Answered Alcohol Use Standard Drinks/Week Comments Not Currently 1 (1 standard drink = 0.6 oz pur e alcohol) one a month [facility] Utilities Answer Date Recorded In the past 12 months has [employer], gas, oil, or water [place] threatened to shut off services in your home? No 05/18/2024 AUDIT-C Answer Date Recorded Q1: How often do you have a drink containing alc ohol? Monthly or less 05/16/2024 Q2: How many drinks containi ng alcohol do you have on a typical day when you are drinking? 1 or 2 05/16/2024 Q3: How often do you have si x or more drinks on one occasion? Never 05/16/2024 Overall Financial Resource Strain (CARDIA) Answe r Date Recorded How hard is it for you to pa y for the very basics like food, housing, medical care, and heating? Not hard at all 05/18/2024 [facility] [place] [facility] - Occupational Stress Questionnaire Answer Date Recorded Do you feel stress - tense, restless, nervous, or anxious, or unable to sleep at night because your mind is troubled all the time - these days? Not at all 05/18/2024 Exercise Vital Sign Answer Date Recorde d On average, how many days pe r week do you engage in moderate to strenuous exercise (like a brisk walk)? 0 days 05/18/2024 On average, how many minutes do you engage in exercise at this level? 0 min 05/18/2024 Hunger Vital Sign Answer Date Recorded Within the past 12 months, y ou worried that your food would run out before you got the money to buy more. Never true 05/18/20 24 Within the past 12 months, t he food you bought just didn't last and you didn't have money to get more. Never true 05/18/2024 PRAPARE - Transportation Answer Date Re corded In the past 12 months, has l ack of transportation kept you from medical appointments or from getting medications? No 05/03 In the past 12 months, has l ack of transportation kept you from meetings, work, or from getting things needed for daily living? No 05/18/2024 Abuse Screen Answer Date Recorded Feels Unsafe at Home or Work/School no 05/17/2024 Feels Threatened by Someone no 05/03 Does Anyone Try to Keep You From Having Contact with Others or Doing Things Outside Your Home? no 05/17/2024 Physical Signs of Abuse Present no 05/17/2024 Housing Stability Answer Date Recorded Current Living Arrangements home 05/03 Potentially Unsafe Housing Conditions none 05/18/2024 Family and Community Support Answer Talat e Recorded If for any reason you need h elp with day-to-day activities such as bathing, preparing meals, shopping, managing finances, etc., do you get the help you need? I don't need any help 05/18/2024 How often do you feel lonely or isolated from those around you? Never 05/18/2024 Employment Answer Date Recorded Do you want help finding or keeping work or a job? I do not need or want help 05/18/2024 Disabilities Answer Date Recorded Difficulty Concentrating, Remembering or Making Decisions yes 05/16/2024 Difficulty Managing Errands Independently no 05/16/2024 Education Answer Date Recorded Do you want help with school or training? For example, starting or completing job training or getting a high school diploma, GED or equivalent No 05/18/2024 Preferred Language Wallisian 05/18/2024 PHQ-2 Answer Date Recorded Retired PHQ-9: Brief Depression Severity Measure Score 0 05/18/2024 Comments Unknown Sex and Gender Information Value Date Recorded Sex Assigned at Not on file Legal Sex Female 1:08 PM EDT Gender Identity Not on file Sexual Orientation Not on file Last Filed Vital Signs Vital Sign Reading Time Taken Comments Blood Pressure 140/82 05/20/2024 11:56 AM EDT Pulse 92 05/20/2024 11:56 AM EDT Temperature 37 C (98.6 F) 05/20/2024 11:56 AM EDT Respiratory Rate 18 05/20/2024 11:56 AM EDT Oxygen Saturation 92% 05/20/2024 11:56 AM EDT Inhaled Oxygen Concentration - - Weight 94.6 kg (208 lb 9.6 oz) 05/18/2024 5:05 A M EDT Height 161.3 cm (5' 3.5 ) 05/17/2024 10:29 AM ED T Body Mass Index 36.37 05/17/2024 10:29 AM EDT Plan of Treatment Health Maintenance Due Date Last Done Comments DXA SCAN 1945 ZOSTER VACCINE (1 of 2) 1994 Pneumococcal Vaccine 50+ (2 of 2 - PCV) 11/21/2012 11/22/2011 RSV Vaccine - Adults (1 - 1- dose 75+ series) 2019 ANNUAL PHYSICAL 05/20/2024 INFLUENZA VACCINE 04/02/2025 07/04/2023, , 11/22/2011 COVID-19 Vaccine (3 - 2024-2 6 season) 2025 10/27/2020, 09/29/2020 TDAP/TD VACCINES (2 - Td or Tdap) 02/14/2027 017 HEMOGLOBIN A1C Discontinued 05/17/2024 Procedures Procedure Name Priority Date/Time Associated Diagnosis Comments HEMOGLOBIN A1C Urgent 05/17/2024 10:45 AM EDT from Last 3 Months or Most Recently Relevant to Health Maintenance Results * (ABNORMAL) Hemoglobin A1c (05/17/2024 10:45 AM EDT) Hemoglobin A1C 8.70(H) 4.80 - 5.60 % 05/17/2024 11:12 AM EDT [facility] Blood Venipuncture / Unknown 05/17/2024 10:45 AM EDT 05/17/2024 10:58 AM EDT Narrative [facility] - 05/17/2024 11:12 AM EDT Hemoglobin A1C Ranges: Increased Risk for Diabetes 5.7% to 6.4% Diabetes >= 6.5% Diabetic Goal < 7.0% us Micki Ghosh APRN LAB BLOOD ORDERABLE S Final Result [facility]
[address] [place] [address], from Last 3 Months or Most Recently Relevant to Health Maintenance Insurance MEDICARE A & B Advance Directives * CPR (Attempt to Resuscitate) (Latest Code Status on File) Date Activated Date Inactivated Comments 05/17/2024 1:00 AM 05/20/2024 4:53 PM Question Answer Comments Code Status (Patient has no pulse and is not breathing): CPR (Attempt to Resuscitate) Medical Interventions (Patie nt has pulse or is breathing): Full Support Level Of Support Discussed With: Patient Care Teams Manager Helpdesk Relationship Specialty Start Date End Date Tayla Kelley [address] [place] [address] PCP - General Nurse Practitioner 07/05/23
--- OUTSIDE RECORDS SUMMARY | 2025-07-15 15:09 | XMS_ITS | Encounter Summary ---
Author Organization [employer] ([place], [place], [place], [place], [place]) Address [address] [place] [id number] Care Team Providers Care Carport Erector Name Role Phone Unavailable Primary Care Provider Unavailguy e Encounter Details Date Type Department Care Team (Late st Contact Info) Description 10/14/2018 Transcribed Document [facility] [place] [address] [place] [address] ProviderJessica MD [address] [place] [address] Social History Tobacco Use Types [...] Conversion Note - Historical ProviderMD - 10/14/2018 8:43 AM TAR WORKER Pediatric Growth Entered On: 10/14/2018 8:43 EST Performed On: 10/14/2018 8:43 EST by Phyllis Zarate Gauge Maker ApprenticeHealth Unit Coord Height and Weight, Clinical Dosing Weight Source : Standing scale Weight Entry Format : [place] Clinical Dosing Weight : 100.45 kg Weight, Pounds : 221 lb Phyllis Zarate Gauge Maker Apprentice-Health Unit Coord - 10/14/2018 8:43 EST documented in this encounter Plan of Treatment Not on file documented as of this encounter Visit Diagnoses Not on filedocumented in this encounter
--- OUTSIDE RECORDS SUMMARY | 2025-07-15 15:09 | XMS_ITS ---
Author Organization [facility] Care Team Providers Care Plastic Frame Inserter Name Role Phone Reema Dee Unavailable Unavailable Karyn Bellamy Unavailable Unavailable Bisi Ann Unavailable Unavailable Allergies and adverse reactions No Known Allergies Care Team Name Role Address Phone Organization Dates Karyn Bellamy PCP [address] [place] [address], [place] (Office): [facility] 12/11/2023 - 12/23/2023 Reema Dee [address] (Office): : [facility] 12/11/2023 - 12/23/2023 Bisi Ann [address] [place] [address] (Office): : [facility] 12/11/2023 - 12/23/2023 Immunizations Immunization Status Vaccine Details Vaccine Code CodeSystem Date Notes Influenza completed Influenza, high-dose, split virus, quadrivalent, injectable, preservative free 197 CVX created date: 12/17/2023 administere d date: 07/04/2023 TB 2 Step Mantoux Skin Test completed tuberculin skin test; unspecified formulation lotNumber: [id number] expiry: 09/01/2025 Mfg: Aplisol Given 0.1 ml Left Forearm intradermally Step 2 of Multi-step with next step required 98 CVX created date: 12/18/2023 consent date: 12/18/2023 administere d date: 12/18/2023 TB 2 Step Mantoux Skin Test completed tuberculin skin test; unspecified formulation lotNumber: [id number] expiry: 09/01/2024 Mfg: Aplisol Given 0.1 ml Left Forearm intradermally Step 1 of Multi-step with next step required 98 CVX created date: 12/11/2023 consent date: 12/11/2023 administere d date: 12/11/2023 Pneumococcal PPSV23 completed pneumococcal polysaccharide vaccine, 23 valent 33 CVX created date: 12/17/2023 administere d date: 11/22/2011 Pneumococcal Prevnar 20 cancelled Pneumococcal conjugate vaccine 20-valent (PCV20), polysaccharide [id number] conjugate, adjuvant, preservative free 216 CVX created date: 12/17/2023 consent date: 12/17/2023 TDAP(tetanus/dip th/pertuss) completed tetanus toxoid, reduced diphtheria toxoid, and acellular pertussis vaccine, adsorbed 115 CVX created date: 12/17/2023 administere d date: 02/14/2017 COVID-19 Vaccine Dose 1 completed unknown vaccine or immune globulin 999 CVX created date: 12/17/2023 consent date: 12/17/2023 administere d date: 09/29/2020 Moderna COVID-19 Vaccine Dose 2 completed unknown vaccine or immune globulin 999 CVX created date: 12/17/2023 administere d date: 10/27/2020 Moderna Moderna 23/24 cancelled SARS-COV-2 (COVID-19) vaccine, subunit, recombinant spike protein-nanopartic le+Matrix-M1 Adjuvant, preservative free, 0.5mL dose 211 CVX created date: 12/17/2023 consent date: 12/17/2023 Mental Status Section Date Assessment Total Score Description 12/23/2023 BIMS 14 cognitively int act CAM 0 No delirium ind icated PHQ-9 00 12/13/2023 BIMS 14 cognitively int act CAM 0 No delirium ind icated PHQ-9 14 moderate depres garry Insurance Providers Problems Problem # Description Date of onset Resolved Date Code CodeSystem Concern Status 1 HEART FAILURE, UNSPECIFIED 12/12/[address] active 2 ACUTE PULMONARY EDEMA 12/11/[address] active 3 ACUTE RESPIRATORY FAILURE WITH HYPOXIA 12/11/[address] active 4 ATHEROSCLEROTIC HEART DISEASE OF [place] CORONARY ARTERY WITHOUT ANGINA PECTORIS 12/11/[address] active 5 COGNITIVE COMMUNICATION DEFICIT 12/11/[address] active 6 DEFECTS IN THE COMPLEMENT SYSTEM 12/11/[address] active 7 DYSPHAGIA, ORAL PHASE 12/11/[address] active 8 DYSPNEA, UNSPECIFIED 12/11/[address] active 9 EDEMA OF [place] 12/11/[address] active 10 ESSENTIAL (PRIMARY) HYPERTENSION 12/11/[address] active 11 HYPERLIPIDEMIA, UNSPECIFIED 12/11/[address] active 12 LEFT VENTRICULAR FAILURE, UNSPECIFIED 12/11/[address] active 13 MIXED HYPERLIPIDEMIA 12/11/[address] active 14 OBSTRUCTIVE SLEEP APNEA (ADULT) (PEDIATRIC) 12/11/[address] active 15 OTHER ABNORMALITIES OF GAIT AND MOBILITY 12/11/[address] active 16 OTHER FORMS OF ANGINA PECTORIS 12/11/[address] active 17 OTHER SEQUELAE OF OTHER CEREBROVASCULAR DISEASE 12/11/[address] active 18 OTHER SPECIFIED DISORDERS INVOLVING THE IMMUNE MECHANISM, NOT ELSEWHERE CLASSIFIED 12/11/[address] active 19 PLEURAL EFFUSION, NOT ELSEWHERE CLASSIFIED 12/11/[address] active 20 PNEUMONIA, UNSPECIFIED ORGANISM 12/11/[address] active 21 RESPIRATORY DISORDERS IN DISEASES CLASSIFIED ELSEWHERE 12/11/[address] active 22 SHORTNESS OF BREATH 12/11/[address] active 23 TYPE 2 DIABETES MELLITUS WITHOUT COMPLICATIONS 12/11/[address] active 24 UNSPECIFIED ATRIAL FIBRILLATION 12/11/[address] active 25 UNSPECIFIED DIASTOLIC (CONGESTIVE) HEART FAILURE 12/11/[address] active 26 UNSPECIFIED PROTEIN-CALORIE MALNUTRITION 12/11/[address] active 27 UNSTEADINESS ON FEET 12/11/[address] active 28 WEAKNESS 12/11/[address] active Reason for Referral No Reasons for Referral Entered Social History Social History Observation Description Start Date End Date Code Code System Current Smoking Status Tobacco smoking consumption unknown 441302741 SNOMED CT Sex Assigned At Female 1945 98765-9 [facility] Gender Identity Sexual Orientation Vital Signs Code Code System Vitals Name Values and Units Timing Information 74924-5 [facility] Weight Vlocr=973.2 Units=Lbs 2339-0 [facility] Blood Sugar Epcev=121.0 Units=mg/dL 12/23/2023 36465-9 [facility] Pain Level Value=0.0 12/23/2023 9279-1 [facility] Respiratory Rate Value=18.0 Units=/m in 12/23/2023 8867-4 [facility] Heart rate Value=74.0 Units=/min 8462-4 [facility] Blood Pressure-Diastolic Value=67 Un its=mmHg 12/22/2023 8480-6 [facility] Blood Pressure-Systolic Jmduz=997 Un its=mmHg 12/22/2023 8310-5 [facility] Body Temperature Value=97.6 Units= F 12/22/2023 92944-3 [facility] O2 % BldC Oximetry Value=96.0 Units= % 12/22/2023 8302-2 [facility] Height Value=63.5 Units=Inches 12/13/2023
--- OUTSIDE RECORDS SUMMARY | 2025-07-15 15:09 | XMS_ITS | Referral Summary ---
Author Organization [employer] ([place], [place], [place], [place], [place]) Address [address] [place] [address] Care Team Providers Care Strip Presser Name Role Phone Unavailable Primary Care Provider [...]
--- OUTSIDE RECORDS SUMMARY | 2025-07-15 15:09 | XMS_ITS | Encounter Summary ---
Author Organization [employer] ([place], [place], [place], [place], [place]) Address [address] [place] [address] Care Team Providers Care Attenuator Name Role Phone Unavailable Primary Care Provider Luis e Encounter Details Date Type Department Care Team (Late st Contact Info) Description 09/30/[address] [facility] [place] Family Medicine [facility] [place] [address] ProviderJessica MD [address] [place] [id number] Social History Tobacco Use Types Packs/Day Years [...] Conversion Note - Jessica ProviderMD - 09/30/2018 12:58 PM FLIGHT COORDINATOR DATE OF PROCEDURE: 09/30/2018 PREOPERATIVE DIAGNOSIS(ES): Dense cataract, right eye. POSTOPERATIVE DIAGNOSIS(ES): Dense cataract, right eye. PROCEDURE: Phacoemulsification with posterior chamber intraocular lens implant, right eye. SURGEON: Edis Licea MD ANESTHESIA: Topical. COMPLICATIONS: None. INDICATIONS FOR SURGERY: The patient is a healthy and active 73-year-old who has noted progressively deteriorating visual acuity in the right eye to its best corrected current level of 20/50. Examination revealed a visually significant cataract. Because of the dense cataract, the patient was admitted for phacoemulsification and posterior chamber intraocular lens implant, right eye. The risks, benefits, alternatives, indications, contraindications, expectations and complications have been fully explained to the patient and she wishes to proceed. OPERATIVE REPORT: While in the preoperative area, 4% nonpreserved lidocaine was applied topically to the eye. The patient was then wheeled into the operating room where the right eye was prepped and draped in the usual sterile fashion. A wire lid speculum was placed in the right eye. The microscope was set up for [...] The nucleus was then emulsified in a xbwzlw-woc-eyokwso fashion. Following nuclear removal, the cortex was removed using the automated irrigating and aspirating device. Following cortical cleanup, an Philippe model SN60WF + 24.0 power posterior chamber intraocular lens was [...] was water-tight, the aqueous was replaced with moxifloxacin 160 mcg/mL of BSS, and Durezol was applied topically to the eye. The patient tolerated the procedure well. There were no complications. Edis Licea M.D. Dict: 09/30/2018 12:58:44 Trans: 09/30/2018 14:12:47 CC1: Edis Licea M.D. documented in this encounter Plan of Treatment Not on file documented as of this encounter Visit Diagnoses Not on filedocumented in this encounter
--- OUTSIDE RECORDS SUMMARY | 2025-07-15 15:09 | XMS_ITS | Encounter Summary ---
Author Organization [employer] ([place], [place], [place], [place], [place]) Address [address] [place] [address] Care Team Providers Care Group Account Director Name Role Phone Unavailable Primary Care Provider Unavailguy e Encounter Details Date Type Department Care Team (Late st Contact Info) Description 09/30/2018 Transcribed Document [facility] [address] [place] [address] ProviderJessica MD [address] [place] [address] Social History Tobacco Use Types [...] Conversion Note - Historical ProviderMD - 09/30/2018 9:34 AM EDITOR FARM JOURNAL Height and Weight, Clinical Dosing Entered On: 09/30/2018 9:35 EST Performed On: 09/30/2018 9:34 EST by Frances Ken Rn Height and Weight, Clinical Dosing Height Source : Stated Height Entry Format : [place] Height, Feet : 5 ft(Converted to: 152 cm, 60 Inch) Height, Inches : 3.5 Inch(Converted to: 0 ft 4 Inch, 8.89 cm) Clinical Height : 161.29 cm Weight Source : Standing scale Weight Entry Format : [place] Clinical Dosing Weight : 100 kg Weight, Pounds : 220 lb Body Surface Area (BSA) : 2.03 m2 Body Mass Index : 38.4 kg/m2 (HI) [place] Body Weight : 53 kg Frances Ken Rn - 09/30/2018 9:34 EST Electronically signed by Song [facility] Conversion Grease Rack Worker Cerner at 12/19/2022 9:27 PM CDT documented in this encounter Plan of Treatment Not on file documented as of this encounter Visit Diagnoses Not on filedocumented in this encounter
== END 2025-07-15 23:59 | disposition home or self-care (01) ==
LOC: RT 15:06
PROVIDERS: PCP Nurse Practitioner; Visit Provider Physician Assistant
DX: I48.91 Unspecified atrial fibrillation (principal); I48.92 Unspecified atrial flutter; I49.3 Ventricular premature depolarization; I47.29 Other ventricular tachycardia; I50.30 Unspecified diastolic (congestive) heart failure
CPT/HCPCS: 93270

== ENCOUNTER 2025-07-22 15:18 | Outpatient (CLI) | payer MEDICARE, MEDICAID, SELFPAY ==
[2025-07-22 15:45] LABS: Hematocrit 41.0 % (37.0-47.0); Hemoglobin 13.4 g/dL (12.2-16.2); Immature Granulocytes % 0.3 %; Mean Corpuscular HGB Conc 32.7 g/dL (31.8-35.4); Mean Corpuscular Hemoglobin 29.5 pg (27.0-31.2); Mean Corpuscular Volume 90.3 fl (81-99); Nucleated Red Blood Cells % 0 %; Platelet Count 242 K/mm3 (142-424); Red Blood Count 4.54 M/mm3 (4.20-5.40); Red Cell Distribution Width-SD 49.4 fL; White Blood Count 9.3 K/mm3 (4.8-10.8)
[2025-07-22 16:13] LABS: Albumin Level 4.2 g/dl (3.5-5.0); Chloride 102 mmol/L (98-107); Sodium 143 mmol/L (136-145)
[2025-07-22 16:14] LABS: Potassium 4.1 mmoL/L (3.5-5.1)
[2025-07-22 16:16] LABS: Alanine Aminotransferase 22 U/L (12-78); Alkaline Phosphatase 59 U/L (38-126); Anion Gap 20.1 mEq/L (5-15); Aspartate Amino Transferase 23 U/L (14-36); Bilirubin,Direct 0.1 mg/dl (0.0-0.4); Bilirubin,Indirect 0.5 mg/dL (0.0-0.9); Bilirubin,Total 0.6 mg/dl (0.2-1.3); Bilirubin,Unconjugated 0.5 mg/dL (0.0-1.1); Blood Urea Nitrogen 20 mg/dl (7-17); Calcium 9.5 mg/dl (8.4-10.2); Carbon Dioxide 25 mmol/L (22.0-30.0); Cholesterol 157 mg/dl (140-200); Creatinine,Serum 0.70 mg/dl (0.52-1.04); Estimated Glomerular Filt Rate 80 ml/min (>60); GFR (African American) 97 ML/MIN (>60); Glucose 150 mg/dl (74-100); Total Protein,Serum 7.4 g/dl (6.3-8.2); Triglycerides 199 mg/dl (30-150)
[2025-07-22 16:17] LABS: HDL Cholesterol 51 mg/dl (40-60); Magnesium 1.9 mg/dl (1.6-2.3)
[2025-07-22 16:32] LABS: Free T4 (Free Thyroxine) 1.05 ng/dl (0.78-2.19)
[2025-07-22 16:46] LABS: Thyroid Stimulating Hormone 6.01 uIU/mL (0.465-4.68)
== END 2025-07-22 23:59 | disposition home or self-care (01) ==
LOC: LAB 15:19
PROVIDERS: PCP Nurse Practitioner; Visit Provider Internal Medicine
DX: E78.2 Mixed hyperlipidemia (principal); I10 Essential (primary) hypertension
CPT/HCPCS: 36415; 80048; 80061; 80076; 83735; 84439; 84443; 85025

== ENCOUNTER 2025-08-05 11:14 | Outpatient (CLI) | payer MEDICARE, MEDICAID, SELFPAY ==
--- NOTE | 2025-08-05 11:00 | CA_ITS ---
APPROVED REPORT EXAM: Comprehensive 2D, Doppler, and color-flow Echocardiogram Coroner Technician: Melissa Dodson CRT Ht: 5 ft 3 in Wt: 187lbs BSA: 1.88 BP: 124/73 mmHg Indications: Chest Pain, CVA/TIA, Atrial Fibrillation, Diabetes, CAD, Hyperlipidemia, Hypertension/HDD M-Mode Dimensions RVDd 2.58 cm (0.9-2.6) LA Diam 4.17 cm (1.9-4.0) LVDd 3.91 cm (3.5-5.7) LVDs 2.54 cm (3.5-5.7) IVSd 1.74 cm (0.6-1.1) PWd 0.90 cm (0.6-1.1) EF (Teich) 65.00% FS 35.00% EDV (Teich) 66.30 mL TAPSE 1.68 (<1.7) ESV (Teich) 23.20 mL LV Diastology MED A' 11.00 cm/s LAT A' 9.30 cm/s Aortic Valve AoV Peak Triston. 204.0 (50-130 cm/s) AO Peak GR. 16.90 mmHg AO Mean GR. 10.60 (<5 mmHg) AO VTI 40.4 (18-25 cm) Pulmonary Valve PV Peak Velocity 113.0 (50-150 cm/s) Tricuspid Valve TR P. Velocity 360.00 cm/s RAP Estimate 10.00 mmHg RVSP 61.90 mmHg Left Ventricle The left ventricle is normal size. Left ventricular systolic function is normal. The left ventricular ejection fraction is within the normal range. There is increased left ventricular wall thickness. There is normal LV segmental wall motion. The left ventricular diastolic function is indeterminate. LVEF is 55% Right Ventricle The right ventricle is mildly dilated. The right ventricular systolic function is normal. Atria Left atrium is severely dilated. Right atrium is severely dilated. There is no color Doppler evidence of interatrial shunt. Aortic Valve The aortic valve is mildly thickened. Mild aortic stenosis is present. RENNY by continuity equation is 1.8 cm2. Peak velocity is 2.2 m/s. Mean AV gradient is 14 mmHg. Max AV gradient is 22 mmHg. Trace aortic regurgitation is present. Mitral Valve The mitral valve is normal in structure. No evidence of mitral valve stenosis. Mild mitral regurgitation is present. Tricuspid Valve The tricuspid valve leaflets are thin and pliable. Mild tricuspid regurgitation. RVSP is 30-35 mmHg. Pulmonic Valve The pulmonary valve is grossly normal in structure. Trace pulmonic valve regurgitation is present. Great Vessels The aortic root is normal in size. IVC is normal in size and collapses >50% with inspiration. Pericardium There is no pericardial effusion. Other Information Study Quality: Fair Conclusion Normal biventricular systolic function. Mild RV dilation. Biatrial dilation. Mild (RENNY by continuity equation is 1.8 cm2. Peak velocity is 2.2 m/s. Mean AV gradient is 14 mmHg. Max AV gradient is 22 mmHg). Mild MR, mild TR. Electronically signed by : Yaquelin Grace MD 08/14/2025 16:09:48
--- OUTSIDE RECORDS SUMMARY | 2025-08-05 11:46 | XMS_ITS | Encounter Summary ---
Author Organization [employer] ([place], [place], [place], [place], [place]) Address [address] [place] [address] Care Team Providers Care Freight Claim Investigator Name Role Phone Unavailable Primary Care Provider Unavailguy e Encounter Details Date Type Department Care Team (Late st Contact Info) Description 10/14/2018 Transcribed Document [facility] [place] [facility] [place] [address] ProviderJessica MD [address] [place] [address] Social History Tobacco Use Types [...] - Jessica ProviderMD - 10/14/2018 10:36 AM PICK PULLING MACHINE OPERATOR ESTIVEN Main OR PostOp Summary Primary Physician: AMANDA KERN MD-OPT Finalized Date/Time: 10/14/18 12:07:28 Pt. Name: EVANGELINA DANIEL D.O.B./Sex: 1945 Female Med Rec #: [id number] Physician: AMANDA KERN MD-OPT Financial #: [id number] Pt. Type: O Room/Bed: Admit/Disch: 10/14/18 07:59:00 - Institution: [facility] [place] Main [place] PostOp Case Times Entry 1 In PACU II 10/14/18 10:54:00 Ready for PACU II 10/14/18 11:20:00 Discharge Discharge from PACU 10/14/18 11:20:00 II Last Modified By: PILAR SIU RN 10/14/18 12:07:17 Finalized By: PILAR SIU RN Document Signatures Signed By: PILAR SIU RN 10/14/18 12:07 Electronically signed by Song [facility] Conversion Geodetic Technician Cerner at 12/19/2022 9:46 PM CDT documented in this encounter Plan of Treatment Not on file documented as of this encounter Visit Diagnoses Not on filedocumented in this encounter
--- OUTSIDE RECORDS SUMMARY | 2025-08-05 11:47 | XMS_ITS | Encounter Summary ---
Author Organization [employer] ([place], [place], [place], [place], [place]) Address [address] [place] [address] Care Team Providers Care Operations Support Professionals Name Role Phone Unavailable Primary Care Provider Luis e Encounter Details Date Type Department Care Team (Late st Contact Info) Description 09/30/2018 Transcribed Document [facility] [facility] [place] [address] ProviderJessica MD [address] [place] [address] Social History Tobacco Use Types [...] - Historical ProviderMD - 09/30/2018 11:00 AM ASSISTANT SECRETARY Pre Procedure Adult Entered On: 09/30/2018 11:04 EST Performed On: 09/30/2018 11:00 EST by Hanna Puga Rn Height and Weight, Clinical Dosing Height Source : Stated Height Entry Format : [place] Height, Feet : 5 ft(Converted to: 152 cm, 60 Inch) Height, Inches : 3.5 Inch(Converted to: 0 ft 4 Inch, 8.89 cm) Clinical Height : 161.29 cm Weight Source : Standing scale Weight Entry Format : [place] Clinical Dosing Weight : 100 kg Weight, Pounds : 220 lb Body Surface Area (BSA) : 2.03 m2 Body Mass Index : 38.4 kg/m2 (HI) [place] Body Weight : 53 kg Hanna Puga [...] Obtained From : Patient Primary Language : Gambian Preferred Communication Mode : Verbal Communication Barrier [...] Scale Risk Level : 0-24 Low Risk [place] Fall Interventions : Adequate lighting, Bed in low position, Call device within reach, Room free of clutter/spills, Upper side-rails up, Wheels locked Hanna Puga Rn - 09/30/2018 11:00 EST [...] the text rendition version of the form. Whitney Coma Whitney Best Motor Response : Obey commands Whitney Best Verbal Response : Oriented Anil Eye Opening Response : Spontaneous Whitney Coma Score : 15 Hanna Puga Rn - 09/30/2018 11:00 EST documented in this encounter Plan of Treatment Not on file documented as of this encounter Visit Diagnoses Not on filedocumented in this encounter
--- OUTSIDE RECORDS SUMMARY | 2025-08-05 11:47 | XMS_ITS | Encounter Summary ---
Author Organization [employer] ([place], [place], [place], [place], [place]) Address [address] [place] [address] Care Team Providers Care Facing Cutting Machine Operator Name Role Phone Unavailable Primary Care Provider Luis e Encounter Details Date Type Department Care Team (Late st Contact Info) Description 09/30/[address] [facility] [place] Family Medicine [facility] [place] [address] ProviderJessica MD [address] [place], [place] [phone] Social History Tobacco Use Types Packs/Day Years [...] - Jessica ProviderMD - 09/30/2018 12:58 PM DIRECTOR OF PHYSICAL SECURITY DATE OF PROCEDURE: 09/30/2018 PREOPERATIVE DIAGNOSIS(ES): Dense [...] The nucleus was then emulsified in a fyekmn-col-wneqmtt fashion. Following nuclear removal, the cortex was [...]
--- OUTSIDE RECORDS SUMMARY | 2025-08-05 11:47 | XMS_ITS | Encounter Summary ---
Author Organization [employer] ([place], [place], [place], [place], [place]) Address [address] [place] [address] Care Team Providers Care Sap Bpc Architect Name Role Phone Unavailable Primary Care Provider Unavailguy e Encounter Details Date Type Department Care Team (Late st Contact Info) Description 09/30/2018 Transcribed Document [facility] [place] Family Medicine [address] [place] [address] ProviderJessica MD [address] [place] [address] Social History Tobacco Use Types [...] - Jessica ProviderMD - 09/30/2018 12:43 PM EMERGENCY ROOM [place] [facility] IntraOp Summary Primary Physician: AMANDA KERN MD-OPT Finalized Date/Time: 09/30/18 12:59:10 Pt. Name: EVANGELINA DANIEL /Sex: 1945 Female Med Rec #: [id number] Physician: AMANDA KERN MD-OPT Financial #: [id number] Pt. Type: O Room/Bed: Admit/Disch: 09/30/18 08:14:00 - [place] [facility] [place] Case Attendance Entry 1 Entry 2 Entry 3 Case Attendee AMANDA KERN MD-OPT AMEE LAM, ABILIO IZAGUIRRE, TACOS Role Performed Surgeon/Proceduralist, Wafer Polishing Lead Worker, First Monitor RN First Time In 09/30/18 [...] 12:59:06 Entry 4 Case Attendee Cherise Bradley, Organ Assembler Cert Role Performed Scrub, First Time In 09/30/18 12:32:00 Time Out 09/30/18 12:58:00 Procedure Cataract Extraction w Intraocular Lens I Other Attendee Superficial Wound Closed By: Last Modified By: AMEE LAM RN 09/30/18 12:59:06 [facility] IntraOp Case Attendance Audit 09/30/18 12:59:06 Superintendent Oil Well Services: [email or web address] Modifier: [email or web address] 1 <+> Time Out [...] [facility] IntraOp Case Times Audit 09/30/18 12:59:00 Superintendent Oil Well Services: [email or web address] Modifier: [email or web address] <+> 1 Out Room Time <+> 1 Stop Time 09/30/18 12:55:56 Superintendent Oil Well Services: [email or web address] Modifier: [email or web address] <+> 1 Stop Time [facility] IntraOp Communication Entry 1 Communication To Family/Significant other Comment COMMUNICATION BOARD Last Modified By: AMEE LAM RN 09/30/18 12:45:10 [facility] IntraOp Counts Verification Entry 1 Procedure Cataract Extraction w Intraocular Lens I Count Info Count Type Sharps Counts Verification Baseline/pre-procedure Sequence Counts Performed By Count Performed By Cherise Bradley, Surgical (Scrub) Medical Writer Cert Count Performed By AMEE LAM RN (RN) Last Modified By: AMEE LAM RN 09/30/18 12:45:24 [facility] IntraOp Counts Final Entry 1 Procedure Cataract Extraction w Intraocular Lens I Final Count Info Count Type Sharps Counts Verification Skin Closure/end of Sequence procedure Count Results Correct, surgeon notified Counts Performed By Count Performed By Cherise Bradley, Surgical (Scrub) Medical Writer Cert Count Performed By AMEE LAM RN [...] RN 09/30/18 12:45:44 [facility] IntraOp General Case Appeals Referee 1 Case Information OR OR 09 SJE [...] Implant IOL ACRYSOF MELODY 6.0 13 Identification [id number] Description Implant Quantity 1 Implant Site OD Implant [id number] Identification Serial Number Implant Philippe Lab:Surg Identification Snack Bar Cashier Name: Implant [id number] Identification Catalog Number Implant [...] tetracaine hcl 0.5% 2ml BSS 15ml - [id number] - [id number] ophthalmic solution - [id number] Combo Med List 1 - Combo Med Time Administered Route of INTRAOCCULAR TOPICAL topical Administration Dose Dose 0.3 Unit of Measure ml drops drops Volume QS QS QS Administered By AMANDA KERN MD-OPT AMANDA KERN MD-OPT Cherise Bradley, Organ Assembler Cert Procedure Irrigation Irrigant Volume In Irrigant Volume Out Last Modified By: AMEE LAM RN MITCHUSON, RHONDA, RN MITCHUSON, RHONDA, RN 09/30/18 12:46:50 09/30/18 12:46:50 09/30/18 12:46:50 Entry 4 Entry 5 Entry 6 Medication/Irrigant Duovisc ophthalmic BSS Plain 500ml - difluprednate 0.4ml - [id number] ophthalmic 0.05% drops Combo Med List 1 [...] 7 Medication/Irrigant Vigamox 0.5% ophthalmic solution - [id number] Combo Med List Time Administered Route of [...] [facility] IntraOp Patient Positioning Audit 09/30/18 12:46:09 Superintendent Oil Well Services: [email or web address] Modifier: [email or web address] <+> 1 Positioning Verified [...] Intra Op Sign Out Audit 09/30/18 12:59:04 Superintendent Oil Well Services: PLACIDO Modifier: [email or web address] <+> 1 RN Sign [...] [facility] IntraOp Surgical Procedures Audit 09/30/18 12:56:02 Superintendent Oil Well Services: PLACIDO Modifier: [email or web address] 1 <*> Procedure Cataract [...] RN 09/30/18 12:59 Electronically signed by Song [facility] Conversion Human Service Worker Cerner at 12/19/2022 9:46 PM CDT documented in this encounter Plan of Treatment Not on file documented as of this encounter Visit Diagnoses Not on filedocumented in this encounter
--- OUTSIDE RECORDS SUMMARY | 2025-08-05 11:47 | XMS_ITS | Encounter Summary ---
Author Organization [employer] ([place], [place], [place], [place], [place]) Address [address] [place] [address] Care Team Providers Care Psychiatry Instructor Name Role Phone Unavailable Primary Care Provider Luis e Encounter Details Date Type Department Care Team (Late st Contact Info) Description 10/14/2018 Transcribed Document [facility] [place] Medicine [facility] [place] [address] ProviderJessica MD [address] [place] [address] Social History Tobacco Use Types [...] - Historical ProviderMD - 10/14/2018 9:15 AM ELECTRIC CELL TENDER Pre Procedure Adult Entered On: 10/14/2018 9:25 EST Performed On: 10/14/2018 9:15 EST by Saloni Gomez Rn Height and Weight, Clinical Dosing Height Source : Stated Height Entry Format : [place] Height, Feet : 5 ft(Converted to: 152 cm, 60 Inch) Height, Inches : 3 Inch(Converted to: 0 ft 3 Inch, 7.62 cm) Clinical Height : 160.02 cm Weight Source : Standing scale Weight Entry Format : [place] Clinical Dosing Weight : 100.45 kg Weight, Pounds : 221 lb Body Surface Area (BSA) : 2.02 m2 Body Mass Index : 39.2 kg/m2 (HI) [place] Body Weight : 52 kg Saloni Gomez Rn - 10/14/2018 9:15 EST Health Histories Smoking Status : Never (less than 100 in lifetime; none in last 30 days) Smokeless Tobacco Status : Never Implant/Device Type, Exercise Science Internship and Model : none Saloni Gomez Rn [...] Obtained From : Patient Primary Language : Hebrew Preferred Communication Mode : Verbal Communication Barrier [...] Scale Risk Level : 0-24 Low Risk [place] Fall Interventions : Adequate lighting, Bed in [...] rendition version of the form. Anil Coma [place] Best Motor Response : Obey commands Anil Best Verbal Response : Oriented [place] Eye Opening Response : Spontaneous Anil Coma Score : 15 Saloni Gomez Rn - 10/14/2018 9:15 EST documented in this encounter Plan of Treatment Not on file documented as of this encounter Visit Diagnoses Not on filedocumented in this encounter
--- OUTSIDE RECORDS SUMMARY | 2025-08-05 11:47 | XMS_ITS | Encounter Summary ---
Author Organization [employer] ([place], [place], [place], [place], [place]) Address [address] [place] [address] Care Team Providers Care Relief Captain Name Role Phone Unavailable Primary Care Provider Unavailguy e Encounter Details Date Type Department Care Team (Late st Contact Info) Description 10/14/2018 Transcribed Document [facility] [place] [address] [place] [address] ProviderJessica MD [address] [place] [address] Social History Tobacco Use Types [...] - Jessica ProviderMD - 10/14/2018 10:36 AM PROFESSIONAL SKATEBOARDER Janet Main OR PreOp Summary Primary Physician: AMANDA KERN MD-OPT Finalized Date/Time: 10/15/18 08:42:28 Pt. Name: EVANGELINA DANIEL D.O.B./Sex: 1945 Female Med Rec #: [id number] Physician: AMANDA KERN MD-OPT Financial #: [id number] Pt. Type: O Room/Bed: Admit/Disch: 10/14/18 07:59:00 - 10/14/18 11:20:00 [place] [facility] [place] Case Times Entry 1 In Preop 10/14/18 08:10:00 Ready for Holding n/a Room Patient Ready for 10/14/18 09:48:00 Surgery Patient Out of Preop 10/14/18 10:20:00 Patient Out of n/a Holding Room Last Modified By: GERSON ALVAREZ 10/15/18 08:42:28 SJJanet PreOp Case Times Audit 10/15/18 08:42:28 Group Exercise Instructor: [id number] Modifier: [email or web address] <+> 1 Patient Out of Preop Finalized By: GERSON ALVAREZ Document Signatures Signed By: GERSON ALVAREZ 10/15/18 08:42 Electronically signed by Song [facility] Conversion School Child Care Attendant Cerner at 12/19/2022 9:37 PM CDT documented in this encounter Plan of Treatment Not on file documented as of this encounter Visit Diagnoses Not on filedocumented in this encounter
--- OUTSIDE RECORDS SUMMARY | 2025-08-05 11:47 | XMS_ITS | Encounter Summary ---
Author Organization [employer] ([place], [place], [place], [place], [place]) Address [address] [place] [address] Care Team Providers Care Taproom Attendant Name Role Phone Unavailable Primary Care Provider Unavailguy e Encounter Details Date Type Department Care Team (Late st Contact Info) Description 09/30/2018 Transcribed Document [facility] [place] Family Medicine [address] [place] [address] ProviderJessica MD [address] [place] [address] Social History Tobacco Use Types [...] - Jessica ProviderMD - 09/30/2018 12:43 PM REFINERY OPERATOR REFORMING UNIT ESTIVEN Main OR PostOp Summary Primary Physician: AMANDA KERN MD-OPT Finalized Date/Time: 09/30/18 13:45:31 Pt. Name: EVANGELINA DANIELO.B./Sex: 1945 Female Med Rec #: [id number] Physician: AMANDA KERN MD-OPT Financial #: [id number] Pt. Type: O Room/Bed: Admit/Disch: 09/30/18 08:14:00 - Institution: [facility] [place] PostOp Case Times Entry 1 In PACU II 09/30/18 13:00:00 Ready for PACU II 09/30/18 13:45:00 Discharge Discharge from PACU 09/30/18 13:45:00 II Last Modified By: Marcelle Kaba Rn 09/30/18 13:45:30 SJJanet Main OR PostOp Case Times Audit 09/30/18 13:45:30 Investment Director: DAMIÁNAYANNA Modifier: DAMIÁNAYANNA <+> 1 Ready for PACU II Discharge <+> 1 Discharge from PACU II Finalized By: Marcelle Kaba, Rn Document Signatures Signed By: Marcelle Kaba Rn 09/30/18 13:45 Electronically signed by Song [facility] Conversion Composition Weatherboard Applier Cerner at 12/19/2022 9:36 PM CDT documented in this encounter Plan of Treatment Not on file documented as of this encounter Visit Diagnoses Not on filedocumented in this encounter
--- OUTSIDE RECORDS SUMMARY | 2025-08-05 11:47 | XMS_ITS | Encounter Summary ---
Author Organization [employer] ([place], [place], [place], [place], [place]) Address [address] [place] [address] Care Team Providers Care Exhaust And Muffler Fitter Name Role Phone Unavailable Primary Care Provider Unavailguy e Encounter Details Date Type Department Care Team (Late st Contact Info) Description 10/14/2018 Transcribed Document [facility] [place] [facility] [place] [address] ProviderJessica MD [address] [place] [address] Social History Tobacco Use Types [...] - Jessica ProviderMD - 10/14/2018 10:36 AM TECHNICIAN SUPPORT ENGINEER [facility] Main OR IntraOp Summary Primary Physician: AMANDA KERN MD-OPT Finalized Date/Time: 10/14/18 10:52:37 Pt. Name: MADISYNBHARATHIREILLY MCCARTNEY /Sex: 1945 Female Med Rec #: [id number] Physician: AMANDA KERN MD-OPT Financial #: [id number] Pt. Type: O Room/Bed: Admit/Disch: 10/14/18 07:59:00 - Institution: [facility] [place] IntraOp Case Attendance Entry 1 Entry 2 Entry 3 Case Attendee AMANDA KERN MD-OPT AMEE LAM RN Cutwright, Shawsta, RN Role Performed Surgeon/Proceduralist, Cattle Driver, First Monitor RN First Time In 10/14/18 [...] 10:52:34 Entry 4 Case Attendee Cherise Bradley, Weaving Machine Operator Cert Role Performed Scrub, First Time In 10/14/18 10:22:00 Time Out 10/14/18 10:52:00 Procedure Cataract Extraction w Intraocular Lens I Other Attendee Superficial Wound Closed By: Last Modified By: AMEE LAM RN 10/14/18 10:52:34 [facility] IntraOp Case Attendance Audit 10/14/18 10:52:34 Personal Development Educator: [email or web address] Modifier: [email or web address] 1 <+> Time Out [...] S[facility] IntraOp Case Times Audit 10/14/18 10:52:26 Personal Development Educator: [email or web address] Modifier: [email or web address] <+> 1 Out Room Time <+> 1 Stop Time 10/14/18 10:49:34 Personal Development Educator: [email or web address] Modifier: [email or web address] <+> 1 Stop Time [facility] IntraOp Communication Entry 1 Communication To Family/Significant other Comment COMMUNICATION BOARD Last Modified By: AMEE LAM RN 10/14/18 10:40:04 [facility] IntraOp Counts Verification Entry 1 Procedure Cataract Extraction w Intraocular Lens I Count Info Count Type Sharps Counts Verification Baseline/pre-procedure Sequence Counts Performed By Count Performed By Cherise Bradley, Surgical (Scrub) Agricultural Services Director Cert Count Performed By AMEE LAM RN (RN) Last Modified By: AMEE LAM RN 10/14/18 10:40:19 [facility] IntraOp Counts Final Entry 1 Procedure Cataract Extraction w Intraocular Lens I Final Count Info Count Type Sharps Counts Verification Skin Closure/end of Sequence procedure Count Results Correct, surgeon notified Counts Performed By Count Performed By Cherise Bradley, Surgical (Scrub) Agricultural Services Director Cert Count Performed By AMEE LAM RN [...] RN 10/14/18 10:40:37 S[facility] IntraOp General Case Concrete Block Maker 1 Case Information OR OR 09 SJE [...] Implant IOL ACRYSOF MELODY 6.0 13 Identification [id number] Description Implant Quantity 1 Implant Site OS Implant [id number] Identification Serial Number Implant Philippe Lab:Surg Identification Ordnance Technician Name: Implant [id number] Identification Catalog Number Implant [...] tetracaine hcl 0.5% 2ml BSS 15ml - [id number] - [id number] ophthalmic solution - [id number] Combo Med List 1 - Combo Med Time Administered Route of INTRAOCCULAR TOPICAL topical Administration Dose Dose 0.3 Unit of Measure ml drops drops Volume QS QS QS Administered By AMANDA KERN MD-OPT AMANDA KERN MD-OPT Cherise Bradley, Weaving Machine Operator Cert Procedure Irrigation Irrigant Volume In Irrigant Volume Out Last Modified By: AMEE LAM RN MITCHUSON, RHONDA, RN MITCHUSON, RHONDA, RN 10/14/18 10:42:56 10/14/18 10:42:56 10/14/18 10:42:56 Entry 4 Entry 5 Entry 6 Medication/Irrigant Duovisc ophthalmic BSS Plain 500ml - difluprednate 0.4ml - [id number] ophthalmic 0.05% drops Combo Med List 1 [...] 7 Medication/Irrigant Vigamox 0.5% ophthalmic solution - [id number] Combo Med List Time Administered Route of INTRAOCCULAR Administration Dose Dose Unit of Measure Volume QS Administered By AMANDA KERN MD-OPT Procedure Irrigation Irrigant Volume In Irrigant Volume Out Last Modified By: AMEE LAM RN 10/14/18 10:42:57 General Comments: LIDOCAINE 1% INTRAOCULAR OS PER DR CONCHA JEAN-BAPTISTE IntraOp Medication Admin Audit 10/14/18 10:42:57 Personal Development Educator: [email or web address] Modifier: [email or web address] 5 <*> Volume 5 [...] <*> Medication/Irrigant Vigamox 0.5% ophthalmic solution - [id number] 7 <*> Medication/Irrigant Vigamox 0.5% ophthalmic solution - [id number] 7 <*> Route of Administration 7 <*> [...] Intra Op Sign Out Audit 10/14/18 10:52:30 Personal Development Educator: [email or web address] Modifier: [email or web address] <+> 1 RN Sign [...] [facility] IntraOp Skin Prep Audit 10/14/18 10:42:12 Personal Development Educator: [email or web address] Modifier: [email or web address] <+> 1 Methods <+> [...] S[facility] IntraOp Surgical Procedures Audit 10/14/18 10:49:40 Personal Development Educator: PLACIDO Modifier: [email or web address] 1 <*> Procedure Cataract [...] Signed By: AMEE LAM RN 10/14/18 10:52 Electronically signed by Song [facility] Conversion Kiln Door Builder Cerner at 12/19/2022 9:38 PM CDT documented in this encounter Plan of Treatment Not on file documented as of this encounter Visit Diagnoses Not on filedocumented in this encounter
--- OUTSIDE RECORDS SUMMARY | 2025-08-05 11:47 | XMS_ITS | Encounter Summary ---
Author Organization [employer] ([place], [place], [place], [place], [place]) Address [address] [place] [address] Care Team Providers Care Cattle Alley Worker Name Role Phone Unavailable Primary Care Provider Unavailguy e Encounter Details Date Type Department Care Team (Late st Contact Info) Description 09/30/2018 Transcribed Document [facility] [place] [address] [place] [address] ProviderJessica MD [address] [place] [address] Social History Tobacco Use Types [...] - Historical ProviderMD - 09/30/2018 9:11 AM SNUFF GRINDER AND SCREENER Pediatric Growth Entered On: 09/30/2018 9:12 EST Performed On: 09/30/2018 9:11 EST by Amie Peña Patient Horse Rancher Height and Weight, Clinical Dosing Weight Source : Standing scale Weight Entry Format : [place] Clinical Dosing Weight : 100 kg Weight, Pounds : 220 lb Amie Peña Patient Horse Rancher - 09/30/2018 9:11 EST Electronically signed by Song [facility] Conversion Practical Nurse Claribel at 12/19/2022 9:44 PM CDT documented in this encounter Plan of Treatment Not on file documented as of this encounter Visit Diagnoses Not on filedocumented in this encounter
--- OUTSIDE RECORDS SUMMARY | 2025-08-05 11:47 | XMS_ITS | Encounter Summary ---
Author Organization [employer] ([place], [place], [place], [place], [place]) Address [address] [place] [address] Care Team Providers Care Marketing Communications Specialist Name Role Phone Unavailable Primary Care Provider Unavailguy e Encounter Details Date Type Department Care Team (Late st Contact Info) Description 10/14/2018 Transcribed Document [facility] [place] Medicine [address] [place] [address] ProviderJessica MD [address] [place] [address] Social History Tobacco Use Types [...] - Historical ProviderMD - 10/14/2018 8:43 AM LEAD SHIPPER Pediatric Growth Entered On: 10/14/2018 8:43 EST Performed On: 10/14/2018 8:43 EST by Phyllis Zarate Furnace Utility OperatorHealth Unit Coord Height and Weight, Clinical Dosing Weight Source : Standing scale Weight Entry Format : [place] Clinical Dosing Weight : 100.45 kg Weight, Pounds : 221 lb Phyllis Zarate Furnace Utility Operator-Health Unit Coord - 10/14/2018 8:43 EST documented in this encounter Plan of Treatment Not on file documented as of this encounter Visit Diagnoses Not on filedocumented in this encounter
--- OUTSIDE RECORDS SUMMARY | 2025-08-05 11:47 | XMS_ITS | Encounter Summary ---
Author Organization [employer] ([place], [place], [place], [place], [place]) Address [address] [place] [address] Care Team Providers Care Fisher Eel Name Role Phone Unavailable Primary Care Provider Unavailguy e Encounter Details Date Type Department Care Team (Late st Contact Info) Description 09/30/2018 Transcribed Document [facility] [place] [address] [place] [address] ProviderJessica MD [address] [place] [address] Social History Tobacco Use Types [...] - Jessica ProviderMD - 09/30/2018 12:43 PM DISC PAD GRINDER ESTIVEN Main OR PreOp Summary Primary Physician: AMANDA KERN MD-OPT Finalized Date/Time: 09/30/18 13:33:49 Pt. Name: EVANGELINA DANIELO.B./Sex: 1945 Female Med Rec #: [id number] Physician: AMANDA KERN MD-OPT Financial #: [id number] Pt. Type: O Room/Bed: Admit/Disch: 09/30/18 08:14:00 - [place]: [facility] [place] PreOp Case Times Entry 1 In Preop 09/30/18 08:25:00 Ready for Holding n/a Room Patient Ready for 09/30/18 11:08:00 Surgery Patient Out of Preop 09/30/18 12:27:00 Patient Out of n/a Holding Room Last Modified By: GERSON ALVAREZ 09/30/18 13:33:45 SJE PreOp Case Times Audit 09/30/18 13:33:45 Weather Stripper: [email or web address] Modifier: [email or web address] <+> 1 Patient Out of Preop 09/30/18 11:08:02 Weather Stripper: [email or web address] Modifier: [email or web address] <+> 1 Patient Ready for Surgery Finalized By: GERSON ALVAREZ Document Signatures Signed By: GERSON ALVAREZ 09/30/18 13:33 Electronically signed by Song [facility] Conversion Reverberatory Furnace Operator Cerner at 12/19/2022 9:38 PM CDT documented in this encounter Plan of Treatment Not on file documented as of this encounter Visit Diagnoses Not on filedocumented in this encounter
--- OUTSIDE RECORDS SUMMARY | 2025-08-05 11:47 | XMS_ITS | Encounter Summary ---
Author Organization [employer] ([place], [place], [place], [place], [place]) Address [address] [place] [address] Care Team Providers Care Sole Conforming Machine Operator Name Role Phone Unavailable Primary Care Provider Unavailguy e Encounter Details Date Type Department Care Team (Late st Contact Info) Description 09/30/2018 Transcribed Document [facility] [place] [address] [place] [address] ProviderJessica MD [address] [place] [address] Social History Tobacco Use Types [...] - Historical ProviderMD - 09/30/2018 9:34 AM BATCH HEAT TREAT OPERATOR Height and Weight, Clinical Dosing Entered On: 09/30/2018 9:35 EST Performed On: 09/30/2018 9:34 EST by Frances Ken Rn Height and Weight, Clinical Dosing Height Source : Stated Height Entry Format : [place] Height, Feet : 5 ft(Converted to: 152 cm, 60 Inch) Height, Inches : 3.5 Inch(Converted to: 0 ft 4 Inch, 8.89 cm) Clinical Height : 161.29 cm Weight Source : Standing scale Weight Entry Format : [place] Clinical Dosing Weight : 100 kg Weight, Pounds : 220 lb Body Surface Area (BSA) : 2.03 m2 Body Mass Index : 38.4 kg/m2 (HI) [place] Body Weight : 53 kg Frances Ken Rn - 09/30/2018 9:34 EST documented in this encounter Plan of Treatment Not on file documented as of this encounter Visit Diagnoses Not on filedocumented in this encounter
--- OUTSIDE RECORDS SUMMARY | 2025-08-05 11:47 | XMS_ITS | Referral Summary ---
Author Organization [employer] ([place], [place], [place], [place], [place]) Address [address] [place] [address] Care Team Providers Care Single Resource Boss Name Role Phone Unavailable Primary Care Provider [...]
--- OUTSIDE RECORDS SUMMARY | 2025-08-05 11:47 | XMS_ITS | Clinical Summary ---
Author Organization [facility] Address [address] [place] [address] Care Team Providers Care Relations Manager Name Role Phone Tayla Kelley Primary Care Provider [phone] Allergies No known active allergies Medications lisinopril [...] oz pur e alcohol) one a month [facility] Utilities Answer Date Recorded In the past 12 months has [employer], gas, oil, or water [employer] threatened to shut off services in your [...] and heating? Not hard at all 05/18/2024 [facility] [place] of Occupat ional Health - Occupational Stress [...] GED or equivalent No 05/18/2024 Preferred Language Welsh 05/18/2024 PHQ-2 Answer Date Recorded Retired PHQ-9: [...] - 5.60 % 05/17/2024 11:12 AM EDT [facility] Blood Venipuncture / Unknown 05/17/2024 10:45 AM EDT 05/17/2024 10:58 AM EDT Narrative [facility] - 05/17/2024 11:12 AM EDT Hemoglobin A1C Ranges: Increased Risk for Diabetes 5.7% to 6.4% Diabetes >= 6.5% Diabetic Goal < 7.0% us Micki Ghosh APRN LAB BLOOD ORDERABLE S Final Result [facility]
[address] [place] [address], from Last 3 Months or Most Recently [...] Of Support Discussed With: Patient Care Teams Relations Manager Relationship Specialty Start Date End Date Tayla Kelley [address] [place] [address] PCP - General Nurse Practitioner 07/05/23
--- OUTSIDE RECORDS SUMMARY | 2025-08-05 11:47 | XMS_ITS | Encounter Summary ---
Author Organization [employer] ([place], [place], [place], [place], [place]) Address [address] [place] [address] Care Team Providers Care Pipe Washer Name Role Phone Unavailable Primary Care Provider Luis e Encounter Details Date Type Department Care Team (Late st Contact Info) Description 10/14/2018 Transcribed Document [facility] [place] [facility] [place] [address] ProviderJessica MD [address] [place] [address] Social History Tobacco Use Types [...] - Historical ProviderMD - 10/14/2018 10:53 AM SKIDDER LEVER OPERATOR DATE OF PROCEDURE: 10/14/2018 PREOPERATIVE DIAGNOSIS(ES): [...] The nucleus was then emulsified in a [id number] fashion. Following nuclear removal, the cortex was [...]
--- OUTSIDE RECORDS SUMMARY | 2025-08-05 11:47 | XMS_ITS | Clinical Summary ---
Author Organization [employer] ([place], [place], [place], [place], [place]) Address [address] [place] [address] Care Team Providers Care Graphic Design Intern Name Role Phone Unavailable Primary Care Provider [...]
== END 2025-08-05 23:59 | disposition home or self-care (01) ==
LOC: RT 11:16
PROVIDERS: PCP Nurse Practitioner; Visit Provider Internal Medicine
DX: I08.3 Combined rheumatic disorders of mitral, aortic and tricuspid valves (principal); I11.9 Hypertensive heart disease without heart failure; I25.10 Atherosclerotic heart disease of native coronary artery without angina pectoris; I48.20 Chronic atrial fibrillation, unspecified; I63.9 Cerebral infarction, unspecified; G45.9 Transient cerebral ischemic attack, unspecified; E11.9 Type 2 diabetes mellitus without complications; E78.5 Hyperlipidemia, unspecified
CPT/HCPCS: 93306